=== PATIENT | female | born 1960 | race Caucasian/White ===

== ENCOUNTER 2020-01-17 06:06 | Inpatient (IN) ==
--- NOTE | 2020-01-17 06:40 | Emergency Department Note ---
Impression & Plan Pneumonia, Asthma exacerbation, Hypoxia ED Provider Note NAME: BRIDGETTE GARCIA AGE: 59 SEX: F : 1960 ARRIVES VIA: Ambulance INFORMANT: Patient, ED PROVIDER(S): Nicolas Rodriguez MD Chief Complaint: Shortness of breath HPI: Patient does present from home via ambulance due to concern for shortness of breath. Patient states she has had 3 to 4 days of symptoms. Progressively worse over the last 3 to 4 days. Patient states it is constant. The oxygen she received in the ambulance has made it better. Patient does not use oxygen and CPAP or BiPAP at home. More activity does make it worse. Patient has had chronic nonproductive cough since April. Patient has no history of asthma. Patient has been taking her albuterol inhaler at home but without much relief. Patient states that she does have a friend that lives with her who smokes but smokes outside of the home. The patient is a non-smoker never smoker. Patient does not present with fevers, chills, coronavirus contacts, coronavirus testing, or recent travel. The patient states that she does have salt in the diet. Denies any increase in lower extremity swelling or weight gain. Patient denies any history of DVT or PE. The patient denies any chest pains. Portably when EMS arrived the patient was satting in the 70s and was placed on oxygen. ROS: See HPI for pertinent positives and negatives. A total of 10 systems were reviewed and otherwise negative. Past medical history: See below Surgical history: See below Social history: See below Physical Exam: GENERAL: Mildly ill in appearance, mild distress, nonrebreather in place. Wearing glasses. EYE EXAM: Normal conjunctiva. PERRL, no anisocoria and EOM's grossly intact w/o pain. OROPHARYNX: Moist mucus membranes. Poor dentition. NECK: Supple, no nuchal rigidity, no adenopathy, non-tender. No signs of meningismus. LUNGS: Wheezing throughout, mild tachypnea noted. HEART: NSR, no MRG. ABDOMEN: Abdomen soft, non-tender, normo-active bowel sounds, no masses, no rebound or guarding. BACK: No CVA TTP. SKIN: No rashes and no bruising. UPPER EXTREMITIES: Upper extremities are grossly normal. LOWER EXTREMITIES: Grossly normal, trace pretibial edema bilaterally. Negative Homans sign bilaterally. NEURO EXAM: A&O x3, cranial nerves II-XII grossly intact, normal speech, moves all 4 extremities on command w/o issue. Differential diagnoses: Reactive airway disease, pneumonia, pneumothorax, COPD, CHF, infections, cardiac ischemia, pulmonary embolism, musculoskeletal, gas trointestinal, as well as other pathologies. Course: Patient was seen and evaluated the bedside. Full history physical exam was performed. EKG: Indication: Shortness of breath Sinus tachycardia, rate 106, wide QRS, left bundle branch block pattern, T wave inversion high lateral leads, no Sgarbossa criteria present. Fairly unchanged from August 05, 2019. The rate is slightly faster today and PVCs were noted on the August EKG which were not present today. Imaging Studies: Radiology results as stated below per my review in the radiologist's interpretation: XR chest 1V portable CLINICAL HISTORY: 59 years-old Female presenting with Dyspnea. TECHNIQUE: Portable upright AP view of the chest was obtained. COMPARISON: 08/05/2019. FINDINGS: Cardiopericardial silhouette moderately enlarged. Mild pulmonary vascular prominence. Vague opacity at the right lung base. No other focal opacity. No large effusion or pneumothorax. Osseous structures normal. Upper abdomen normal. IMPRESSION: 1. Vague infiltrate suspected at the right lung base concerning for pneumonia. 2. Enlarged cardiopericardial silhouette consistent with known underlying cardiomegaly seen on prior CTA chest from August 2019. Mild volume overload may be present. No advanced congestive change. ACT 112: Negative or not required by law. Electronically signed by: Garfield Wang M.D. 01/17/2020 7:09 AM Dictated: 01/17/20 0708 Transcribed: 01/17/20 0708 Cardiac monitoring: An order was placed for continuous cardiac monitoring. The monitor shows a rate of 95 with sinus rhythm. MDM: Does present with shortness of breath. The patient did have blood work completed. Currently no fever the patient has had a chronic nonproductive cough for many months. No coronavirus contacts or active testing. Patient's EKG appears fairly unchanged from prior. I did reassess the patient several times that she was getting her neb treatment. Respiratory also thought that she was doing well. Patient was able to give me a thumbs up from her room on her neb treatment. The patient appears more comfortable. Patient does have a normal white count. No left shift. Kidney function is unremarkable. Tropon in is detectable but not elevated. BNP is not elevated. Chest x-ray shows the concern for possible right lung base pneumonia. The patient also has evidence of persistent cardiomegaly. I believe the patient has had symptomatic improvement with her breathing treatment. I believe the patient likely has an underlying asthma and potentially concomitant pneumonia. The patient has a chronic cough for some time although it is nonproductive with a normal white count no fever. I did speak the on-call hospitalist Rod Capone MD [facility] hospitalist group who agreed to further evaluate and treat the patient. Patient was admitted to the medicine service. Of note antibiotics were deferred to the inpatient team in order to conserve PPE and ensure only one set of orders were placed at the time of admission. Critical Care: I have personally spent 52 minutes of critical care time in direct management of this patient. This includes bedside care, interpretation of diagnostic studies, and testing, discussion with consultants, patient, and family members, and other require inpatient management activities. This 52 minutes is in excess of all separately billable procedures. Past Med/Surg History Medical History Bronchitis (Inactive) Cardiomegaly Cholelithiasis Noted on CT scan 08/06/2019 HTN (hypertension) (Chronic) Left thyroid nodule Incidental finding on CT 08/06/2019: 1.2 centimeter left thyroid nodule 1.8 cm hypoechoic left lobe thyroid nodule -ultrasound 08/12/2019 No chronic diseases present Surgical History S/P appendectomy Social History Preferred Language: Estonian Communication Ability: Effective Visual Impairment: No Limitations Hearing Ability: Normal Beliefs That Will Affect Care: None marital status: / Current Living Situation: Family current occupational status: unemployed current occupation: homemaker Feels Safe at Home: Yes Smoking Status: Never smoker Hx Alcohol Use: No Hx Substance Use: No Childhood Exposure to Second-Hand Smoke: No Diet Comment: regular caffeine: Yes (1 cup) during the past year weight has: remained stable Dental Care, Regularly: No Physical Activity Frequency: Daily Physical Activity Frequency Comment: walking Seatbelt Use: never Sunscreen Use: No Allergies Allergies Allergy/AdvReac Type Severity Reaction Status Date / Time No Known Drug Allergies Allergy Unknown Verified 01/17/20 06:37 Home Meds Home Medications Medication Instructions Recorded Confirmed ibuprofen [Advil] 400 - 600 mg PO DIRECTED PRN 04/30/19 01/17/20 Previous Rx's Medication Instructions Recorded fluticasone propionate 50 1 spray INTNAS DAILY #9.9 gm 11/26/19 mcg/actuation nasal spray,suspension pantoprazole 40 mg tablet,delayed 40 mg PO DAILY #30 tab 11/26/19 release albuterol sulfate 90 mcg/actuation 2 puffs INH Q4H PRN #6.7 gm 12/03/19 aerosol inhaler fluticasone 100 mcg-salmeterol 50 1 puffs INH BID #60 ea 01/15/20 mcg/dose blistr powdr for inhalation losartan 50 mg tablet 50 mg PO BID #180 tab 01/16/20 Results & Data (ED) Vital Signs Vital Signs - 24 hr 01/17/20 06:14 01/17/20 06:15 01/17/20 06:19 Temperature Temperature Source Pulse Rate 118 H 115 H 101 H Pulse Rate [Right Finger] Pulse Rate from SpO2 Sensor 118 H 114 H Pulse Rhythm Pulse Strength Respiratory Rate 21 19 Respiratory Effort / Characteristics Labored Respiratory Depth Respiratory Pattern Regular Blood Pressure 196/119 H 196/119 H Blood Pressure [Right Arm] Blood Pressure Mean 134 144 Blood Pressure Mean [Right Arm] Blood Pressure Position Pulse Oximetry 98 98 99 Oxygen Delivery Method Non-rebreather Oxygen Flow Rate Sepsis Recent Fever Within 48 Hours No Sepsis New/Unexplained Change in Mental Status Sepsis Action Taken by Nursing No Action Required 01/17/20 06:20 01/17/20 06:24 01/17/20 06:30 Temperature 36.5 C Temperature Source Oral Pulse Rate 104 H 103 H Pulse Rate [Right Finger] Pulse Rate from SpO2 Sensor 100 H Pulse Rhythm Regular Pulse Strength Normal Respiratory Rate 26 H 30 H Respiratory Effort / Characteristics Respiratory Depth Normal Respiratory Pattern Blood Pressure 196/119 H Blood Pressure [Right Arm] Blood Pressure Mean 144 Blood Pressure Mean [Right Arm] Blood Pressure Position Sitting Pulse Oximetry 99 99 100 Oxygen Delivery Method Non-rebreather Non-rebreather Oxygen Flow Rate 15 15 Sepsis Recent Fever Within 48 Hours No Sepsis New/Unexplained Change in Mental Status No Sepsis Action Taken by Nursing No Action Required 01/17/20 06:42 01/17/20 07:00 01/17/20 07:11 Temperature Temperature Source Pulse Rate 88 95 H Pulse Rate [Right Finger] 101 H 88 Pulse Rate from SpO2 Sensor 89 92 H Pulse Rhythm Pulse Strength Respiratory Rate 25 H 23 22 Respiratory Effort / Characteristics Non-Labored Spontaneous Respiratory Depth Normal Respiratory Pattern Blood Pressure 134/101 H Blood Pressure [Right Arm] 134/101 H Blood Pressure Mean 114 Blood Pressure Mean [Right Arm] 112 Blood Pressure Position Pulse Oximetry 99 99 98 Oxygen Delivery Method Non-rebreather Nebulizer Non-rebreather Oxygen Flow Rate 15 12 11 Sepsis Recent Fever Within 48 Hours Sepsis New/Unexplained Change in Mental Status Sepsis Action Taken by Nursing 01/17/20 07:30 01/17/20 07:51 01/17/20 08:00 Temperature Temperature Source Pulse Rate 98 H 96 H 91 H Pulse Rate [Right Finger] Pulse Rate from SpO2 Sensor 97 H 95 H 94 H Pulse Rhythm Pulse Strength Respiratory Rate 20 25 H 25 H Respiratory Effort / Characteristics Respiratory Depth Respiratory Pattern Blood Pressure 164/90 H 149/86 H Blood Pressure [Right Arm] Blood Pressure Mean 114 119 Blood Pressure Mean [Right Arm] Blood Pressure Position Pulse Oximetry 99 100 100 Oxygen Delivery Method Oxygen Flow Rate Sepsis Recent Fever Within 48 Hours Sepsis New/Unexplained Change in Mental Status Sepsis Action Taken by Nursing 01/17/20 08:01 01/17/20 08:30 01/17/20 08:31 Temperature Temperature Source Pulse Rate 93 H 111 H 104 H Pulse Rate [Right Finger] Pulse Rate from SpO2 Sensor 93 H 112 H 105 H Pulse Rhythm Pulse Strength Respiratory Rate 24 31 H 22 Respiratory Effort / Characteristics Respiratory Depth Respiratory Pattern Blood Pressure 142/79 H Blood Pressure [Right Arm] Blood Pressure Mean 103 Blood Pressure Mean [Right Arm] Blood Pressure Position Pulse Oximetry 100 99 100 Oxygen Delivery Method Aerosol Mask Oxygen Flow Rate 12 Sepsis Recent Fever Within 48 Hours Sepsis New/Unexplained Change in Mental Status Sepsis Action Taken by Nursing 01/17/20 09:00 01/17/20 09:01 Temperature Temperature Source Pulse Rate 104 H 103 H Pulse Rate [Right Finger] Pulse Rate from SpO2 Sensor 104 H 104 H Pulse Rhythm Pulse Strength Respiratory Rate 22 21 Respiratory Effort / Characteristics Respiratory Depth Respiratory Pattern Blood Pressure 137/76 Blood Pressure [Right Arm] Blood Pressure Mean 97 Blood Pressure Mean [Right Arm] Blood Pressure Position Pulse Oximetry 99 100 Oxygen Delivery Method Oxygen Flow Rate Sepsis Recent Fever Within 48 Hours Sepsis New/Unexplained Change in Mental Status Sepsis Action Taken by Custodial Medications Current Medication List: was personally reviewed by me Laboratory Data Attestation: I reviewed the patient's lab results. Result diagrams: 01/17/20 06:20 01/17/20 06:20 Lab Results 01/17/20 01/17/20 01/17/20 Range/Units 06:20 06:20 06:20 WBC 7.90 (4.8-10.8) K/uL RBC 5.14 (4.2-5.4) M/uL Hgb 15.5 (12.0-16.0) g/dL Hct 46.0 (37-47) % MCV 89.5 (80-100) fL MCH 30.2 (25-34) pg MCHC 33.7 (32-36) g/dL RDW Std Deviation 44.9 (36.4-46.3) fL RDW Coeff of Niesha 13.7 (11.5-14.5) % Plt Count 259 (130-400) K/uL MPV 11.1 H (7.4-10.4) fL Immature Gran % (Auto) 0.1 % Neut % (Auto) 50.2 % Lymph % (Auto) 23.8 % [place] % (Auto) 4.1 % Eos % (Auto) 20.4 % Baso % (Auto) 1.4 % Immature Gran # (Auto) 0.01 (0.00-0.02) K/uL Neut # (Auto) 3.97 (1.4-6.5) K/uL Lymph # (Auto) 1.88 (1.2-3.4) K/uL [place] # (Auto) 0.32 (0.11-0.59) K/uL Eos # (Auto) 1.61 H (0-0.5) K/uL Baso # (Auto) 0.11 (0-0.2) K/uL PT 11.5 (9.0-12.0) Seconds INR 1.1 (0.9-1.1) APTT 28.5 (21.0-31.0) Seconds PTT Ratio 1.0 VBG pH (7.36-7.41) VBG pCO2 (38-50) mmHg VBG pO2 mmHg VBG HCO3 mmol/L VBG O2 Saturation % VBG Base Excess mEq/L Barometric Pressure mm/Hg Sodium 140 (136-145) mmol/L Potassium 3.6 (3.5-5.1) mmol/L Chloride 106 (98-107) mmol/L Carbon Dioxide 26 (21-32) mmol/L Anion Gap 8.0 (3-11) BUN 16 (7-18) mg/dl Creatinine 0.83 (0.6-1.2) mg/dl Est Cr Clr Drug Dosing 84.6 ml/min Est GFR ( Amer) 90.7 Est GFR (Non-Af Amer) 78.3 BUN/Creatinine Ratio 18.7 (10-20) Glucose 135 H (70-99) mg/dl Lactate (0.4-2.0) mmol/L Calcium 9.2 (8.5-10.1) mg/dl Total Bilirubin 0.5 (0.2-1) mg/dl AST 19 (15-37) U/L ALT 29 (12-78) U/L Alkaline Phosphatase 103 (45-117) U/L Troponin I 0.018 (0-0.045) ng/ml NT-Pro-B Natriuret Pep 458 (0-900) pg/ml Total Protein 8.1 (6.4-8.2) gm/dl Albumin 4.2 (3.4-5.0) gm/dl Globulin 3.9 (2.5-4.0) gm/dl Albumin/Globulin Ratio 1.1 (0.9-2) 01/17/20 01/17/20 Range/Units 06:20 08:02 WBC (4.8-10.8) K/uL RBC (4.2-5.4) M/uL Hgb (12.0-16.0) g/dL Hct (37-47) % MCV (80-100) fL MCH (25-34) pg MCHC (32-36) g/dL RDW Std Deviation (36.4-46.3) fL RDW Coeff of Niesha (11.5-14.5) % Plt Count (130-400) K/uL MPV (7.4-10.4) fL Immature Gran % (Auto) % Neut % (Auto) % Lymph % (Auto) % [place] % (Auto) % Eos % (Auto) % Baso % (Auto) % Immature Gran # (Auto) (0.00-0.02) K/uL Neut # (Auto) (1.4-6.5) K/uL Lymph # (Auto) (1.2-3.4) K/uL [place] # (Auto) (0.11-0.59) K/uL Eos # (Auto) (0-0.5) K/uL Baso # (Auto) (0-0.2) K/uL PT (9.0-12.0) Seconds INR (0.9-1.1) APTT (21.0-31.0) Seconds PTT Ratio VBG pH 7.31 L (7.36-7.41) VBG pCO2 57 H (38-50) mmHg VBG pO2 42 mmHg VBG HCO3 28 mmol/L VBG O2 Saturation 70.6 % VBG Base Excess 0.5 mEq/L Barometric Pressure 734.3 mm/Hg Sodium (136-145) mmol/L Potassium (3.5-5.1) mmol/L Chloride (98-107) mmol/L Carbon Dioxide (21-32) mmol/L Anion Gap (3-11) BUN (7-18) mg/dl Creatinine (0.6-1.2) mg/dl Est Cr Clr Drug Dosing ml/min Est GFR ( Amer) Est GFR (Non-Af Amer) BUN/Creatinine Ratio (10-20) Glucose (70-99) mg/dl Lactate 1.0 (0.4-2.0) mmol/L Calcium (8.5-10.1) mg/dl Total Bilirubin (0.2-1) mg/dl AST (15-37) U/L ALT (12-78) U/L Alkaline Phosphatase (45-117) U/L Troponin I (0-0.045) ng/ml NT-Pro-B Natriuret Pep (0-900) pg/ml Total Protein (6.4-8.2) gm/dl Albumin (3.4-5.0) gm/dl Globulin (2.5-4.0) gm/dl Albumin/Globulin Ratio (0.9-2) Administered Medications Discontinued Medications Albuterol (Duoneb) 12 ml INH ONE STA Stop: 01/17/20 06:51 Last Admin: 01/17/20 07:09 Dose: 12 ml Documented by: [id number] Sodium Chloride (Nss) 500 mls @ 999 mls/hr IV .Q31M ERICKA Stop: 01/17/20 07:30 Last Infusion: 01/17/20 08:00 Dose: 0 mls/hr Documented by: [id number] Admin: 01/17/20 07:25 Dose: 999 mls/hr Documented by: [id number] Magnesium Sulfate/Dextrose (Magnesium Sulfate / D5w) 1 gm in 100 mls @ 100 mls/hr IV Q1H ERICKA Stop: 01/17/20 08:59 Last Admin: 01/17/20 08:30 Dose: 100 mls/hr Documented by: [id number] Infusion: 01/17/20 08:30 Dose: 0 mls/hr Documented by: [id number] Admin: 01/17/20 07:25 Dose: 100 mls/hr Documented by: [id number] Methylprednisolone (Solumedrol) 125 mg IV NOW STA Stop: 01/17/20 06:51 Last Admin: 01/17/20 07:25 Dose: 125 mg Documented by: [id number] Blood Pressure Blood Pressure Findings: Elevated blood pressure Blood Pressure Disposition: further management by hospitalist Discharge Plan Visit Data Chief Complaint: Respiratory Distress Stated Complaint: RESPIRATORY DISTRESS ED Provider: Nicolas Rodriguez Discharge Problem: Pneumonia, Asthma exacerbation, Hypoxia Forms Stand Alone Forms: [facility] Prescriptions Prescriptions: No Action albuterol sulfate 90 mcg/actuation HFA aerosol inhaler 2 puffs INH Q4H PRN (Reason: shortness of breath or wheezing) Qty: 6.7 RF: 3 fluticasone propion-salmeterol 100-50 mcg/dose blister with device 1 puffs INH BID Qty: 60 RF: 1 losartan 50 mg tablet 50 mg PO BID Qty: 180 RF: 1 pantoprazole 40 mg tablet,delayed release (DR/EC) 40 mg PO DAILY Qty: 30 RF: 1 fluticasone propionate [Allergy Relief (fluticasone)] 50 mcg/actuation spray,suspension 1 spray INTNAS DAILY Qty: 9.9 RF: 1 ibuprofen [Advil] 200 mg Tablet 400 - 600 mg PO DIRECTED PRN (Reason: Pain) RF: 0 Discharge Problem: Pneumonia Qualifiers: Pneumonia type: due to unspecified organism Laterality: right Lung location: lower lobe of lung Qualified Code(s): J18.9 - Pneumonia, unspecified organism Asthma exacerbation Qualifiers: Asthma severity: severe Asthma persistence: persistent Qualified Code(s): J45.51 - Severe persistent asthma with (acute) exacerbation
[2020-01-17] MEDS ORDERED: methylPREDNISolone 125 MG/2 ML VIAL IV STA (06:50)
[2020-01-17] MEDS ORDERED: ALBUT/IPRATROP 3MG/0.5MG NEB 3 ML VIAL INH STA (06:50)
[2020-01-17 07:00] LABS: Basophils # (auto) 0.11 K/uL (0-0.2); Basophils % (auto) 1.4 %; Eosinophils # (auto) 1.61 K/uL (0-0.5); Eosinophils % (auto) 20.4 %; Hemoglobin 15.5 g/dL (12.0-16.0); Immature Granulocytes # (auto) 0.01 K/uL (0.00-0.02); Immature Granulocytes % (auto) 0.1 %; Lymphocytes # (auto) 1.88 K/uL (1.2-3.4); Lymphocytes % (auto) 23.8 %; Mean Corpuscular Hemoglobin 30.2 pg (25-34); Mean Corpuscular Hgb Conc 33.7 g/dL (32-36); Mean Corpuscular Volume 89.5 fL (80-100); Mean Platelet Volume 11.1 fL (7.4-10.4); Monocytes # (auto) 0.32 K/uL (0.11-0.59); Monocytes % (auto) 4.1 %; Neutrophils # (auto) 3.97 K/uL (1.4-6.5); Neutrophils % (auto) 50.2 %; Platelet Count 259 K/uL (130-400); RDW Coefficient of Variation 13.7 % (11.5-14.5); RDW Standard Deviation 44.9 fL (36.4-46.3); Red Blood Count 5.14 M/uL (4.2-5.4)
[2020-01-17] MEDS ORDERED: SODIUM CHLORIDE 0.9% 500 ML IV SCH (07:00)
[2020-01-17 07:08] LABS: Albumin Level 4.2 gm/dl (3.4-5.0); BUN Creatinine Ratio 18.7 (10-20); Calcium 9.2 mg/dl (8.5-10.1); Creatinine Clr Calc Pharmacy 84.6 ml/min; Est GFR (African American) 90.7; Est GFR (Non-African American) 78.3; Potassium 3.6 mmol/L (3.5-5.1)
[2020-01-17 07:09] LABS: INR 1.1 (0.9-1.1); Partial Thromboplastin Time 28.5 Seconds (21.0-31.0); Prothrombin Time 11.5 Seconds (9.0-12.0)
--- NOTE | 2020-01-17 07:11 | XRay Report ---
XR chest 1V portable CLINICAL HISTORY: 59 years-old Female presenting with Dyspnea. TECHNIQUE: Portable upright AP view of the chest was obtained. COMPARISON: 08/05/2019. FINDINGS: Cardiopericardial silhouette moderately enlarged. Mild pulmonary vascular prominence. Vague opacity a t the right lung base. No other focal opacity. No large effusion or pneumothorax. Osseous structures normal. Upper abdomen normal. IMPRESSION: 1. Vague infiltrate suspected at the right lung base concerning for pneumonia. 2. Enlarged cardiopericardial silhouette consistent with known underlying cardiomegaly seen on prior CTA chest from August 2019. Mild volume overload may be present. No advanced congestive change. ACT 112: Negative or not required by law. Electronically signed by: Garfield Wang M.D. 01/17/2020 7:09 AM
[2020-01-17 07:13] LABS: Albumin Globulin Ratio 1.1 (0.9-2); Bilirubin,Total 0.5 mg/dl (0.2-1); Globulin 3.9 gm/dl (2.5-4.0); Total Protein 8.1 gm/dl (6.4-8.2); Troponin I 0.018 ng/ml (0-0.045)
[2020-01-17] MEDS: MAGNESIUM SULFATE / D5W 1 GM/100 ML BAG IV SCH ×2 (07:25→08:30)
[2020-01-17 08:12] LABS: Base Excess VBG 0.5 mEq/L; Oxygen Saturation VBG 70.6 %; pH VBG 7.31 (7.36-7.41)
--- NOTE | 2020-01-17 08:56 | History & Physical Report ---
Date of Service January 17, 2020 Assessment & Plan (1) Pneumonia: CXR with right lower lobe pneumonia increased cough, increased dyspnea no fever, WBC normal no known sick contacts, no COVID 19 contacts - no isolation needed Levofloxacin 750mg daily x 7 days Solu Medrol, Duoneb NSS at 100mL/hr x 1 bag follow up this afternoon to see how she is feeling (2) Asthma exacerbation: bilateral wheezing, increased cough typically on Fluticasone-salmeterol for asthma will place on Solu Medrol 50mg q12, received 125mg IV in the ED Duoneb QID scheduled and q2 PRN for wheezing (3) Hypoxia: acute hypoxic respiratory failure - presented with tachypnea, increased work of breathing, using accessory muscles oxygen saturations reported to be 70% on room air when EMS arrived continue on NRB but titrate down to NC as tolerated treat underlying issue which is pneumonia and asthma exacerbation (4) HTN (hypertension): continue Losartan, Cr is normal History of Present Illness Chief Complaint: I've been coughing since April Primary Care Provider: Fariha Guaman, DO 59 yo female with h/o reactive airway disease, bronchitis, hypertension who presents to the ED due to increased cough, wheezing and shortness of breath. She reports that she coughs all the time, better part of the past year. She uses Albuterol and fluticasone-salmeterol at home which keeps symptoms well controlled. She was scheduled to see a slot manager later this month. She says that early last evening she started to feel more short of breath than normal. She used her rescue inhaler several times but it did not help. Over night her breathing got worse so she called EMS. She was reportedly 70% on room air when EMS arrived, they placed her on 15L NRB and her oxygen levels immediately came up and her distress improved greatly. She denies any fever/chills, night sweats, no known sick contacts, no contacts with anyone who has tested positive for COVID 19. She stays in her home due to her cough and chronic breathing issues. She has been eating and drinking well up until this morning. She has been moving her bowels, making urine, she denies any swelling in her lower legs. She does not smoke. CXR in the ED shows a right lower lobe infiltrate. No fever, WBC normal. She responded well to Solu Medrol, Magnesium IV and Duoneb treatment. Far less distress, able to talk in complete sentences. Asked to admit patient for pneumonia and respiratory failure. Allergies Allergy/AdvReac Type Severity Reaction Status Date / Time No Known Drug Allergies Allergy Unknown Verified 01/17/20 06:37 Home Medications Home Medications Medication Instructions Recorded Confirmed Type ibuprofen [Advil] 400 - 600 mg PO DIRECTED PRN 04/30/19 01/17/20 History fluticasone propionate 50 1 spray INTNAS DAILY #9.9 gm 11/26/19 01/17/20 Rx mcg/actuation nasal spray,suspension pantoprazole 40 mg tablet,delayed 40 mg PO DAILY #30 tab 11/26/19 01/17/20 Rx release albuterol sulfate 90 mcg/actuation 2 puffs INH Q4H PRN #6.7 gm 12/03/19 01/17/20 Rx aerosol inhaler fluticasone 100 mcg-salmeterol 50 1 puffs INH BID #60 ea 01/15/20 01/17/20 Rx mcg/dose blistr powdr for inhalation losartan 50 mg tablet 50 mg PO BID #180 tab 01/16/20 01/17/20 Rx Past Med/Surg History Medical History Bronchitis (Inactive) Cardiomegaly Cholelithiasis Noted on CT scan 08/06/2019 HTN (hypertension) (Chronic) Left thyroid nodule Incidental finding on CT 08/06/2019: 1.2 centimeter left thyroid nodule 1.8 cm hypoechoic left lobe thyroid nodule -ultrasound 08/12/2019 No chronic diseases present Surgical History S/P appendectomy Social History Preferred Language: [place] Communication Ability: Effective Visual Impairment: No Limitations Hearing Ability: Normal Beliefs That Will Affect Care: None marital status: / Current Living Situation: Family current occupational status: unemployed current occupation: homemaker Feels Safe at Home: Yes Smoking Status: Never smoker Hx Alcohol Use: No Hx Substance Use: No Childhood Exposure to Second-Hand Smoke: No Diet Comment: regular caffeine: Yes (1 cup) during the past year weight has: remained stable Dental Care, Regularly: No Physical Activity Frequency: Daily Physical Activity Frequency Comment: walking Seatbelt Use: never Sunscreen Use: No Review of Systems Review of Systems: All systems reviewed & are unremarkable except as noted in HPI & below Constitutional: + weakness; no fever, no chills, no sweats, no body aches, no fatigue, no malaise, no weight loss and no weight gain Respiratory: + cough, + dyspnea, + dyspnea on exertion and + wheezing; no hemoptysis and no sputum production Cardiovascular: + dyspnea, + dyspnea at rest and + dyspnea on exertion; no chest pain, no palpitations, no syncope and no edema Gastrointestinal: no abdominal pain, no nausea, no vomiting, no constipation and no diarrhea/loose stools Genitourinary: no dysuria, no difficulty urinating, no urinary frequency and no urinary hesitancy Musculoskeletal: no back pain and no joint pain Integumentary: no rash and no wounds Neurologic: no unsteadiness, no falls, no tremor(s) and no seizure-like activity Psychiatric: no depression and no anxiety Physical Exam Constitutional: well developed, + ill appearing, cooperative, + in distress (mild) and + overweight Eyes: PERRL, conjunctivae normal, anicteric sclerae ENMT: external ear and nose normal, oropharynx normal Neck: trachea midline, no thyromegaly Respiratory: + respiratory distress (mild), + labored breathing, + uses accessory muscles, + cough and able to speak in complete sentences Auscultation: + rhonchi and + wheezes (bilaterally); no rales Cardiovascular: Rate/Rhythm: regular rhythm and + tachycardic Heart Sounds: normal S1 and normal S2; no murmur Vessels: no JVD Extremities: normal capillary refill; no edema Gastrointestinal (Abdomen): normal bowel sounds, soft, nontender, no hepatosplenomegaly Musculoskeletal: no cyanosis or clubbing, extremities motor strength 5/5 Skin: no rashes, warm and dry Neurologic: patellar DTR's 2+ bilat, sensation intact and PERRL, EOMI, accommodation nl, no face palsy, no dysarthria Psychiatric: A+Ox3, euthymic affect Lymphatic: no cervical or axillary lymphadenopathy Results & Data Results & Data ([facility]) Vital Signs (Past 12 Hours) Vital Signs Temp Pulse Pulse Resp BP BP Pulse Ox 01/17/20 08:01 93 H 24 100 01/17/20 08:00 91 H 25 H 149/86 H 100 01/17/20 07:51 96 H 25 H 164/90 H 100 01/17/20 07:30 98 H 20 99 01/17/20 07:11 88 22 98 01/17/20 07:00 95 H 23 99 01/17/20 06:42 88 101 H 25 H 134/101 H 134/101 H 99 01/17/20 06:30 103 H 30 H 100 01/17/20 06:24 99 01/17/20 06:20 36.5 C 104 H 26 H 196/119 H 99 01/17/20 06:19 101 H 196/119 H 99 01/17/20 06:15 115 H 19 196/119 H 98 01/17/20 06:14 118 H 21 98 Laboratory Results Laboratory Results - last 24 hr 01/17/20 01/17/20 01/17/20 06:20 06:20 06:20 WBC 7.90 RBC 5.14 Hgb 15.5 Hct 46.0 MCV 89.5 MCH 30.2 MCHC 33.7 RDW Std Deviation 44.9 RDW Coeff of Niesha 13.7 Plt Count 259 MPV 11.1 H Immature Gran % (Auto) 0.1 Neut % (Auto) 50.2 Lymph % (Auto) 23.8 Walker % (Auto) 4.1 Eos % (Auto) 20.4 Baso % (Auto) 1.4 Immature Gran # (Auto) 0.01 Neut # (Auto) 3.97 Lymph # (Auto) 1.88 Walker # (Auto) 0.32 Eos # (Auto) 1.61 H Baso # (Auto) 0.11 PT 11.5 INR 1.1 APTT 28.5 PTT Ratio 1.0 VBG pH VBG pCO2 VBG pO2 VBG HCO3 VBG O2 Saturation VBG Base Excess Barometric Pressure Sodium 140 Potassium 3.6 Chloride 106 Carbon Dioxide 26 Anion Gap 8.0 BUN 16 Creatinine 0.83 Est Cr Clr Drug Dosing 84.6 Est GFR ( Amer) 90.7 Est GFR (Non-Af Amer) 78.3 BUN/Creatinine Ratio 18.7 Glucose 135 H Lactate Calcium 9.2 Total Bilirubin 0.5 AST 19 ALT 29 Alkaline Phosphatase 103 Troponin I 0.018 NT-Pro-B Natriuret Pep 458 Total Protein 8.1 Albumin 4.2 Globulin 3.9 Albumin/Globulin Ratio 1.1 01/17/20 01/17/20 06:20 08:02 WBC RBC Hgb Hct MCV MCH MCHC RDW Std Deviation RDW Coeff of Niesha Plt Count MPV Immature Gran % (Auto) Neut % (Auto) Lymph % (Auto) Walker % (Auto) Eos % (Auto) Baso % (Auto) Immature Gran # (Auto) Neut # (Auto) Lymph # (Auto) Walker # (Auto) Eos # (Auto) Baso # (Auto) PT INR APTT PTT Ratio VBG pH 7.31 L VBG pCO2 57 H VBG pO2 42 VBG HCO3 28 VBG O2 Saturation 70.6 VBG Base Excess 0.5 Barometric Pressure 734.3 Sodium Potassium Chloride Carbon Dioxide Anion Gap BUN Creatinine Est Cr Clr Drug Dosing Est GFR ( Amer) Est GFR (Non-Af Amer) BUN/Creatinine Ratio Glucose Lactate 1.0 Calcium Total Bilirubin AST ALT Alkaline Phosphatase Troponin I NT-Pro-B Natriuret Pep Total Protein Albumin Globulin Albumin/Globulin Ratio Diagnostic Findings XR chest 1V portable CLINICAL HISTORY: 59 years-old Female presenting with Dyspnea. TECHNIQUE: Portable upright AP view of the chest was obtained. COMPARISON: 08/05/2019. FINDINGS: Cardiopericardial silhouette moderately enlarged. Mild pulmonary vascular prominence. Vague opacity at the right lung base. No other focal opacity. No large effusion or pneumothorax. Osseous structures normal. Upper abdomen normal. IMPRESSION: 1. Vague infiltrate suspected at the right lung base concerning for pneumonia. 2. Enlarged cardiopericardial silhouette consistent with known underlying cardiomegaly seen on prior CTA chest from August 2019. Mild volume overload may be present. No advanced congestive change. Medications Administered Current Inpatient Medications Magnesium Sulfate/Dextrose (Magnesium Sulfate / D5w) 1 gm in 100 mls @ 100 mls/hr IV Q1H ERICKA Stop: 01/17/20 08:59 Last Admin: 01/17/20 08:30 Dose: 100 mls/hr Documented by: Code Status & VTE Plan VTE Prophylaxis Plan VTE Prophylaxis will be ordered: Yes PG Care Time/CCT Total # of Minutes Spent Total Time Spent with Patient: Total time spent is greater than 50% in coordination of care (as documented) at patient's floor/unit and/or counseling patient: Coding Level of Care Code 99282 Initial Inpt Care Lvl 3 Diagnoses Pneumonia J18.9 Laterality: right Lung location: lower lobe of lung Pneumonia type: due to unspecified organism Asthma exacerbation J45.51 Asthma persistence: persistent Asthma severity: severe Hypoxia R09.02 HTN (hypertension) I10 Hypertension type: unspecified (1) Pneumonia Laterality: right Lung location: lower lobe of lung Pneumonia type: due to unspecified organism Qualified Code(s): J18.9 - Pneumonia, unspecified organism (2) Asthma exacerbation Asthma persistence: persistent Asthma severity: severe Qualified Code(s): J45.51 - Severe persistent asthma with (acute) exacerbation (3) HTN (hypertension) Hypertension type: unspecified Qualified Code(s): I10 - Essential (primary) hypertension
[2020-01-17] MEDS ORDERED: ONDANSETRON INJ 2 MG/ML 2 ML VIAL IV PRN (09:52)
[2020-01-17] MEDS ORDERED: ALBUT/IPRATROP 3MG/0.5MG NEB 3 ML VIAL NEB PRN (09:52)
[2020-01-17] MEDS ORDERED: ACETAMINOPHEN 325 MG TAB PO PRN (09:52)
[2020-01-17] MEDS: LEVOFLOXACIN/D5W 750 MG/150 ML BAG IV SCH (10:20)
[2020-01-17] MEDS: FLUTICASONE PROPIONATE NA SPR 16 GM BTL SCH (10:22)
[2020-01-17] MEDS: LOSARTAN POTASSIUM 50 MG TAB PO SCH ×2 (10:22→20:49)
[2020-01-17] MEDS: ENOXAPARIN INJ 40 MG/0.4 ML SYR SQ SCH (10:22)
[2020-01-17] MEDS: PANTOprazole 40 MG TAB PO SCH (10:22)
[2020-01-17] MEDS ORDERED: NSS + 20MEQ KCL 20 MEQ/1,000 ML BAG IV SCH (10:30)
--- NOTE | 2020-01-17 10:50 | Electrocardiogram Report ---
Test Reason : Blood Pressure : / mmHG Vent. Rate : 106 BPM Atrial Rate : 106 BPM P-R Int : 156 ms QRS Dur : 144 ms QT Int : 374 ms P-R-T Axes : 067 013 097 degrees QTc Int : 496 ms Poor data quality, interpretation may be adversely affected Sinus tachycardia Left bundle branch block Abnormal ECG When compared with ECG of 05-AUG-2019 21:03, Premature ventricular complexes are no longer Present Confirmed by Jimi Stringer ([id number]) on 01/17/2020 10:50:09 AM Referred By: REFERRED SELF Confirmed By:Henry Stringer
[2020-01-17] MEDS: ALBUT/IPRATROP 3MG/0.5MG NEB 3 ML VIAL NEB SCH ×3 (11:16→19:39)
[2020-01-17] MEDS: methylPREDNISolone 50 MG in SYRINGE 0 ML IV SCH (20:49)
[2020-01-17] MEDS ORDERED: PNEUMOCOCCAL Polysaccharide Vaccine 25mcg/0.5mL vial/Syr IM ONE (21:15)
[2020-01-18] MEDS: ALBUT/IPRATROP 3MG/0.5MG NEB 3 ML VIAL NEB SCH ×3 (06:59→14:46)
[2020-01-18] MEDS: FLUTICASONE PROPIONATE NA SPR 16 GM BTL SCH (08:17)
[2020-01-18] MEDS: LOSARTAN POTASSIUM 50 MG TAB PO SCH (08:17)
[2020-01-18] MEDS: ENOXAPARIN INJ 40 MG/0.4 ML SYR SQ SCH (08:56)
[2020-01-18] MEDS: methylPREDNISolone 50 MG in SYRINGE 0 ML IV SCH (08:59)
[2020-01-18] MEDS: PANTOprazole 40 MG TAB PO SCH (09:35)
[2020-01-18] MEDS: LEVOFLOXACIN/D5W 750 MG/150 ML BAG IV SCH (11:03)
[2020-01-18] MEDS ORDERED: predniSONE 20 MG TAB PO ONE (13:05)
--- NOTE | 2020-01-18 13:14 | Discharge Summary ---
Date of Service January 18, 2020 Admission HPI Per Admitting Provider 59 yo female with h/o reactive airway disease, bronchitis, hypertension who presents to the ED due to increased cough, wheezing and shortness of breath. She reports that she coughs all the time, better part of the past year. She uses Albuterol and fluticasone-salmeterol at home which keeps symptoms well controlled. She was scheduled to see a textile engineer later this month. She says that early last evening she started to feel more short of breath than normal. She used her rescue inhaler several times but it did not help. Over night her breathing got worse so she called EMS. She was reportedly 70% on room air when EMS arrived, they placed her on 15L NRB and her oxygen levels immediately came up and her distress improved greatly. She denies any fever/chills, night sweats, no known sick contacts, no contacts with anyone who has tested positive for COVID 19. She stays in her home due to her cough and chronic breathing issues. She has been eating and drinking well up until this morning. She has been moving her bowels, making urine, she denies any swelling in her lower legs. She does not smoke. CXR in the ED shows a right lower lobe infiltrate. No fever, WBC normal. She responded well to Solu Medrol, Magnesium IV and Duoneb treatment. Far less distress, able to talk in complete sentences. Asked to admit patient for pneumonia and respiratory failure. Principal Diagnosis Acute hypoxic respiratory failure due to pneumonia Discharge Exam Constitutional well developed and + overweight; not ill appearing and not in distress Eyes PERRL, conjunctivae normal, anicteric sclerae ENMT external ear and nose normal, oropharynx normal Neck trachea midline, no thyromegaly Respiratory normal respiratory effort, + cough and able to speak in complete sentences; no respiratory distress and does not use accessory muscles Auscultation: lungs clear to auscultation bilaterally; no rales, no rhonchi and no wheezes Cardiovascular Rate/Rhythm: regular rate and regular rhythm Heart Sounds: normal S1 and normal S2; no murmur Vessels: no JVD Extremities: normal capillary refill; no edema Gastrointestinal (Abdomen) normal bowel sounds, soft, nontender, no hepatosplenomegaly Musculoskeletal no cyanosis or clubbing, extremities motor strength 5/5 Skin no rashes, warm and dry Neurologic patellar DTR's 2+ bilat, sensation intact and PERRL, EOMI, accommodation nl, no face palsy, no dysarthria Psychiatric A+Ox3, euthymic affect Lymphatic no cervical or axillary lymphadenopathy Discharge Data Allergies Allergy/AdvReac Type Severity Reaction Status Date / Time No Known Drug Allergies Allergy Unknown Verified 01/17/20 06:37 Consultations 01/17/20 08:02 ED Decision to Admit Stat Hospital Course (1) Pneumonia: CXR with right lower lobe pneumonia increased cough, increased dyspnea no fever, WBC normal no known sick contacts, no COVID 19 contacts - no isolation needed Levofloxacin 750mg daily Solu Medrol, Duoneb NSS at 100mL/hr x 1 bag responded quickly to antibiotics, steroids, nebulizers, titrated to room air on 01/16 in the evening no longer in distress no fever, eating and drinking well, breathing comfortably, feels like she can go home d/c home on Levofloxacin 750mg daily x 5 more days for 7 day total course (2) Asthma exacerbation: bilateral wheezing, increased cough at time of admission typically on Fluticasone-salmeterol for asthma will place on Solu Medrol 50mg q12 Duoneb QID scheduled and q2 PRN for wheezing lungs are clear, no wheezing, no distress, minimal cough give a dose of Prednisone prior to discharge d/c on Prednisone taper, 40mg x 3 days, 20mg x 3 days, 10mg x 4 days script given for home nebulizer machine, will be delivered tomorrow morning script given for Duoneb at home, q4 PRN follow up with PCP (3) Hypoxia: acute hypoxic respiratory failure - presented with tachypnea, increased work of breathing, using accessory muscles oxygen saturations reported to be 70% on room air when EMS arrived at her home quickly titrated down from NRB to room air a few hours after admission remains on room air today no need for home oxygen, lungs clear, no distress (4) HTN (hypertension): continue Losartan, Cr is normal Total Time Total Time Spent Total Time Spent (In Minutes): 32 minutes Total Time Includes: Examination of the Patient, Discharge Planning and Medication Reconciliation Discharge Plan Discharge Items Patient Disposition: Home - Self-Care Reason For Visit: PNEUMONIA,ACUTE HYPOXIA Discharge Diagnosis: Pneumonia Asthma exacerbation Acute hypoxia Condition on Discharge: Good Goals: complete course of Prednisone complete course of antibiotics use home nebulizer for relief of wheezing Activity: Resume your previous activity Driving/Machine Use: Resume 3 days after discharge Weightbearing: Full weightbearing Non-emergency contact: Primary Care Provider Call non-emergency contact if: you have any medication questions, your symptoms worsen and you have a fever Follow-up/Referrals: Fariha Guaman, [Primary Care Provider] - (one week) Diet: Heart Healthy Addtl Attending Provider Instructions: Medications: - PREDNISONE: will complete 10 days taper, starting tomorrow morning take 40mg (4 tablets) daily x 3 days then 20mg (2 tablets) daily x 3 days then 10mg daily x 4 days then stop - LEVOFLOXACIN: 750mg daily for 5 more days, next dose is due tomorrow morning - ALBUTEROL/IPRATROPIUM: nebulizer treatment, use every 4 hours as needed, see below Right lower lobe pneumonia, asthma exacerbation, acute hypoxia responded quickly to IV steroids and antibiotics and nebulizer treatments complete 5 more days of levofloxacin for 7 day total course complete 10 day taper of Prednisone home nebulizer will be delivered tomorrow at 9AM, script for the Duoneb medication sent to [facility], pick that up today use your albuterol inhaler every 2-4 hours as needed this evening resume your fluticasone/salmeterol inhaler this evening please follow up with Dr. Guaman this week, call her office for appointment Pending Studies at Discharge: No Stand-Alone Forms: My [facility], Smoking Cessation Medications and DC Order Prescriptions: New ipratropium-albuterol 0.5 mg-3 mg(2.5 mg base)/3 mL Solution For Nebulization 3 ml NEB Q4 PRN (Reason: shortness of breath or wheezing) Qty: 90 RF: 1 prednisone 10 mg tablet 10 mg PO UD 10 Days Qty: 22 RF: 0 levofloxacin 750 mg tablet 750 mg PO DAILY 5 Days Qty: 5 RF: 0 Continued albuterol sulfate 90 mcg/actuation HFA aerosol inhaler 2 puffs INH Q4H PRN (Reason: shortness of breath or wheezing) Qty: 6.7 RF: 3 fluticasone propion-salmeterol 100-50 mcg/dose blister with device 1 puffs INH BID Qty: 60 RF: 1 losartan 50 mg tablet 50 mg PO BID Qty: 180 RF: 1 pantoprazole 40 mg tablet,delayed release (DR/EC) 40 mg PO DAILY Qty: 30 RF: 1 fluticasone propionate [Allergy Relief (fluticasone)] 50 mcg/actuation spray,suspension 1 spray INTNAS DAILY Qty: 9.9 RF: 1 ibuprofen [Advil] 200 mg Tablet 400 - 600 mg PO DIRECTED PRN (Reason: Pain) RF: 0 Discharge Orders: Discharge Order (Routine); Ordered 01/18/20 Ordered By: Rod Capone Admission Data Admit Date/Time: 01/17/20 08:33 Attending Provider: Rod Capone Admit Provider: Rod Capone Primary Care Provider: Fariha Guaman Other Providers: Rod Capone Other Interventions: Discharge Summary Assessment (RN) Last Done: 01/18/20 12:55 Coding Level of Care Code D/C Day Management >30 mins Diagnoses Pneumonia J18.9 Laterality: right Lung location: lower lobe of lung Pneumonia type: due to unspecified organism Asthma exacerbation J45.51 Asthma persistence: persistent Asthma severity: severe Hypoxia R09.02 HTN (hypertension) I10 Hypertension type: unspecified
== END 2020-01-18 15:01 | disposition home or self-care (01) | DRG 193 ==
LOC: ED 06:06 → MERGE 08:33 → 1E 08:33 → 2S 18:38

== ENCOUNTER 2020-08-19 17:32 | Observation (INO) ==
[2020-08-19] MEDS ORDERED: ACETAMINOPHEN 500 MG TAB PO STA (17:52)
[2020-08-19] MEDS ORDERED: DEXAMETHASONE SOD INJ 10 MG/ML VIAL IV ONE (17:52)
[2020-08-19] MEDS ORDERED: SODIUM CHLORIDE 0.9% 1000ML 500 ML IV ONE (17:52)
[2020-08-19] MEDS ORDERED: ALBUTEROL HFA 8 GM INHALER INH ONE (17:52)
--- NOTE | 2020-08-19 17:59 | Emergency Department Note ---
Impression & Plan SOB (shortness of breath), COVID-19, Exacerbation of asthma ED Provider Note NAME: BRIDGETTE GARCIA AGE: 60 SEX: F : 1960 ARRIVES VIA: Walk-In INFORMANT: [Patient] ED PROVIDER(S): [Carlos Hancock MD] CHIEF COMPLAINT: Short of breath HISTORY OF PRESENT ILLNESS: The patient is a 60-year-old female with a history of asthma. She has noticed some increasing difficulty with her breathing for about 2 weeks. She has had a somewhat productive cough at times. Patient states that in the last 24 hours, her breathing has worsened. She is short of breath with any exertion. She has to stop and rest. She has not had a stuffy nose or sore throat. No fever. No chills. No loss of taste or smell, no nausea or diarrhea. Patient states that her mother has Covid although, she has not been around her mom. No one else at the house has been ill. Patient has been tested for Covid this pandemic and her result was negative, it has been sometime though since the test. Patient is using her inhalers and nebulizers without much relief. She is not on any antibiotic or steroid. The patient spoke to her doctors office, she was referred to the ED for evaluation. REVIEW OF SYSTEMS: See HPI for pertinent positives and negatives. A total of ten systems were reviewed and were otherwise negative. PMHx/PSHx: See Below SOCIAL HISTORY: See Below. PHYSICAL EXAM: GENERAL: Patient is in moderate respiratory distress. HEENT: No acute trauma, normocephalic atraumatic, mucous membranes moist, no nasal congestion, no scleral icterus. NECK: No stridor, no adenopathy, no meningismus, trachea is midline. LUNGS: No obvious wheeze, speaks in a shorter sentences. There is an increased respiratory rate noted. She is in moderate respiratory distress. HEART: Tachycardic, regular rhythm. Equal radial pulses bilaterally. ABDOMEN: Soft, nontender, bowel sounds positive, no hernias, no peritonitis. EXTREMITIES: No cyanosis or edema, full range of motion of all the joints without pain or difficulty, no signs for acute trauma. NEUROLOGIC: Oriented x 3, no acute motor or sensory deficits, no focal weakness. SKIN: No rash, no jaundice, no diaphoresis. DIFFERENTIAL DIAGNOSIS: Reactive airway disease, pneumonia, pneumothorax, influenza, coronavirus, exacerbation of asthma, COPD, CHF, infections, cardiac ischemia, pulmonary embolism, musculoskeletal, gastrointestinal, as well as other pathologies. EMERGENCY DEPARTMENT COURSE/PROCEDURES: ECG: Indication was shortness of breath. The ECG shows a normal sinus rhythm with a rate of 93. There is a left bundle branch block. The QTc is 482. There is no ST elevation, no PVCs. No old ECGs available for comparison. Continuous Cardiac Monitoring: An order was placed for continuous cardiac monitoring. The monitor shows a rate of 94 with normal sinus rhythm. MEDICAL DECISION MAKING: There is no leukocytosis or concerning anemia. There is a normal platelet count. No coagulopathy. D-dimer is not elevated making PE less likely. There was no significant electrolyte abnormality or kidney failure. No worrisome liver enzyme elevation. ECG shows a sinus rhythm, no acute ischemia. Cardiac enzyme testing x1 is not consistent with acute cardiac injury. Covid testing did return positive. Chest film was clear, there was no pneumonia, mediastinal widening or pneumothorax. On exam, the patient did seem dyspneic, she was not hypoxic. Patient received a small amount of IV saline, she was given albuterol via MDI. She received IV Decadron, 6 mg. She was given oral Tylenol for the fever. Patient's pulse decreased. She seemed to be feeling somewhat better compared to when she had arrived. I talked to her about admission versus discharge. The patient initially chose to go home. Discharge instructions were readied. The patient got up from the stretcher and walked outside the room. She became extremely dyspneic and had to sit down in a wheelchair. She was not comfortable with discharge home. She seemed way too short of breath to be in her home environment. The patient is being hospitalized. She has COVID-19, she has asthma and her asthma has flared. She has become quite dyspneic in the last 24 hours. I did speak to the patient, I talked with case management. The on-call hospi talist was consulted. Past Med/Surg History Medical History 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 2. BETHESDA SYSTEM FOR REPORTING THYROID CYTOPATHOLOGY: CATEGORY 2, BENIGN. 3. LYMPHOCYTIC THYROIDITIS NOTED. Bronchitis Cardiomegaly Cholelithiasis Noted on CT scan 08/06/2019 Chronic cough Conductive hearing loss of both ears Goiter Patience's thyroiditis HTN (hypertension) Hypersomnia LAD (lymphadenopathy), mediastinal LBBB (left bundle branch block) Left thyroid nodule Incidental finding on CT 08/06/2019: 1.2 centimeter left thyroid nodule 1.8 cm hypoechoic left lobe thyroid nodule -ultrasound 08/12/2019 No chronic diseases present Persistent asthma Surgical History S/P appendectomy Family History Other No family history of adverse response to anesthesia No family history of bleeding disorder Denies family history of Ovarian cancer Prostate cancer Myocardial infarction Breast cancer Lung cancer Colorectal cancer Social History Smoking Status: Never smoker Second Hand Exposure: No; Hx Alcohol Use: No Hx Substance Use: No Preferred Language: Swedish Communication Ability: Effective Visual Impairment: No Limitations Hearing Ability: Normal Computer Forensics Technician Required: No Beliefs That Will Affect Care: None marital status: / Current Living Situation: Family current occupational status: unemployed current occupation: homemaker Feels Safe at Home: Yes Childhood Exposure to Second-Hand Smoke: No Diet Comment: regular caffeine: Yes (1 cup) during the past year weight has: remained stable Dental Care, Regularly: No Physical Activity Frequency: Daily Physical Activity Frequency Comment: walking Seatbelt Use: always Sunscreen Use: No Assistive Devices: Glasses Allergies Allergies Allergy/AdvReac Type Severity Reaction Status Date / Time lisinopril AdvReac Mild Cough Verified 08/19/20 18:42 Home Meds Home Medications Medication Instructions Recorded Confirmed ibuprofen [Advil] 400 - 600 mg PO DIRECTED PRN 04/30/19 08/19/20 cholecalciferol (vitamin D3) 50 mcg PO QAM 08/19/20 08/19/20 [Vitamin D3] fluticasone furoate-vilanterol 1 inh INHALATION DAILY 08/19/20 08/19/20 [Breo Ellipta] pantoprazole 40 mg PO QAM 08/19/20 08/19/20 Previous Rx's Medication Instructions Recorded albuterol sulfate 90 mcg/actuation 2 puff INH Q6H PRN #18 g 04/16/20 aerosol inhaler levocetirizine 5 mg tablet 5 mg PO DAILY PRN #90 tab 04/18/20 fluticasone propionate 50 1 spray INTNAS DAILY #9.9 gm 05/13/20 mcg/actuation nasal spray,suspension amlodipine 5 mg tablet 5 mg PO DAILY #90 tab 06/24/20 ipratropium 0.5 mg-albuterol 3 mg 3 ml NEB Q4 PRN #90 ml 07/09/20 (2.5 mg base)/3 mL nebulization soln benzonatate 200 mg capsule 200 mg PO BID PRN #30 cap 08/11/20 budesonide-formoterol HFA 80 2 puff INHALATION BID #10.2 g 08/14/20 mcg-4.5 mcg/actuation aerosol inhaler methylprednisolone [Medrol (Casa)] 4 mg PO DIRECTED #21 ea 08/19/20 Results & Data (ED) Vital Signs Vital Signs - 24 hr 08/19/20 17:34 08/19/20 17:47 08/19/20 17:52 Temperature 37.7 C H Temperature Source Temporal Artery Scan Pulse Rate 118 H 118 H Pulse Rate from SpO2 Sensor Pulse Rhythm Regular Respiratory Rate 30 H 30 H Blood Pressure 166/93 H Blood Pressure Mean 117 Pulse Oximetry 94 96 96 Oxygen Delivery Method Room Air Room Air Room Air Sepsis Recent Fever Within 48 Hours No Sepsis New/Unexplained Change in Mental Status No Sepsis Action Taken by Nursing Physician Notified 08/19/20 18:30 08/19/20 19:00 08/19/20 19:05 Temperature 36.6 C Temperature Source Oral Pulse Rate 85 90 Pulse Rate from SpO2 Sensor 84 88 Pulse Rhythm Respiratory Rate 15 18 Blood Pressure 144/87 H Blood Pressure Mean 104 Pulse Oximetry 95 97 Oxygen Delivery Method Room Air Sepsis Recent Fever Within 48 Hours Sepsis New/Unexplained Change in Mental Status Sepsis Action Taken by Nursing 08/19/20 19:30 08/19/20 20:00 08/19/20 20:18 Temperature Temperature Source Pulse Rate 82 101 H 101 H Pulse Rate from SpO2 Sensor 82 100 H Pulse Rhythm Respiratory Rate 24 23 23 Blood Pressure 150/88 H 168/99 H 168/99 H Blood Pressure Mean 112 127 Pulse Oximetry 95 98 98 Oxygen Delivery Method Room Air Sepsis Recent Fever Within 48 Hours Sepsis New/Unexplained Change in Mental Status Sepsis Action Taken by Nursing 08/19/20 20:44 08/19/20 21:00 Temperature Temperature Source Pulse Rate 99 H 101 H Pulse Rate from SpO2 Sensor 96 H 101 H Pulse Rhythm Respiratory Rate 28 H 18 Blood Pressure 159/91 H 148/106 H Blood Pressure Mean 125 118 Pulse Oximetry 95 95 Oxygen Delivery Method Sepsis Recent Fever Within 48 Hours Sepsis New/Unexplained Change in Mental Status Sepsis Action Taken by Usp Medications Current Medication List: was personally reviewed by me Laboratory Data Attestation: I reviewed the patient's lab results. Result diagrams: 08/19/20 18:07 08/19/20 18:07 Lab Results 08/19/20 08/19/20 08/19/20 Range/Units 18:07 18:07 18:07 WBC 6.09 (4.8-10.8) K/uL RBC 4.58 (4.2-5.4) M/uL Hgb 13.4 (12.0-16.0) g/dL Hct 39.3 (37-47) % MCV 85.8 (80-100) fL MCH 29.3 (25-34) pg MCHC 34.1 (32-36) g/dL RDW Std Deviation 44.0 (36.4-46.3) fL RDW Coeff of Niesha 14.2 (11.5-14.5) % Plt Count 359 (130-400) K/uL MPV 10.1 (7.4-10.4) fL Immature Gran % (Auto) 0.2 % Neut % (Auto) 52.5 % Lymph % (Auto) 26.3 % [place] % (Auto) 7.7 % Eos % (Auto) 12.5 % Baso % (Auto) 0.8 % Neut # (Auto) 3.20 (1.4-6.5) K/uL Lymph # (Auto) 1.60 (1.2-3.4) K/uL [place] # (Auto) 0.47 (0.11-0.59) K/uL Eos # (Auto) 0.76 H (0-0.5) K/uL Baso # (Auto) 0.05 (0-0.2) K/uL Immature Gran # (Auto) 0.01 (0.00-0.02) K/uL PT 11.3 (9.0-12.0) Seconds INR 1.1 (0.9-1.1) APTT 27.6 (21.0-31.0) Seconds PTT Ratio 1.0 D-Dimer (0-500) ug/L FEU Sodium 143 (136-145) mmol/L Potassium 3.8 (3.5-5.1) mmol/L Chloride 107 (98-107) mmol/L Carbon Dioxide 30 (21-32) mmol/L Anion Gap 6.0 (3-11) BUN 9 (7-18) mg/dl Creatinine 0.75 (0.6-1.2) mg/dl Est Cr Clr Drug Dosing Not Reportable Est GFR ( Amer) 101.8 Est GFR (Non-Af Amer) 87.9 BUN/Creatinine Ratio 12.2 (10-20) Glucose 95 (70-99) mg/dl Calcium 9.1 (8.5-10.1) mg/dl Total Bilirubin 0.6 (0.2-1) mg/dl AST 16 (15-37) U/L ALT 25 (12-78) U/L Alkaline Phosphatase 82 (45-117) U/L Troponin I < 0.015 (0-0.045) ng/ml Total Protein 7.7 (6.4-8.2) gm/dl Albumin 4.0 (3.4-5.0) gm/dl Globulin 3.7 (2.5-4.0) gm/dl Albumin/Globulin Ratio 1.1 (0.9-2) COVID-19 Eval Order SARS-CoV-2, RNA, NAAT (NEGATIVE) 08/19/20 08/19/20 08/19/20 Range/Units 18:07 18:12 18:12 WBC (4.8-10.8) K/uL RBC (4.2-5.4) M/uL Hgb (12.0-16.0) g/dL Hct (37-47) % MCV (80-100) fL MCH (25-34) pg MCHC (32-36) g/dL RDW Std Deviation (36.4-46.3) fL RDW Coeff of Niesha (11.5-14.5) % Plt Count (130-400) K/uL MPV (7.4-10.4) fL Immature Gran % (Auto) % Neut % (Auto) % Lymph % (Auto) % [place] % (Auto) % Eos % (Auto) % Baso % (Auto) % Neut # (Auto) (1.4-6.5) K/uL Lymph # (Auto) (1.2-3.4) K/uL [place] # (Auto) (0.11-0.59) K/uL Eos # (Auto) (0-0.5) K/uL Baso # (Auto) (0-0.2) K/uL Immature Gran # (Auto) (0.00-0.02) K/uL PT (9.0-12.0) Seconds INR (0.9-1.1) APTT (21.0-31.0) Seconds PTT Ratio D-Dimer 280 (0-500) ug/L FEU Sodium (136-145) mmol/L Potassium (3.5-5.1) mmol/L Chloride (98-107) mmol/L Carbon Dioxide (21-32) mmol/L Anion Gap (3-11) BUN (7-18) mg/dl Creatinine (0.6-1.2) mg/dl Est Cr Clr Drug Dosing Est GFR ( Amer) Est GFR (Non-Af Amer) BUN/Creatinine Ratio (10-20) Glucose (70-99) mg/dl Calcium (8.5-10.1) mg/dl Total Bilirubin (0.2-1) mg/dl AST (15-37) U/L ALT (12-78) U/L Alkaline Phosphatase (45-117) U/L Troponin I (0-0.045) ng/ml Total Protein (6.4-8.2) gm/dl Albumin (3.4-5.0) gm/dl Globulin (2.5-4.0) gm/dl Albumin/Globulin Ratio (0.9-2) COVID-19 Eval Order Covid19 IDNow [facility] SARS-CoV-2, RNA, NAAT POSITIVE A* (NEGATIVE) Administered Medications Discontinued Medications Acetaminophen (Acetaminophen 500 Mg Tab) 1,000 mg PO NOW STA Stop: 08/19/20 17:53 Last Admin: 08/19/20 18:15 Dose: 1,000 mg Documented by: [id number] Albuterol (Albuterol Hfa 8 Gm Inhaler) 3 puffs INH NOW ONE Stop: 08/19/20 17:53 Last Admin: 08/19/20 18:18 Dose: 3 puffs Documented by: [id number] Dexamethasone (Dexamethasone Sod Inj 10 Mg/Ml Vial) 6 mg IV NOW ONE Stop: 08/19/20 17:53 Last Admin: 08/19/20 18:16 Dose: 6 mg Documented by: [id number] Sodium Chloride (Nss 1000ml) 500 mls @ 999 mls/hr IV .Q31M ONE Stop: 08/19/20 18:22 Last Infusion: 08/19/20 18:56 Dose: 0 mls/hr Documented by: [id number] Admin: 08/19/20 18:16 Dose: 999 mls/hr Documented by: [id number] Imaging Data Radiologist's Impression: SINGLE VIEW CHEST CLINICAL HISTORY: Dyspnea. FINDINGS: An AP, portable, upright chest radiograph is compared to study dated 01/17/2020 and correlated with chest CT dated 03/15/2020. The cardiomediastinal silhouette is unremarkable. There is mild bibasilar atelectasis. The lungs and pleural spaces are otherwise clear. No pneumothorax is seen. The skeletal structures are osteopenic. The bony thorax is grossly intact. IMPRESSION: No active disease in the chest. Discharge Plan Visit Data Chief Complaint: Shortness of Breath/Dyspnea Stated Complaint: SOB ED Provider: Carlos Hancock Discharge Problem: SOB (shortness of breath), COVID-19, Exacerbation of asthma Patient Disposition: Admitted As Inpatient Condition: Fair Discharge Instructions Interventions: ED Discharge Assessment Last Done: 08/19/20 22:04 Discharge Problem: Exacerbation of asthma Qualifiers: Asthma severity: moderate Asthma persistence: unspecified Qualified Code(s): J45.901 - Unspecified asthma with (acute) exacerbation
[2020-08-19 18:36] LABS: Basophils # (auto) 0.05 K/uL (0-0.2); Basophils % (auto) 0.8 %; Eosinophils # (auto) 0.76 K/uL (0-0.5); Eosinophils % (auto) 12.5 %; Hematocrit (blood only) 39.3 % (37-47); Hemoglobin 13.4 g/dL (12.0-16.0); Immature Granulocytes # (auto) 0.01 K/uL (0.00-0.02); Immature Granulocytes % (auto) 0.2 %; Lymphocytes % (auto) 26.3 %; Mean Corpuscular Hemoglobin 29.3 pg (25-34); Mean Corpuscular Hgb Conc 34.1 g/dL (32-36); Mean Corpuscular Volume 85.8 fL (80-100); Mean Platelet Volume 10.1 fL (7.4-10.4); Monocytes # (auto) 0.47 K/uL (0.11-0.59); Monocytes % (auto) 7.7 %; Neutrophils % (auto) 52.5 %; Platelet Count 359 K/uL (130-400); RDW Coefficient of Variation 14.2 % (11.5-14.5); Red Blood Count 4.58 M/uL (4.2-5.4); White Blood Count 6.09 K/uL (4.8-10.8)
[2020-08-19 18:55] LABS: Alanine Aminotransferase 25 U/L (12-78); Aspartate Aminotransferase 16 U/L (15-37); BUN Creatinine Ratio 12.2 (10-20); Blood Urea Nitrogen 9 mg/dl (7-18); Calcium 9.1 mg/dl (8.5-10.1); Carbon Dioxide 30 mmol/L (21-32); Chloride 107 mmol/L (98-107); Est GFR (African American) 101.8; Est GFR (Non-African American) 87.9; Glucose 95 mg/dl (70-99); Potassium 3.8 mmol/L (3.5-5.1); Sodium 143 mmol/L (136-145)
--- NOTE | 2020-08-19 18:57 | XRay Report ---
SINGLE VIEW CHEST CLINICAL HISTORY: Dyspnea. FINDINGS: An AP, portable, upright chest radiograph is compared to study dated 01/17/2020 and correlat ed with chest CT dated 03/15/2020. The cardiomediastinal silhouette is unremarkable. There is mild bib asilar atelectasis. The lungs and pleural spaces are otherwise clear. No pneumothorax is seen. The sk eletal structures are osteopenic. The bony thorax is grossly intact. IMPRESSION: No active disease in the chest. ACT 112: Negative or not required by law. Electronically signed by: Carlos Mina M.D. 08/19/2020 6:56 PM
[2020-08-19 18:58] LABS: Influenza A virus by PCR Negative (Negative); Influenza B virus by PCR Negative (Negative)
[2020-08-19 19:00] LABS: Albumin Globulin Ratio 1.1 (0.9-2); Alkaline Phosphatase 82 U/L (45-117); Bilirubin,Total 0.6 mg/dl (0.2-1); Globulin 3.7 gm/dl (2.5-4.0); INR 1.1 (0.9-1.1); Partial Thromboplastin Time 27.6 Seconds (21.0-31.0); Prothrombin Time 11.3 Seconds (9.0-12.0); Total Protein 7.7 gm/dl (6.4-8.2); Troponin I < 0.015 ng/ml (0-0.045)
[2020-08-19 19:41] LABS: D Dimer 280 ug/L FEU (0-500)
--- NOTE | 2020-08-19 21:13 | History & Physical Report ---
Date of Service August 19, 2020 Assessment & Plan (1) COVID-19: Patient found to have COVID-19. She is uncertain where she acquired this infection and states that she has been very careful and does not go out much. She is maintaining her saturations >94%. No indication for Remdesivir therapy given normal oxygenation. D-dimer normal at 280 -Maintain isolation precautions - Airborne and Contact -Continue to monitor oxygenation, currently on RA -Lovenox 40mg BID -Continue Tessalon 200mg po BID PRN -Continue home Vitamin D supplementation -Will hold Ibuprofen/NSAIDS -Tylenol PRN Present on Admission?: Yes (2) Exacerbation of asthma: Patient with audible wheezing, chest tightness. ?asthma exacerbation in setting of Covid-19. CXR unremarkable. Patient was seen by her PCP on 07/13/20 with asthma exacerbation - was not compliant with Breo at that time. She was treated with a Prednisone taper x 8 days and Azithromycin -Dexamethasone 6mg IV daily -Continue home inhaler treatments - Budesonide/Formoterol, Fluticasone/Vilanterol -Albuterol PRN -Magnesium x 2 gm -Continue Levocetirizine Present on Admission?: Yes (3) Vitamin D deficiency: Chronic -Continue supplementation Present on Admission?: Yes (4) HTN (hypertension): Blood pressure stable -Continue Amlodipine -Continue to monitor Present on Admission?: Yes (5) GERD (gastroesophageal reflux disease): Chronic. -Continue Protonix 40mg po daily (6) LBBB (left bundle branch block): Patient denies exertional chest discomfort. Troponin negative. No EKG for comparison -May benefit from more extensive cardiac workup after acute issues resolve - echo and stress test F/E/N - Heplock. Monitor electrolytes. Heart Healthy diet as tolerated Ppx - Lovenox BID Code - Full Dispo - Observation to medical/Covid bed History of Present Illness Chief Complaint: SOB/VILLALBA Primary Care Provider: DO Jennifer Schumacher Wiggins is a 60yo C female with history of asthma presenting with SOB. She reports some persistent SOB ongoing since April. However, it has become progressively worse over the last two weeks with acute worsening in the last 24 hours. She has a dry cough that causes some chest discomfort as well as audible wheezing. Severely short of breath with any ambulation or activity. She has been using her nebulizer treatments at home with minimal improvement. Patient came to the ER for these complaints. She was found to be positive for COVID-19. She had adequate oxygenation on room air >94% at all times. She was administered Dexamethasone as well as Albuterol and discharge home was planned. However, when patient got up to the wheelchair to go home she became acutely dyspneic and was unable to ambulate. No additional complaints at this time. She denies fever/chills/aches/loss of taste or smell/vomiting or diarrhea. She has a cough, VILLALBA and chest discomfort with her cough. ER Course: Tylenol, Albuterol MDI, Dexamethasone, NSS Allergies Allergy/AdvReac Type Severity Reaction Status Date / Time lisinopril AdvReac Mild Cough Verified 08/19/20 18:42 Home Medications Medication Instructions Recorded Confirmed Type ibuprofen [Advil] 400 - 600 mg PO DIRECTED PRN 04/30/19 08/19/20 History albuterol sulfate 90 mcg/actuation 2 puff INH Q6H PRN #18 g 04/16/20 08/19/20 Rx aerosol inhaler levocetirizine 5 mg tablet 5 mg PO DAILY PRN #90 tab 04/18/20 08/19/20 Rx fluticasone propionate 50 1 spray INTNAS DAILY #9.9 gm 05/13/20 08/19/20 Rx mcg/actuation nasal spray,suspension amlodipine 5 mg tablet 5 mg PO DAILY #90 tab 06/24/20 08/19/20 Rx ipratropium 0.5 mg-albuterol 3 mg 3 ml NEB Q4 PRN #90 ml 07/09/20 08/19/20 Rx (2.5 mg base)/3 mL nebulization soln benzonatate 200 mg capsule 200 mg PO BID PRN #30 cap 08/11/20 08/19/20 Rx budesonide-formoterol HFA 80 2 puff INHALATION BID #10.2 g 08/14/20 08/19/20 Rx mcg-4.5 mcg/actuation aerosol inhaler cholecalciferol (vitamin D3) 50 mcg PO QAM 08/19/20 08/19/20 History [Vitamin D3] fluticasone furoate-vilanterol 1 inh INHALATION DAILY 08/19/20 08/19/20 History [Breo Ellipta] methylprednisolone [Medrol (Casa)] 4 mg PO DIRECTED #21 ea 08/19/20 Rx pantoprazole 40 mg PO QAM 08/19/20 08/19/20 History Past Med/Surg History Medical History Benign follicular tumor of thyroid gland Bronchitis Cardiomegaly Cholelithiasis Chronic cough Conductive hearing loss of both ears Goiter Patience's thyroiditis HTN (hypertension) Hypersomnia LAD (lymphadenopathy), mediastinal Left thyroid nodule No chronic diseases present Persistent asthma Surgical History S/P appendectomy Family History Other No family history of adverse response to anesthesia No family history of bleeding disorder Denies family history of Ovarian cancer Prostate cancer Myocardial infarction Breast cancer Lung cancer Colorectal cancer Social History Smoking Status: Never smoker Second Hand Exposure: No; Hx Alcohol Use: No Hx Substance Use: No Preferred Language: Yi Communication Ability: Effective Visual Impairment: No Limitations Hearing Ability: Normal Sludge Mill Operator Required: No Beliefs That Will Affect Care: None marital status: / Current Living Situation: Family current occupational status: unemployed current occupation: homemaker Feels Safe at Home: Yes Childhood Exposure to Second-Hand Smoke: No Diet Comment: regular caffeine: Yes (1 cup) during the past year weight has: remained stable Dental Care, Regularly: No Physical Activity Frequency: Daily Physical Activity Frequency Comment: walking Seatbelt Use: always Sunscreen Use: No Assistive Devices: Glasses Review of Systems Review of Systems: All systems reviewed & are unremarkable except as noted in HPI & below Physical Exam Physical Exam: General: patient resting comfortably at edge of bed, NAD, non- toxic in appearance, AA&O x 4 Skin: warm, dry, intact, no rashes or lesions HEENT: NC/AT, PERRL, EOMI, anicteric sclera, conjunctiva without injection, external ear normal to inspection and nontender, nares patent, moist mucus membranes, dentition intact, no oropharyngeal lesions, neck supple, trachea midline, no LAD, no thyromegaly, no JVD Heart: +S1/S2, regular, no m/r/g Lungs: equal air entry bilaterally, no rales/rhonchi, some audible end- expiratory wheezing Abd: +BS, soft, NT/ND, no masses/organomegaly/ascites Ext: warm, 2+ pulses in UE/LE bilaterally, no clubbing/cyanosis or edema Neuro: nonfocal, patient AA&O x 4, speech intact, no facial droop, moving all extremities on command with equal strength 5/5 Results & Data Results & Data ([facility]) Vital Signs (Past 12 Hours) Vital Signs Temp Pulse Resp BP Pulse Ox 08/19/20 20:44 99 H 28 H 159/91 H 95 08/19/20 20:18 101 H 23 168/99 H 98 08/19/20 20:00 101 H 23 168/99 H 98 08/19/20 19:30 82 24 150/88 H 95 08/19/20 19:05 90 18 144/87 H 97 08/19/20 19:00 36.6 C 08/19/20 18:30 85 15 95 08/19/20 17:52 118 H 30 H 96 08/19/20 17:47 96 08/19/20 17:34 37.7 C H 118 H 30 H 166/93 H 94 Laboratory Results Lab Results 08/19/20 08/19/20 08/19/20 Range/Units 18:07 18:07 18:07 WBC 6.09 (4.8-10.8) K/uL RBC 4.58 (4.2-5.4) M/uL Hgb 13.4 (12.0-16.0) g/dL Hct 39.3 (37-47) % MCV 85.8 (80-100) fL MCH 29.3 (25-34) pg MCHC 34.1 (32-36) g/dL RDW Std Deviation 44.0 (36.4-46.3) fL RDW Coeff of Niesha 14.2 (11.5-14.5) % Plt Count 359 (130-400) K/uL MPV 10.1 (7.4-10.4) fL Immature Gran % (Auto) 0.2 % Neut % (Auto) 52.5 % Lymph % (Auto) 26.3 % [place] % (Auto) 7.7 % Eos % (Auto) 12.5 % Baso % (Auto) 0.8 % Neut # (Auto) 3.20 (1.4-6.5) K/uL Lymph # (Auto) 1.60 (1.2-3.4) K/uL [place] # (Auto) 0.47 (0.11-0.59) K/uL Eos # (Auto) 0.76 H (0-0.5) K/uL Baso # (Auto) 0.05 (0-0.2) K/uL Immature Gran # (Auto) 0.01 (0.00-0.02) K/uL PT 11.3 (9.0-12.0) Seconds INR 1.1 (0.9-1.1) APTT 27.6 (21.0-31.0) Seconds PTT Ratio 1.0 D-Dimer (0-500) ug/L FEU Sodium 143 (136-145) mmol/L Potassium 3.8 (3.5-5.1) mmol/L Chloride 107 (98-107) mmol/L Carbon Dioxide 30 (21-32) mmol/L Anion Gap 6.0 (3-11) BUN 9 (7-18) mg/dl Creatinine 0.75 (0.6-1.2) mg/dl Est Cr Clr Drug Dosing Not Reportable Est GFR ( Amer) 101.8 Est GFR (Non-Af Amer) 87.9 BUN/Creatinine Ratio 12.2 (10-20) Glucose 95 (70-99) mg/dl Calcium 9.1 (8.5-10.1) mg/dl Total Bilirubin 0.6 (0.2-1) mg/dl AST 16 (15-37) U/L ALT 25 (12-78) U/L Alkaline Phosphatase 82 (45-117) U/L Troponin I < 0.015 (0-0.045) ng/ml Total Protein 7.7 (6.4-8.2) gm/dl Albumin 4.0 (3.4-5.0) gm/dl Globulin 3.7 (2.5-4.0) gm/dl Albumin/Globulin Ratio 1.1 (0.9-2) COVID-19 Eval Order Influ A Molecular Assay (Negative) Influ B Molecular Assay (Negative) SARS-CoV-2, RNA, NAAT (NEGATIVE) 08/19/20 08/19/20 08/19/20 Range/Units 18:07 18:12 18:12 WBC (4.8-10.8) K/uL RBC (4.2-5.4) M/uL Hgb (12.0-16.0) g/dL Hct (37-47) % MCV (80-100) fL MCH (25-34) pg MCHC (32-36) g/dL RDW Std Deviation (36.4-46.3) fL RDW Coeff of Niesha (11.5-14.5) % Plt Count (130-400) K/uL MPV (7.4-10.4) fL Immature Gran % (Auto) % Neut % (Auto) % Lymph % (Auto) % [place] % (Auto) % Eos % (Auto) % Baso % (Auto) % Neut # (Auto) (1.4-6.5) K/uL Lymph # (Auto) (1.2-3.4) K/uL [place] # (Auto) (0.11-0.59) K/uL Eos # (Auto) (0-0.5) K/uL Baso # (Auto) (0-0.2) K/uL Immature Gran # (Auto) (0.00-0.02) K/uL PT (9.0-12.0) Seconds INR (0.9-1.1) APTT (21.0-31.0) Seconds PTT Ratio D-Dimer 280 (0-500) ug/L FEU Sodium (136-145) mmol/L Potassium (3.5-5.1) mmol/L Chloride (98-107) mmol/L Carbon Dioxide (21-32) mmol/L Anion Gap (3-11) BUN (7-18) mg/dl Creatinine (0.6-1.2) mg/dl Est Cr Clr Drug Dosing Est GFR ( Amer) Est GFR (Non-Af Amer) BUN/Creatinine Ratio (10-20) Glucose (70-99) mg/dl Calcium (8.5-10.1) mg/dl Total Bilirubin (0.2-1) mg/dl AST (15-37) U/L ALT (12-78) U/L Alkaline Phosphatase (45-117) U/L Troponin I (0-0.045) ng/ml Total Protein (6.4-8.2) gm/dl Albumin (3.4-5.0) gm/dl Globulin (2.5-4.0) gm/dl Albumin/Globulin Ratio (0.9-2) COVID-19 Eval [facility] A Molecular Assay (Negative) Influ B Molecular Assay (Negative) SARS-CoV-2, RNA, NAAT POSITIVE A* (NEGATIVE) 08/19/20 Range/Units Unknown WBC (4.8-10.8) K/uL RBC (4.2-5.4) M/uL Hgb (12.0-16.0) g/dL Hct (37-47) % MCV (80-100) fL MCH (25-34) pg MCHC (32-36) g/dL RDW Std Deviation (36.4-46.3) fL RDW Coeff of Niesha (11.5-14.5) % Plt Count (130-400) K/uL MPV (7.4-10.4) fL Immature Gran % (Auto) % Neut % (Auto) % Lymph % (Auto) % [place] % (Auto) % Eos % (Auto) % Baso % (Auto) % Neut # (Auto) (1.4-6.5) K/uL Lymph # (Auto) (1.2-3.4) K/uL [place] # (Auto) (0.11-0.59) K/uL Eos # (Auto) (0-0.5) K/uL Baso # (Auto) (0-0.2) K/uL Immature Gran # (Auto) (0.00-0.02) K/uL PT (9.0-12.0) Seconds INR (0.9-1.1) APTT (21.0-31.0) Seconds PTT Ratio D-Dimer (0-500) ug/L FEU Sodium (136-145) mmol/L Potassium (3.5-5.1) mmol/L Chloride (98-107) mmol/L Carbon Dioxide (21-32) mmol/L Anion Gap (3-11) BUN (7-18) mg/dl Creatinine (0.6-1.2) mg/dl Est Cr Clr Drug Dosing Est GFR ( Amer) Est GFR (Non-Af Amer) BUN/Creatinine Ratio (10-20) Glucose (70-99) mg/dl Calcium (8.5-10.1) mg/dl Total Bilirubin (0.2-1) mg/dl AST (15-37) U/L ALT (12-78) U/L Alkaline Phosphatase (45-117) U/L Troponin I (0-0.045) ng/ml Total Protein (6.4-8.2) gm/dl Albumin (3.4-5.0) gm/dl Globulin (2.5-4.0) gm/dl Albumin/Globulin Ratio (0.9-2) COVID-19 Eval Order Influ A Molecular Assay Negative (Negative) Influ B Molecular Assay Negative (Negative) SARS-CoV-2, RNA, NAAT (NEGATIVE) Diagnostic Findings SINGLE VIEW CHEST CLINICAL HISTORY: Dyspnea. FINDINGS: An AP, portable, upright chest radiograph is compared to study dated 01/17/2020 and correlated with chest CT dated 03/15/2020. The cardiomediastinal silhouette is unremarkable. There is mild bibasilar atelectasis. The lungs and pleural spaces are otherwise clear. No pneumothorax is seen. The skeletal structures are osteopenic. The bony thorax is grossly intact. IMPRESSION: No active disease in the chest. ACT 112: Negative or not required by law. Electronically signed by: Carlos Mina M.D. 08/19/2020 6:56 PM Dictated: 08/19/[id number]: 08/19/201854 ECG Additional Comments: Study shows NSR at 93, LBBB with no previous EKGs available for comparison Code Status & VTE Plan VTE Prophylaxis Plan VTE Prophylaxis will be ordered: Yes PG Care Time/CCT Total # of Minutes Spent Total Time Spent with Patient: Total time spent is greater than 50% in coordination of care (as documented) at patient's floor/unit and/or counseling patient: Coding Level of Care Code 77066 OBS Care - Level 3 Diagnoses COVID-19 U07.1 Exacerbation of asthma J45.901 Asthma persistence: unspecified Asthma severity: moderate Vitamin D deficiency E55.9 HTN (hypertension) I10 Hypertension type: unspecified GERD (gastroesophageal reflux disease) K21.9 Esophagitis presence: esophagitis presence not specified LBBB (left bundle branch block) I44.7 (1) Exacerbation of asthma Asthma persistence: unspecified Asthma severity: moderate Qualified Code(s): J45.901 - Unspecified asthma with (acute) exacerbation (2) HTN (hypertension) Hypertension type: unspecified Qualified Code(s): I10 - Essential (primary) hypertension (3) GERD (gastroesophageal reflux disease) Esophagitis presence: esophagitis presence not specified Qualified Code(s): K21.9 - Gastro-esophageal reflux disease without esophagitis
[2020-08-19] MEDS ORDERED: BENZONATATE 100 MG CAPSULE PO PRN (22:30)
[2020-08-19] MEDS ORDERED: ONDANSETRON INJ 2 MG/ML 2 ML VIAL IV PRN (22:30)
[2020-08-19] MEDS ORDERED: ALBUTEROL HFA 8 GM INHALER INH PRN (22:30)
[2020-08-19] MEDS ORDERED: ACETAMINOPHEN 325 MG TAB PO PRN (22:30)
[2020-08-20] MEDS: MAGNESIUM SULFATE / D5W 1 GM/100 ML BAG IV SCH ×2 (00:07→02:14)
[2020-08-20] MEDS: ENOXAPARIN INJ 40 MG/0.4 ML SYR SQ SCH ×2 (00:10→11:18)
[2020-08-20] MEDS: PATIENT'S HEIGHT AND/OR WEIGHT NEEDED SCH ×4 (01:15→01:18)
[2020-08-20] MEDS ORDERED: INFLUENZA VIRUS QUAD VACCINE 0.5 ML SYR IM ONE (08:00)
[2020-08-20] MEDS ORDERED: INFLUENZA ADMINISTRATION CHARGE ONE (08:00)
[2020-08-20] MEDS ORDERED: FLUTICASONE/VILANTEROL 100/25MCG 14 PUFFS/INHALER INH SCH (09:00)
[2020-08-20] MEDS ORDERED: amLODIPine BESYLATE 5 MG TAB PO SCH (09:00)
[2020-08-20] MEDS ORDERED: PANTOprazole 40 MG TAB PO SCH (09:00)
[2020-08-20] MEDS ORDERED: DEXAMETHASONE SOD INJ 10 MG/ML VIAL IV SCH (09:00)
[2020-08-20] MEDS ORDERED: BUDESONIDE/FORMOTEROL FUMARATE 80/4.5 60 PUFFS/INHALER INH SCH (09:00)
[2020-08-20] MEDS ORDERED: FLUTICASONE PROPIONATE NA SPR 16 GM BTL SCH (09:00)
[2020-08-20] MEDS ORDERED: dexAMETHasone 6 MG in SYRINGE 0 ML IV SCH (09:00)
[2020-08-20] MEDS ORDERED: CHOLECALCIFEROL 1,000 UNITS 25 MCG TAB PO SCH (09:00)
[2020-08-20] MEDS ORDERED: ALBUTEROL HFA 8 GM INHALER INH SCH (15:00)
--- NOTE | 2020-08-20 15:23 | Discharge Summary ---
Date of Service August 20, 2020 Admission HPI Per Admitting Provider Jennifer Wiggins is a 60yo C female with history of asthma presenting with SOB. She reports some persistent SOB ongoing since April. However, it has become progressively worse over the last two weeks with acute worsening in the last 24 hours. She has a dry cough that causes some chest discomfort as well as audible wheezing. Severely short of breath with any ambulation or activity. She has been using her nebulizer treatments at home with minimal improvement. Patient came to the ER for these complaints. She was found to be positive for COVID-19. She had adequate oxygenation on room air >94% at all times. She was administered Dexamethasone as well as Albuterol and discharge home was planned. However, when patient got up to the wheelchair to go home she became acutely dyspneic and was unable to ambulate. No additional complaints at this time. She denies fever/chills/aches/loss of taste or smell/vomiting or diarrhea. She has a cough, VILLALBA and chest discomfort with her cough. ER Course: Tylenol, Albuterol MDI, Dexamethasone, NSS Principal Diagnosis Covid-19, shortness of breath, acute asthma exacerbation Discharge Exam Constitutional WD/WN, vitals as above Eyes + anicteric sclerae Neck trachea midline, no thyromegaly Respiratory normal respiratory effort Auscultation: + wheezes (Mild bilateral expiratory wheezes); no crackles and no rhonchi Cardiovascular Rate/Rhythm: regular rate and regular rhythm Heart Sounds: no murmur Extremities: + edema (Trace pitting edema legs bilaterally) Chest (Breasts) Chest: normal inspection of chest Gastrointestinal (Abdomen) normal bowel sounds, soft, nontender, no hepatosplenomegaly Musculoskeletal Extremities: extremities normal to inspection; no cyanosis and no clubbing Skin no rashes, warm and dry Neurologic moves all extremities and awake; no focal motor deficits Psychiatric A+Ox3, euthymic affect Lymphatic no lymphedema Discharge Data Allergies Allergy/AdvReac Type Severity Reaction Status Date / Time lisinopril AdvReac Mild Cough Verified 08/19/20 18:42 Consultations 08/19/20 20:36 ED Decision to Admit Stat Ordered Studies Chest x-ray Hospital Course (1) COVID-19: Patient found to have COVID-19. She is uncertain where she acquired this infection and states that she has been very careful and does not go out much. She is maintaining her saturations >94%. No indication for Remdesivir therapy given normal oxygenation. D-dimer normal at 280 Chest x-ray negative She was admitted overnight for observation and given IV steroids after which she had improvement in her shortness of breath She was ambulated around the hallways with nursing and her pulse ox dropped to 91% at the lowest. She felt improved and was stable for discharge to home Finish out a course of p.o. dexamethasone for 9 more days Continue bronchodilator nebulizers at home Continue home quarantine as instructed below (2) SOB (shortness of breath): As above (3) Exacerbation of asthma: Patient with audible wheezing, chest tightness. With asthma exacerbation in setting of Covid-19. CXR unremarkable. -Dexamethasone x10-day course as above -Continue home inhaler treatments -Symbicort until she picks up her Breo at the pharmacy -Albuterol nebulizer PRN She was given IV magnesium (4) Vitamin D deficiency: Chronic -Continue supplementation (5) HTN (hypertension): Blood pressure stable -Continue Amlodipine -Continue to monitor (6) GERD (gastroesophageal reflux disease): Chronic. -Continue Protonix 40mg po daily (7) LBBB (left bundle branch block): Patient denies exertional chest discomfort. Troponin negative. She had a normal stress echocardiogram earlier this year. Ppx - Lovenox BID Code - Full Dispo -stable for discharged home Total Time Total Time Spent Total Time Spent (In Minutes): 35 min Discharge Plan Discharge Items Patient Disposition: Home - Self-Care Reason For Visit: SOB/VILLALBA Discharge Diagnosis: Shortness of breath, asthma exacerbation, COVID-19 Condition on Discharge: Fair Activity: As commented below Lifting: Gradually increase as tolerated Bathing: No limitations Exercise/Sports: Gradually increase as tolerated Non-emergency contact: Primary Care Provider and Principal Bioinformatics Specialist Call non-emergency contact if: you have any medication questions and your symptoms worsen Follow-up/Referrals: Fariha Guaman DO [Primary Care Provider] - (Please follow-up within 1 to 2 weeks) Diet: Regular Addtl Attending Provider Instructions: Please finish out a course of dexamethasone for 9 more days to help with your asthma exacerbation. Please use your albuterol rescue inhaler as needed for shortness of breath or cough. You should follow-up with your primary care physician within 1 to 2 weeks. You should remain in quarantine at your home because of your having Covid-19 for 10 to 14 days. If you have worsening shortness of breath, fevers, nausea/vomiting/diarrhea and cannot keep any liquids down, please call your doctor right away. Home Isolation COVID-19 Instructions The following information about Home Isolation is from the CDC Website: https://www.cdc.gov/coronavirus/2019-ncov/hcp/ugvfnvrm-gallvqg-kyhmhu.html Stay home except to get medical care People who are mildly ill with COVID-19 are able to isolate at home during their illness. You should restrict activities outside your home, except for getting medical care. Do not go to work, school, or public areas. Avoid using public transportation, ride-sharing, or taxis. Separate yourself from other people and animals in your home People: As much as possible, you should stay in a specific room and away from other people in your home. Also, you should use a separate bathroom, if available. Animals: You should restrict contact with pets and other animals while you are sick with COVID-19, just like you would around other people. Although there have not been reports of pets or other animals becoming sick with COVID-19, it is still recommended that people sick with COVID-19 limit contact with animals until more information is known about the virus. When possible, have another member of your household care for your animals while you are sick. If you are sick with COVID-19, avoid contact with your pet, including petting, snuggling, being kissed or licked, and sharing food. If you must care for your pet or be around animals while you are sick, wash your hands before and after you interact with pets and wear a face mask. Call ahead before visiting your doctor If you have a medical appointment, call the healthcare provider and tell them that you have or may have COVID-19. This will help the healthcare providers office take steps to keep other people from getting infected or exposed. Wear a face mask You should wear a face mask when you are around other people (e.g., sharing a room or vehicle) or pets and before you enter a healthcare providers office. If you are not able to wear a face mask (for example, because it causes trouble breathing), then people who live with you should not stay in the same room with you, or they should wear a face mask if they enter your room. Cover your coughs and sneezes Cover your mouth and nose with a tissue when you cough or sneeze. Throw used tissues in a lined trash can. Immediately wash your hands with soap and water for at least 20 seconds or, if soap and water are not available, clean your hands with an alcohol-based hand forest resources professor that contains at least 60% alcohol. Clean your hands often Wash your hands often with soap and water for at least 20 seconds, especially after blowing your nose, coughing, or sneezing; going to the bathroom; and before eating or preparing food. If soap and water are not readily available, use an alcohol-based hand forest resources professor with at least 60% alcohol, covering all surfaces of your hands and rubbing them together until they feel dry. Soap and water are the best option if hands are visibly dirty. Avoid touching your eyes, nose, and mouth with unwashed hands. Avoid sharing personal household items You should not share dishes, drinking glasses, cups, eating utensils, towels, or bedding with other people or pets in your home. After using these items, they should be washed thoroughly with soap and water. Clean all high-touch surfaces everyday High touch surfaces include counters, tabletops, doorknobs, bathroom fixtures, toilets, phones, keyboards, tablets, and bedside tables. Also, clean any surfaces that may have blood, stool, or body fluids on them. Use a household cleaning spray or wipe, according to the label instructions. Labels contain instructions for safe and effective use of the cleaning product including precautions you should take when applying the product, such as wearing gloves and making sure you have good ventilation during use of the product. Monitor your symptoms Seek prompt medical attention if your illness is worsening (e.g., difficulty breathing).Beforeseeking care, call your healthcare provider and tell them that you have, or are being evaluated for, COVID-19. Put on a face mask before you enter the facility. These steps will help the healthcare providers office to keep other people in the office or waiting room from getting infected or exposed. Ask your healthcare provider to call the local or [facility] health department. Persons who are placed under active monitoring or facilitated self- monitoring should follow instructions provided by their local health department or occupational health professionals, as appropriate. When working with your local health department check their available hours. If you have a medical emergency and need to call 911, notify the dispatch personnel that you have, or are being evaluated for COVID-19. If possible, put on a face mask before emergency medical services arrive. Discontinuing home isolation Patients with confirmed COVID-19 should remain under home isolation precautions until the risk of secondary transmission to others is thought to be low. The decision to discontinue home isolation precautions should be made on a case-by- case basis, in consultation with healthcare providers and state and local health departments. Pending Studies at Discharge: No Stand-Alone Forms: [email or web address], Smoking Cessation Medications and DC Order Prescriptions: New dexamethasone 6 mg tablet 6 mg PO DAILY Qty: 9 RF: 0 Continued albuterol sulfate [Ventolin HFA] 90 mcg/actuation HFA aerosol inhaler 2 puff INH Q6H PRN (Reason: shortness of breath or wheezing) Qty: 18 RF: 5 levocetirizine 5 mg tablet 5 mg PO DAILY PRN (Reason: allergy symptoms) Qty: 90 RF: 2 fluticasone propionate [Allergy Relief (fluticasone)] 50 mcg/actuation spray,suspension 1 spray INTNAS DAILY Qty: 9.9 RF: 3 amlodipine [Norvasc] 5 mg tablet 5 mg PO DAILY Qty: 90 RF: 1 ipratropium-albuterol 0.5 mg-3 mg(2.5 mg base)/3 mL solution for nebulization 3 ml NEB Q4 PRN (Reason: shortness of breath or wheezing) Qty: 90 RF: 1 benzonatate 200 mg capsule 200 mg PO BID PRN (Reason: cough) Qty: 30 RF: 0 budesonide-formoterol [Symbicort] 80-4.5 mcg/actuation HFA aerosol inhaler 2 puff inhalation BID Qty: 10.2 RF: 3 ibuprofen [Advil] 200 mg Tablet 400 - 600 mg PO DIRECTED PRN (Reason: Pain) RF: 0 cholecalciferol (vitamin D3) [Vitamin D3] 50 mcg (2,000 unit) Tablet 50 mcg PO QAM RF: 0 Breo Ellipta 100-25 mcg/dose blister with device 1 inh INHALATION DAILY RF: 0 pantoprazole 40 mg tablet,delayed release (DR/EC) 40 mg PO QAM RF: 0 Discharge Orders: Discharge Order (Routine); Ordered 08/20/20 Ordered By: Huong Pruett Admission Data Admit Date/Time: 08/19/20 21:12 Attending Provider: Huong Pruett Admit Provider: Nadege Franco Primary Care Provider: Fariha Guaman Other Providers: Nadege Franco Coding Level of Care Code 86781 OBS Care - Discharge Diagnoses COVID-19 U07.1 SOB (shortness of breath) R06.02 Exacerbation of asthma J45.901 Asthma persistence: unspecified Asthma severity: moderate Vitamin D deficiency E55.9 HTN (hypertension) I10 Hypertension type: unspecified GERD (gastroesophageal reflux disease) K21.9 Esophagitis presence: esophagitis presence not specified LBBB (left bundle branch block) I44.7
--- NOTE | 2020-08-20 23:13 | Electrocardiogram Report ---
Test Reason : Blood Pressure : / mmHG Vent. Rate : 093 BPM Atrial Rate : 093 BPM P-R Int : 152 ms QRS Dur : 134 ms QT Int : 388 ms P-R-T Axes : 064 000 088 degrees QTc Int : 482 ms Normal sinus rhythm Left bundle branch block Abnormal ECG No previous ECGs available Confirmed by Ritchie Kirkpatrick ([id number]) on 08/20/2020 11:12:52 PM Referred By: Fariha Guaman Confirmed By:Ritchie Kirkpatrick
== END 2020-08-20 18:46 | disposition home or self-care (01) ==
LOC: 3E 17:32 → ED 17:32 → SUATTDRO 21:12 → 3E 22:04

== ENCOUNTER 2020-11-25 15:03 | Inpatient (IN) ==
[2020-11-25] MEDS ORDERED: methylPREDNISolone 125 MG/2 ML VIAL IV STA (15:29)
[2020-11-25] MEDS ORDERED: ALBUT/IPRATROP 3MG/0.5MG NEB 3 ML VIAL NEB ONE (15:29)
[2020-11-25] MEDS ORDERED: MAGNESIUM SULFATE / D5W 1 GM/100 ML BAG IV STA (15:31)
--- NOTE | 2020-11-25 15:42 | Emergency Department Note ---
Impression & Plan Exacerbation of asthma, COVID-19 ED Provider Note NAME: BRIDGETTE GARCIA AGE: 60 SEX: F : 1960 ARRIVES VIA: Walk-In INFORMANT: Patient, ED PROVIDER(S): Robby Motley MD CHIEF COMPLAINT: shortness of breath HPI: This is a 60-year-old female who presents emergency department complaining of shortness of breath. The patient reports she began feeling short miss of breath approximately 3 days ago. She does have a history of asthma. She reports she tested positive for Covid back in August. She reports movement makes the shortness of breath worse. She has tried taking her inhaler twice prior to arrival without relief. She reports rest makes the shortness of breath better. ROS: See above HPI for pertinent positives & negatives. A total of 10 systems reviewed and were otherwise negative. PAST MEDICAL HISTORY: See Below PAST SURGICAL HISTORY: See Below FAMILY HISTORY: See Below SOCIAL HISTORY: See Below HOME MEDICATIONS: See Below ALLERGIES: See Below VITALS: See Below PHYSICAL EXAMINATION: VITAL SIGNS - Vital signs and nursing notes were reviewed. GENERAL - 60-year-old female appearing stated age who is in moderate distress. Communicates in 3 word sentences, tripoding SKIN - Without rashes. HEAD - NC/AT. EYES - PERRL with EOMI bilaterally. Sclera anicteric. Palpebral conjunctiva pink and moist with no injection noted. EARS - No deformities of external structures noted on gross examination bilaterally. No pain elicited with palpation of the tragus bilaterally. External auditory canals without discharge or otorrhea. Tympanic membranes pearly zamora without retraction or bulging. No fluid or purulent material visualized behind the TM. Handle of malleus, umbo, cone of light, pars tensa/flaccid all easily visualized. NOSE - Midline and without cyanosis. No epistaxis or purulent drainage noted. Septum midline without deviation or septal hematoma noted. MOUTH/OROPHARYNX - Without perioral cyanosis. Buccal mucosa pink and moist and without leukoplakia. Tongue midline with equal elevation of palate bilaterally. No tonsillar hypertrophy, erythema, or exudates noted. dentition noted. NECK - Neck with FROM. Supple to palpation. lymphadenopathy noted. No nuchal rigidity. LUNGS - B/l wheezing present bilaterally CARDIAC - RRR with S1/S2. No murmur, rubs, or gallops appreciated. ABDOMEN - Abdominal contour without pulsations or visible masses. BS normoactive all four quadrants. No tenderness, palpable masses, hepatosplenomegaly, or ascites noted. EXTREMITIES - No clubbing or peripheral cyanosis. No pretibial edema present. +3/5 radial, posterior tibial, and dorsalis pedis pulses palpated throughout. +5/5 strength noted in UE/LE bilaterally. NEUROLOGIC - Cranial nerves II through XII grossly intact. Sensory intact to light touch throughout. Patellar reflexes +2/4. PSYCH - A&Ox3 and cooperates fully with examiner. Pt is very pleasant and interacts well with examiner. MEDICAL DECISION MAKING: Patient was seen and evaluated as above in room A10. Review was performed of nursing notes and vital signs. I did review pertinent previous visits and patient history. After obtaining a thorough history and physical examination the above work up was performed. This 60-year-old female who presents emergency department complaining of shortness of breath. The patient had a positive Covid test back in August however still remains positive for Covid. Her chest x-ray is concerning for Covid pneumonia. She was given Solu-Medrol as well as magnesium and an hour- long breathing treatment here in the emergency department. Due to the fact that the patient remains on oxygen I did discuss the case with the hospitalist keke marquez who did agree to meet the patient. Patient was also given magnesium. She does have a slight elevation in her white blood cell count. Patient is in agreement with the treatment plan. While in the department, I personally reevaluated the patient several times and each time the patient was found to be resting comfortably. The patient was educated upon management, educated upon todays findings/results, educated upon importance of follow up from today's visit, educated upon symptoms in which to return, had questions answered prior to discharge, verbalized understanding, and was discharged home in good condition. An order was placed for continuous cardiac monitoring. The monitor shows a rate of 100 with Sinus Tachycardia rhythm. The patient was evaluated during a period of high volume and high acuity during the global COVID-19 pandemic, and that diagnosis was suspected/considered upon their initial presentation. Their evaluation, treatment and testing was consistent with current guidelines for patients who present with complaints or symptoms that may be related to COVID-19. Patient was seen while provider was wearing PPE. Triage Nursing notes reviewed. Prior medical records reviewed Vital Signs: reviewed and remarkable for no significant abnormalities Differential diagnosis: Reactive airway disease, pneumonia, pneumothorax, COPD, CHF, infections, cardiac ischemia, pulmonary embolism, musculoskeletal, gastrointestinal, as well as other pathologies. ER treatment provided: See below Diagnostics interpreted by me: ECG: EKG shows sinus tachycardia with premature atrial complexes with PVC left bundle branch block QTC is 44 ventricular rate is 102 when compared to EKG August 19, 2020 PVC is now present Laboratory studies: As stated above and show below. Imaging studies: [facility], [id number] XRay Report Patient: BRIDGETTE GARCIA AAdmit Date: 11/25/20MR#: [id number]: [address] STAcct ID:[id number]: Date: 1960[facility] Zip: [place], [place] [address]Zfl: 60Location: EDSex: FRoom/Bed:Att Phy:Diagnosis: SOBPri Phy: Fariha Guaman, DOService Date: 11/25/20Fam Phy:Interpreting Phy: Hudson Dugan MDAdmit Phy: Ordering Phy: Robby Motley MD cc: ~ XR chest 1V portable CLINICAL HISTORY: Atypical chest pain. COMPARISON STUDY: Chest CT March 15, 2020. Chest radiograph August 19, 2020. FINDINGS: Lung volumes are normal. Lungs are clear. There is no pneumothorax or pleural effusion. Cardiac size is at the upper limits of normal. Mediastinal contours are normal. There is no evidence for pulmonary edema. IMPRESSION: No acute cardiopulmonary findings. ACT 112: Negative or not required by law. Electronically signed by: Hudson Dugan M.D. 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 2. BETHESDA SYSTEM FOR REPORTING THYROID CYTOPATHOLOGY: CATEGORY 2, BENIGN. 3. LYMPHOCYTIC THYROIDITIS NOTED. Cardiomegaly Cholelithiasis Noted on CT scan 08/06/2019 Chronic cough Conductive hearing loss of both ears Exacerbation of asthma Goiter HTN (hypertension) Hypersomnia LAD (lymphadenopathy), mediastinal LBBB (left bundle branch block) Left thyroid nodule Incidental finding on CT 08/06/2019: 1.2 centimeter left thyroid nodule 1.8 cm hypoechoic left lobe thyroid nodule -ultrasound 08/12/2019 No chronic diseases present Persistent asthma Surgical History S/P appendectomy Family History Father Cancer Mother Hypertension Other No family history of adverse response to anesthesia No family history of bleeding disorder Denies family history of Ovarian cancer Prostate cancer Myocardial infarction Breast cancer Lung cancer Colorectal cancer Social History Smoking Status: Never smoker Second Hand Exposure: No; Hx Alcohol Use: No Hx Substance Use: No Preferred Language: Persian Communication Ability: Effective Visual Impairment: Limited Hearing Ability: Normal Manager Epic Required: No Beliefs That Will Affect Care: None marital status: / marital status details: passed 2017 Current Living Situation: Family current occupational status: unemployed current occupation: homemaker How many Children do You have: 6 Feels Safe at Home: Yes Childhood Exposure to Second-Hand Smoke: No Diet Comment: regular caffeine: Yes (1 cup) during the past year weight has: remained stable Dental Care, Regularly: No Physical Activity Frequency: Daily Physical Activity Frequency Comment: walking Seatbelt Use: always Sunscreen Use: No Assistive Devices: Glasses Allergies Allergies Allergy/AdvReac Type Severity Reaction Status Date / Time lisinopril AdvReac Mild Cough Verified 11/25/20 16:02 Home Meds Home Medications Medication Instructions Recorded Confirmed ibuprofen [Advil] 400 - 600 mg PO DIRECTED PRN 04/30/19 11/25/20 cholecalciferol (vitamin D3) 50 mcg PO QAM 08/19/20 11/25/20 [Vitamin D3] albuterol sulfate [Ventolin HFA] 2 puff INH Q6H PRN 11/25/20 11/25/20 benzonatate 200 mg PO BID PRN 11/25/20 11/25/20 ipratropium-albuterol 3 ml NEB Q4H PRN 11/25/20 11/25/20 levocetirizine 5 mg PO DAILY PRN 11/25/20 Previous Rx's Medication Instructions Recorded amlodipine 5 mg tablet 5 mg PO DAILY #90 tab 06/24/20 budesonide-formoterol HFA 160 2 puff INHALATION BID #10.2 g 11/08/20 mcg-4.5 mcg/actuation aerosol inhaler fluticasone propionate 50 1 spray INTNAS DAILY #9.9 gm 11/08/20 mcg/actuation nasal spray,suspension montelukast 10 mg tablet 10 mg PO QPM #30 tab 11/08/20 pantoprazole 40 mg tablet,delayed 40 mg PO QAM #90 tab 11/08/20 release tiotropium bromide 2.5 2 puff INHALATION DAILY #4 g 11/08/20 mcg/actuation mist for inhalation doxycycline hyclate 100 mg PO BID #6 cap 11/28/20 prednisone 60 mg PO DAILY #42 tab 11/28/20 Results & Data (ED) Vital Signs Vital Signs - 24 hr 11/25/20 15:11 11/25/20 15:20 Temperature 36.8 C Temperature Source Temporal Artery Scan Pulse Rate 112 H Respiratory Rate 24 Blood Pressure 176/101 H Blood Pressure Mean 126 Pulse Oximetry 96 93 Oxygen Delivery Method Room Air Room Air Sepsis Recent Fever Within 48 Hours No Sepsis New/Unexplained Change in Mental Status N/A Sepsis Action Taken by Nursing No Action Required Oxygen Flow Rate - Titration 2 Pulse Oximetry Post Tiitration 100 Laboratory Data Result diagrams: 11/27/20 05:44 11/27/20 05:44 Lab Results 11/25/20 11/25/20 11/25/20 Range/Units 15:28 15:28 16:37 WBC 8.99 (4.8-10.8) K/uL RBC 4.65 (4.2-5.4) M/uL Hgb 13.8 (12.0-16.0) g/dL Hct 39.6 (37-47) % MCV 85.2 (80-100) fL MCH 29.7 (25-34) pg MCHC 34.8 (32-36) g/dL RDW Std Deviation 45.1 (36.4-46.3) fL RDW Coeff of Niesha 14.6 H (11.5-14.5) % Plt Count 319 (130-400) K/uL MPV 10.3 (7.4-10.4) fL Immature Gran % (Auto) 0.2 % Neut % (Auto) 59.8 % Lymph % (Auto) 20.1 % [place] % (Auto) 8.3 % Eos % (Auto) 10.6 % Baso % (Auto) 1.0 % Neut # (Auto) 5.37 (1.4-6.5) K/uL Lymph # (Auto) 1.81 (1.2-3.4) K/uL [place] # (Auto) 0.75 H (0.11-0.59) K/uL Eos # (Auto) 0.95 H (0-0.5) K/uL Baso # (Auto) 0.09 (0-0.2) K/uL Immature Gran # (Auto) 0.02 (0.00-0.02) K/uL Sodium 141 (136-145) mmol/L Potassium 4.0 (3.5-5.1) mmol/L Chloride 110 H (98-107) mmol/L Carbon Dioxide 28 (21-32) mmol/L Anion Gap 3.0 (3-11) BUN 11 (7-18) mg/dl Creatinine 0.68 (0.6-1.2) mg/dl Est Cr Clr Drug Dosing Not Reportable Est GFR ( Amer) 111.8 Est GFR (Non-Af Amer) 96.4 BUN/Creatinine Ratio 16.0 (10-20) Glucose 113 H (70-99) mg/dl Calcium 9.2 (8.5-10.1) mg/dl Total Bilirubin 0.6 (0.2-1) mg/dl AST 14 L (15-37) U/L ALT 32 (12-78) U/L Alkaline Phosphatase 82 (45-117) U/L Total Creatine Kinase 157 (26-192) U/L CK-MB (CK-2) 2.7 (0.5-3.6) ng/ml CK/CKMB % Calc 1.7 (0-3.0) Troponin I < 0.015 (0-0.045) ng/ml Total Protein 8.0 (6.4-8.2) gm/dl Albumin 4.3 (3.4-5.0) gm/dl Globulin 3.7 (2.5-4.0) gm/dl Albumin/Globulin Ratio 1.2 (0.9-2) Lipase 67 L (73-393) U/L COVID-19 Eval Order CovFluRsv at [facility] SARS-CoV-2 (PCR) (Negative) Influenza Type A (PCR) (Neg) Influenza Type B (PCR) (Neg) RSV (RT-PCR) (Neg) 11/25/20 Range/Units 16:37 WBC (4.8-10.8) K/uL RBC (4.2-5.4) M/uL Hgb (12.0-16.0) g/dL Hct (37-47) % MCV (80-100) fL MCH (25-34) pg MCHC (32-36) g/dL RDW Std Deviation (36.4-46.3) fL RDW Coeff of Niesha (11.5-14.5) % Plt Count (130-400) K/uL MPV (7.4-10.4) fL Immature Gran % (Auto) % Neut % (Auto) % Lymph % (Auto) % [place] % (Auto) % Eos % (Auto) % Baso % (Auto) % Neut # (Auto) (1.4-6.5) K/uL Lymph # (Auto) (1.2-3.4) K/uL [place] # (Auto) (0.11-0.59) K/uL Eos # (Auto) (0-0.5) K/uL Baso # (Auto) (0-0.2) K/uL Immature Gran # (Auto) (0.00-0.02) K/uL Sodium (136-145) mmol/L Potassium (3.5-5.1) mmol/L Chloride (98-107) mmol/L Carbon Dioxide (21-32) mmol/L Anion Gap (3-11) BUN (7-18) mg/dl Creatinine (0.6-1.2) mg/dl Est Cr Clr Drug Dosing Est GFR ( Amer) Est GFR (Non-Af Amer) BUN/Creatinine Ratio (10-20) Glucose (70-99) mg/dl Calcium (8.5-10.1) mg/dl Total Bilirubin (0.2-1) mg/dl AST (15-37) U/L ALT (12-78) U/L Alkaline Phosphatase (45-117) U/L Total Creatine Kinase (26-192) U/L CK-MB (CK-2) (0.5-3.6) ng/ml CK/CKMB % Calc (0-3.0) Troponin I (0-0.045) ng/ml Total Protein (6.4-8.2) gm/dl Albumin (3.4-5.0) gm/dl Globulin (2.5-4.0) gm/dl Albumin/Globulin Ratio (0.9-2) Lipase (73-393) U/L COVID-19 Eval Order SARS-CoV-2 (PCR) POSITIVE A* (Negative) Influenza Type A (PCR) Negative (Neg) Influenza Type B (PCR) Negative (Neg) RSV (RT-PCR) Negative (Neg) Administered Medications Discontinued Medications Acetaminophen (Acetaminophen 325 Mg Tab) 650 mg PO Q4H PRN PRN Reason: Pain or Fever Stop: 12/25/20 19:58 Last Admin: 11/27/20 20:39 Dose: 650 mg Documented by: [id number] Admin: 11/26/20 09:04 Dose: 650 mg Documented by: [id number] Albuterol (Albut/Ipratrop 3mg/0.5mg Neb 3 Ml Vial) 12 ml NEB ONE ONE Stop: 11/25/20 15:30 Last Admin: 11/25/20 15:44 Dose: 12 ml Documented by: [id number] Albuterol (Albut/Ipratrop 3mg/0.5mg Neb 3 Ml Vial) 3 ml NEB Q4R ERICKA Stop: 12/25/20 19:58 Last Admin: 11/28/20 15:46 Dose: Not Given Documented by: [id number] Admin: 11/28/20 11:06 Dose: 3 ml Documented by: [id number] Admin: 11/28/20 07:17 Dose: 3 ml Documented by: [id number] Admin: 11/28/20 03:33 Dose: 3 ml Documented by: [id number] Admin: 11/27/20 22:34 Dose: 3 ml Documented by: [id number] Admin: 11/27/20 20:07 Dose: 3 ml Documented by: [id number] Admin: 11/27/20 15:07 Dose: 3 ml Documented by: [id number] Admin: 11/27/20 11:56 Dose: 3 ml Documented by: [id number] Admin: 11/27/20 07:08 Dose: Not Given Documented by: [id number] Admin: 11/27/20 03:34 Dose: 3 ml Documented by: [id number] Admin: 11/26/20 22:34 Dose: 3 ml Documented by: [id number] Admin: 11/26/20 19:19 Dose: 3 ml Documented by: [id number] Admin: 11/26/20 16:03 Dose: 3 ml Documented by: [id number] Admin: 11/26/20 11:39 Dose: 3 ml Documented by: [id number] Admin: 11/26/20 08:07 Dose: Not Given Documented by: [id number] Admin: 11/26/20 04:01 Dose: 3 ml Documented by: [id number] Admin: 11/25/20 22:06 Dose: Not Given Documented by: [id number] Admin: 11/25/20 22:04 Dose: 3 ml Documented by: [id number] Amlodipine Besylate (Amlodipine Besylate 5 Mg Tab) 5 mg PO DAILY ERICKA Stop: 12/26/20 08:59 Last Admin: 11/28/20 08:56 Dose: 5 mg Documented by: [id number] Admin: 11/27/20 08:52 Dose: 5 mg Documented by: [id number] Admin: 11/26/20 09:07 Dose: 5 mg Documented by: [id number] Doxycycline Hyclate (Doxycycline Hyclate 100 Mg Cap) 100 mg PO BID ERICKA Stop: 12/02/20 20:59 Last Admin: 11/28/20 08:54 Dose: 100 mg Documented by: [id number] Admin: 11/27/20 20:33 Dose: 100 mg Documented by: [id number] Admin: 11/27/20 08:52 Dose: 100 mg Documented by: [id number] Admin: 11/26/20 20:13 Dose: 100 mg Documented by: [id number] Admin: 11/26/20 09:06 Dose: 100 mg Documented by: [id number] Admin: 11/25/20 21:27 Dose: 100 mg Documented by: [id number] Enoxaparin Sodium (Enoxaparin Inj 30 Mg/0.3 Ml Syr) 30 mg SQ Q12H ERICKA Stop: 12/25/20 20:59 Last Admin: 11/28/20 08:54 Dose: 30 mg Documented by: [id number] Admin: 11/27/20 20:33 Dose: 30 mg Documented by: [id number] Admin: 11/27/20 08:52 Dose: 30 mg Documented by: [id number] Admin: 11/26/20 20:12 Dose: 30 mg Documented by: [id number] Admin: 11/26/20 09:08 Dose: 30 mg Documented by: [id number] Admin: 11/25/20 21:26 Dose: 30 mg Documented by: [id number] Fluticasone Propionate (Fluticasone Propionate Na Spr 16 Gm Btl) 1 sprays NA DAILY ERICKA Stop: 12/26/20 08:59 Last Admin: 11/28/20 08:54 Dose: 1 sprays Documented by: [id number] Admin: 11/27/20 08:52 Dose: 1 sprays Documented by: [id number] Admin: 11/26/20 09:08 Dose: 1 sprays Documented by: [id number] Formoterol Fumarate (Formoterol 20 Mcg/2 Ml Vial) 20 mcg NEB Q12R ERICKA Stop: 12/25/20 20:59 Last Admin: 11/28/20 07:17 Dose: 20 mcg Documented by: [id number] Admin: 11/27/20 20:07 Dose: 20 mcg Documented by: [id number] Admin: 11/27/20 07:08 Dose: 20 mcg Documented by: [id number] Admin: 11/26/20 19:19 Dose: 20 mcg Documented by: [id number] Admin: 11/26/20 08:07 Dose: 20 mcg Documented by: [id number] Admin: 11/25/20 22:04 Dose: 20 mcg Documented by: [id number] Guaifenesin (Guaifenesin 600 Mg Tabcr) 1,200 mg PO Q12 ERICKA Stop: 12/25/20 20:59 Last Admin: 11/28/20 08:54 Dose: 1,200 mg Documented by: [id number] Admin: 11/27/20 20:33 Dose: 1,200 mg Documented by: [id number] Admin: 11/27/20 08:52 Dose: 1,200 mg Documented by: [id number] Admin: 11/26/20 20:13 Dose: 1,200 mg Documented by: [id number] Admin: 11/26/20 09:06 Dose: 1,200 mg Documented by: [id number] Admin: 11/25/20 21:26 Dose: 1,200 mg Documented by: [id number] Magnesium Sulfate/Dextrose (Magnesium Sulfate / D5w) 1 gm in 100 mls @ 100 mls/hr IV NOW STA Stop: 11/25/20 16:30 Last Infusion: 11/25/20 16:47 Dose: 0 mls/hr Documented by: [id number] Admin: 11/25/20 15:35 Dose: 100 mls/hr Documented by: [id number] Dexamethasone 6 mg/ Syringe 1.5 mls @ 1 mls/min IV DAILY ERICKA Stop: 12/26/20 08:59 Last Admin: 11/27/20 08:51 Dose: 1 mls/min Documented by: [id number] Admin: 11/26/20 09:09 Dose: 1 mls/min Documented by: [id number] Dexamethasone 6 mg/ Syringe 1.5 mls @ 1 mls/min IV Q12 ERICKA Stop: 12/27/20 20:59 Last Admin: 11/28/20 08:54 Dose: 1 mls/min Documented by: [id number] Admin: 11/27/20 20:34 Dose: 1 mls/min Documented by: [id number] Methylprednisolone (Methylprednisolone 125 Mg/2 Ml Vial) 125 mg IV NOW STA Stop: 11/25/20 15:30 Last Admin: 11/25/20 15:35 Dose: 125 mg Documented by: [id number] Montelukast Sodium (Montelukast Sodium 10 Mg Tablet) 10 mg PO QPM ERICKA Stop: 12/25/20 20:59 Last Admin: 11/27/20 20:33 Dose: 10 mg Documented by: [id number] Admin: 11/26/20 20:13 Dose: 10 mg Documented by: [id number] Admin: 11/25/20 21:27 Dose: 10 mg Documented by: [id number] Pantoprazole Sodium (Pantoprazole 40 Mg Tab) 40 mg PO QAM ERICKA Stop: 12/26/20 08:59 Last Admin: 11/28/20 08:56 Dose: 40 mg Documented by: [id number] Admin: 11/27/20 08:52 Dose: 40 mg Documented by: [id number] Admin: 11/26/20 09:07 Dose: 40 mg Documented by: [id number] Vitamin D (Cholecalciferol 1,000 Units 25 Mcg Tab) 2,000 units PO QAM ERICKA Stop: 12/26/20 08:59 Last Admin: 11/28/20 08:56 Dose: 2,000 units Documented by: [id number] Admin: 11/27/20 08:52 Dose: 2,000 units Documented by: [id number] Admin: 11/26/20 09:07 Dose: 2,000 units Documented by: [id number] Discharge Plan Visit Data Chief Complaint: Shortness of Breath/Dyspnea Stated Complaint: SOB ED Provider: Robby Motley Discharge Problem: Exacerbation of asthma, COVID-19 Patient Disposition: Admitted As Inpatient Condition: Good Discharge Instructions Interventions: ED Discharge Assessment Last Done: 11/25/20 19:41 Discharge Problem: Exacerbation of asthma Qualifiers: Asthma severity: unspecified severity Asthma persistence: unspecified Qualified Code(s): J45.901 - Unspecified asthma with (acute) exacerbation
[2020-11-25 15:52] LABS: Basophils # (auto) 0.09 K/uL (0-0.2); Eosinophils # (auto) 0.95 K/uL (0-0.5); Eosinophils % (auto) 10.6 %; Hematocrit (blood only) 39.6 % (37-47); Hemoglobin 13.8 g/dL (12.0-16.0); Immature Granulocytes # (auto) 0.02 K/uL (0.00-0.02); Immature Granulocytes % (auto) 0.2 %; Lymphocytes # (auto) 1.81 K/uL (1.2-3.4); Lymphocytes % (auto) 20.1 %; Mean Corpuscular Hemoglobin 29.7 pg (25-34); Mean Corpuscular Hgb Conc 34.8 g/dL (32-36); Mean Corpuscular Volume 85.2 fL (80-100); Mean Platelet Volume 10.3 fL (7.4-10.4); Monocytes # (auto) 0.75 K/uL (0.11-0.59); Monocytes % (auto) 8.3 %; Neutrophils # (auto) 5.37 K/uL (1.4-6.5); Neutrophils % (auto) 59.8 %; Platelet Count 319 K/uL (130-400); RDW Coefficient of Variation 14.6 % (11.5-14.5); RDW Standard Deviation 45.1 fL (36.4-46.3); Red Blood Count 4.65 M/uL (4.2-5.4); White Blood Count 8.99 K/uL (4.8-10.8)
[2020-11-25 16:00] LABS: Alanine Aminotransferase 32 U/L (12-78); Albumin Level 4.3 gm/dl (3.4-5.0); Aspartate Aminotransferase 14 U/L (15-37); Blood Urea Nitrogen 11 mg/dl (7-18); Calcium 9.2 mg/dl (8.5-10.1); Carbon Dioxide 28 mmol/L (21-32); Chloride 110 mmol/L (98-107); Est GFR (African American) 111.8; Est GFR (Non-African American) 96.4; Glucose 113 mg/dl (70-99); Lipase 67 U/L (73-393); Sodium 141 mmol/L (136-145)
[2020-11-25 16:05] LABS: Albumin Globulin Ratio 1.2 (0.9-2); Alkaline Phosphatase 82 U/L (45-117); Bilirubin,Total 0.6 mg/dl (0.2-1); Creatine Kinase 157 U/L (26-192); Creatine Kinase MB 2.7 ng/ml (0.5-3.6); Globulin 3.7 gm/dl (2.5-4.0); Troponin I < 0.015 ng/ml (0-0.045)
--- NOTE | 2020-11-25 16:37 | XRay Report ---
XR chest 1V portable CLINICAL HISTORY: Atypical chest pain. COMPARISON STUDY: Chest CT March 15, 2020. Chest radiograph August 19, 2020. FINDINGS: Lung volumes are normal. Lungs are clear. There is no pneumothorax or pleural effusion. Car diac size is at the upper limits of normal. Mediastinal contours are normal. There is no evidence for pulmonary edema. IMPRESSION: No acute cardiopulmonary findings. ACT 112: Negative or not required by law. Electronically signed by: Hudson Dugan M.D. 11/25/2020 4:36 PM
--- NOTE | 2020-11-25 16:48 | Electrocardiogram Report ---
Test Reason : Blood Pressure : / mmHG Vent. Rate : 102 BPM Atrial Rate : 102 BPM P-R Int : 150 ms QRS Dur : 134 ms QT Int : 372 ms P-R-T Axes : 071 017 086 degrees QTc Int : 484 ms Poor data quality, interpretation may be adversely affected Sinus tachycardia with Premature atrial complexes with Aberrant conduction vs PVCs Left bundle branch block Abnormal ECG When compared with ECG of 19-AUG-2020 18:11, Aberrant conduction is now Present Confirmed by Jimi Stringer ([id number] on 11/25/2020 4:48:25 PM Referred By: REFERRED SELF Confirmed By:Henry Stringer
[2020-11-25 17:50] LABS: Influenza A virus by PCR Negative (Neg); Influenza B virus by PCR Negative (Neg); RSV by PCR Negative (Neg)
[2020-11-25 18:04] LABS: SARS CoV2 RNA(COVID-19) InHosp POSITIVE (Negative)
--- NOTE | 2020-11-25 18:14 | History & Physical Report ---
Date of Service November 25, 2020 Assessment & Plan (1) Acute respiratory failure: Patient has acute respiratory failure with tachypnea and hypoxia. She is a history of moderate persistent asthma seeing pulmonology. She does have a distant history of Covid in August 2020 however does not have any signs of Covid pneumonia at present time. Given the fact that she is greater than 90 days from her initial Covid diagnosis third will be some concern that the minimal immunity is 3 months and she is now exceeded this and she could have a secondary Covid infection which is precipitating some asthma exacerbation to the centrally placed in a airborne precaution around. The patient be treated with intravenous steroids at this time for her asthma and will choose dexamethasone which will use hold this is recurrence of Covid.. Patient will have scheduled bronchodilators with short and long-acting (2) COVID-19: Patient is diagnosed in August was treated with dexamethasone currently she has had respiratory distress. Her chest x-ray is clear and read as clear by radiology, After discussion with ID recommendation for airborne isolation as she exceeds 90 day from initial infection and maybe secondary infection, however with lack of pulmonary changes on cxr will not be considered covid pneumonia but maybe a mild infection influencing her asthma. (3) HTN (hypertension): Patient is markedly hypertensive on presentation apically only taking amlodipine 5 we will maintain this medication likely her hypertension was because of respiratory distress. She will have backup hydralazine if needed (4) MARY (obstructive sleep apnea): He is on a CPAP in the evening I cannot find a correct settings she is on "auto CPAP" as an outpatient (5) DVT prophylaxis: And will continuously enoxaparin which is 0.5 every 12 ideal body weight History of Present Illness Primary Care Provider: Fariha Guaman DO Patient has a history of Covid diagnosed August 19/2020 treated with 10-day course of dexamethasone only required 1 day hospital stay. She is a history of chronic persistent asthma seeing Dr. Santos as an outpatient. Most recently seen November 08 and had her steroid and long-acting beta agonist inhaler increased. She arrives today in significant respiratory distress requiring nebulizers and magnesium to improve her respiratory demeanor. No she is repeat Covid testing positive she does not have any Covid pneumonia seen on chest x-ray and subsequently will be Covid ordered in a private room will not need airborne precautions at this time. Will be using precautions for aerosolized generating procedures which would be part of her nebulized treatment for this disease. Allergies Allergy/AdvReac Type Severity Reaction Status Date / Time lisinopril AdvReac Mild Cough Verified 11/25/20 16:02 Home Medications Medication Instructions Recorded Confirmed Type ibuprofen [Advil] 400 - 600 mg PO DIRECTED PRN 04/30/19 11/25/20 History amlodipine 5 mg tablet 5 mg PO DAILY #90 tab 06/24/20 11/25/20 Rx cholecalciferol (vitamin D3) 50 mcg PO QAM 08/19/20 11/25/20 History [Vitamin D3] budesonide-formoterol HFA 160 2 puff INHALATION BID #10.2 g 11/08/20 11/25/20 Rx mcg-4.5 mcg/actuation aerosol inhaler fluticasone propionate 50 1 spray INTNAS DAILY #9.9 gm 11/08/20 11/25/20 Rx mcg/actuation nasal spray,suspension montelukast 10 mg tablet 10 mg PO QPM #30 tab 11/08/20 11/25/20 Rx pantoprazole 40 mg tablet,delayed 40 mg PO QAM #90 tab 11/08/20 11/25/20 Rx release tiotropium bromide 2.5 2 puff INHALATION DAILY #4 g 11/08/20 11/25/20 Rx mcg/actuation mist for inhalation albuterol sulfate [Ventolin HFA] 2 puff INH Q6H PRN 11/25/20 11/25/20 History benzonatate 200 mg PO BID PRN 11/25/20 11/25/20 History ipratropium-albuterol 3 ml NEB Q4H PRN 11/25/20 11/25/20 History levocetirizine 5 mg PO DAILY PRN 11/25/20 History Past Med/Surg History Medical History (Updated 11/25/20 @ 18:24 by Liborio Vale MD) 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 2. BETHESDA SYSTEM FOR REPORTING THYROID CYTOPATHOLOGY: CATEGORY 2, BENIGN. 3. LYMPHOCYTIC THYROIDITIS NOTED. Cardiomegaly Cholelithiasis Noted on CT scan 08/06/2019 Chronic cough Conductive hearing loss of both ears Exacerbation of asthma Goiter HTN (hypertension) Hypersomnia LAD (lymphadenopathy), mediastinal LBBB (left bundle branch block) Left thyroid nodule Incidental finding on CT 08/06/2019: 1.2 centimeter left thyroid nodule 1.8 cm hypoechoic left lobe thyroid nodule -ultrasound 08/12/2019 No chronic diseases present Persistent asthma Surgical History S/P appendectomy Family History Father Cancer Mother Hypertension Other No family history of adverse response to anesthesia No family history of bleeding disorder Denies family history of Ovarian cancer Prostate cancer Myocardial infarction Breast cancer Lung cancer Colorectal cancer Social History Smoking Status: Never smoker Second Hand Exposure: No; Hx Alcohol Use: No Hx Substance Use: No Preferred Language: Romanian Communication Ability: Effective Visual Impairment: Limited Hearing Ability: Normal Programming Development Project Manager Required: No Beliefs That Will Affect Care: None marital status: / marital status details: passed 2017 Current Living Situation: Family current occupational status: unemployed current occupation: homemaker How many Children do You have: 6 Feels Safe at Home: Yes Childhood Exposure to Second-Hand Smoke: No Diet Comment: regular caffeine: Yes (1 cup) during the past year weight has: remained stable Dental Care, Regularly: No Physical Activity Frequency: Daily Physical Activity Frequency Comment: walking Seatbelt Use: always Sunscreen Use: No Assistive Devices: CPAP and Glasses Review of Systems Review of Systems: moderate respiratory distress no headache, blurry or double vision no speech or swallowing issues, did not lose taste or smell no chest pain, pressure or palpitations short of breath, audible wheezes, no abdominal pain, nausea or vomiting, mild diarrhea 4 days ago since resolved no dysuria, hematuria or frequency no focal joint pain or swelling no back pain, CVA tenderness or radicular pain no bruising, bleeding or rashes no focal signs of weakness or numbness or altered sensation no complaints of anxiety or depression.. Physical Exam Physical Exam: The patient appeared in moderate respiratory distress, she is morbidly obese Vital signs as documented. Head exam is normocephalic atraumatic no scleral icterus Neck is without JVD, thyromegaly, or carotid bruits. Lungs with bilateral respiratory wheezes and prolonged respiratory phase Cardiac exam, Rhythm is regular.. No murmurs, rubs or gallops. Abdominal exam reveals normal bowel sounds, soft non tender, no masses Extremities are nonedematous and both pedal pulses are present Neurologic exam is alert and oriented, no focal loss of strength or sensation Skin is without bruises or rashes Psychologically is without concerns for anxiety or depression Results & Data Results & [facility] ([facility]) Vital Signs (Past 12 Hours) Vital Signs Temp Pulse Resp BP Pulse Ox 11/25/20 16:41 101 H 25 H 154/104 H 100 11/25/20 15:44 93 H 100 11/25/20 15:25 137 H 97 11/25/20 15:20 93 11/25/20 15:11 98.2 F 112 H 24 176/101 H 96 PG Care Time/CCT Total # of Minutes Spent Total Time Spent with Patient: Total time spent is greater than 50% in coordination of care (as documented) at patient's floor/unit and/or counseling patient: Coding Level of Care Code 18616 Initial Inpt Care Lvl 3 Diagnoses Acute respiratory failure J96.00 COVID-19 U07.1 HTN (hypertension) I10 Hypertension type: unspecified MARY (obstructive sleep apnea) G47.33 DVT prophylaxis Z29.9 (1) HTN (hypertension) Hypertension type: unspecified Qualified Code(s): I10 - Essential (primary) hypertension
[2020-11-25] MEDS ORDERED: ONDANSETRON INJ 2 MG/ML 2 ML VIAL IV PRN (19:59)
[2020-11-25] MEDS ORDERED: BENZONATATE 100 MG CAPSULE PO PRN (19:59)
[2020-11-25] MEDS ORDERED: LORazepam 0.5 MG TAB PO PRN (19:59)
[2020-11-25] MEDS ORDERED: ALUMINUM/MAGNESIUM SUSP 30 ML UDC PO PRN (19:59)
[2020-11-25] MEDS ORDERED: hydrALAZINE HCL 20 MG/ML VIAL IV PRN (19:59)
[2020-11-25] MEDS ORDERED: PATIENT'S HEIGHT AND/OR WEIGHT NEEDED SCH (20:15)
[2020-11-25] MEDS: guaiFENesin 600 MG TABCR PO SCH (21:26)
[2020-11-25] MEDS: ENOXAPARIN INJ 30 MG/0.3 ML SYR SQ SCH (21:26)
[2020-11-25] MEDS: MONTELUKAST SODIUM 10 MG TABLET PO SCH (21:27)
[2020-11-25] MEDS: DOXYCYCLINE HYCLATE 100 MG CAP PO SCH (21:27)
[2020-11-25] MEDS: FORMOTEROL 20 MCG/2 ML VIAL NEB SCH (22:04)
[2020-11-25] MEDS: ALBUT/IPRATROP 3MG/0.5MG NEB 3 ML VIAL NEB SCH ×2 (22:04→22:06)
[2020-11-26] MEDS: ALBUT/IPRATROP 3MG/0.5MG NEB 3 ML VIAL NEB SCH ×6 (04:01→22:34)
[2020-11-26 06:39] LABS: BUN Creatinine Ratio 24.3 (10-20); Calcium 9.2 mg/dl (8.5-10.1); Creatinine Clr Calc Pharmacy 97.3 ml/min; Est GFR (African American) 111.2; Magnesium 2.3 mg/dl (1.8-2.4); Potassium 3.7 mmol/L (3.5-5.1)
[2020-11-26 06:49] LABS: Thyroid Stimulating Hormone 0.078 uIu/ml (0.300-4.500)
[2020-11-26 07:03] LABS: T4 Free Thyroxine 1.41 ng/dl (0.8-1.6)
[2020-11-26] MEDS: FORMOTEROL 20 MCG/2 ML VIAL NEB SCH ×2 (08:07→19:19)
[2020-11-26] MEDS: ACETAMINOPHEN 325 MG TAB PO PRN (09:04)
[2020-11-26] MEDS: guaiFENesin 600 MG TABCR PO SCH ×2 (09:06→20:13)
[2020-11-26] MEDS: DOXYCYCLINE HYCLATE 100 MG CAP PO SCH ×2 (09:06→20:13)
[2020-11-26] MEDS: CHOLECALCIFEROL 1,000 UNITS 25 MCG TAB PO SCH (09:07)
[2020-11-26] MEDS: amLODIPine BESYLATE 5 MG TAB PO SCH (09:07)
[2020-11-26] MEDS: PANTOprazole 40 MG TAB PO SCH (09:07)
[2020-11-26] MEDS: ENOXAPARIN INJ 30 MG/0.3 ML SYR SQ SCH ×2 (09:08→20:12)
[2020-11-26] MEDS: FLUTICASONE PROPIONATE NA SPR 16 GM BTL SCH (09:08)
[2020-11-26] MEDS: dexAMETHasone 6 MG in SYRINGE 0 ML IV SCH (09:09)
--- NOTE | 2020-11-26 19:40 | Hospitalist Progress Note ---
Date of Service November 26, 2020 Assessment & Plan (1) Acute respiratory failure: Patient has acute respiratory failure with tachypnea and hypoxia. She has a history of moderate persistent asthma and follows with pulmonology. She does have a distant history of Covid in August 2020 however does not have any signs of Covid pneumonia at present time. Perhaps this is a recurrent Covid-19 infection triggering an asthma exacerbation Was requiring 3 to 4 L on admission and is now weaned to room air after starting IV steroids-improving -Continue dexamethasone 6 mg IV once daily -Continue scheduled albuterol nebulizers Continue formoterol every 12 Continue Singulair Continue guaifenesin 1200 mg p.o. every 12 hours Continue fluticasone nasal spray Continue Tessalon Perles as needed for cough -Continue doxycycline (2) COVID-19: Patient was initially diagnosed in August with Covid-19 and was treated with dexamethasone. This may be a recurrent infection She does report that she had fevers and chills at home subjectively Her chest x-ray is clear without pneumonia After discussion with ID recommendation for airborne isolation as she exceeds 90 day from initial infection and maybe secondary infection, however with lack of pulmonary changes on cxr will not be considered covid pneumonia but maybe a mild infection influencing her asthma. Will not treat with remdesivir convalescent plasma (3) HTN (hypertension): Hypertensive on arrival and now improved Continue home amlodipine Hydralazine as needed (4) MARY (obstructive sleep apnea): CPAP ordered for at bedtime (5) Asthma: As above, with moderate persistent asthma Follows with pulmonology Continue bronchodilators and Singulair as above Steroids (6) GERD (gastroesophageal reflux disease): Continue Protonix daily (7) Goiter: With a Patience's multinodular goiter TSH here is mildly low but free T4 is normal (8) DVT prophylaxis: Lovenox 30 mg SQ every 12 hours Disposition-continued stay on medical floor with telemetry, but much improved, may be able to discharge in the next 1 to 2 days Admission and Anticipated Discharge Date Admission Date: November 25, 2020 Subjective Patient reports feeling better, is weaned off oxygen. Still coughing but not bringing anything up. Denies chest pains or wheezing. She does report that she had subjective fevers and chills at home. No one else in the house has Covid. Denies nausea or vomiting, no diarrhea. She is eating and drinking. Telemetry with sinus tachycardia with rates in the 90s to 100s. Review of Systems Review of Systems: All systems reviewed & are unremarkable except as noted in HPI & below Physical Exam Constitutional: WD/WN, vitals as above + obese Eyes: + anicteric sclerae Neck: trachea midline, no thyromegaly Respiratory: normal respiratory effort Auscultation: + wheezes (Bilateral); no crackles and no rhonchi Cardiovascular: RRR, no murmur, no edema Extremities: no calf tenderness Chest (Breasts): Chest: normal inspection of chest Gastrointestinal (Abdomen): normal bowel sounds, soft, nontender, no hepatosplenomegaly Musculoskeletal: Extremities: extremities normal to inspection; no cyanosis and no clubbing Skin: no rashes, warm and dry Neurologic: moves all extremities and awake; no focal motor deficits Psychiatric: A+Ox3, euthymic affect Lymphatic: no lymphedema Results & Data Results & Data ([facility]) Vital Signs (Past 12 Hours) Vital Signs Temp Pulse Pulse Resp BP BP Pulse Ox 11/26/20 19:21 99 H 20 96 11/26/20 16:57 111 H 11/26/20 16:03 103 H 18 98 11/26/20 14:31 37.0 C 106 H 18 144/87 H 93 11/26/20 12:15 36.7 C 97 H 16 156/80 H 95 11/26/20 11:39 103 H 18 94 11/26/20 10:11 94 11/26/20 08:31 37.0 C 102 H 20 138/81 96 11/26/20 08:07 104 H 18 99 Laboratory Results 11/26/20 11/26/20 Range/Units 05:31 05:31 Sodium 141 (136-145) mmol/L Potassium 3.7 (3.5-5.1) mmol/L Chloride 110 H (98-107) mmol/L Carbon Dioxide 28 (21-32) mmol/L Anion Gap 3.0 (3-11) BUN 17 D (7-18) mg/dl Creatinine 0.69 (0.6-1.2) mg/dl Est Cr Clr Drug Dosing 97.3 ml/min Est GFR ( Amer) 111.2 Est GFR (Non-Af Amer) 96.0 BUN/Creatinine Ratio 24.3 H (10-20) Glucose 159 H (70-99) mg/dl Calcium 9.2 (8.5-10.1) mg/dl Magnesium 2.3 (1.8-2.4) mg/dl TSH 0.078 L (0.300-4.500) uIu/ml Free T4 1.41 (0.8-1.6) ng/dl Hepatitis C Ab Screen Neg (Neg) PG Care Time/CCT Total # of Minutes Spent Total Time Spent with Patient: Total time spent is greater than 50% in coordination of care (as documented) at patient's floor/unit and/or counseling patient: Coding Level of Care Code 67222 Subseq Hosp Care Lvl 2 Diagnoses Acute respiratory failure J96.00 COVID-19 U07.1 HTN (hypertension) I10 Hypertension type: unspecified MARY (obstructive sleep apnea) G47.33 Asthma J45.909 GERD (gastroesophageal reflux disease) K21.9 Esophagitis presence: esophagitis presence not specified Goiter E04.9 DVT prophylaxis Z29.9 (1) HTN (hypertension) Hypertension type: unspecified Qualified Code(s): I10 - Essential (primary) hypertension (2) GERD (gastroesophageal reflux disease) Esophagitis presence: esophagitis presence not specified Qualified Code(s): K21.9 - Gastro-esophageal reflux disease without esophagitis
[2020-11-26] MEDS: MONTELUKAST SODIUM 10 MG TABLET PO SCH (20:13)
[2020-11-27] MEDS: ALBUT/IPRATROP 3MG/0.5MG NEB 3 ML VIAL NEB SCH ×6 (03:34→22:34)
[2020-11-27 06:18] LABS: Hematocrit (blood only) 37.9 % (37-47); Hemoglobin 12.5 g/dL (12.0-16.0); Mean Corpuscular Volume 87.9 fL (80-100); Mean Platelet Volume 10.5 fL (7.4-10.4); Platelet Count 290 K/uL (130-400); RDW Standard Deviation 47.9 fL (36.4-46.3); Red Blood Count 4.31 M/uL (4.2-5.4); White Blood Count 11.55 K/uL (4.8-10.8)
[2020-11-27 06:49] LABS: Calcium 9.3 mg/dl (8.5-10.1); Creatinine Clr Calc Pharmacy 81.5 ml/min; Est GFR (African American) 90.1; Est GFR (Non-African American) 77.7; Potassium 3.9 mmol/L (3.5-5.1)
[2020-11-27] MEDS: FORMOTEROL 20 MCG/2 ML VIAL NEB SCH ×2 (07:08→20:07)
[2020-11-27] MEDS: dexAMETHasone 6 MG in SYRINGE 0 ML IV SCH ×2 (08:51→20:34)
[2020-11-27] MEDS: amLODIPine BESYLATE 5 MG TAB PO SCH (08:52)
[2020-11-27] MEDS: CHOLECALCIFEROL 1,000 UNITS 25 MCG TAB PO SCH (08:52)
[2020-11-27] MEDS: PANTOprazole 40 MG TAB PO SCH (08:52)
[2020-11-27] MEDS: DOXYCYCLINE HYCLATE 100 MG CAP PO SCH ×2 (08:52→20:33)
[2020-11-27] MEDS: FLUTICASONE PROPIONATE NA SPR 16 GM BTL SCH (08:52)
[2020-11-27] MEDS: ENOXAPARIN INJ 30 MG/0.3 ML SYR SQ SCH ×2 (08:52→20:33)
[2020-11-27] MEDS: guaiFENesin 600 MG TABCR PO SCH ×2 (08:52→20:33)
--- NOTE | 2020-11-27 12:28 | Hospitalist Progress Note ---
Date of Service November 27, 2020 Assessment & Plan (1) Acute respiratory failure: Patient has acute respiratory failure with tachypnea and hypoxia. She has a history of moderate persistent asthma and follows with pulmonology. She does have a distant history of Covid in August 2020 however does not have any signs of Covid pneumonia at present time. Perhaps this is a recurrent Covid-19 infection triggering an asthma exacerbation Was requiring 3 to 4 L on admission and is now weaned to room air after starting IV steroids-improving but continues to wheeze quite a bit Is coughing up a lot of brown-turcios sputum -increase dexamethasone to 6 mg IV bid -Continue scheduled albuterol nebulizers Continue formoterol every 12 Continue Singulair Continue guaifenesin 1200 mg p.o. every 12 hours Continue fluticasone nasal spray Continue Tessalon Perles as needed for cough -Continue doxycycline x 7 day course (2) COVID-19: Patient was initially diagnosed in August with Covid-19 and was treated with dexamethasone. This may be a recurrent infection as it has been > 90 days since her last infection She does report that she had fevers and chills at home subjectively Her chest x-ray is clear without pneumonia but now coughing up sputum as above After discussion with ID recommendation for airborne isolation as she exceeds 90 day from initial infection and maybe secondary infection, however with lack of pulmonary changes on cxr will not be considered covid pneumonia but maybe a mild infection influencing her asthma. Will not treat with remdesivir convalescent plasma (3) Asthma: As above, with moderate persistent asthma Follows with pulmonology Continue bronchodilators and Singulair as above Steroids as above continues wheezing (4) HTN (hypertension): Hypertensive on arrival and now improved Continue home amlodipine Hydralazine as needed (5) MARY (obstructive sleep apnea): CPAP ordered for at bedtime (6) GERD (gastroesophageal reflux disease): Continue Protonix daily (7) Goiter: With a Patience's multinodular goiter TSH here is mildly low but free T4 is normal (8) DVT prophylaxis: Lovenox 30 mg SQ every 12 hours Disposition-continued stay on medical floor with telemetry, but much improved, may be able to discharge tomorrow, may need a 2 step walk test Admission and Anticipated Discharge Date Admission Date: November 25, 2020 Subjective Pt coughing up quite a bit of yellow-turcios sputum. Still wheezing. Not SOB with exertion to the bathroom. Remains on RA at rest. Has some occasional right sided rib pain with coughing. No other concerns. Is moving bowels, making urine. Tele with NSR, IVCD, PVCs, rates 80-90s Review of Systems Review of Systems: All systems reviewed & are unremarkable except as noted in HPI & below Physical Exam Constitutional: WD/WN, vitals as above + obese Eyes: + anicteric sclerae Neck: trachea midline, no thyromegaly Respiratory: normal respiratory effort Auscultation: + wheezes (Bilateral, diffuse); no crackles and no rhonchi Cardiovascular: RRR, no murmur, no edema Extremities: no calf tenderness Chest (Breasts): Chest: normal inspection of chest Gastrointestinal (Abdomen): normal bowel sounds, soft, nontender, no hepatosplenomegaly Musculoskeletal: Extremities: extremities normal to inspection; no cyanosis and no clubbing Skin: no rashes, warm and dry Neurologic: moves all extremities and awake; no focal motor deficits Psychiatric: A+Ox3, euthymic affect Lymphatic: no lymphedema Results & Data Results & Data ([facility]) Vital Signs (Past 12 Hours) Vital Signs Temp Pulse Pulse Resp BP Pulse Ox 11/27/20 11:58 83 18 96 11/27/20 08:00 36.8 C 83 18 152/80 H 93 11/27/20 07:09 85 18 96 11/27/20 03:36 79 20 95 11/27/20 03:35 79 20 95 11/27/20 03:00 36 C L 83 20 135/77 96 11/27/20 00:38 100 H Laboratory Results 11/27/20 11/27/20 Range/Units 05:44 05:44 WBC 11.55 H (4.8-10.8) K/uL RBC 4.31 (4.2-5.4) M/uL Hgb 12.5 (12.0-16.0) g/dL Hct 37.9 (37-47) % MCV 87.9 (80-100) fL MCH 29.0 (25-34) pg MCHC 33.0 (32-36) g/dL RDW Std Deviation 47.9 H (36.4-46.3) fL RDW Coeff of Niesha 15.0 H (11.5-14.5) % Plt Count 290 (130-400) K/uL MPV 10.5 H (7.4-10.4) fL Sodium 139 (136-145) mmol/L Potassium 3.9 (3.5-5.1) mmol/L Chloride 106 (98-107) mmol/L Carbon Dioxide 30 (21-32) mmol/L Anion Gap 3.0 (3-11) BUN 21 H (7-18) mg/dl Creatinine 0.83 (0.6-1.2) mg/dl Est Cr Clr Drug Dosing 81.5 ml/min Est GFR ( Amer) 90.1 Est GFR (Non-Af Amer) 77.7 BUN/Creatinine Ratio 25.0 H (10-20) Glucose 106 H (70-99) mg/dl Calcium 9.3 (8.5-10.1) mg/dl PG Care Time/CCT Total # of Minutes Spent Total Time Spent with Patient: Total time spent is greater than 50% in coordination of care (as documented) at patient's floor/unit and/or counseling patient: Coding Level of Care Code 50029 Subseq Hosp Care Lvl 2 Diagnoses Acute respiratory failure J96.00 COVID-19 U07.1 Asthma J45.909 HTN (hypertension) I10 Hypertension type: unspecified MARY (obstructive sleep apnea) G47.33 GERD (gastroesophageal reflux disease) K21.9 Esophagitis presence: esophagitis presence not specified Goiter E04.9 DVT prophylaxis Z29.9 (1) HTN (hypertension) Hypertension type: unspecified Qualified Code(s): I10 - Essential (primary) hypertension (2) GERD (gastroesophageal reflux disease) Esophagitis presence: esophagitis presence not specified Qualified Code(s): K21.9 - Gastro-esophageal reflux disease without esophagitis
[2020-11-27] MEDS: MONTELUKAST SODIUM 10 MG TABLET PO SCH (20:33)
[2020-11-27] MEDS: ACETAMINOPHEN 325 MG TAB PO PRN (20:39)
[2020-11-28] MEDS: ALBUT/IPRATROP 3MG/0.5MG NEB 3 ML VIAL NEB SCH ×4 (03:33→15:46)
[2020-11-28] MEDS: FORMOTEROL 20 MCG/2 ML VIAL NEB SCH (07:17)
[2020-11-28] MEDS: DOXYCYCLINE HYCLATE 100 MG CAP PO SCH (08:54)
[2020-11-28] MEDS: FLUTICASONE PROPIONATE NA SPR 16 GM BTL SCH (08:54)
[2020-11-28] MEDS: dexAMETHasone 6 MG in SYRINGE 0 ML IV SCH (08:54)
[2020-11-28] MEDS: ENOXAPARIN INJ 30 MG/0.3 ML SYR SQ SCH (08:54)
[2020-11-28] MEDS: guaiFENesin 600 MG TABCR PO SCH (08:54)
[2020-11-28] MEDS: amLODIPine BESYLATE 5 MG TAB PO SCH (08:56)
[2020-11-28] MEDS: CHOLECALCIFEROL 1,000 UNITS 25 MCG TAB PO SCH (08:56)
[2020-11-28] MEDS: PANTOprazole 40 MG TAB PO SCH (08:56)
--- NOTE | 2020-11-28 11:55 | Discharge Summary ---
Date of Service November 28, 2020 Admission HPI Per Admitting Provider Patient has a history of Covid diagnosed August 19/2020 treated with 10-day course of dexamethasone only required 1 day hospital stay. She is a history of chronic persistent asthma seeing Dr. Santos as an outpatient. Most recently seen November 08 and had her steroid and long-acting beta agonist inhaler increased. She arrives today in significant respiratory distress requiring nebulizers and magnesium to improve her respiratory demeanor. No she is repeat Covid testing positive she does not have any Covid pneumonia seen on chest x-ray and subsequently will be Covid ordered in a private room will not need airborne precautions at this time. Will be using precautions for aerosolized generating procedures which would be part of her nebulized treatment for this disease. Principal Diagnosis Acute asthma exacerbation, acute respiratory failure with hypoxia, and recurrent Covid-19 infection Discharge Exam Constitutional WD/WN, vitals as above + obese Eyes + anicteric sclerae Neck trachea midline, no thyromegaly Respiratory normal respiratory effort Auscultation: + wheezes (Occasional expiratory wheeze bilaterally but much improved, moving air well); no crackles and no rhonchi Cardiovascular RRR, no murmur, no edema Extremities: no calf tenderness Chest (Breasts) Chest: normal inspection of chest Gastrointestinal (Abdomen) normal bowel sounds, soft, nontender, no hepatosplenomegaly Musculoskeletal Extremities: extremities normal to inspection; no cyanosis and no clubbing Skin no rashes, warm and dry Neurologic moves all extremities and awake; no focal motor deficits Psychiatric A+Ox3, euthymic affect Lymphatic no lymphedema Discharge Data Allergies Allergy/AdvReac Type Severity Reaction Status Date / Time lisinopril AdvReac Mild Cough Verified 11/25/20 16:02 Consultations 11/25/20 17:45 ED Decision to Admit Stat Procedures Performed Chest x-ray Hospital Course (1) Acute respiratory failure: Patient has acute respiratory failure with tachypnea and hypoxia. She has a history of moderate persistent asthma and follows with pulmonology. She does have a distant history of Covid in August 2020 however does not have any signs of Covid pneumonia at present time. Perhaps this is a recurrent Covid-19 infection triggering an asthma exacerbation Was requiring 3 to 4 L on admission and is now weaned to room air after starting IV steroids-much improved, dropped to 91% during two-step walk test but did not require supplemental O2 for discharge Is coughing up a lot of brown-turcios sputum now which is improving -Received dexamethasone 6 mg IV bid and will discharged home on prednisone 60 mg daily and decrease by 10 mg every 2 days -Continue scheduled albuterol nebulizers versus HFA at home until improved Continue Singulair Received guaifenesin 1200 mg p.o. every 12 hours Continue fluticasone nasal spray -Continue doxycycline x 7 day course to finish out at home (2) COVID-19: Patient was initially diagnosed in August with Covid-19 and was treated with dexamethasone. This may be a recurrent infection as it has been > 90 days since her last infection She does report that she had fevers and chills at home subjectively Her chest x-ray is clear without pneumonia but now coughing up sputum as above After discussion with ID recommendation for airborne isolation as she exceeds 90 day from initial infection and maybe secondary infection, however with lack of pulmonary changes on cxr will not be considered covid pneumonia but maybe a mild infection influencing her asthma. Will not treat with remdesivir convalescent p lasma -She will remain on quarantine at home for 14 days (3) Asthma: As above, with moderate persistent asthma Follows with pulmonology Continue bronchodilators and Singulair as above Steroids as above Much improved, only mild occasional wheeze Moving air well at the time of discharge (4) HTN (hypertension): Hypertensive on arrival and now improved Continue home amlodipine (5) MARY (obstructive sleep apnea): CPAP ordered for at bedtime (6) GERD (gastroesophageal reflux disease): Continue Protonix daily (7) Goiter: With a Patience's multinodular goiter TSH here is mildly low but free T4 is normal (8) DVT prophylaxis: Lovenox 30 mg SQ every 12 hours Disposition-stable for discharge home, does not require oxygen Total Time Total Time Spent Total Time Spent (In Minutes): 35 minutes Total Time Includes: Examination of the Patient, Discharge Planning and Medication Reconciliation Discharge Plan Discharge Items Patient Disposition: Home - Self-Care Reason For Visit: ACUTE RESP FAILURE, ASTHMA EXACERBATION Discharge Diagnosis: Acute asthma exacerbation, Covid-19 Condition on Discharge: Good Activity: As commented below Lifting: Gradually increase as tolerated Bathing: No limitations Exercise/Sports: Gradually increase as tolerated Non-emergency contact: Primary Care Provider and [facility] Call non-emergency contact if: you have any medication questions and your symptoms worsen Follow-up/Referrals: Fariha Guaman DO [Primary Care Provider] - (Please follow-up within 1 to 2 weeks.) Edna Vitale MD [Physician] - (Please follow-up as scheduled in March.) Diet: Heart Healthy Addtl Attending Provider Instructions: You are admitted with an asthma exacerbation and low oxygen levels. This improved with giving you steroids through the IV and an antibiotic for bronchitis. Please continue the prednisone and taper down on the dose as per the instructions. Please finish out the course of doxycycline as the antibiotic for your bronchitis. Please continue to use your nebulizers or your rescue inhalers every 4 hours until your cough is improved. You did not require any oxygen at the time of discharge. Please follow-up with your primary care provider within 1 to 2 weeks. Because we think that you had a recurrent Covid-19 infection, you should remain on quarantine for 2 weeks. Pending Studies at Discharge: No Stand-Alone Forms: [facility] Medications and DC Order Prescriptions: New doxycycline hyclate 100 mg Capsule 100 mg PO BID Qty: 6 RF: 0 prednisone 10 mg tablet 60 mg PO DAILY Qty: 42 RF: 0 Continued amlodipine [Norvasc] 5 mg tablet 5 mg PO DAILY Qty: 90 RF: 1 budesonide-formoterol [Symbicort] 160-4.5 mcg/actuation HFA aerosol inhaler 2 puff inhalation BID Qty: 10.2 RF: 3 Spiriva Respimat 2.5 mcg/actuation mist 2 puff inhalation DAILY Qty: 4 RF: 3 fluticasone propionate [Allergy Relief (fluticasone)] 50 mcg/actuation spray,suspension 1 spray INTNAS DAILY Qty: 9.9 RF: 3 pantoprazole 40 mg tablet,delayed release (DR/EC) 40 mg PO QAM Qty: 90 RF: 1 montelukast [Singulair] 10 mg tablet 10 mg PO QPM Qty: 30 RF: 3 ibuprofen [Advil] 200 mg Tablet 400 - 600 mg PO DIRECTED PRN (Reason: Pain) RF: 0 cholecalciferol (vitamin D3) [Vitamin D3] 50 mcg (2,000 unit) Tablet 50 mcg PO QAM RF: 0 ipratropium-albuterol 0.5 mg-3 mg(2.5 mg base)/3 mL solution for nebulization 3 ml NEB Q4H PRN (Reason: Shortness Of Breath Or Wheezing) RF: 0 benzonatate 200 mg capsule 200 mg PO BID PRN (Reason: Cough) RF: 0 albuterol sulfate [Ventolin HFA] 90 mcg/actuation HFA aerosol inhaler 2 puff INH Q6H PRN (Reason: Shortness Of Breath Or Wheezing) RF: 0 levocetirizine 5 mg tablet 5 mg PO DAILY PRN (Reason: Allergy Symptoms) RF: 0 Discharge Orders: Discharge Order (Routine); Ordered 11/28/20 Ordered By: Huong Pruett Admission Data Admit Date/Time: 11/25/20 18:35 Attending Provider: Huong Pruett Admit Provider: Liborio Vale Primary Care Provider: Fariha Guaman Other Providers: Liborio Vale Coding Level of Care Code D/C Day Management >30 mins Diagnoses Acute respiratory failure J96.00 COVID-19 U07.1 Asthma J45.909 HTN (hypertension) I10 Hypertension type: unspecified MARY (obstructive sleep apnea) G47.33 GERD (gastroesophageal reflux disease) K21.9 Esophagitis presence: esophagitis presence not specified Goiter E04.9 DVT prophylaxis Z29.9
== END 2020-11-28 16:16 | disposition home or self-care (01) | DRG 189 ==
LOC: ED 15:03 → SUATTDRO 18:35 → 2N 18:35

== ENCOUNTER 2021-02-17 16:13 | Observation (INO) ==
[2021-02-17] MEDS ORDERED: methylPREDNISolone 125 MG/2 ML VIAL IV STA (17:58)
[2021-02-17] MEDS ORDERED: ALBUT/IPRATROP 3MG/0.5MG NEB 3 ML VIAL INH STA (17:58)
[2021-02-17 18:27] LABS: Alanine Aminotransferase 36 U/L (12-78); Albumin Level 3.8 gm/dl (3.4-5.0); Aspartate Aminotransferase 15 U/L (15-37); BUN Creatinine Ratio 25.2 (10-20); Blood Urea Nitrogen 19 mg/dl (7-18); Calcium 8.8 mg/dl (8.5-10.1); Carbon Dioxide 23 mmol/L (21-32); Chloride 106 mmol/L (98-107); Creatinine Clr Calc Pharmacy 100.6 ml/min; Est GFR (African American) 101.8 ml/min; Est GFR (Non-African American) 87.9 ml/min; Glucose 88 mg/dl (70-99); Magnesium 2.3 mg/dl (1.8-2.4); Potassium 4.3 mmol/L (3.5-5.1); Sodium 139 mmol/L (136-145)
[2021-02-17 18:32] LABS: Albumin Globulin Ratio 1.1 (0.9-2); Alkaline Phosphatase 73 U/L (45-117); Basophils # (auto) 0.02 K/uL (0-0.2); Basophils % (auto) 0.2 %; Bilirubin,Total 0.4 mg/dl (0.2-1); Eosinophils # (auto) 0.21 K/uL (0-0.5); Eosinophils % (auto) 2.6 %; Globulin 3.4 gm/dl (2.5-4.0); Hematocrit (blood only) 39.9 % (37-47); Hemoglobin 13.1 g/dL (12.0-16.0); Immature Granulocytes # (auto) 0.03 K/uL (0.00-0.02); Immature Granulocytes % (auto) 0.4 %; Lymphocytes # (auto) 0.92 K/uL (1.2-3.4); Lymphocytes % (auto) 11.4 %; Mean Corpuscular Hemoglobin 29.4 pg (25-34); Mean Corpuscular Hgb Conc 32.8 g/dL (32-36); Mean Corpuscular Volume 89.5 fL (80-100); Mean Platelet Volume 11.1 fL (7.4-10.4); Monocytes # (auto) 0.85 K/uL (0.11-0.59); Monocytes % (auto) 10.5 %; NT Pro B Type Natriuretic Pept 614 pg/ml (0-900); Neutrophils # (auto) 6.04 K/uL (1.4-6.5); Neutrophils % (auto) 74.9 %; Platelet Count 240 K/uL (130-400); RDW Standard Deviation 46.1 fL (36.4-46.3); Red Blood Count 4.46 M/uL (4.2-5.4); Total Protein 7.2 gm/dl (6.4-8.2); Troponin I < 0.015 ng/ml (0-0.045); White Blood Count 8.07 K/uL (4.8-10.8)
--- NOTE | 2021-02-17 18:37 | Emergency Department Note ---
Impression & Plan SOB (shortness of breath), Asthma, Hypoxia ED Provider Note INFORMANT: Patient ED PROVIDER(S): Antonio Ware MD CHIEF COMPLAINT: Shortness of breath PLAN: Disposition: Admitted Condition: Good Outpatient prescription management: none Referral: None MEDICAL DECISION MAKING: Patient presented from the primary office. She had blood work obtained. Patient CBC and chemistry panel were negative. Her troponin and BNP were unremarkable. The patient underwent CT imaging. Her ECG did not show any acute findings. The patient had a left bundle branch block. She was given a DuoNeb. She was given Solu-Medrol. The patient underwent CT imaging. No evidence of PE or other acute pathology was noted. The patient was treated with another neb treatment. She was ambulated and was still experiencing shortness of breath and she was hypoxic. She will need further management in the hospital. Consultation was made with Dr. Vini Adhikari of the [facility] service. Patient was evaluated in the ER for further management. Triage Nursing notes reviewed and agree them. Vital Signs: reviewed and remarkable for hypoxia Differential diagnosis: Reactive airway disease, pneumonia, pneumothorax, COPD, CHF, infections, cardiac ischemia, pulmonary embolism, musculoskeletal, gastrointestinal, as well as other pathologies. Diagnostics interpreted by me: ECG: Twelve-lead ECG reveals a normal sinus rhythm at 75 bpm. Left bundle branch block. No ST elevation or depression. No PVCs. Cardiac Monitoring: Cardiac monitoring ordered by me: The patient was placed on continuous cardiac monitoring and observed. It revealed a normal sinus rhythm at 72 beats per minute without ectopy or evidence of dysrhythmia. Imaging studies: CT imaging negative for acute pathology. Chest x-ray. Findings: A chest x-ray was performed and revealed no pneumothorax, effusion, infiltrate, pulmonary edema, free air under the diaphragm, or wide mediastinum. Impression: No acute disease. HPI: The patient is a 60 year old female who presents to the Emergency Room with complaints of shortness of breath. This started a few weeks ago, worsened yesterday and is not improving despite her home nebulizers. The patient also notes the following associated symptoms, productive cough of yellow sputum. The patient has been prescribed prednisone unsuccessfully for relieving factors. Current pain is rated as 0/10. Patient was at PCPs office. Her oxygen saturation was noted to be 90% on room air. They were concerned due to the increased work of breathing and leg swelling. She was started on oxygen and EMS was summoned. She was given a DuoNeb in route. She has a history of asthma and Covid pneumonia in November. Pt denies LOC, headache, fevers, chills, diaphoresis, visual changes, neck pain, chest pain, nausea, vomiting, abdominal pain, back pain, melena, hematochezia, urinary symptoms, numbness, weakness, lymphadenopathy, rash, or other complaints. ROS: See above HPI for pertinent positives & negatives. A total of 10 systems reviewed and were otherwise negative. PAST MEDICAL HISTORY:See Below , asthma PAST SURGICAL HISTORY:See Below, FAMILY HISTORY:See Below SOCIAL HISTORY:See Below, lives with family HOME MEDICATIONS:See Below ALLERGIES:See Below VITALS:See Below PHYSICAL EXAMINATION: GENERAL: Awake, alert, mildly dyspneic appearing, in no distress HENT: Normocephalic, atraumatic. Oropharynx unremarkable. EYES: Normal conjunctiva. Sclera non-icteric. NECK: Inspection normal. Non-tender. Supple. No nuchal rigidity. FROM. No masses. RESPIRATORY: Scattered wheezes. No rales. Normal respiratory effort. CARDIAC: Normal rate. Normal rhythm. No murmurs. No rubs. Extremities warm and well perfused. Pulses equal. No JVD. GI: Soft, non-distended. No tenderness to palpation. No rebound or guarding. No masses. RECTAL: Deferred. MUSCULOSKELETAL: Atraumatic. Chest examination reveals no tenderness. The back is symmetrical on inspection without obvious abnormality. There is no CVA tenderness to palpation. No joint edema. LOWER EXTREMITIES: Calves are equal size bilaterally and non-tender. 2+ edema. No discoloration. NEURO: Normal sensorium. No sensory or motor deficits noted. SKIN: No rash or jaundice noted. Antonio Ware MD Past Med/Surg History Medical History Benign follicular tumor of thyroid gland Cardiomegaly Cholelithiasis Chronic cough Conductive hearing loss of both ears Exacerbation of asthma Goiter HTN (hypertension) Hypersomnia LAD (lymphadenopathy), mediastinal LBBB (left bundle branch block) Left thyroid nodule Persistent asthma Surgical History S/P appendectomy Family History Father Cancer Mother Hypertension Other No family history of adverse response to anesthesia No family history of bleeding disorder Denies family history of Ovarian cancer Prostate cancer Myocardial infarction Breast cancer Lung cancer Colorectal cancer Social History Smoking Status: Never smoker Second Hand Exposure: No; Hx Alcohol Use: No Hx Substance Use: No Preferred Language: Maori Communication Ability: Effective Visual Impairment: Limited Hearing Ability: Normal Bead Preparer Required: No Beliefs That Will Affect Care: None marital status: / marital status details: passed 2017 Current Living Situation: Family Current Living Situation Comment: LIVES W HER 3 BOYS current occupational status: unemployed current occupation: homemaker How many Children do You have: 6 Feels Safe at Home: Yes Childhood Exposure to Second-Hand Smoke: No Diet Comment: regular caffeine: Yes (1 cup) during the past year weight has: remained stable Dental Care, Regularly: No Physical Activity Frequency: Daily Physical Activity Frequency Comment: walking Seatbelt Use: always Sunscreen Use: No Assistive Devices: Glasses Allergies Allergies Allergy/AdvReac Type Severity Reaction Status Date / Time lisinopril AdvReac Mild Cough Verified 02/17/21 17:30 Home Meds Home Medications Medication Instructions Recorded Confirmed ibuprofen [Advil] 400 - 600 mg PO DIRECTED PRN 04/30/19 02/17/21 cholecalciferol (vitamin D3) 50 mcg PO QAM 08/19/20 02/17/21 [Vitamin D3] albuterol sulfate [Ventolin HFA] 2 puff INH Q6H PRN 11/25/20 02/17/21 ipratropium-albuterol 3 ml NEB Q4H PRN 11/25/20 02/17/21 levocetirizine 5 mg PO DAILY PRN 11/25/20 02/17/21 Previous Rx's Medication Instructions Recorded budesonide-formoterol HFA 160 2 puff INHALATION BID #10.2 g 11/08/20 mcg-4.5 mcg/actuation aerosol inhaler fluticasone propionate 50 1 spray INTNAS DAILY #9.9 gm 11/08/20 mcg/actuation nasal spray,suspension montelukast 10 mg tablet 10 mg PO QPM #30 tab 11/08/20 pantoprazole 40 mg tablet,delayed 40 mg PO QAM #90 tab 11/08/20 release tiotropium bromide 2.5 2 puff INHALATION DAILY #4 g 11/08/20 mcg/actuation mist for inhalation metoprolol succinate 50 mg 50 mg PO DAILY #60 tab 02/02/21 tablet,extended release 24 hr diltiazem HCl 180 mg 180 mg PO DAILY #90 cap 02/10/21 capsule,extended release 24 hr Results & Data (ED) Vital Signs Vital Signs - 24 hr 02/17/21 16:13 02/17/21 16:30 02/17/21 16:33 Temperature 36.8 C Temperature Source Oral Pulse Rate 78 78 Pulse Rate [Right Finger] Pulse Rate from SpO2 Sensor 78 Pulse Rhythm Regular Respiratory Rate 18 19 Respiratory Effort / Characteristics Non-Labored Spontaneous Respiratory Depth Normal Respiratory Pattern Regular Blood Pressure 165/96 H 144/87 H Blood Pressure Mean 119 106 Pulse Oximetry 96 94 94 Oxygen Delivery Method Room Air Room Air Oxygen Flow Rate 96 Sepsis Recent Fever Within 48 Hours No Sepsis New/Unexplained Change in Mental Status No Sepsis Action Taken by Nursing No Action Required 02/17/21 16:34 02/17/21 17:00 02/17/21 17:01 Temperature Temperature Source Pulse Rate 71 76 81 Pulse Rate [Right Finger] Pulse Rate from SpO2 Sensor 72 75 83 Pulse Rhythm Respiratory Rate 23 21 19 Respiratory Effort / Characteristics Respiratory Depth Respiratory Pattern Blood Pressure 129/76 Blood Pressure Mean 93 Pulse Oximetry 96 97 94 Oxygen Delivery Method Oxygen Flow Rate Sepsis Recent Fever Within 48 Hours Sepsis New/Unexplained Change in Mental Status Sepsis Action Taken by Nursing 02/17/21 17:30 02/17/21 17:31 02/17/21 18:00 Temperature Temperature Source Pulse Rate 75 75 70 Pulse Rate [Right Finger] Pulse Rate from SpO2 Sensor 76 76 70 Pulse Rhythm Respiratory Rate 20 18 20 Respiratory Effort / Characteristics Respiratory Depth Respiratory Pattern Blood Pressure 133/88 160/101 H Blood Pressure Mean 103 120 Pulse Oximetry 93 95 98 Oxygen Delivery Method Oxygen Flow Rate Sepsis Recent Fever Within 48 Hours Sepsis New/Unexplained Change in Mental Status Sepsis Action Taken by Nursing 02/17/21 18:19 02/17/21 18:22 02/17/21 18:30 Temperature Temperature Source Pulse Rate 70 68 Pulse Rate [Right Finger] Pulse Rate from SpO2 Sensor 70 69 Pulse Rhythm Respiratory Rate 20 13 Respiratory Effort / Characteristics Respiratory Depth Respiratory Pattern Blood Pressure 151/77 H 147/73 H Blood Pressure Mean 101 97 Pulse Oximetry 97 99 99 Oxygen Delivery Method Nasal Cannula Oxygen Flow Rate 2 Sepsis Recent Fever Within 48 Hours Sepsis New/Unexplained Change in Mental Status Sepsis Action Taken by Nursing 02/17/21 18:31 02/17/21 19:00 02/17/21 19:30 Temperature Temperature Source Pulse Rate 79 Pulse Rate [Right Finger] 72 Pulse Rate from SpO2 Sensor 74 77 Pulse Rhythm Respiratory Rate 22 20 17 Respiratory Effort / Characteristics Non-Labored Spontaneous Respiratory Depth Respiratory Pattern Blood Pressure Blood Pressure Mean Pulse Oximetry 95 98 97 Oxygen Delivery Method Nasal Cannula Oxygen Flow Rate 2 Sepsis Recent Fever Within 48 Hours Sepsis New/Unexplained Change in Mental Status Sepsis Action Taken by Nursing 02/17/21 20:00 02/17/21 20:30 02/17/21 20:57 Temperature Temperature Source Pulse Rate 75 78 79 Pulse Rate [Right Finger] Pulse Rate from SpO2 Sensor 74 77 79 Pulse Rhythm Respiratory Rate 19 17 Respiratory Effort / Characteristics Respiratory Depth Respiratory Pattern Blood Pressure 136/78 155/86 H 186/83 H Blood Pressure Mean 97 109 117 Pulse Oximetry 95 95 96 Oxygen Delivery Method Oxygen Flow Rate Sepsis Recent Fever Within 48 Hours Sepsis New/Unexplained Change in Mental Status Sepsis Action Taken by Nursing 02/17/21 21:00 02/17/21 21:01 02/17/21 21:19 Temperature Temperature Source Pulse Rate 76 74 Pulse Rate [Right Finger] 66 Pulse Rate from SpO2 Sensor 77 75 Pulse Rhythm Respiratory Rate 18 19 20 Respiratory Effort / Characteristics Non-Labored Spontaneous Respiratory Depth Respiratory Pattern Blood Pressure 151/77 H Blood Pressure Mean 101 Pulse Oximetry 97 97 97 Oxygen Delivery Method Nasal Cannula Oxygen Flow Rate 2 Sepsis Recent Fever Within 48 Hours Sepsis New/Unexplained Change in Mental Status Sepsis Action Taken by Nursing 02/17/21 21:30 02/17/21 22:00 02/17/21 22:01 Temperature Temperature Source Pulse Rate 79 91 H Pulse Rate [Right Finger] Pulse Rate from SpO2 Sensor 79 74 Pulse Rhythm Respiratory Rate 24 22 Respiratory Effort / Characteristics Respiratory Depth Respiratory Pattern Blood Pressure 144/88 H 122/72 Blood Pressure Mean 106 88 Pulse Oximetry 96 89 L 96 Oxygen Delivery Method Room Air Nasal Cannula Oxygen Flow Rate 2 Sepsis Recent Fever Within 48 Hours Sepsis New/Unexplained Change in Mental Status Sepsis Action Taken by Nursing 02/17/21 22:30 02/17/21 23:00 02/17/21 23:30 Temperature Temperature Source Pulse Rate 73 71 71 Pulse Rate [Right Finger] Pulse Rate from SpO2 Sensor 74 72 73 Pulse Rhythm Respiratory Rate 19 17 20 Respiratory Effort / Characteristics Respiratory Depth Respiratory Pattern Blood Pressure 159/86 H 123/69 131/107 H Blood Pressure Mean 110 87 115 Pulse Oximetry 97 96 97 Oxygen Delivery Method Nasal Cannula Nasal Cannula Nasal Cannula Oxygen Flow Rate 2 2 2 Sepsis Recent Fever Within 48 Hours Sepsis New/Unexplained Change in Mental Status Sepsis Action Taken by Nursing 02/18/21 00:00 Temperature Temperature Source Pulse Rate 72 Pulse Rate [Right Finger] Pulse Rate from SpO2 Sensor 73 Pulse Rhythm Respiratory Rate 16 Respiratory Effort / Characteristics Respiratory Depth Respiratory Pattern Blood Pressure 149/94 H Blood Pressure Mean 112 Pulse Oximetry 98 Oxygen Delivery Method Nasal Cannula Oxygen Flow Rate 2 Sepsis Recent Fever Within 48 Hours Sepsis New/Unexplained Change in Mental Status Sepsis Action Taken by Nursing Laboratory Data Result diagrams: 02/17/21 Unknown 02/17/21 Unknown Lab Results 02/17/21 02/17/21 02/17/21 Range/Units 18:22 18:22 Unknown WBC 8.07 (4.8-10.8) K/uL RBC 4.46 (4.2-5.4) M/uL Hgb 13.1 (12.0-16.0) g/dL Hct 39.9 (37-47) % MCV 89.5 (80-100) fL MCH 29.4 (25-34) pg MCHC 32.8 (32-36) g/dL RDW Std Deviation 46.1 (36.4-46.3) fL RDW Coeff of Niesha 14.0 (11.5-14.5) % Plt Count 240 (130-400) K/uL MPV 11.1 H (7.4-10.4) fL Immature Gran % (Auto) 0.4 % Neut % (Auto) 74.9 % Lymph % (Auto) 11.4 % [place] % (Auto) 10.5 % Eos % (Auto) 2.6 % Baso % (Auto) 0.2 % Neut # (Auto) 6.04 (1.4-6.5) K/uL Lymph # (Auto) 0.92 L (1.2-3.4) K/uL [place] # (Auto) 0.85 H (0.11-0.59) K/uL Eos # (Auto) 0.21 (0-0.5) K/uL Baso # (Auto) 0.02 (0-0.2) K/uL Immature Gran # (Auto) 0.03 H (0.00-0.02) K/uL Sodium (136-145) mmol/L Potassium (3.5-5.1) mmol/L Chloride (98-107) mmol/L Carbon Dioxide (21-32) mmol/L Anion Gap (3-11) BUN (7-18) mg/dl Creatinine (0.6-1.2) mg/dl Est Cr Clr Drug Dosing ml/min Est GFR ( Amer) ml/min Est GFR (Non-Af Amer) ml/min BUN/Creatinine Ratio (10-20) Glucose (70-99) mg/dl Calcium (8.5-10.1) mg/dl Magnesium (1.8-2.4) mg/dl Total Bilirubin (0.2-1) mg/dl AST (15-37) U/L ALT (12-78) U/L Alkaline Phosphatase (45-117) U/L Troponin I (0-0.045) ng/ml NT-Pro-B Natriuret Pep (0-900) pg/ml Total Protein (6.4-8.2) gm/dl Albumin (3.4-5.0) gm/dl Globulin (2.5-4.0) gm/dl Albumin/Globulin Ratio (0.9-2) Urine Color Urine Appearance (Clear) Urine pH (4.5-7.5) Ur Specific [place] (1.000-1.030) Urine Protein (Negative) Urine Glucose (UA) (Negative) Urine Ketones (Negative) Urine Blood (Negative) Urine Nitrite (Negative) Urine Bilirubin (Negative) Urine Urobilinogen (Negative) Ur Leukocyte Esterase (Negative) Urine WBC (Auto) (0-5) /hpf Urine RBC (Auto) (0-4) /hpf U Hyaline Cast (Auto) (0-5) /lpf U Epithel Cells (Auto) (0-5) /lpf Urine Bacteria (Auto) (Negative) COVID-19 Eval Order Covid19 at [facility] SARS-CoV-2 (PCR) POSITIVE A* (Negative) 06/17/21 06/17/21 Range/Units Unknown Unknown WBC (4.8-10.8) K/uL RBC (4.2-5.4) M/uL Hgb (12.0-16.0) g/dL Hct (37-47) % MCV (80-100) fL MCH (25-34) pg MCHC (32-36) g/dL RDW Std Deviation (36.4-46.3) fL RDW Coeff of Niesha (11.5-14.5) % Plt Count (130-400) K/uL MPV (7.4-10.4) fL Immature Gran % (Auto) % Neut % (Auto) % Lymph % (Auto) % [place] % (Auto) % Eos % (Auto) % Baso % (Auto) % Neut # (Auto) (1.4-6.5) K/uL Lymph # (Auto) (1.2-3.4) K/uL [place] # (Auto) (0.11-0.59) K/uL Eos # (Auto) (0-0.5) K/uL Baso # (Auto) (0-0.2) K/uL Immature Gran # (Auto) (0.00-0.02) K/uL Sodium 139 (136-145) mmol/L Potassium 4.3 (3.5-5.1) mmol/L Chloride 106 (98-107) mmol/L Carbon Dioxide 23 (21-32) mmol/L Anion Gap 10.0 (3-11) BUN 19 H (7-18) mg/dl Creatinine 0.75 (0.6-1.2) mg/dl Est Cr Clr Drug Dosing 100.6 ml/min Est GFR ( Amer) 101.8 ml/min Est GFR (Non-Af Amer) 87.9 ml/min BUN/Creatinine Ratio 25.2 H (10-20) Glucose 88 (70-99) mg/dl Calcium 8.8 (8.5-10.1) mg/dl Magnesium 2.3 (1.8-2.4) mg/dl Total Bilirubin 0.4 (0.2-1) mg/dl AST 15 (15-37) U/L ALT 36 (12-78) U/L Alkaline Phosphatase 73 (45-117) U/L Troponin I < 0.015 (0-0.045) ng/ml NT-Pro-B Natriuret Pep 614 (0-900) pg/ml Total Protein 7.2 (6.4-8.2) gm/dl Albumin 3.8 (3.4-5.0) gm/dl Globulin 3.4 (2.5-4.0) gm/dl Albumin/Globulin Ratio 1.1 (0.9-2) Urine Color Yellow Urine Appearance Clear (Clear) Urine pH 6.0 (4.5-7.5) Ur Specific [place] 1.021 (1.000-1.030) Urine Protein Negative (Negative) Urine Glucose (UA) Negative (Negative) Urine Ketones Negative (Negative) Urine Blood Negative (Negative) Urine Nitrite Positive A (Negative) Urine Bilirubin Negative (Negative) Urine Urobilinogen Negative (Negative) Ur Leukocyte Esterase Negative (Negative) Urine WBC (Auto) 5-10 H (0-5) /hpf Urine RBC (Auto) 0-4 (0-4) /hpf U Hyaline Cast (Auto) 1-5 (0-5) /lpf U Epithel Cells (Auto) 10-20 H (0-5) /lpf Urine Bacteria (Auto) 1+ H (Negative) COVID-19 Eval Order SARS-CoV-2 (PCR) (Negative) Administered Medications Discontinued Medications Albuterol (Albut/Ipratrop 3mg/0.5mg Neb 3 Ml Vial) 3 ml INH NOW STA Stop: 02/17/21 17:59 Last Admin: 02/17/21 18:31 Dose: 3 ml Documented by: [id number] Albuterol (Albut/Ipratrop 3mg/0.5mg Neb 3 Ml Vial) 3 ml NEB NOW STA Stop: 02/17/21 21:00 Last Admin: 02/17/21 21:19 Dose: 3 ml Documented by: [id number] Ioversol (Optiray 320 125ml) 120 ml IV ONCE ONE Stop: 02/17/21 20:47 Last Admin: 02/17/21 20:47 Dose: 120 ml Documented by: [id number] Methylprednisolone (Methylprednisolone 125 Mg/2 Ml Vial) 125 mg IV NOW STA Stop: 02/17/21 17:59 Last Admin: 02/17/21 18:08 Dose: 125 mg Documented by: [id number] Imaging Data Radiologist's Impression: Chest X-Ray 02/17/21 17:58 XR chest 1V portable CLINICAL HISTORY: Dyspnea COMPARISON STUDY: December 30, 2020 FINDINGS: No pneumothorax. No pleural effusion. There is possible small left retrocardiac opacity/atelectasis at the left base however evaluation is limited due to patient's body habitus. Cardiomediastinal silhouette is within normal limits in size. No significant pulmonary vascular congestion.. Osseous structures: unremarkable IMPRESSION: 1. Possible small atelectasis at the left base. Limited exam due to patient's body habitus. ACT 112: Negative or not required by law. The above report was generated using voice recognition software. It may contain grammatical, syntax or spelling errors. Electronically signed by: Cary Gee DO 02/17/2021 6:34 PM Chest CTA 02/17/21 20:06 CT ANGIOGRAM OF THE CHEST CLINICAL HISTORY: SOB COMPARISON STUDY: August 06, 2019 TECHNIQUE: Following the IV administration of 120 mL of Optiray, CT angiogram of the thorax was performed from the thoracic inlet to the lung bases utilizing the pulmonary embolus protocol. Images are reviewed in the axial, sagittal, and coronal planes. IV contrast was administered without complication. MIP imaging was performed. A dose lowering technique was utilized adhering to the principl es of ALARA. CT DOSE: 748.68 mGy.cm FINDINGS: There is adequate opacification of the main pulmonary artery. No evidence of acute pulmonary embolus. Pulmonary artery is normal in caliber. No evidence of right heart strain. Minimal pericardial effusion is demonstrated. No significant coronary calcifications are seen however evaluation is limited due to motion artifact. There is no axillary, supra clavicle or internal mammary lymphadenopathy seen. Multiple slightly prominent mediastinal lymph nodes are seen measuring up to 1.3 cm in the short axis. Visualized portion of thyroid gland shows no evidence of focal lesions. Esophagus is normal. Tracheobronchial tree is patent. There is mild atelectasis is seen within bilateral bases. No large infiltrates or consolidative lesions are seen. There is no pleural effusion demonstrated. -Interval development of 8mm solid nodule within right base () Limited evaluation of upper abdominal viscera shows no evidence of acute abnormalities. Evaluation of osseous structures shows multilevel degenerative changes of the spine. IMPRESSION: 1. No acute pulmonary embolus. 2. No infiltrates or consolidative lesions are seen. 3. Minimal pericardial effusion. 4. Interval development of 8mm pulmonary nodule within the right base. Short- term follow-up in 3-6 months is recommended according to Fleischner Society guidelines. 5. Mild mediastinal lymphadenopathy. Attention on follow-up imaging. Please refer to below summary of Fleischner criteria recommendations for follow- up of incidental CT nodules (Marilu Yeboah, Guidelines for management of small pulmonary nodules detected on CT scans: A statement from the Fleischner Society, Radiology 237: [id number].) SOLID NODULES Solitary nodule size: <6 mm * low risk patients: no follow-up needed * high risk patients: optional CT at 12 months Solitary nodule size: 6-8 mm * low risk patients: follow-up at 6-12 months, then consider further follow-up at 18-24 months * high risk patients: initial follow-up CT at 6-12 months and then at 18-24 months if no change Solitary nodule size: >8 mm * either low or high risk patients - consider follow-up CT at 3 months, and/or CT-PET, and/or biopsy Multiple nodules size: <6 mm * low risk patients: no routine follow-up * high risk patients: optional CT at 12 months Multiple nodules size: 6-8 mm * low risk patients: follow-up at 3-6 months, then consider further follow-up at 18-24 months * high risk patients: follow-up at 3-6 months, then at 18-24 months if no martinez ge Multiple nodules size: >8 mm * low risk patients: follow-up at 3-6 months, then consider further follow-up at 18-24 months * high risk patients: follow-up at 3-6 months, then at 18-24 months if no change Note: newly detected indeterminate nodule in persons 35 years of age or older. * low risk patients: minimal or absent history of smoking and/or other known risk factors * high risk patients: history of smoking or of other known risk factors (e.g. first degree relative with lung cancer, or exposure to asbestos, radon, uranium) * if a nodule up to 8 mm is partly solid or is ground glass further follow-up is required after 24 months to exclude possible slow growing adenocarcinoma (MICHA) SUBSOLID NODULES Solitary pure ground-glass nodule * nodule size <6 mm - no CT follow-up required * nodule size >=6 mm - follow-up CT at 6-12 months, then every 2 years until 5 years Solitary part-solid nodule * nodule size <6 mm - no CT follow-up required * nodule size >=6 mm - follow-up CT at 3-6 months. If unchanged, and solid component remains <6 mm, then annual follow-up for 5 years Multiple subsolid nodules * nodule size <6 mm - follow-up CT at 3-6 months, consider further follow-up at 2 and 4 years if stable * nodule size >=6 mm - follow-up CT at 3-6 months, subsequent management based on the most suspicious nodule(s) ACT 112: Positive. There are findings on this exam that require communication between the performing entity and the patient following Patient Test Result Information Act ([place] Act 112) guidelines. The above report was generated using voice recognition software. It may contain grammatical, syntax or spelling errors. Electronically signed by: Cary Gee DO 02/17/2021 9:11 PM Discharge Plan Visit Data Chief Complaint: Shortness of Breath/Dyspnea ED Provider: Antonio Ware Discharge Problem: SOB (shortness of breath), Asthma, Hypoxia Patient Disposition: Admitted As Inpatient Discharge Instructions Interventions: ED Discharge Assessment Last Done: 02/18/21 00:02 Forms Stand Alone Forms: My [facility] [place] [employer] Prescriptions Prescriptions: No Action budesonide-formoterol [Symbicort] 160-4.5 mcg/actuation HFA aerosol inhaler 2 puff inhalation BID Qty: 10.2 RF: 3 Spiriva Respimat 2.5 mcg/actuation mist 2 puff inhalation DAILY Qty: 4 RF: 3 fluticasone propionate [Allergy Relief (fluticasone)] 50 mcg/actuation spray,suspension 1 spray INTNAS DAILY Qty: 9.9 RF: 3 pantoprazole 40 mg tablet,delayed release (DR/EC) 40 mg PO QAM Qty: 90 RF: 1 montelukast [Singulair] 10 mg tablet 10 mg PO QPM Qty: 30 RF: 3 diltiazem HCl 180 mg capsule,extended release 24hr 180 mg PO DAILY Qty: 90 RF: 3 metoprolol succinate 50 mg tablet extended release 24 hr 50 mg PO DAILY Qty: 60 RF: 2 ibuprofen [Advil] 200 mg Tablet 400 - 600 mg PO DIRECTED PRN (Reason: Pain) RF: 0 cholecalciferol (vitamin D3) [Vitamin D3] 50 mcg (2,000 unit) Tablet 50 mcg PO QAM RF: 0 ipratropium-albuterol 0.5 mg-3 mg(2.5 mg base)/3 mL solution for nebulization 3 ml NEB Q4H PRN (Reason: Shortness Of Breath Or Wheezing) RF: 0 albuterol sulfate [Ventolin HFA] 90 mcg/actuation HFA aerosol inhaler 2 puff INH Q6H PRN (Reason: Shortness Of Breath Or Wheezing) RF: 0 levocetirizine 5 mg tablet 5 mg PO DAILY PRN (Reason: Allergy Symptoms) RF: 0 Referrals Referrals: Fariha Guaman DO [Primary Care Provider] -
[2021-02-17] MEDS ORDERED: OPTIRAY 320 125ml IV ONE (20:46)
[2021-02-17] MEDS ORDERED: ALBUT/IPRATROP 3MG/0.5MG NEB 3 ML VIAL NEB STA (20:59)
--- NOTE | 2021-02-17 21:12 | CT Scan Report ---
CT ANGIOGRAM OF THE CHEST CLINICAL HISTORY: SOB COMPARISON STUDY: August 06, 2019 TECHNIQUE: Following the IV administration of 120 mL of Optiray, CT angiogram of the thorax was perfo rmed from the thoracic inlet to the lung bases utilizing the pulmonary embolus protocol. Images are r eviewed in the axial, sagittal, and coronal planes. IV contrast was administered without complication . MIP imaging was performed. A dose lowering technique was utilized adhering to the principles of AL MATHEUS. CT DOSE: 748.68 mGy.cm FINDINGS: There is adequate opacification of the main pulmonary artery. No evidence of acute pulmonary embolus. Pulmonary artery is normal in caliber. No evidence of right h eart strain. Minimal pericardial effusion is demonstrated. No significant coronary calcifications are seen however evaluation is limited due to motion artifact. There is no axillary, supra clavicle or internal mammary lymphadenopathy seen. Multiple slightly prom inent mediastinal lymph nodes are seen measuring up to 1.3 cm in the short axis. Visualized portion of thyroid gland shows no evidence of focal lesions. Esophagus is normal. Tracheobronchial tree is patent. There is mild atelectasis is seen within bilateral bases. No large infiltrates or consolidative lesio ns are seen. There is no pleural effusion demonstrated. -Interval development of 8mm solid nodule within right base () Limited evaluation of upper abdominal viscera shows no evidence of acute abnormalities. Evaluation of osseous structures shows multilevel degenerative changes of the spine. IMPRESSION: 1. No acute pulmonary embolus. 2. No infiltrates or consolidative lesions are seen. 3. Minimal pericardial effusion. 4. Interval development of 8mm pulmonary nodule within the right base. Short-term follow-up in 3-6 m [facility] is recommended according to Fleischner Society guidelines. 5. Mild mediastinal lymphadenopathy. Attention on follow-up imaging. Please refer to below summary of Fleischner criteria recommendations for follow-up of incidental CT n odules (Marilu Yeboah, Guidelines for management of small pulmonary nodules detected on CT scans: A sta tement from the Fleischner Society, Radiology 237: [phone].) SOLID NODULES Solitary nodule size: <6 mm * low risk patients: no follow-up needed * high risk patients: optional CT at 12 months Solitary nodule size: 6-8 mm * low risk patients: follow-up at 6-12 months, then consider further follow-up at 18-24 months * high risk patients: initial follow-up CT at 6-12 months and then at 18-24 months if no change Solitary nodule size: >8 mm * either low or high risk patients - consider follow-up CT at 3 months, and/or CT-PET, and/or biopsy Multiple nodules size: <6 mm * low risk patients: no routine follow-up * high risk patients: optional CT at 12 months Multiple nodules size: 6-8 mm * low risk patients: follow-up at 3-6 months, then consider further follow-up at 18-24 months * high risk patients: follow-up at 3-6 months, then at 18-24 months if no change Multiple nodules size: >8 mm * low risk patients: follow-up at 3-6 months, then consider further follow-up at 18-24 months * high risk patients: follow-up at 3-6 months, then at 18-24 months if no change Note: newly detected indeterminate nodule in persons 35 years of age or older. * low risk patients: minimal or absent history of smoking and/or other known risk factors * high risk patients: history of smoking or of other known risk factors (e.g. first degree relative with lung cancer, or exposure to asbestos, radon, uranium) * if a nodule up to 8 mm is partly solid or is ground glass further follow-up is required after 24 m onths to exclude possible slow growing adenocarcinoma (MICHA) SUBSOLID NODULES Solitary pure ground-glass nodule * nodule size <6 mm - no CT follow-up required * nodule size >=6 mm - follow-up CT at 6-12 months, then every 2 years until 5 years Solitary part-solid nodule * nodule size <6 mm - no CT follow-up required * nodule size >=6 mm - follow-up CT at 3-6 months. If unchanged, and solid component remains <6 mm, then annual follow-up for 5 years Multiple subsolid nodules * nodule size <6 mm - follow-up CT at 3-6 months, consider further follow-up at 2 and 4 years if sta ble * nodule size >=6 mm - follow-up CT at 3-6 months, subsequent management based on the most suspiciou s nodule(s) ACT 112: Positive. There are findings on this exam that require communication between the performing entity and the patient following Patient Test Result Information Act ([place] Act 112) guidelines. The above report was generated using voice recognition software. It may contain grammatical, syntax o r spelling errors. Electronically signed by: Cary Gee DO 02/17/2021 9:11 PM
[2021-02-17 21:49] LABS: Appearance Urine Clear (Clear); Bacteria Urine Automated 1+ (Negative); Bilirubin Urine Negative (Negative); Blood Urine Negative (Negative); Color Urine Yellow; Glucose Urine UA Negative (Negative); Ketones Urine Negative (Negative); Leukocyte Esterase Urine Negative (Negative); Nitrite Urine Positive (Negative); Protein Urine Negative (Negative); RBC Urine Automated 0-4 /hpf (0-4); Specific Gravity Urine 1.021 (1.000-1.030); Urobilinogen Urine Negative (Negative)
--- NOTE | 2021-02-17 21:57 | History & Physical Report ---
Date of Service February 17, 2021 Assessment & Plan (1) Exacerbation of asthma: In the ED was given duo nebs x2, and Solu-Medrol 125 mg IV. Solu-Medrol 40 mg IV every 6 hours Duonebs every 4 hours while awake and every 2 hours when necessary. Guaifenesin extended release 600 mg p.o. twice daily Nasal cannula oxygen, titrate to keep pulse ox around 94% Azithromycin 500 mg IV daily Sees pulmonology Dr. Vitale in the outpatient setting Present on Admission?: Yes (2) MARY (obstructive sleep apnea): CPAP at bedtime as needed Present on Admission?: Yes (3) GERD (gastroesophageal reflux disease): Continue pantoprazole 40 mg daily Present on Admission?: Yes (4) HTN (hypertension): Continue diltiazem and metoprolol succinate Present on Admission?: Yes (5) COVID-19: Original COVID-19 infection on 11/25/2020. Patient symptoms today are most consistent with an asthma exacerbation She will be placed on COVID-19 precautions and she is still positive, but will not need active treatment Present on Admission?: Yes History of Present Illness Chief Complaint: The patient presents to the emergency department with shortness of breath that began a few weeks ago, that worsened over the past 24 hours, not responding to her home nebulizer unit Primary Care Provider: Fariha Guaman DO The patient is a 60-year-old female with a past medical history including paroxysmal atrial tachycardia, symptomatic PVCs, MARY, mixed hearing loss, tinnitus, GERD, LBBB, COVID-19 infection on 11/25/20, multiple pulmonary nodules, goiter, vitamin D deficiency, asthma, hypertension, cardiomegaly, mediastinal lymphadenopathy and hypersomnia. The patient presented as with symptoms as noted above, with worsening shortness of breath, wheezing and dyspnea on exertion over the past 24 hours. Work-up in the emergency department included a repeat positive COVID-[address] angiography chest PE protocol showed a new pulmonary nodule at the right base, and persistent mild mediastinal lymp hadenopathy. In the emergency department, patient was given DuoNeb's x2 and Solu-Medrol 125 mg IV from the ED. Allergies Allergy/AdvReac Type Severity Reaction Status Date / Time lisinopril AdvReac Mild Cough Verified 02/17/21 17:30 Home Medications Medication Instructions Recorded Confirmed Type ibuprofen [Advil] 400 - 600 mg PO DIRECTED PRN 04/30/19 02/17/21 History cholecalciferol (vitamin D3) 50 mcg PO QAM 08/19/20 02/17/21 History [Vitamin D3] budesonide-formoterol HFA 160 2 puff INHALATION BID #10.2 g 11/08/20 02/17/21 Rx mcg-4.5 mcg/actuation aerosol inhaler fluticasone propionate 50 1 spray INTNAS DAILY #9.9 gm 11/08/20 02/17/21 Rx mcg/actuation nasal spray,suspension montelukast 10 mg tablet 10 mg PO QPM #30 tab 11/08/20 02/17/21 Rx pantoprazole 40 mg tablet,delayed 40 mg PO QAM #90 tab 11/08/20 02/17/21 Rx release tiotropium bromide 2.5 2 puff INHALATION DAILY #4 g 11/08/20 02/17/21 Rx mcg/actuation mist for inhalation albuterol sulfate [Ventolin HFA] 2 puff INH Q6H PRN 11/25/20 02/17/21 History ipratropium-albuterol 3 ml NEB Q4H PRN 11/25/20 02/17/21 History levocetirizine 5 mg PO DAILY PRN 11/25/20 02/17/21 History metoprolol succinate 50 mg 50 mg PO DAILY #60 tab 02/02/21 02/17/21 Rx tablet,extended release 24 hr diltiazem HCl 180 mg 180 mg PO DAILY #90 cap 02/10/21 02/17/21 Rx capsule,extended release 24 hr Past Med/Surg History Medical History Benign follicular tumor of thyroid gland Cardiomegaly Cholelithiasis Chronic cough Conductive hearing loss of both ears Exacerbation of asthma Goiter HTN (hypertension) Hypersomnia LAD (lymphadenopathy), mediastinal LBBB (left bundle branch block) Left thyroid nodule Persistent asthma Surgical History S/P appendectomy Family History Father Cancer Mother Hypertension Other No family history of adverse response to anesthesia No family history of bleeding disorder Denies family history of Ovarian cancer Prostate cancer Myocardial infarction Breast cancer Lung cancer Colorectal cancer Social History Smoking Status: Never smoker Second Hand Exposure: No; Hx Alcohol Use: No Hx Substance Use: No Preferred Language: [place] Communication Ability: Effective Visual Impairment: Limited Hearing Ability: Normal Meter Reader Chief Required: No Beliefs That Will Affect Care: None marital status: / marital status details: passed 2017 Current Living Situation: Family Current Living Situation Comment: LIVES W HER 3 BOYS current occupational status: unemployed current occupation: homemaker How many Children do You have: 6 Other Information That Helps Us Care for You: No Feels Safe at Home: Yes Safety Concerns: Feels Safe At This Time Childhood Exposure to Second-Hand Smoke: No Diet Comment: regular caffeine: Yes (1 cup) during the past year weight has: remained stable Dental Care, Regularly: No Physical Activity Frequency: Daily Physical Activity Frequency Comment: walking Seatbelt Use: always Sunscreen Use: No Assistive Devices: Glasses Review of Systems Review of Systems: The patient denies chest pain, palpitations, cough, lower extremity swelling, sore throat, fevers, chills, sweats, nausea, vomiting, diarrhea , constipation, abdominal pain, pelvic pain, blood in urine or stool, dysuria, urinary frequency or urgency, lightheadedness, dizziness, headache, memory loss, loss of consciousness, rash, abnormal bruising or bleeding, imbalance, focal or generalized weakness, numbness or tingling in arms or legs, generalized arthralgias or myalgias, back or neck pain, or night sweats. The review of systems is otherwise negative other than for that already noted above, and at least 10 systems have been reviewed. Physical Exam Physical Exam: The patient is awake, alert and oriented 3, well developed and well nourished, normocephalic and atraumatic, lying in bed and in no acute distress. HEENT--PERRL, EOMI, mucous membranes and oropharynx dry. Neck--supple. No JVD. No bruits. Thyroid normal, trachea midline, no adenopathy. Heart--normal S1 and S2. No murmurs, rubs or gallops. Lungs--diffuse wheezes bilaterally. Scattered rhonchi bilaterally. No respiratory distress, no accessory muscle use. Abdomen--normal bowel sounds and soft. Nontender. Nondistended. Morbidly obese Extremities--no cyanosis or clubbing. No edema. Dermatologic--normal skin turgor, normal color, no abnormal lymph nodes, no rash. Neurologic--cranial nerves II through XII grossly intact. Rheumatologic--normal range of motion. Psychiatric--normal affect. Results & Data Results & Data ([facility]) Vital Signs (Past 12 Hours) Vital Signs Temp Pulse Pulse Resp BP Pulse Ox 02/17/21 21:30 79 24 144/88 H 96 02/17/21 21:19 66 20 97 02/17/21 21:01 74 19 97 02/17/21 21:00 76 18 151/77 H 97 02/17/21 20:57 79 17 186/83 H 96 02/17/21 20:30 78 155/86 H 95 02/17/21 20:00 75 19 136/78 95 02/17/21 19:30 79 17 97 02/17/21 19:00 20 98 02/17/21 18:31 72 22 95 02/17/21 18:30 68 13 147/73 H 99 02/17/21 18:22 99 02/17/21 18:19 70 20 151/77 H 97 02/17/21 18:00 70 20 160/101 H 98 02/17/21 17:31 75 18 95 02/17/21 17:30 75 20 133/88 93 02/17/21 17:01 81 19 94 02/17/21 17:00 76 21 129/76 97 02/17/21 16:34 71 23 96 02/17/21 16:33 94 02/17/21 16:30 78 19 144/87 H 94 02/17/21 16:13 98.2 F 78 18 165/96 H 96 Laboratory Results Laboratory Results WBC 8.07 K/uL (4.8-10.8) 02/17/21 Unknown RBC 4.46 M/uL (4.2-5.4) 02/17/21 Unknown Hgb 13.1 g/dL (12.0-16.0) 02/17/21 Unknown Hct 39.9 % (37-47) 02/17/21 Unknown MCV 89.5 fL (80-100) 02/17/21 Unknown MCH 29.4 pg (25-34) 02/17/21 Unknown MCHC 32.8 g/dL (32-36) 02/17/21 Unknown RDW Std Deviation 46.1 fL (36.4-46.3) 02/17/21 Unknown RDW Coeff of Niesha 14.0 % (11.5-14.5) 02/17/21 Unknown Plt Count 240 K/uL (130-400) 02/17/21 Unknown MPV 11.1 fL (7.4-10.4) H 02/17/21 Unknown Immature Gran % (Auto) 0.4 % 02/17/21 Unknown Neut % (Auto) 74.9 % 02/17/21 Unknown Lymph % (Auto) 11.4 % 02/17/21 Unknown [place] % (Auto) 10.5 % 02/17/21 Unknown Eos % (Auto) 2.6 % 02/17/21 Unknown Baso % (Auto) 0.2 % 02/17/21 Unknown Neut # (Auto) 6.04 K/uL (1.4-6.5) 02/17/21 Unknown Lymph # (Auto) 0.92 K/uL (1.2-3.4) L 02/17/21 Unknown [place] # (Auto) 0.85 K/uL (0.11-0.59) H 02/17/21 Unknown Eos # (Auto) 0.21 K/uL (0-0.5) 02/17/21 Unknown Baso # (Auto) 0.02 K/uL (0-0.2) 02/17/21 Unknown Immature Gran # (Auto) 0.03 K/uL (0.00-0.02) H 02/17/21 Unknown Sodium 139 mmol/L (136-145) 02/17/21 Unknown Potassium 4.3 mmol/L (3.5-5.1) 02/17/21 Unknown Chloride 106 mmol/L (98-107) 02/17/21 Unknown Carbon Dioxide 23 mmol/L (21-32) 02/17/21 Unknown Anion Gap 10.0 (3-11) 02/17/21 Unknown BUN 19 mg/dl (7-18) H 02/17/21 Unknown Creatinine 0.75 mg/dl (0.6-1.2) 02/17/21 Unknown Est Cr Clr Drug Dosing 100.6 ml/min 02/17/21 Unknown Est GFR ( Amer) 101.8 ml/min 02/17/21 Unknown Est GFR (Non-Af Amer) 87.9 ml/min 02/17/21 Unknown BUN/Creatinine Ratio 25.2 (10-20) H 02/17/21 Unknown Glucose 88 mg/dl (70-99) 02/17/21 Unknown Calcium 8.8 mg/dl (8.5-10.1) 02/17/21 Unknown Magnesium 2.3 mg/dl (1.8-2.4) 02/17/21 Unknown Total Bilirubin 0.4 mg/dl (0.2-1) 02/17/21 Unknown AST 15 U/L (15-37) 02/17/21 Unknown ALT 36 U/L (12-78) 02/17/21 Unknown Alkaline Phosphatase 73 U/L (45-117) 02/17/21 Unknown Troponin I < 0.015 ng/ml (0-0.045) 02/17/21 Unknown NT-Pro-B Natriuret Pep 614 pg/ml (0-900) 02/17/21 Unknown Total Protein 7.2 gm/dl (6.4-8.2) 02/17/21 Unknown Albumin 3.8 gm/dl (3.4-5.0) 02/17/21 Unknown Globulin 3.4 gm/dl (2.5-4.0) 02/17/21 Unknown Albumin/Globulin Ratio 1.1 (0.9-2) 02/17/21 Unknown Urine Color Yellow 02/17/21 Unknown Urine Appearance Clear (Clear) 02/17/21 Unknown Urine pH 6.0 (4.5-7.5) 02/17/21 Unknown Ur Specific [place] 1.021 (1.000-1.030) 02/17/21 Unknown Urine Protein Negative (Negative) 02/17/21 Unknown Urine Glucose (UA) Negative (Negative) 02/17/21 Unknown Urine Ketones Negative (Negative) 02/17/21 Unknown Urine Blood Negative (Negative) 02/17/21 Unknown Urine Nitrite Positive (Negative) A 02/17/21 Unknown Urine Bilirubin Negative (Negative) 02/17/21 Unknown Urine Urobilinogen Negative (Negative) 02/17/21 Unknown Ur Leukocyte Esterase Negative (Negative) 02/17/21 Unknown Urine WBC (Auto) 5-10 /hpf (0-5) H 02/17/21 Unknown Urine RBC (Auto) 0-4 /hpf (0-4) 02/17/21 Unknown U Hyaline Cast (Auto) 1-5 /lpf (0-5) 02/17/21 Unknown U Epithel Cells (Auto) 10-20 /lpf (0-5) H 02/17/21 Unknown Urine Bacteria (Auto) 1+ (Negative) H 02/17/21 Unknown COVID-19 Eval Order Covid19 at [facility] 02/17/21 18:22 SARS-CoV-2 (PCR) POSITIVE (Negative) A* 02/17/21 18:22 Impressions Chest X-Ray 02/17/21 17:58 XR chest 1V portable CLINICAL HISTORY: Dyspnea COMPARISON STUDY: December 30, 2020 FINDINGS: No pneumothorax. No pleural effusion. There is possible small left retrocardiac opacity/atelectasis at the left base however evaluation is limited due to patient's body habitus. Cardiomediastinal silhouette is within normal limits in size. No significant pulmonary vascular congestion.. Osseous structures: unremarkable IMPRESSION: 1. Possible small atelectasis at the left base. Limited exam due to patient's body habitus. ACT 112: Negative or not required by law. The above report was generated using voice recognition software. It may contain grammatical, syntax or spelling errors. Electronically signed by: Cary Gee DO 02/17/2021 6:34 PM Chest CTA 02/17/21 20:06 CT ANGIOGRAM OF THE CHEST CLINICAL HISTORY: SOB COMPARISON STUDY: August 06, 2019 TECHNIQUE: Following the IV administration of 120 mL of Optiray, CT angiogram of the thorax was performed from the thoracic inlet to the lung bases utilizing the pulmonary embolus protocol. Images are reviewed in the axial, sagittal, and coronal planes. IV contrast was administered without complication. MIP imaging was performed. A dose lowering technique was utilized adhering to the principles of ALARA. CT DOSE: 748.68 mGy.cm FINDINGS: There is adequate opacification of the main pulmonary artery. No evidence of acute pulmonary embolus. Pulmonary artery is normal in caliber. No evidence of right heart strain. Minimal pericardial effusion is demonstrated. No significant coronary calcifications are seen however evaluation is limited due to motion artifact. There is no axillary, supra clavicle or internal mammary lymphadenopathy seen. Multiple slightly prominent mediastinal lymph nodes are seen measuring up to 1.3 cm in the short axis. Visualized portion of thyroid gland shows no evidence of focal lesions. Esophagus is normal. Tracheobronchial tree is patent. There is mild atelectasis is seen within bilateral bases. No large infiltrates or consolidative lesions are seen. There is no pleural effusion demonstrated. -Interval development of 8mm solid nodule within right base () Limited evaluation of upper abdominal viscera shows no evidence of acute abnormalities. Evaluation of osseous structures shows multilevel degenerative changes of the spine. IMPRESSION: 1. No acute pulmonary embolus. 2. No infiltrates or consolidative lesions are seen. 3. Minimal pericardial effusion. 4. Interval development of 8mm pulmonary nodule within the right base. Short- term follow-up in 3-6 months is recommended according to Fleischner Society guidelines. 5. Mild mediastinal lymphadenopathy. Attention on follow-up imaging. Please refer to below summary of Fleischner criteria recommendations for follow- up of incidental CT nodules (Marilu Yeboah, Guidelines for management of small pulmonary nodules detected on CT scans: A statement from the Fleischner Society, Radiology 237: [phone].) SOLID NODULES Solitary nodule size: <6 mm * low risk patients: no follow-up needed * high risk patients: optional CT at 12 months Solitary nodule size: 6-8 mm * low risk patients: follow-up at 6-12 months, then consider further follow-up at 18-24 months * high risk patients: initial follow-up CT at 6-12 months and then at 18-24 months if no change Solitary nodule size: >8 mm * either low or high risk patients - consider follow-up CT at 3 months, and/or CT-PET, and/or biopsy Multiple nodules size: <6 mm * low risk patients: no routine follow-up * high risk patients: optional CT at 12 months Multiple nodules size: 6-8 mm * low risk patients: follow-up at 3-6 months, then consider further follow-up at 18-24 months * high risk patients: follow-up at 3-6 months, then at 18-24 months if no change Multiple nodules size: >8 mm * low risk patients: follow-up at 3-6 months, then consider further follow-up at 18-24 months * high risk patients: follow-up at 3-6 months, then at 18-24 months if no change Note: newly detected indeterminate nodule in persons 35 years of age or older. * low risk patients: minimal or absent history of smoking and/or other known risk factors * high risk patients: history of smoking or of other known risk factors (e.g. first degree relative with lung cancer, or exposure to asbestos, radon, uranium) * if a nodule up to 8 mm is partly solid or is ground glass further follow-up is required after 24 months to exclude possible slow growing adenocarcinoma (MICHA) SUBSOLID NODULES Solitary pure ground-glass nodule * nodule size <6 mm - no CT follow-up required * nodule size >=6 mm - follow-up CT at 6-12 months, then every 2 years until 5 years Solitary part-solid nodule * nodule size <6 mm - no CT follow-up required * nodule size >=6 mm - follow-up CT at 3-6 months. If unchanged, and solid component remains <6 mm, then annual follow-up for 5 years Multiple subsolid nodules * nodule size <6 mm - follow-up CT at 3-6 months, consider further follow-up at 2 and 4 years if stable * nodule size >=6 mm - follow-up CT at 3-6 months, subsequent management based on the most suspicious nodule(s) ACT 112: Positive. There are findings on this exam that require communication between the performing entity and the patient following Patient Test Result Information Act ([place] Act 112) guidelines. The above report was generated using voice recognition software. It may contain grammatical, syntax or spelling errors. Electronically signed by: Cary Gee DO 02/17/2021 9:11 PM Code Status & VTE Plan Code Status Full code VTE Prophylaxis Plan VTE Prophylaxis will be ordered: Yes PG Care Time/CCT Total # of Minutes Spent Total Time Spent with Patient: Total time spent is greater than 50% in coordination of care (as documented) at patient's floor/unit and/or counseling patient: Coding Level of Care Code 90924 Initial Inpt Care Lvl 3 Diagnoses Exacerbation of asthma J45.901 Asthma persistence: unspecified Asthma severity: unspecified severity MARY (obstructive sleep apnea) G47.33 GERD (gastroesophageal reflux disease) K21.9 Esophagitis presence: esophagitis presence not specified HTN (hypertension) I10 Hypertension type: unspecified COVID-19 U07.1 (1) Exacerbation of asthma Asthma persistence: unspecified Asthma severity: unspecified severity Qualified Code(s): J45.901 - Unspecified asthma with (acute) exacerbation (2) GERD (gastroesophageal reflux disease) Esophagitis presence: esophagitis presence not specified Qualified Code(s): K21.9 - Gastro-esophageal reflux disease without esophagitis (3) HTN (hypertension) Hypertension type: unspecified Qualified Code(s): I10 - Essential (primary) h ypertension
[2021-02-18] MEDS ORDERED: ONDANSETRON INJ 2 MG/ML 2 ML VIAL IV PRN (00:45)
[2021-02-18] MEDS ORDERED: CETIRIZINE HCL 10 MG TABLET PO PRN (00:45)
[2021-02-18] MEDS ORDERED: ACETAMINOPHEN 325 MG TAB PO PRN (00:45)
[2021-02-18] MEDS: AZITHROMYCIN 500 MG in DEXTROSE 5% 250 ML IV SCH (03:02)
[2021-02-18] MEDS: ENOXAPARIN INJ 60 MG/0.6 ML SYR SQ SCH (03:02)
[2021-02-18] MEDS: methylPREDNISolone 40 MG in SYRINGE 0 ML IV SCH ×3 (03:02→15:20)
[2021-02-18] MEDS: ALBUT/IPRATROP 3MG/0.5MG NEB 3 ML VIAL NEB SCH ×4 (07:44→20:31)
--- NOTE | 2021-02-18 08:45 | Hospitalist Progress Note ---
Date of Service February 18, 2021 Assessment & Plan (1) Exacerbation of asthma: In the ED was given duo nebs x2, and Solu-Medrol 125 mg IV. Solu-Medrol 40 mg IV every 12 hours Duonebs every 4 hours while awake and every 2 hours when necessary. Guaifenesin extended release 600 mg p.o. twice daily Nasal cannula oxygen, titrate to keep pulse ox around 94% Azithromycin 500 mg IV daily Sees pulmonology Dr. Vitale in the outpatient setting Ct Chest 02/17/21 IMPRESSION: 1. No acute pulmonary embolus. 2. No infiltrates or consolidative lesions are seen. 3. Minimal pericardial effusion. 4. Interval development of 8mm pulmonary nodule within the right base. Short-term follow-up in 3-6 months is recommended according to Fleischner Society guidelines. 5. Mild mediastinal lymphadenopathy. Attention on follow-up imaging. Given lack of groundglass opacities do not believe her Covid + status is significant impact on her respiratory process at this time (2) MARY (obstructive sleep apnea): CPAP at bedtime as needed (3) GERD (gastroesophageal reflux disease): Continue pantoprazole 40 mg daily (4) HTN (hypertension): Continue diltiazem and metoprolol succinate (5) COVID-19: Original COVID-19 infection on 11/25/2020. Patient symptoms today are most consistent with an asthma exacerbation She will be placed on COVID-19 precautions and she is still positive, and >90 days from previous testing but will not need active treatment Admission and Anticipated Discharge Date Admission Date: February 17, 2021 Subjective Patient feels somewhat better but is still markedly dyspneic she is a raspy productive cough and has some audible wheezing at the bedside. Review of Systems Review of Systems: Mild distress and fatigue no headache, no visual changes no speech or swallowing issues no chest pain, pressure or palpitations Shortness of breath coughing and wheezing present no abdominal pain, nausea or vomiting, diarrhea or constipation no dysuria, hematuria or frequency no focal joint pain trace peripheral swelling no back pain, CVA tenderness or radicular pain no bruising, bleeding or rashes no focal signs of weakness or numbness or altered sensation no complaints of anxiety or depression.. Physical Exam Physical Exam: The patient appeared well nourished and normally developed. Vital signs as documented. Head exam is normocephalic atraumatic Neck is without JVD, thyromegaly, or carotid bruits. Lungs are coarse breath sounds bilaterally left greater than right expiratory wheezes left greater than right loose cough with some mucus production while in the hospital room Cardiac exam, Rhythm is regular.. No murmurs, rubs or gallops. Abdominal exam reveals normal bowel sounds, soft non tender, no masses Extremities are trace edematous and both pedal pulses are present Neurologic exam is alert and oriented, no focal loss of strength or sensation Skin is without bruises or rashes Psychologically is without concerns for anxiety or depression Results & Data Results & Data ([facility]) Vital Signs (Past 12 Hours) Vital Signs Temp Pulse Pulse Resp BP BP BP 02/18/21 08:10 97.7 F 76 16 157/85 H 02/18/21 07:44 76 20 02/18/21 04:21 97.9 F 70 18 148/90 H 02/18/21 01:22 76 02/18/21 00:45 97.7 F 78 18 157/85 H 02/18/21 00:00 72 16 149/94 H 02/17/21 23:30 71 20 131/107 H 02/17/21 23:00 71 17 123/69 02/17/21 22:30 73 19 159/86 H 02/17/21 22:01 02/17/21 22:00 91 H 22 122/72 02/17/21 21:30 79 24 144/88 H 02/17/21 21:19 66 20 02/17/21 21:01 74 19 02/17/21 21:00 76 18 151/77 H 02/17/21 20:57 79 17 186/83 H Pulse Ox Pulse Ox 02/18/21 08:10 94 02/18/21 07:44 94 02/18/21 04:21 97 02/18/21 01:22 02/18/21 00:45 97 96 02/18/21 00:00 98 02/17/21 23:30 97 02/17/21 23:00 96 02/17/21 22:30 97 02/17/21 22:01 96 02/17/21 22:00 89 L 02/17/21 21:30 96 02/17/21 21:19 97 02/17/21 21:01 97 02/17/21 21:00 97 02/17/21 20:57 96 PG Care Time/CCT Total # of Minutes Spent Total Time Spent with Patient: Total time spent is greater than 50% in coordination of care (as documented) at patient's floor/unit and/or counseling patient: Coding Level of Care Code 69001 Subseq Hosp Care Lvl 3 Diagnoses Exacerbation of asthma J45.901 Asthma persistence: unspecified Asthma severity: unspecified severity MARY (obstructive sleep apnea) G47.33 GERD (gastroesophageal reflux disease) K21.9 Esophagitis presence: esophagitis presence not specified HTN (hypertension) I10 Hypertension type: unspecified COVID-19 U07.1 (1) Exacerbation of asthma Asthma persistence: unspecified Asthma severity: unspecified severity Qualified Code(s): J45.901 - Unspecified asthma with (acute) exacerbation (2) GERD (gastroesophageal reflux disease) Esophagitis presence: esophagitis presence not specified Qualified Code(s): K21.9 - Gastro-esophageal reflux disease without esophagitis (3) HTN (hypertension) Hypertension type: unspecified Qualified Code(s): I10 - Essential (primary) hypertension
[2021-02-18 09:10] LABS: Basophils # (auto) 0.02 K/uL (0-0.2); Basophils % (auto) 0.3 %; Hemoglobin 13.4 g/dL (12.0-16.0); Immature Granulocytes # (auto) 0.03 K/uL (0.00-0.02); Immature Granulocytes % (auto) 0.4 %; Lymphocytes # (auto) 0.65 K/uL (1.2-3.4); Lymphocytes % (auto) 8.6 %; Mean Corpuscular Hemoglobin 29.3 pg (25-34); Mean Corpuscular Hgb Conc 32.7 g/dL (32-36); Mean Corpuscular Volume 89.7 fL (80-100); Monocytes # (auto) 0.08 K/uL (0.11-0.59); Monocytes % (auto) 1.1 %; Neutrophils # (auto) 6.82 K/uL (1.4-6.5); Neutrophils % (auto) 89.6 %; Platelet Count 250 K/uL (130-400); RDW Coefficient of Variation 13.8 % (11.5-14.5); RDW Standard Deviation 45.8 fL (36.4-46.3); Red Blood Count 4.57 M/uL (4.2-5.4)
[2021-02-18] MEDS: METOPROLOL SUCC 50MG EXT REL TAB PO SCH (09:15)
[2021-02-18] MEDS: guaiFENesin 600 MG TABCR PO SCH ×2 (09:15→20:26)
[2021-02-18] MEDS: dilTIAZem HCL 180 MG CAPCR PO SCH (09:16)
[2021-02-18] MEDS: PANTOprazole 40 MG TAB PO SCH (09:16)
[2021-02-18] MEDS: CHOLECALCIFEROL 1,000 UNITS 25 MCG TAB PO SCH (09:16)
[2021-02-18] MEDS: FLUTICASONE/VILANTEROL 200/25MCG 14 PUFFS/INHALER INH SCH (09:17)
[2021-02-18 09:31] LABS: Albumin Level 3.7 gm/dl (3.4-5.0); BUN Creatinine Ratio 19.5 (10-20); Calcium 9.7 mg/dl (8.5-10.1); Creatinine Clr Calc Pharmacy 80.4 ml/min; Est GFR (African American) 79.6 ml/min; Est GFR (Non-African American) 68.6 ml/min; Potassium 4.4 mmol/L (3.5-5.1)
[2021-02-18 09:34] LABS: Bilirubin,Total 0.4 mg/dl (0.2-1); Globulin 3.6 gm/dl (2.5-4.0); Total Protein 7.4 gm/dl (6.4-8.2)
--- NOTE | 2021-02-18 16:51 | Electrocardiogram Report ---
Test Reason : Blood Pressure : / mmHG Vent. Rate : 075 BPM Atrial Rate : 075 BPM P-R Int : 162 ms QRS Dur : 134 ms QT Int : 418 ms P-R-T Axes : 046 -06 060 degrees QTc Int : 466 ms Normal sinus rhythm Left bundle branch block Abnormal ECG When compared with ECG of 30-DEC-2020 15:35, Aberrant conduction is no longer Present Confirmed by Jimi Stringer ([id number]) on 02/18/2021 4:51:07 PM Referred By: Fariha Guaman Confirmed By:Henry Stringer
[2021-02-18] MEDS: MONTELUKAST SODIUM 10 MG TABLET PO SCH (20:26)
[2021-02-19] MEDS: methylPREDNISolone 40 MG in SYRINGE 0 ML IV SCH ×2 (04:00→15:27)
[2021-02-19] MEDS: ALBUT/IPRATROP 3MG/0.5MG NEB 3 ML VIAL NEB SCH ×2 (07:52→11:14)
[2021-02-19 09:03] LABS: Basophils # (auto) 0.01 K/uL (0-0.2); Basophils % (auto) 0.1 %; Hematocrit (blood only) 40.5 % (37-47); Immature Granulocytes # (auto) 0.06 K/uL (0.00-0.02); Immature Granulocytes % (auto) 0.4 %; Lymphocytes # (auto) 1.19 K/uL (1.2-3.4); Lymphocytes % (auto) 8.9 %; Mean Corpuscular Hemoglobin 28.6 pg (25-34); Mean Corpuscular Hgb Conc 32.1 g/dL (32-36); Mean Platelet Volume 10.2 fL (7.4-10.4); Monocytes # (auto) 0.42 K/uL (0.11-0.59); Monocytes % (auto) 3.1 %; Neutrophils # (auto) 11.73 K/uL (1.4-6.5); Neutrophils % (auto) 87.5 %; Platelet Count 258 K/uL (130-400); RDW Coefficient of Variation 13.8 % (11.5-14.5); RDW Standard Deviation 45.1 fL (36.4-46.3); Red Blood Count 4.55 M/uL (4.2-5.4); White Blood Count 13.41 K/uL (4.8-10.8)
--- NOTE | 2021-02-19 09:13 | Hospitalist Progress Note ---
Date of Service February 19, 2021 Assessment & Plan (1) Exacerbation of asthma: In the ED was given duo nebs x2, and Solu-Medrol 125 mg IV. Continue methylprednisolone expectantly not improving very rapidly Duonebs every 4 hours while awake and every 2 hours when necessary. Guaifenesin extended release 600 mg p.o. twice daily Nasal cannula oxygen, titrate to keep pulse ox around 94% Azithromycin 500 mg IV daily Sees pulmonology Dr. Vitale in the outpatient setting Ct Chest 02/17/21 IMPRESSION: 1. No acute pulmonary embolus. 2. No infiltrates or consolidative lesions are seen. 3. Minimal pericardial effusion. 4. Interval development of 8mm pulmonary nodule within the right base. S hort-term follow-up in 3-6 months is recommended according to Fleischner Society guidelines. 5. Mild mediastinal lymphadenopathy. Attention on follow-up imaging. Given lack of groundglass opacities do not believe her Covid + status is significant impact on her respiratory process at this time (2) MARY (obstructive sleep apnea): CPAP at bedtime as needed (3) GERD (gastroesophageal reflux disease): Continue pantoprazole 40 mg daily (4) HTN (hypertension): Continue diltiazem and metoprolol succinate (5) COVID-19: Original COVID-19 infection on 11/25/2020. Patient symptoms today are most consistent with an asthma exacerbation as well as no significant changes seen on CT scan. She will be placed on COVID-19 precautions and she is still positive, and >90 days from previous testing but will not need active treatment (6) Lung nodules: Lung nodules and lymphadenopathy commented on CT scan on presentation lung nodule program order placed to coordinate follow-up (7) DVT prophylaxis: Lovenox for DVT prevention Admission and Anticipated Discharge Date Admission Date: February 17, 2021 Subjective Patient feels somewhat better but is still markedly dyspneic she is a raspy productive cough and has some audible wheezing at the bedside. Examination still reveals mostly left-sided symptoms in her chest just not improving very quickly Review of Systems Review of Systems: Mild distress and fatigue no headache, no visual changes no speech or swallowing issues no chest pain, pressure or palpitations Shortness of breath productive coughing and wheezing present no abdominal pain, nausea or vomiting, diarrhea or constipation no dysuria, hematuria or frequency no focal joint pain trace peripheral swelling no back pain, CVA tenderness or radicular pain no bruising, bleeding or rashes no focal signs of weakness or numbness or altered sensation no complaints of anxiety or depression.. Physical Exam Physical Exam: The patient appeared well nourished and normally developed. Vital signs as documented. Head exam is normocephalic atraumatic Neck is without JVD, thyromegaly, or carotid bruits. Lungs continue with coarse breath sounds bilaterally left greater than right expiratory wheezes left greater than right loose cough with some mucus production Cardiac exam, Rhythm is regular.. No murmurs, rubs or gallops. Abdominal exam reveals normal bowel sounds, soft non tender, no masses Extremities are trace edematous and both pedal pulses are present Neurologic exam is alert and oriented, no focal loss of strength or sensation Skin is without bruises or rashes Psychologically is without concerns for anxiety or depression Results & Data Results & Data ([facility]) Vital Signs (Past 12 Hours) Vital Signs Temp Pulse Resp BP Pulse Ox Pulse Ox 02/19/21 08:20 97.5 F L 67 20 145/70 H 93 02/19/21 07:53 63 20 97 02/19/21 04:00 97.7 F 68 18 121/62 97 02/19/21 00:45 97 02/18/21 23:00 97.8 F 73 18 143/81 H 94 02/18/21 22:25 77 18 94 02/18/21 21:43 83 20 166/85 H 94 PG Care Time/CCT Total # of Minutes Spent Total Time Spent with Patient: Total time spent is greater than 50% in coordination of care (as documented) at patient's floor/unit and/or counseling patient: Coding Level of Care Code 18701 Subseq Hosp Care Lvl 3 Diagnoses Exacerbation of asthma J45.901 Asthma persistence: unspecified Asthma severity: unspecified severity MARY (obstructive sleep apnea) G47.33 GERD (gastroesophageal reflux disease) K21.9 Esophagitis presence: esophagitis presence not specified HTN (hypertension) I10 Hypertension type: unspecified COVID-19 U07.1 Lung nodules R91.8 DVT prophylaxis Z29.9 (1) Exacerbation of asthma Asthma persistence: unspecified Asthma severity: unspecified severity Qualified Code(s): J45.901 - Unspecified asthma with (acute) exacerbation (2) GERD (gastroesophageal reflux disease) Esophagitis presence: esophagitis presence not specified Qualified Code(s): K21.9 - Gastro-esophageal reflux disease without esophagitis (3) HTN (hypertension) Hypertension type: unspecified Qualified Code(s): I10 - Essential (primary) hypertension
[2021-02-19 09:36] LABS: Albumin Level 3.8 gm/dl (3.4-5.0); BUN Creatinine Ratio 29.5 (10-20); Calcium 9.2 mg/dl (8.5-10.1); Creatinine Clr Calc Pharmacy 96.2 ml/min; Est GFR (African American) 98.6 ml/min; Est GFR (Non-African American) 85.1 ml/min; Potassium 3.9 mmol/L (3.5-5.1)
[2021-02-19 09:38] LABS: Albumin Globulin Ratio 1.1 (0.9-2); Bilirubin,Total 0.4 mg/dl (0.2-1); Globulin 3.5 gm/dl (2.5-4.0); Total Protein 7.3 gm/dl (6.4-8.2)
[2021-02-19] MEDS: ENOXAPARIN INJ 60 MG/0.6 ML SYR SQ SCH (10:20)
[2021-02-19] MEDS: CHOLECALCIFEROL 1,000 UNITS 25 MCG TAB PO SCH (10:21)
[2021-02-19] MEDS: dilTIAZem HCL 180 MG CAPCR PO SCH (10:21)
[2021-02-19] MEDS: FLUTICASONE/VILANTEROL 200/25MCG 14 PUFFS/INHALER INH SCH (10:22)
[2021-02-19] MEDS: guaiFENesin 600 MG TABCR PO SCH ×2 (10:22→20:10)
[2021-02-19] MEDS: METOPROLOL SUCC 50MG EXT REL TAB PO SCH (10:23)
[2021-02-19] MEDS: PANTOprazole 40 MG TAB PO SCH (10:24)
[2021-02-19] MEDS: AZITHROMYCIN 500 MG in DEXTROSE 5% 250 ML IV SCH (10:24)
--- NOTE | 2021-02-19 11:02 | Electrocardiogram Report ---
Test Reason : Blood Pressure : / mmHG Vent. Rate : 080 BPM Atrial Rate : 080 BPM P-R Int : 178 ms QRS Dur : 138 ms QT Int : 410 ms P-R-T Axes : 022 002 064 degrees QTc Int : 472 ms Normal sinus rhythm Left bundle branch block Abnormal ECG When compared with ECG of 17-FEB-2021 16:30, No significant change was found Confirmed by Jimi Stringer ([id number]) on 02/19/2021 11:02:02 AM Referred By: Fariha Guaman Confirmed By:Henry Stringer
[2021-02-19] MEDS: ALBUTEROL HFA 8 GM INHALER INH SCH ×3 (15:10→20:14)
[2021-02-19] MEDS: IPRATROPIUM BROMIDE HFA INHALER INH SCH ×2 (15:11→20:14)
[2021-02-19] MEDS: MONTELUKAST SODIUM 10 MG TABLET PO SCH (20:10)
[2021-02-20] MEDS: methylPREDNISolone 40 MG in SYRINGE 0 ML IV SCH ×2 (04:04→16:02)
[2021-02-20] MEDS: IPRATROPIUM BROMIDE HFA INHALER INH SCH ×4 (07:11→19:51)
[2021-02-20] MEDS: ALBUTEROL HFA 8 GM INHALER INH SCH ×4 (07:11→19:51)
[2021-02-20 08:13] LABS: Basophils # (auto) 0.01 K/uL (0-0.2); Basophils % (auto) 0.1 %; Hematocrit (blood only) 39.9 % (37-47); Hemoglobin 12.8 g/dL (12.0-16.0); Immature Granulocytes # (auto) 0.06 K/uL (0.00-0.02); Immature Granulocytes % (auto) 0.4 %; Lymphocytes # (auto) 1.53 K/uL (1.2-3.4); Lymphocytes % (auto) 10.3 %; Mean Corpuscular Hemoglobin 29.2 pg (25-34); Mean Corpuscular Hgb Conc 32.1 g/dL (32-36); Mean Corpuscular Volume 91.1 fL (80-100); Mean Platelet Volume 10.9 fL (7.4-10.4); Monocytes # (auto) 0.49 K/uL (0.11-0.59); Monocytes % (auto) 3.3 %; Neutrophils # (auto) 12.74 K/uL (1.4-6.5); Neutrophils % (auto) 85.9 %; Platelet Count 297 K/uL (130-400); RDW Coefficient of Variation 13.8 % (11.5-14.5); RDW Standard Deviation 45.9 fL (36.4-46.3); Red Blood Count 4.38 M/uL (4.2-5.4); White Blood Count 14.83 K/uL (4.8-10.8)
[2021-02-20] MEDS: AZITHROMYCIN 500 MG in DEXTROSE 5% 250 ML IV SCH (08:14)
[2021-02-20] MEDS: dilTIAZem HCL 180 MG CAPCR PO SCH (08:18)
[2021-02-20] MEDS: guaiFENesin 600 MG TABCR PO SCH ×2 (08:18→20:53)
[2021-02-20] MEDS: CHOLECALCIFEROL 1,000 UNITS 25 MCG TAB PO SCH (08:18)
[2021-02-20] MEDS: METOPROLOL SUCC 50MG EXT REL TAB PO SCH (08:19)
[2021-02-20] MEDS: PANTOprazole 40 MG TAB PO SCH (08:19)
[2021-02-20] MEDS: ENOXAPARIN INJ 60 MG/0.6 ML SYR SQ SCH (08:20)
[2021-02-20] MEDS: FLUTICASONE/VILANTEROL 200/25MCG 14 PUFFS/INHALER INH SCH (08:21)
[2021-02-20 08:39] LABS: Albumin Globulin Ratio 1.1 (0.9-2); Albumin Level 3.6 gm/dl (3.4-5.0); BUN Creatinine Ratio 35.8 (10-20); Bilirubin,Total 0.3 mg/dl (0.2-1); Calcium 9.2 mg/dl (8.5-10.1); Creatinine Clr Calc Pharmacy 97.4 ml/min; Est GFR (African American) 100.2 ml/min; Est GFR (Non-African American) 86.5 ml/min; Globulin 3.3 gm/dl (2.5-4.0); Potassium 4.8 mmol/L (3.5-5.1); Total Protein 6.9 gm/dl (6.4-8.2)
--- NOTE | 2021-02-20 18:34 | Hospitalist Progress Note ---
Date of Service February 20, 2021 Assessment & Plan (1) Exacerbation of asthma: In the ED was given duo nebs x2, and Solu-Medrol 125 mg IV. Switch to prednisone tomorrow in anticipation of discharge Duonebs every 4 hours while awake and every 2 hours when necessary. Guaifenesin extended release 600 mg p.o. twice daily Nasal cannula oxygen, titrate to keep pulse ox around 94% Switch azithromycin to PO for last [address] Vitale in the outpatient setting Ct Chest 02/17/21 IMPRESSION: 1. No acute pulmonary embolus. 2. No infiltrates or consolidative lesions are seen. 3. Minimal pericardial effusion. 4. Interval development of 8mm pulmonary nodule within the right base. Short-term follow-up in 3-6 months is recommended according to Fleischner Society guidelines. 5. Mild mediastinal lymphadenopathy. Attention on follow-up imaging. She is persistently SARS-COV-2 PCR positive however do not suspect acute infection at this time. (2) MARY (obstructive sleep apnea): CPAP at bedtime (3) GERD (gastroesophageal reflux disease): Continue pantoprazole 40 mg daily (4) HTN (hypertension): Continue diltiazem and metoprolol succinate (5) COVID-19: Original COVID-19 infection on 11/25/2020. Patient symptoms today are most consistent with an asthma exacerbation as well as no significant changes seen on CT scan. She will be placed on COVID-19 precautions and she is still positive, and >90 days from previous testing but will not need active treatment (6) Lung nodules: Lung nodules and lymphadenopathy commented on CT scan on presentation lung nodule program order placed to coordinate follow-up (7) DVT prophylaxis: Lovenox for DVT prevention Admission and Anticipated Discharge Date Admission Date: February 17, 2021 Subjective Feels this is similar to her prior asthma exacerbations / acute bronchitics. Continued shortness of breath especially on exertion but slow improvement. T aking more time than previous episodes. Continued dry cough. No chest pain. No fever or chills. Weaned off O2 today. Review of Systems Review of Systems: All systems reviewed & are unremarkable except as noted in HPI & below Physical Exam Constitutional: WD/WN, vitals as above + morbidly obese Eyes: + anicteric sclerae; normal pupil size ENMT: external ear and nose normal, oropharynx normal Neck: trachea midline, no thyromegaly Respiratory: normal respiratory effort; no respiratory distress Auscultation: + diminished lung sounds (R > L) and + wheezes (mild expiratory L > R); no crackles Cardiovascular: RRR, no murmur, no edema Gastrointestinal (Abdomen): normal bowel sounds, soft, nontender, no hepatosplenomegaly Musculoskeletal: no cyanosis or clubbing, extremities motor strength 5/5 Skin: no rashes, warm and dry Neurologic: moves all extremities and awake; not confused Psychiatric: A+Ox3, euthymic affect Results & Data Results & Data ([facility]) Vital Signs (Past 12 Hours) Vital Signs Temp Pulse Resp BP Pulse Ox 02/20/21 16:08 36.7 C 61 132/67 92 02/20/21 15:23 77 18 92 02/20/21 11:18 61 16 95 02/20/21 10:35 36.7 C 62 21 144/78 H 94 02/20/21 07:11 68 16 95 PG Care Time/CCT Total # of Minutes Spent Total Time Spent with Patient: Total time spent is greater than 50% in coordination of care (as documented) at patient's floor/unit and/or counseling patient: Coding Level of Care Code 77050 Subseq Hosp Care Lvl 2 Diagnoses Exacerbation of asthma J45.901 Asthma persistence: unspecified Asthma severity: unspecified severity MARY (obstructive sleep apnea) G47.33 GERD (gastroesophageal reflux disease) K21.9 Esophagitis presence: esophagitis presence not specified HTN (hypertension) I10 Hypertension type: unspecified COVID-19 U07.1 Lung nodules R91.8 DVT prophylaxis Z29.9 (1) Exacerbation of asthma Asthma persistence: unspecified Asthma severity: unspecified severity Qualified Code(s): J45.901 - Unspecified asthma with (acute) exacerbation (2) GERD (gastroesophageal reflux disease) Esophagitis presence: esophagitis presence not specified Qualified Code(s): K21.9 - Gastro-esophageal reflux disease without esophagitis (3) HTN (hypertension) Hypertension type: unspecified Qualified Code(s): I10 - Essential (primary) hypertension
[2021-02-20] MEDS: MONTELUKAST SODIUM 10 MG TABLET PO SCH (20:53)
[2021-02-21] MEDS: IPRATROPIUM BROMIDE HFA INHALER INH SCH ×2 (07:08→11:43)
[2021-02-21] MEDS: ALBUTEROL HFA 8 GM INHALER INH SCH ×2 (07:08→11:43)
[2021-02-21] MEDS ORDERED: predniSONE 20 MG TAB PO SCH (09:00)
[2021-02-21] MEDS ORDERED: AZITHROMYCIN 250 MG TAB PO SCH (09:00)
[2021-02-21] MEDS: CHOLECALCIFEROL 1,000 UNITS 25 MCG TAB PO SCH (09:56)
[2021-02-21] MEDS: dilTIAZem HCL 180 MG CAPCR PO SCH (09:56)
[2021-02-21] MEDS: METOPROLOL SUCC 50MG EXT REL TAB PO SCH (09:56)
[2021-02-21] MEDS: guaiFENesin 600 MG TABCR PO SCH (09:57)
[2021-02-21] MEDS: PANTOprazole 40 MG TAB PO SCH (09:58)
[2021-02-21] MEDS: FLUTICASONE/VILANTEROL 200/25MCG 14 PUFFS/INHALER INH SCH (09:58)
[2021-02-21] MEDS: ENOXAPARIN INJ 60 MG/0.6 ML SYR SQ SCH (09:59)
--- NOTE | 2021-02-21 13:49 | Discharge Summary ---
Date of Service February 21, 2021 Admission HPI Per Admitting Provider The patient is a 60-year-old female with a past medical history including paroxysmal atrial tachycardia, symptomatic PVCs, MARY, mixed hearing loss, tinnitus, GERD, LBBB, COVID-19 infection on 11/25/20, multiple pulmonary nodules, goiter, vitamin D deficiency, asthma, hypertension, cardiomegaly, mediastinal lymphadenopathy and hypersomnia. The patient presented as with symptoms as noted above, with worsening shortness of breath, wheezing and dyspnea on exertion over the past 24 hours. Work-up in the emergency department included a repeat positive COVID-[address] angiography chest PE protocol showed a new pulmonary nodule at the right base, and persistent mild mediastinal lymphadenopathy. In the emergency department, patient was given DuoNeb's x2 and Solu-Medrol 125 mg IV from the ED. Admission Exam Per Admitting Provider The patient is awake, alert and oriented 3, well developed and well nourished, normocephalic and atraumatic, lying in bed and in no acute distress. HEENT--PERRL, EOMI, mucous membranes and oropharynx dry. Neck--supple. No JVD. No bruits. Thyroid normal, trachea midline, no adenopathy. Heart--normal S1 and S2. No murmurs, rubs or gallops. Lungs--diffuse wheezes bilaterally. Scattered rhonchi bilaterally. No respiratory distress, no accessory muscle use. Abdomen--normal bowel sounds and soft. Nontender. Nondistended. Morbidly obese Extremities--no cyanosis or clubbing. No edema. Dermatologic--normal skin turgor, normal color, no abnormal lymph nodes, no rash. Neurologic--cranial nerves II through XII grossly intact. Rheumatologic--normal range of motion. Psychiatric--normal affect. Principal Diagnosis Asthma Exacerbation Discharge Exam Constitutional WD/WN, vitals as above + morbidly obese Eyes + anicteric sclerae; normal pupil size ENMT external ear and nose normal, oropharynx normal Neck trachea midline, no thyromegaly Respiratory normal respiratory effort; no respiratory distress Auscultation: + diminished lung sounds (R > L) and + wheezes (mild expiratory L > R); no crackles Cardiovascular RRR, no murmur, no edema Gastrointestinal (Abdomen) normal bowel sounds, soft, nontender, no hepatosplenomegaly Musculoskeletal no cyanosis or clubbing, extremities motor strength 5/5 Skin no rashes, warm and dry Neurologic moves all extremities and awake; not confused Psychiatric A+Ox3, euthymic affect Discharge Data Allergies Allergy/AdvReac Type Severity Reaction Status Date / Time lisinopril AdvReac Mild Cough Verified 03/04/21 09:50 Consultations 02/17/21 20:59 ED Decision to Admit Stat 02/19/21 17:09 Consult Lung Nodule Program Routine Ordered Studies 02/17/21 20:06 CT angio chest PE protocol Stat IMPRESSION: 1. No acute pulmonary embolus. 2. No infiltrates or consolidative lesions are seen. 3. Minimal pericardial effusion. 4. Interval development of 8mm pulmonary nodule within the right base. Short- term follow-up in 3-6 months is recommended according to Fleischner Society guidelines. 5. Mild mediastinal lymphadenopathy. Attention on follow-up imaging. Hospital Course (1) Exacerbation of asthma: Jennifer Peoples is a 60 year old female admitted to [facility] [address] from February 17-2020 due to shortness of breath. SARS-COV-2 PCR nasal swab was positive although suspect she has a persistently positive test since her original infection in November rather than continued COVID-19 pneumonia given lack of pneumonia findings on exam or imaging. She was treated for asthma exacerbation with intravenous steroids and nebulizers during her admission and will be discharged on a tapering prednisone course. She should continue to take your usual maintenance inhalers (Symbicort and Spiriva) and albuterol as needed for continued shortness of breath. Recommend follow up with her meat and seafood clerk for ongoing management of your asthma. Due to nodules seen on CT chest she was referred to the lung nodule clinic and will be called for further advice regarding follow up imaging for this. (2) MARY (obstructive sleep apnea): (3) GERD (gastroesophageal reflux disease): (4) HTN (hypertension): (5) COVID-19: (6) Lung nodules: (7) DVT prophylaxis: Total Time Total Time Spent Total Time Spent (In Minutes): 40 Discharge Plan Discharge Items Patient Disposition: Home - Self-Care Reason For Visit: ASTHMA EXACERBATION, COVID-19 Discharge Diagnosis: Asthma Exacerbation Activity: Resume your previous activity Non-emergency contact: Primary Care Provider Call non-emergency contact if: you have any medication questions Follow-up/Referrals: Fariha Guaman DO [Primary Care Provider] - 03/04/21 10:00 am Diet: Heart Healthy Addtl Attending Provider Instructions: You were admitted to [facility] [address] from February 17-2020 due to shortness of breath. Your SARS-COV-2 PCR nasal swab was positive although suspect you have a persistently positive test since your original infection rather than continued COVID-19 pneumonia given lack of pneumonia findings on exam or imaging. You were treated with intravenous steroids and nebulizers during your admission and will be discharged on a tapering prednisone course. Please continue to take your usual maintenance inhalers regularly (Symbicort and Spiriva) and albuterol as needed for continued shortness of breath. Please follow up with your meat and seafood clerk for ongoing management of your asthma. Kind regards, Dr Santosh Farias Pending Studies at Discharge: No Stand-Alone Forms: [facility], Smoking Cessation Medications and DC Order Prescriptions: Continued fluticasone propionate [Allergy Relief (fluticasone)] 50 mcg/actuation spray,suspension 1 spray INTNAS DAILY Qty: 9.9 RF: 2 budesonide-formoterol [Symbicort] 160-4.5 mcg/actuation HFA aerosol inhaler 2 puff inhalation BID Qty: 10.2 RF: 3 Spiriva Respimat 2.5 mcg/actuation mist 2 puff inhalation DAILY Qty: 4 RF: 3 pantoprazole 40 mg tablet,delayed release (DR/EC) 40 mg PO QAM Qty: 90 RF: 1 montelukast [Singulair] 10 mg tablet 10 mg PO QPM Qty: 30 RF: 3 diltiazem HCl 180 mg capsule,extended release 24hr 180 mg PO DAILY Qty: 90 RF: 3 ibuprofen [Advil] 200 mg Tablet 400 - 600 mg PO DIRECTED PRN (Reason: Pain) RF: 0 cholecalciferol (vitamin D3) [Vitamin D3] 50 mcg (2,000 unit) Tablet 50 mcg PO QAM RF: 0 ipratropium-albuterol 0.5 mg-3 mg(2.5 mg base)/3 mL solution for nebulization 3 ml NEB Q4H PRN (Reason: Shortness Of Breath Or Wheezing) RF: 0 albuterol sulfate [Ventolin HFA] 90 mcg/actuation HFA aerosol inhaler 2 puff INH Q6H PRN (Reason: Shortness Of Breath Or Wheezing) RF: 0 levocetirizine 5 mg tablet 5 mg PO DAILY PRN (Reason: Allergy Symptoms) RF: 0 No Action metoprolol succinate 50 mg tablet extended release 24 hr 50 mg PO DAILY Qty: 90 RF: 1 Discharge Orders: Discharge Order (Routine); Ordered 02/21/21 Ordered By: Santosh Smith/Other Patient Handouts: 2019-nCoV, Asthma Medicine Admission Data Admit Date/Time: 02/17/21 21:56 Attending Provider: Santosh Farias Admit Provider: Vini Adhikari Primary Care Provider: Fariha Guaman Other Providers: Vnii Adhikari Other Interventions: Discharge Summary Assessment (RN) Last Done: 02/21/21 14:48 Coding Level of Care Code D/C Day Management >30 mins Diagnoses Exacerbation of asthma J45.901 Asthma persistence: unspecified Asthma severity: unspecified severity MARY (obstructive sleep apnea) G47.33 GERD (gastroesophageal reflux disease) K21.9 Esophagitis presence: esophagitis presence not specified HTN (hypertension) I10 Hypertension type: unspecified COVID-19 U07.1 Lung nodules R91.8 DVT prophylaxis Z29.9
== END 2021-02-21 16:20 | disposition home or self-care (01) | DRG 202 ==
LOC: ED 16:13 → INTOOBSV 21:56 → SUATTDRO 21:56 → 2W 21:56
DX: U07.1 COVID-19; H90.0 Conductive hearing loss, bilateral; J45.901 Unspecified asthma with (acute) exacerbation; K21.9 Gastro-esophageal reflux disease without esophagitis; G47.33 Obstructive sleep apnea (adult) (pediatric); R09.02 Hypoxemia; Z79.899 Other long term (current) drug therapy; Z99.89 Dependence on other enabling machines and devices; R91.8 Other nonspecific abnormal finding of lung field; I44.7 Left bundle-branch block, unspecified; I10 Essential (primary) hypertension; R91.1 Solitary pulmonary nodule; E55.9 Vitamin D deficiency, unspecified; Z88.8 Allergy status to other drugs, medicaments and biological substances

== ENCOUNTER 2021-11-21 01:36 | Observation (INO) ==
[2021-11-21] MEDS ORDERED: methylPREDNISolone 125 MG/2 ML VIAL IV STA (01:52)
[2021-11-21] MEDS ORDERED: ALBUT/IPRATROP 3MG/0.5MG NEB 3 ML VIAL NEB ONE (01:52)
[2021-11-21 02:23] LABS: Eosinophils # (auto) 0.05 K/uL (0-0.5); Eosinophils % (auto) 0.9 %; Hematocrit (blood only) 35.9 % (37-47); Immature Granulocytes # (auto) 0.02 K/uL (0.00-0.02); Immature Granulocytes % (auto) 0.4 %; Lymphocytes # (auto) 0.65 K/uL (1.2-3.4); Lymphocytes % (auto) 12.3 %; Mean Corpuscular Hemoglobin 28.9 pg (25-34); Mean Corpuscular Hgb Conc 33.4 g/dL (32-36); Mean Corpuscular Volume 86.5 fL (80-100); Mean Platelet Volume 11.2 fL (7.4-10.4); Monocytes # (auto) 0.29 K/uL (0.11-0.59); Monocytes % (auto) 5.5 %; Neutrophils # (auto) 4.27 K/uL (1.4-6.5); Neutrophils % (auto) 80.9 %; Platelet Count 121 K/uL (130-400); RDW Coefficient of Variation 14.8 % (11.5-14.5); RDW Standard Deviation 46.8 fL (36.4-46.3); Red Blood Count 4.15 M/uL (4.2-5.4); White Blood Count 5.28 K/uL (4.8-10.8)
[2021-11-21 02:39] LABS: Base Excess VBG 0.3 mEq/L; HCO3 VBG 26 mmol/L; Oxygen Saturation VBG 79.5 %; PCO2 VBG 48 mmHg (38-50); PO2 VBG 48 mmHg; pH VBG 7.36 (7.36-7.41)
--- NOTE | 2021-11-21 02:42 | History & Physical Report ---
Date of Service November 21, 2021 Assessment & Plan (1) Moderate persistent asthmatic bronchitis with exacerbation: Plan: Given methylprednisolone 125 mg IV from the ED and a DuoNeb treatment Methylprednisolone 40 mg IV every 8 hours Duonebs every 4 hours while awake and every 2 hours when necessary. Guaifenesin extended release 1200 mg p.o. twice daily Azithromycin 500 mg IV daily Nasal cannula oxygen, titrate to keep pulse ox around 94% Tessalon Perles 100 g p.o. 3 times daily as needed (2) Eosinophil count raised: Plan: On Fasenra as an outpatient Continue levo cetirizine 5 mg daily as needed (3) MARY (obstructive sleep apnea): Plan: CPAP at at bedtime as needed (4) GERD (gastroesophageal reflux disease): Plan: Continue pantoprazole (5) HTN (hypertension): Plan: 40 mg daily continue metoprolol succinate extended release 50 mg daily and diltiazem extended release 180 mg daily History of Present Illness Chief Complaint: The patient presents to the emergency department with acute worsening of shortness of breath and productive cough over the past 24 hours Primary Care Provider: Fariha Guaman DO The patient is a 61-year-old female with a past medical history including asthma exacerbations, elevated eosinophil count, COVID-19 on November 15, 2020, mixed hearing loss, MARY, GERD, left bundle branch block, goiter, multiple pulmonary nodules, hypertension, cardiomegaly, hypersomnia, goiter, paroxysmal atrial tachycardia and symptomatic PVCs. She presents to the emergency department with an acute worsening of shortness of breath and productive cough over the past 24 hours. She denies any recent travels or sick exposures. COVID-19 testing in the emergency department was negative this evening, but she does have a history of COVID-19 infection on 11/25/2020. She denies any tobacco use or exposure to chemicals of any kind Allergies Allergy/AdvReac Type Severity Reaction Status Date / Time lisinopril AdvReac Mild Cough Verified 11/21/21 02:27 Home Medications Medication Instructions Recorded Confirmed Type cholecalciferol (vitamin D3) 50 50 mcg PO QAM 08/19/20 11/21/21 History mcg (2,000 unit) tablet (Vitamin D3) ipratropium 0.5 mg-albuterol 3 mg 3 ml NEB Q4H PRN #180 ml 05/05/21 11/21/21 Rx (2.5 mg base)/3 mL nebulization soln albuterol sulfate 90 mcg/actuation 2 puff INH Q6H PRN #8.5 g 06/17/21 11/21/21 Rx aerosol inhaler (Ventolin HFA) diltiazem HCl 180 mg 180 mg PO DAILY #90 cap 07/04/21 11/21/21 Rx capsule,extended release 24 hr benralizumab 30 mg/mL subcutaneous 30 mg SUBCUT .COMPLEX #1 ml 08/15/21 11/21/21 Rx syringe (Fasenra) levocetirizine 5 mg tablet 5 mg PO DAILY PRN #90 tab 09/13/21 11/21/21 Rx pantoprazole 40 mg tablet,delayed 40 mg PO QAM #90 tab 09/13/21 11/21/21 Rx release metoprolol succinate 50 mg 50 mg PO DAILY #90 tab 09/23/21 11/21/21 Rx tablet,extended release 24 hr budesonide-formoterol HFA 160 2 puff INHALATION BID #10.2 g 10/26/21 11/21/21 Rx mcg-4.5 mcg/actuation aerosol inhaler (Symbicort) fluticasone propionate 50 1 spray INTNAS DAILY #9.9 gm 10/27/21 11/21/21 Rx mcg/actuation nasal spray,suspension (Allergy Relief (fluticasone)) tiotropium bromide 2.5 2 puff INHALATION DAILY #4 g 11/17/21 11/21/21 Rx mcg/actuation mist for inhalation (Spiriva Respimat) montelukast 10 mg tablet 10 mg PO QPM #30 tab 11/18/21 11/21/21 Rx (Singulair) Past Med/Surg History Medical History 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 2. BETHESDA SYSTEM FOR REPORTING THYROID CYTOPATHOLOGY: CATEGORY 2, BENIGN. 3. LYMPHOCYTIC THYROIDITIS NOTED. Cardiomegaly Cholelithiasis Noted on CT scan 08/06/2019 Chronic cough Conductive hearing loss of both ears Goiter HTN (hypertension) Hypersomnia LAD (lymphadenopathy), mediastinal LBBB (left bundle branch block) Left thyroid nodule Incidental finding on CT 08/06/2019: 1.2 centimeter left thyroid nodule 1.8 cm hypoechoic left lobe thyroid nodule -ultrasound 08/12/2019 Persistent asthma Surgical History S/P appendectomy Family History Father , 2014 Cancer unknown type Mother Hypertension Other No family history of adverse response to anesthesia No family history of bleeding disorder Denies family history of Ovarian cancer Prostate cancer Myocardial infarction Breast cancer Lung cancer Colorectal cancer Social History Smoking Status: Never smoker Tobacco Type: Cigarettes Second Hand Exposure: No; Hx Alcohol Use: No Hx Substance Use: No Preferred Language: German Communication Ability: Effective Visual Impairment: Limited Hearing Ability: Normal Scarifier Operator Required: No Beliefs That Will Affect Care: None marital status: / marital status details: passed 2017 Current Living Situation: Family Current Living Situation Comment: LIVES W HER 3 BOYS current occupational status: unemployed current occupation: homemaker How many Children do You have: 6 Feels Safe at Home: Yes Childhood Exposure to Second-Hand Smoke: No Diet Comment: regular caffeine: Yes (1 cup) during the past year weight has: remained stable Dental Care, Regularly: No Physical Activity Frequency: Daily Physical Activity Frequency Comment: walking Seatbelt Use: always Sunscreen Use: No Assistive Devices: None Review of Systems Review of Systems: The patient denies chest pain, palpitations, lower extremity swelling, sore throat, fevers, chills, sweats, nausea, vomiting, diarrhea , constipation, abdominal pain, pelvic pain, blood in urine or stool, dysuria, urinary frequency or urgency, lightheadedness, dizziness, headache, memory loss, loss of consciousness, rash, abnormal bruising or bleeding, imbalance, focal or generalized weakness, numbness or tingling in arms or legs, generalized arthralgias or myalgias, back or neck pain, or night sweats. The review of systems is otherwise negative other than for that already noted above, and at least 10 systems have been reviewed. Physical Exam Physical Exam: The patient is awake, alert and oriented 3, well developed and well nourished, normocephalic and atraumatic, lying in bed and in no acute distress. HEENT--PERRL, EOMI, mucous membranes and oropharynx moderately dry. Neck--supple. No JVD. No bruits. Thyroid normal, trachea midline, no adenopathy. Heart--normal S1 and S2. No murmurs, rubs or gallops. Lungs--coarse breath sounds and wheezes bilaterally throughout. Mild respirato ry distress, no accessory muscle use. Abdomen--normal bowel sounds and soft. Nontender. Nondistended, no hernias or masses, no organomegaly. Extremities--no cyanosis or clubbing. No edema. Dermatologic--normal skin turgor, normal color, no abnormal lymph nodes, no rash. Neurologic--cranial nerves II through XII grossly intact. Rheumatologic--normal range of motion. Psychiatric--normal affect. Results & Data Results & Data ([facility]) Vital Signs (Past 12 Hours) Vital Signs Temp Pulse Resp BP Pulse Ox 11/21/21 02:30 96 H 25 H 135/75 94 11/21/21 02:19 95 11/21/21 01:47 90 11/21/21 01:39 37.5 C 100 H 16 180/89 H 92 Laboratory Results Laboratory Results WBC 5.28 K/uL (4.8-10.8) 11/21/21 02:05 RBC 4.15 M/uL (4.2-5.4) L 11/21/21 02:05 Hgb 12.0 g/dL (12.0-16.0) 11/21/21 02:05 Hct 35.9 % (37-47) L 11/21/21 02:05 MCV 86.5 fL (80-100) 11/21/21 02:05 MCH 28.9 pg (25-34) 11/21/21 02:05 MCHC 33.4 g/dL (32-36) 11/21/21 02:05 RDW Std Deviation 46.8 fL (36.4-46.3) H 11/21/21 02:05 RDW Coeff of Niesha 14.8 % (11.5-14.5) H 11/21/21 02:05 Plt Count 121 K/uL (130-400) L 11/21/21 02:05 MPV 11.2 fL (7.4-10.4) H 11/21/21 02:05 Immature Gran % (Auto) 0.4 % 11/21/21 02:05 Neut % (Auto) 80.9 % 11/21/21 02:05 Lymph % (Auto) 12.3 % 11/21/21 02:05 Republic % (Auto) 5.5 % 11/21/21 02:05 Eos % (Auto) 0.9 % 11/21/21 02:05 Baso % (Auto) 0.0 % 11/21/21 02:05 Neut # (Auto) 4.27 K/uL (1.4-6.5) 11/21/21 02:05 Lymph # (Auto) 0.65 K/uL (1.2-3.4) L 11/21/21 02:05 Republic # (Auto) 0.29 K/uL (0.11-0.59) 11/21/21 02:05 Eos # (Auto) 0.05 K/uL (0-0.5) 11/21/21 02:05 Baso # (Auto) 0.00 K/uL (0-0.2) 11/21/21 02:05 Immature Gran # (Auto) 0.02 K/uL (0.00-0.02) 11/21/21 02:05 VBG pH 7.36 (7.36-7.41) 11/21/21 02:23 VBG pCO2 48 mmHg (38-50) 11/21/21 02:23 VBG pO2 48 mmHg 11/21/21 02:23 VBG HCO3 26 mmol/L 11/21/21 02:23 VBG O2 Saturation 79.5 % 11/21/21 02:23 VBG Base Excess 0.3 mEq/L 11/21/21 02:23 Sodium 139 mmol/L (136-145) 11/21/21 02:05 Potassium 3.9 mmol/L (3.5-5.1) 11/21/21 02:05 Chloride 104 mmol/L (98-107) 11/21/21 02:05 Carbon Dioxide 24 mmol/L (21-32) 11/21/21 02:05 Anion Gap 11 (3-11) 11/21/21 02:05 BUN 11 mg/dl (6-23) 11/21/21 02:05 Creatinine 0.69 mg/dl (0.6-1.2) 11/21/21 02:05 Est Cr Clr Drug Dosing Not Reportable 11/21/21 02:05 Est GFR ( Amer) 110.4 ml/min 11/21/21 02:05 Est GFR (Non-Af Amer) 95.3 ml/min 11/21/21 02:05 BUN/Creatinine Ratio 15.9 (10-20) 11/21/21 02:05 Glucose 126 mg/dl (70-99(Fasting)) H 11/21/21 02:05 Calcium 9.3 mg/dl (8.5-10.1) 11/21/21 02:05 Magnesium 2.0 mg/dl (1.7-2.4) 11/21/21 02:05 Total Bilirubin 0.4 mg/dl (0.2-1.0) 11/21/21 02:05 AST 15 U/L (13-39) 11/21/21 02:05 ALT 17 U/L (7-52) 11/21/21 02:05 Alkaline Phosphatase 79 U/L (34-104) 11/21/21 02:05 Troponin I < 0.03 ng/ml (0-0.04) 11/21/21 02:05 B-Natriuretic Peptide 152 pg/ml (0-100) H 11/21/21 02:05 Total Protein 7.3 gm/dl (6.0-8.3) 11/21/21 02:05 Albumin 4.6 gm/dl (3.4-5.0) 11/21/21 02:05 Globulin 2.7 gm/dl (2.5-4.0) 11/21/21 02:05 Albumin/Globulin Ratio 1.7 (0.9-2) 11/21/21 02:05 SARS-CoV-2, RNA, NAAT NEGATIVE (NEGATIVE) 11/21/21 02:13 Code Status & VTE Plan Code Status Full code VTE Prophylaxis Plan VTE Prophylaxis will be ordered: Yes PG Care Time/CCT Total # of Minutes Spent Total Time Spent with Patient: Total time spent is greater than 50% in coordination of care (as documented) at patient's floor/unit and/or counseling patient: Coding Level of Care Code 35261 Initial Inpt Care Lvl 3 Diagnoses Moderate persistent asthmatic bronchitis with exacerbation J45.41 Eosinophil count raised R89.8 MARY (obstructive sleep apnea) G47.33 GERD (gastroesophageal reflux disease) K21.9 Esophagitis presence: esophagitis presence not specified HTN (hypertension) I10 Hypertension type: unspecified (1) GERD (gastroesophageal reflux disease) Esophagitis presence: esophagitis presence not specified Qualified Code(s): K21.9 - Gastro-esophageal reflux disease without esophagitis (2) HTN (hypertension) Hypertension type: unspecified Qualified Code(s): I10 - Essential (primary) hypertension
[2021-11-21 02:47] LABS: Troponin I < 0.03 ng/ml (0-0.04)
[2021-11-21 02:53] LABS: Alanine Aminotransferase 17 U/L (7-52); Albumin Globulin Ratio 1.7 (0.9-2); Albumin Level 4.6 gm/dl (3.4-5.0); Alkaline Phosphatase 79 U/L (34-104); Anion Gap 11 (3-11); Aspartate Aminotransferase 15 U/L (13-39); BUN Creatinine Ratio 15.9 (10-20); Bilirubin,Total 0.4 mg/dl (0.2-1.0); Blood Urea Nitrogen 11 mg/dl (6-23); Calcium 9.3 mg/dl (8.5-10.1); Carbon Dioxide 24 mmol/L (21-32); Chloride 104 mmol/L (98-107); Est GFR (African American) 110.4 ml/min; Est GFR (Non-African American) 95.3 ml/min; Globulin 2.7 gm/dl (2.5-4.0); Glucose 126 mg/dl (70-99(Fasting)); Potassium 3.9 mmol/L (3.5-5.1); Sodium 139 mmol/L (136-145); Total Protein 7.3 gm/dl (6.0-8.3)
[2021-11-21] MEDS ORDERED: BENZONATATE 100 MG CAPSULE PO PRN (05:30)
[2021-11-21] MEDS ORDERED: ONDANSETRON INJ 2 MG/ML 2 ML VIAL IV PRN (05:30)
[2021-11-21] MEDS ORDERED: ACETAMINOPHEN 325 MG TAB PO PRN (05:30)
[2021-11-21] MEDS ORDERED: CETIRIZINE HCL 10 MG TABLET PO PRN (05:46)
[2021-11-21] MEDS: AZITHROMYCIN 500 MG in DEXTROSE 5% 250 ML IV SCH (06:09)
--- NOTE | 2021-11-21 06:52 | Emergency Department Note ---
History of Present Illness General Chief complaint: Respiratory Problems Stated complaint: HAVING TROUBLE BREATHING Time Seen by Provider: 11/21/21 01:45 History of Present Illness This is a 61-year-old female presenting to the emergency department for evaluation of worsening shortness of breath, coughing, and wheezing over the past 1 day. The patient has a history of asthma that has required hospitalization in the past. She does follow with [facility]. She does not believe that she is ever been intubated for her asthma. She has not had any fevers or chills. She is not immunized against COVID-19, but states that she did have the virus about 1 year ago. She does not report any recent tr shraon history. No new medications he has attempted her nebulizer at home, but this did not improve her symptoms. She rates her overall discomfort a 7/10. Home Medications Medication Instructions Recorded Confirmed Type cholecalciferol (vitamin D3) 50 50 mcg PO QAM 08/19/20 11/21/21 History mcg (2,000 unit) tablet (Vitamin D3) ipratropium 0.5 mg-albuterol 3 mg 3 ml NEB Q4H PRN #180 ml 05/05/21 11/21/21 Rx (2.5 mg base)/3 mL nebulization soln albuterol sulfate 90 mcg/actuation 2 puff INH Q6H PRN #8.5 g 06/17/21 11/21/21 Rx aerosol inhaler (Ventolin HFA) diltiazem HCl 180 mg 180 mg PO DAILY #90 cap 07/04/21 11/21/21 Rx capsule,extended release 24 hr benralizumab 30 mg/mL subcutaneous 30 mg SUBCUT .COMPLEX #1 ml 08/15/21 11/21/21 Rx syringe (Fasenra) levocetirizine 5 mg tablet 5 mg PO DAILY PRN #90 tab 09/13/21 11/21/21 Rx pantoprazole 40 mg tablet,delayed 40 mg PO QAM #90 tab 09/13/21 11/21/21 Rx release metoprolol succinate 50 mg 50 mg PO DAILY #90 tab 09/23/21 11/21/21 Rx tablet,extended release 24 hr budesonide-formoterol HFA 160 2 puff INHALATION BID #10.2 g 10/26/21 11/21/21 Rx mcg-4.5 mcg/actuation aerosol inhaler (Symbicort) fluticasone propionate 50 1 spray INTNAS DAILY #9.9 gm 10/27/21 11/21/21 Rx mcg/actuation nasal spray,suspension (Allergy Relief (fluticasone)) tiotropium bromide 2.5 2 puff INHALATION DAILY #4 g 11/17/21 11/21/21 Rx mcg/actuation mist for inhalation (Spiriva Respimat) montelukast 10 mg tablet 10 mg PO QPM #30 tab 11/18/21 11/21/21 Rx (Singulair) Allergies Allergy/AdvReac Type Severity Reaction Status Date / Time lisinopril AdvReac Mild Cough Verified 11/21/21 02:27 Past Med/Surg History Medical History 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 2. BETHESDA SYSTEM FOR REPORTING THYROID CYTOPATHOLOGY: CATEGORY 2, BENIGN. 3. LYMPHOCYTIC THYROIDITIS NOTED. Cardiomegaly Cholelithiasis Noted on CT scan 08/06/2019 Chronic cough Conductive hearing loss of both ears Goiter HTN (hypertension) Hypersomnia LAD (lymphadenopathy), mediastinal LBBB (left bundle branch block) Left thyroid nodule Incidental finding on CT 08/06/2019: 1.2 centimeter left thyroid nodule 1.8 cm hypoechoic left lobe thyroid nodule -ultrasound 08/12/2019 Persistent asthma Surgical History S/P appendectomy Family History Father , 2014 Cancer unknown type Mother Hypertension Other No family history of adverse response to anesthesia No family history of bleeding disorder Denies family history of Ovarian cancer Prostate cancer Myocardial infarction Breast cancer Lung cancer Colorectal cancer Social History Smoking Status: Never smoker Tobacco Type: Cigarettes Second Hand Exposure: No; Hx Alcohol Use: No Hx Substance Use: No Preferred Language: Citizen Of [place] Communication Ability: Effective Visual Impairment: Limited Hearing Ability: Normal 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 Beliefs That Will Affect Care: None marital status: / marital status details: passed 2016 Current Living Situation: Family Current Living Situation Comment: LIVES W HER 3 BOYS current occupational status: unemployed current occupation: homemaker How many Children do You have: 6 Feels Safe at Home: Yes Childhood Exposure to Second-Hand Smoke: No Diet Comment: regular caffeine: Yes (1 cup) during the past year weight has: remained stable Dental Care, Regularly: No Physical Activity Frequency: Daily Physical Activity Frequency Comment: walking Seatbelt Use: always Sunscreen Use: No Assistive Devices: None Review of Systems A total of 10 systems reviewed and were otherwise negative Physical Exam Vital Signs Vital Signs - 24 hr 11/21/21 01:39 11/21/21 01:47 11/21/21 02:19 Temperature 37.5 C Temperature Source Temporal Artery Scan Pulse Rate 100 H Respiratory Rate 16 Respiratory Effort / Characteristics Non-Labored Spontaneous Respiratory Depth Normal Blood Pressure 180/89 H Blood Pressure Mean 119 Pulse Oximetry 92 90 95 Oxygen Delivery Method Room Air Room Air Nasal Cannula Oxygen Flow Rate 3 Sepsis Recent Fever Within 48 Hours No Sepsis New/Unexplained Change in Mental Status No Sepsis Action Taken by Nursing No Action Required 11/21/21 02:28 11/21/21 02:30 Temperature Temperature Source Pulse Rate 96 H Respiratory Rate 25 H Respiratory Effort / Characteristics Short of Breath SOB on Exertion Respiratory Depth Deep Blood Pressure 135/75 Blood Pressure Mean 95 Pulse Oximetry 94 Oxygen Delivery Method Nasal Cannula Oxygen Flow Rate 3 Sepsis Recent Fever Within 48 Hours Sepsis New/Unexplained Change in Mental Status Sepsis Action Taken by Nursing VITALS: Vitals are noted on the nurse's note and reviewed by myself. Vital signs stable. GENERAL: Morbidly obese white female who is actively audibly wheezing upon entrance into the room. She does appear in moderate discomfort HEAD: Normocephalic atraumatic. HEART: Regular rate and rhythm without murmurs gallops or rubs. LUNGS: Diffuse wheezing and rhonchi throughout ABDOMEN: Positive normal bowel sounds x 4. Soft, nontender, without masses or organomegaly. No guarding or rebound tenderness. MUSCULOSKELETAL: Full range of motion in all extremities. Course Administered Medications Azithromycin 500 mg/ Dextrose 255 mls @ 125 mls/hr IV Q24H ERICKA Stop: 11/28/21 05:59 Last Admin: 11/21/21 06:09 Dose: 125 mls/hr Documented by: [id number] Discontinued Medications Albuterol (Albut/Ipratrop 3mg/0.5mg Neb 3 Ml Vial) 12 ml NEB ONE ONE; Protocol Stop: 11/21/21 01:53 Last Admin: 11/21/21 02:47 Dose: 12 ml Documented by: [id number] Methylprednisolone (Methylprednisolone 125 Mg/2 Ml Vial) 125 mg IV NOW STA Stop: 11/21/21 01:53 Last Admin: 11/21/21 02:24 Dose: 125 mg Documented by: [id number] Medical Decision Making Differential Diagnosis Differential diagnosis includes, but is not limited to: Myocardial infarction, dysrhythmia, pericarditis, pneumothorax, aortic aneurysm/dissection, DVT/PE, anxiety, GERD, PUD, electrolyte imbalance, thyroid disorder, pneumonia, bronchitis, pancreatitis, and others Laboratory Data Result diagrams: 11/21/21 02:05 11/21/21 02:05 Lab Results 11/21/21 11/21/21 11/21/21 Range/Units 02:05 02:05 02:05 WBC 5.28 (4.8-10.8) K/uL RBC 4.15 L (4.2-5.4) M/uL Hgb 12.0 (12.0-16.0) g/dL Hct 35.9 L (37-47) % MCV 86.5 (80-100) fL MCH 28.9 (25-34) pg MCHC 33.4 (32-36) g/dL RDW Std Deviation 46.8 H (36.4-46.3) fL RDW Coeff of Niesha 14.8 H (11.5-14.5) % Plt Count 121 L (130-400) K/uL MPV 11.2 H (7.4-10.4) fL Immature Gran % (Auto) 0.4 % Neut % (Auto) 80.9 % Lymph % (Auto) 12.3 % Christian % (Auto) 5.5 % Eos % (Auto) 0.9 % Baso % (Auto) 0.0 % Neut # (Auto) 4.27 (1.4-6.5) K/uL Lymph # (Auto) 0.65 L (1.2-3.4) K/uL Christian # (Auto) 0.29 (0.11-0.59) K/uL Eos # (Auto) 0.05 (0-0.5) K/uL Baso # (Auto) 0.00 (0-0.2) K/uL Immature Gran # (Auto) 0.02 (0.00-0.02) K/uL VBG pH (7.36-7.41) VBG pCO2 (38-50) mmHg VBG pO2 mmHg VBG HCO3 mmol/L VBG O2 Saturation % VBG Base Excess mEq/L Sodium 139 (136-145) mmol/L Potassium 3.9 (3.5-5.1) mmol/L Chloride 104 (98-107) mmol/L Carbon Dioxide 24 (21-32) mmol/L Anion Gap 11 (3-11) BUN 11 (6-23) mg/dl Creatinine 0.69 (0.6-1.2) mg/dl Est Cr Clr Drug Dosing Not Reportable Est GFR ( Amer) 110.4 ml/min Est GFR (Non-Af Amer) 95.3 ml/min BUN/Creatinine Ratio 15.9 (10-20) Glucose 126 H (70-99(Fasting)) mg/dl Calcium 9.3 (8.5-10.1) mg/dl Magnesium 2.0 (1.7-2.4) mg/dl Total Bilirubin 0.4 (0.2-1.0) mg/dl AST 15 (13-39) U/L ALT 17 (7-52) U/L Alkaline Phosphatase 79 (34-104) U/L Troponin I < 0.03 (0-0.04) ng/ml B-Natriuretic Peptide 152 H (0-100) pg/ml Total Protein 7.3 (6.0-8.3) gm/dl Albumin 4.6 (3.4-5.0) gm/dl Globulin 2.7 (2.5-4.0) gm/dl Albumin/Globulin Ratio 1.7 (0.9-2) SARS-CoV-2, RNA, NAAT (NEGATIVE) 11/21/21 11/21/21 Range/Units 02:13 02:23 WBC (4.8-10.8) K/uL RBC (4.2-5.4) M/uL Hgb (12.0-16.0) g/dL Hct (37-47) % MCV (80-100) fL MCH (25-34) pg MCHC (32-36) g/dL RDW Std Deviation (36.4-46.3) fL RDW Coeff of Niesha (11.5-14.5) % Plt Count (130-400) K/uL MPV (7.4-10.4) fL Immature Gran % (Auto) % Neut % (Auto) % Lymph % (Auto) % Christian % (Auto) % Eos % (Auto) % Baso % (Auto) % Neut # (Auto) (1.4-6.5) K/uL Lymph # (Auto) (1.2-3.4) K/uL Christian # (Auto) (0.11-0.59) K/uL Eos # (Auto) (0-0.5) K/uL Baso # (Auto) (0-0.2) K/uL Immature Gran # (Auto) (0.00-0.02) K/uL VBG pH 7.36 (7.36-7.41) VBG pCO2 48 (38-50) mmHg VBG pO2 48 mmHg VBG HCO3 26 mmol/L VBG O2 Saturation 79.5 % VBG Base Excess 0.3 mEq/L Sodium (136-145) mmol/L Potassium (3.5-5.1) mmol/L Chloride (98-107) mmol/L Carbon Dioxide (21-32) mmol/L Anion Gap (3-11) BUN (6-23) mg/dl Creatinine (0.6-1.2) mg/dl Est Cr Clr Drug Dosing Est GFR ( Amer) ml/min Est GFR (Non-Af Amer) ml/min BUN/Creatinine Ratio (10-20) Glucose (70-99(Fasting)) mg/dl Calcium (8.5-10.1) mg/dl Magnesium (1.7-2.4) mg/dl Total Bilirubin (0.2-1.0) mg/dl AST (13-39) U/L ALT (7-52) U/L Alkaline Phosphatase (34-104) U/L Troponin I (0-0.04) ng/ml B-Natriuretic Peptide (0-100) pg/ml Total Protein (6.0-8.3) gm/dl Albumin (3.4-5.0) gm/dl Globulin (2.5-4.0) gm/dl Albumin/Globulin Ratio (0.9-2) SARS-CoV-2, RNA, NAAT NEGATIVE (NEGATIVE) MDM Narrative Physical exam and history were performed. Nursing notes, EMR, and Medication List were personally reviewed. Patient appears to have shortness of breath bringing her to the ER. The patient was seen immediately upon arrival to the ER. She is with a significant amount of wheezing on presentation. She is 90% on room air and was placed on nasal cannula oxygen, which seems to be keeping her at about 94%. IV access was established and labs were obtained. She was given a gentle amount of IV hydration as well as IV Solu-Medrol and a 1 hour DuoNeb. The patient's blood work is as above and was reviewed. She does not have a significantly elevated white blood cell count, gross anemia, or significant electrolyte imbalance. VBG does not show acute process. Glucose is 126. Magnesium is 2. Troponin is not detectable. Covid is negative. Overall the patient does not appear well for discharge home. She does have some improvement of symptoms with the DuoNeb, but overall it seems the nasal cannula oxygen is providing her the most relief. She is much more restful. I did discuss the case with the on-call hospitalist, who agreed to evaluate the patient here in the ER. Please see their dictation for further patient course, plan, and disposition. The chart was completed utilizing [employer] Speech Voice Recognition Software. Grammatical errors, random word insertions, pronoun errors, and incomplete sentences are an occasional consequence of this system due to software limitations, ambient noise, and hardware issues. Any formal questions or concer ns about the content, text, or information contained within the body of this dictation should be directly addressed to the provider for clarification. . Impression & Plan Moderate persistent asthmatic bronchitis with exacerbation, Shortness of breath Discharge Plan Visit Data Chief Complaint: Respiratory Problems Stated Complaint: HAVING TROUBLE BREATHING ED Provider: Aubrie Marquez ED Midlevel Provider: Carlos Espana Discharge Problem: Moderate persistent asthmatic bronchitis with exacerbation, Shortness of breath Patient Disposition: Admitted As Inpatient Discharge Instructions Interventions: ED Discharge Assessment Last Done: 11/21/21 05:00
[2021-11-21] MEDS: ALBUT/IPRATROP 3MG/0.5MG NEB 3 ML VIAL NEB SCH ×4 (07:06→19:16)
[2021-11-21] MEDS: ENOXAPARIN INJ 40 MG/0.4 ML SYR SQ SCH ×2 (08:17→20:26)
[2021-11-21] MEDS: FLUTICASONE PROPIONATE NA SPR 16 GM BTL NAE SCH (08:20)
[2021-11-21] MEDS: PANTOprazole 40 MG TAB PO SCH (08:20)
[2021-11-21] MEDS: METOPROLOL SUCC 50MG EXT REL TAB PO SCH (08:21)
[2021-11-21] MEDS: dilTIAZem HCL 180 MG CAPCR PO SCH (08:21)
[2021-11-21] MEDS: guaiFENesin 600 MG TABCR PO SCH ×2 (08:21→20:27)
[2021-11-21] MEDS: CHOLECALCIFEROL 1,000 UNITS 25 MCG TAB PO SCH (08:22)
--- NOTE | 2021-11-21 08:24 | XRay Report ---
XR chest 1V portable HISTORY: Shortness of breath. COMPARISON: Chest 05/18/2021. FINDINGS: No pneumothorax. No pleural effusions. The cardiac silhouette is mildly enlarged. The left lung is clear. Hazy appearance of the right lung base which may represent atelectasis or developing p neumonia. IMPRESSION: Hazy appearance to the right lung base which may represent atelectasis or developing pneumonia. ACT 112: Negative or not required by law. Electronically signed by: Alo Munoz M.D. 11/21/2021 8:23 AM
--- NOTE | 2021-11-21 08:48 | Electrocardiogram Report ---
Test Reason : Blood Pressure : / mmHG Vent. Rate : 118 BPM Atrial Rate : 119 BPM P-R Int : 152 ms QRS Dur : 140 ms QT Int : 342 ms P-R-T Axes : 067 016 094 degrees QTc Int : 479 ms Poor data quality, interpretation may be adversely affected Sinus tachycardia with occasional PVCs Left bundle branch block Abnormal ECG When compared with ECG of 18-MAY-2021 19:07, ST more depressed Lateral leads Confirmed by Jimi Stringer ([id number]) on 11/21/2021 8:48:10 AM Referred By: REFERRED SELF Confirmed By:Henry Stringer
--- NOTE | 2021-11-21 08:50 | Electrocardiogram Report ---
Test Reason : Blood Pressure : / mmHG Vent. Rate : 098 BPM Atrial Rate : 098 BPM P-R Int : 172 ms QRS Dur : 140 ms QT Int : 400 ms P-R-T Axes : 081 067 081 degrees QTc Int : 510 ms Sinus rhythm with occasional Premature ventricular complexes Left bundle branch block Abnormal ECG When compared with ECG of 21-NOV-2021 01:50, (unconfirmed) T wave inversion no longer evident in Lateral leads Confirmed by Jimi Stringer ([id number]) on 11/21/2021 8:50:13 AM Referred By: REFERRED SELF Confirmed By:Henry Stringer
[2021-11-21] MEDS: methylPREDNISolone 40 MG in SYRINGE 0 ML IV SCH ×2 (09:59→17:37)
--- NOTE | 2021-11-21 10:21 | Hospitalist Progress Note ---
Date of Service November 21, 2021 Assessment & Plan (1) Moderate persistent asthmatic bronchitis with exacerbation: Plan: In patient with persistent asthma requiring multiple rounds of Medrol dose Casa yearly * Typically using Symbicort BID, Spiriva once daily, and albuterol HFA as needed and had been using nebulizer treatments at home without improvement. Recently started Fasenra by Allergy/Immunology. Reported got 2 doses so far, next in December. Atul Francois previously r/o negative ANCA. Did have concerns for immune deficiency however repeat labs improved and though possibly low d/t previously being on steroids. Did not make antibodies for tetanus despite vaccination status. * Also has gotten Covid reportedly x 3 since emergence * Recent abx/steroids--> Prednisone/Doxy from Dr Guerrero on 09/22/21, then Azithromycin/Prednisone by Maged Saez 10/07/21 COVID negative on admission Given methylprednisolone 125 mg IV from the ED and a DuoNeb treatment Continue Methylprednisolone 40 mg IV every 8 hours Duonebs every 4 hours while awake and every 2 hours when necessary. Azithromycin 500 mg IV daily for atypical coverage Afebrile, WBC wnl --> CXR with hazy appearance to R lung base which may represent atelectasis or developing pneumonia. +wet sounding cough but not productive of sputum Tessalon Perles 100 g p.o. 3 times daily as needed Guaifenesin extended release 1200 mg p.o. twice daily Add incentive spirometer, flutter valve Sputum cx if able to produce Nasal cannula oxygen, titrate to keep pulse ox around 94% --> currently 3L to maintain 94% Also with some LE edema and wheezing on exam with elevated BNP to 152 --> given 20mg PO lasix x 1 now and will monitor response. (most recent ECHO March 2021 for known LBBB/cardiomegaly -- LV systolic function normal. No regional wma, mild concentric LVH. EF 55-60%) To have f/u Pulm in February for PFTs (unable to do prior as had been on steroids), consult if needed Will monitor CXR in AM (2) Eosinophil count raised: Plan: On Fasenra as an outpatient (got 2 doses and recently started earlier this year). Eosinophils as high as 1610 in past per pulm note, Aspergillus IgE negative. Continue levo cetirizine 5 mg daily as needed (3) MARY (obstructive sleep apnea): Plan: CPAP at at bedtime as needed -- has not been using her own machine due to recall, will be about ~1 year per patient (4) GERD (gastroesophageal reflux disease): Plan: Continue pantoprazole 40mg daily (5) HTN (hypertension): Plan: BP stable Continue metoprolol succinate extended release 50 mg daily, diltiazem extended release 180 mg daily Monitor Plan: Lovenox SQ while inpatient for DVT prophylaxis continued inpatient stay Admission and Anticipated Discharge Date Admission Date: November 21, 2021 Subjective BRIDGE NOTE: ADMITTED AFTER MIDNIGHT Patient evaluated this morning. States improvement in breathing since admission. Currently on 3L and with improvement of wheezing but diffusely with end expiratory wheezing. Cough non-productive. Had been following allergy/immunology, recently started on Fasenra. Got x 2 so far, next dose to be in beginning week of December. Follows with Dr Vitale from pulmonary and to have f/u appt/PFT early summer as had to reschedule due to being on steroids during previous visit. She notes last steroid dosing pack finished Oct 18, prior to starting her Fasenra, and outside of current episode did not need any more steroids since starting. Has cat at home, no work exposures. Sweeps her house, but otherwise no molds/dander/+allergy testing. Denies fever, chills, chest pain. Does have some nasal congestion. Had been using her symbicort twice daily, spiriva once daily, albuterol as needed and had been using nebulizers at home without help. Noted, could have needed some steroids to bring down inflammation first to get medicine where it needs to be. Also with some b/l LE 1-2+ pitting edema and discussed giving dose of lasix as well as this could be worsening her wheezing/tightness and will monitor. Questions/concerns addressed at this time. Review of Systems Review of Systems: All systems reviewed & are unremarkable except as noted in HPI & below Physical Exam Physical Exam: The patient is awake, alert and oriented 3, well developed and well nourished, normocephalic and atraumatic, sitting up at side of bed eating breakfast, no acute distress HEENT:PERRL, EOMI, mucous membranes and oropharynx mildly dry Neck: No JVD. No bruits. Thyroid normal, trachea midline, no adenopathy Resp: +wheezing diffusely, end expiratory longer than inspiratory wheezing, worse in posterior lung grant but also present anterior lung grant, RLL crackles (improved with cough), no accessory muscle use. On 3L NC with SpO2 94% CV: Regular rhythm, rate 102bpm, no appreciable m/r/g, 1-2+ b/l pedal edema, calves non-tender GI: +BS, soft, non-tender : no [place] Psych/Neuro: AOx3, pleasant and cooperative, no facial droop, speech clear, CN intact grossly Skin: warm ,dry Results & Data Results & Data ([facility]) Vital Signs (Past 12 Hours) Vital Signs Temp Pulse Pulse Pulse Resp BP BP 11/21/21 09:00 100 H 11/21/21 08:00 36.8 C 105 H 18 141/73 H 11/21/21 07:06 102 H 18 11/21/21 05:35 36.6 C 102 H 20 162/81 H 11/21/21 05:30 36.6 C 102 H 20 162/81 H 11/21/21 05:14 102 H 11/21/21 04:50 103 H 22 135/76 11/21/21 04:00 107 H 20 11/21/21 02:50 112 H 30 H 11/21/21 02:30 96 H 25 H 135/75 11/21/21 02:19 11/21/21 01:47 11/21/21 01:39 37.5 C 100 H 16 180/89 H Pulse Ox Pulse Ox 11/21/21 09:00 11/21/21 08:00 97 11/21/21 07:06 96 11/21/21 05:35 96 11/21/21 05:30 96 96 11/21/21 05:14 11/21/21 04:50 93 11/21/21 04:00 99 11/21/21 02:50 93 11/21/21 02:30 94 11/21/21 02:19 95 11/21/21 01:47 90 11/21/21 01:39 92 Laboratory Results 11/21/21 11/21/21 11/21/21 Range/Units 02:23 02:13 02:05 WBC (4.8-10.8) K/uL RBC (4.2-5.4) M/uL Hgb (12.0-16.0) g/dL Hct (37-47) % MCV (80-100) fL MCH (25-34) pg MCHC (32-36) g/dL RDW Std Deviation (36.4-46.3) fL RDW Coeff of Niesha (11.5-14.5) % Plt Count (130-400) K/uL MPV (7.4-10.4) fL Immature Gran % (Auto) % Neut % (Auto) % Lymph % (Auto) % [place] % (Auto) % Eos % (Auto) % Baso % (Auto) % Neut # (Auto) (1.4-6.5) K/uL Lymph # (Auto) (1.2-3.4) K/uL [place] # (Auto) (0.11-0.59) K/uL Eos # (Auto) (0-0.5) K/uL Baso # (Auto) (0-0.2) K/uL Immature Gran # (Auto) (0.00-0.02) K/uL VBG pH 7.36 (7.36-7.41) VBG pCO2 48 (38-50) mmHg VBG pO2 48 mmHg VBG HCO3 26 mmol/L VBG O2 Saturation 79.5 % VBG Base Excess 0.3 mEq/L Sodium (136-145) mmol/L Potassium (3.5-5.1) mmol/L Chloride (98-107) mmol/L Carbon Dioxide (21-32) mmol/L Anion Gap (3-11) BUN (6-23) mg/dl Creatinine (0.6-1.2) mg/dl Est Cr Clr Drug Dosing Est GFR ( Amer) ml/min Est GFR (Non-Af Amer) ml/min BUN/Creatinine Ratio (10-20) Glucose (70-99(Fasting)) mg/dl Calcium (8.5-10.1) mg/dl Magnesium (1.7-2.4) mg/dl Total Bilirubin (0.2-1.0) mg/dl AST (13-39) U/L ALT (7-52) U/L Alkaline Phosphatase (34-104) U/L Troponin I (0-0.04) ng/ml B-Natriuretic Peptide 152 H (0-100) pg/ml Total Protein (6.0-8.3) gm/dl Albumin (3.4-5.0) gm/dl Globulin (2.5-4.0) gm/dl Albumin/Globulin Ratio (0.9-2) SARS-CoV-2, RNA, NAAT NEGATIVE (NEGATIVE) 11/21/21 11/21/21 Range/Units 02:05 02:05 WBC 5.28 (4.8-10.8) K/uL RBC 4.15 L (4.2-5.4) M/uL Hgb 12.0 (12.0-16.0) g/dL Hct 35.9 L (37-47) % MCV 86.5 (80-100) fL MCH 28.9 (25-34) pg MCHC 33.4 (32-36) g/dL RDW Std Deviation 46.8 H (36.4-46.3) fL RDW Coeff of Niesha 14.8 H (11.5-14.5) % Plt Count 121 L (130-400) K/uL MPV 11.2 H (7.4-10.4) fL Immature Gran % (Auto) 0.4 % Neut % (Auto) 80.9 % Lymph % (Auto) 12.3 % [place] % (Auto) 5.5 % Eos % (Auto) 0.9 % Baso % (Auto) 0.0 % Neut # (Auto) 4.27 (1.4-6.5) K/uL Lymph # (Auto) 0.65 L (1.2-3.4) K/uL [place] # (Auto) 0.29 (0.11-0.59) K/uL Eos # (Auto) 0.05 (0-0.5) K/uL Baso # (Auto) 0.00 (0-0.2) K/uL Immature Gran # (Auto) 0.02 (0.00-0.02) K/uL VBG pH (7.36-7.41) VBG pCO2 (38-50) mmHg VBG pO2 mmHg VBG HCO3 mmol/L VBG O2 Saturation % VBG Base Excess mEq/L Sodium 139 (136-145) mmol/L Potassium 3.9 (3.5-5.1) mmol/L Chloride 104 (98-107) mmol/L Carbon Dioxide 24 (21-32) mmol/L Anion Gap 11 (3-11) BUN 11 (6-23) mg/dl Creatinine 0.69 (0.6-1.2) mg/dl Est Cr Clr Drug Dosing Not Reportable Est GFR ( Amer) 110.4 ml/min Est GFR (Non-Af Amer) 95.3 ml/min BUN/Creatinine Ratio 15.9 (10-20) Glucose 126 H (70-99(Fasting)) mg/dl Calcium 9.3 (8.5-10.1) mg/dl Magnesium 2.0 (1.7-2.4) mg/dl Total Bilirubin 0.4 (0.2-1.0) mg/dl AST 15 (13-39) U/L ALT 17 (7-52) U/L Alkaline Phosphatase 79 (34-104) U/L Troponin I < 0.03 (0-0.04) ng/ml B-Natriuretic Peptide (0-100) pg/ml Total Protein 7.3 (6.0-8.3) gm/dl Albumin 4.6 (3.4-5.0) gm/dl Globulin 2.7 (2.5-4.0) gm/dl Albumin/Globulin Ratio 1.7 (0.9-2) SARS-CoV-2, RNA, NAAT (NEGATIVE) Diagnostic Findings Chest X-Ray 11/21/21 01:52 XR chest 1V portable HISTORY: Shortness of breath. COMPARISON: Chest 05/18/2021. FINDINGS: No pneumothorax. No pleural effusions. The cardiac silhouette is mi ldly enlarged. The left lung is clear. Hazy appearance of the right lung base which may represent atelectasis or developing pneumonia. IMPRESSION: Hazy appearance to the right lung base which may represent atelectasis or developing pneumonia. ACT 112: Negative or not required by law. Electronically signed by: Alo Munoz M.D. 11/21/2021 8:23 AM PG Care Time/CCT Total # of Minutes Spent Total Time Spent with Patient: Total time spent is greater than 50% in coordination of care (as documented) at patient's floor/unit and/or counseling patient: Coding Level of Care Code None Diagnoses Moderate persistent asthmatic bronchitis with exacerbation J45.41 Eosinophil count raised R89.8 MARY (obstructive sleep apnea) G47.33 GERD (gastroesophageal reflux disease) K21.9 Esophagitis presence: esophagitis presence not specified HTN (hypertension) I10 Hypertension type: unspecified (1) GERD (gastroesophageal reflux disease) Esophagitis presence: esophagitis presence not specified Qualified Code(s): K21.9 - Gastro-esophageal reflux disease without esophagitis (2) HTN (hypertension) Hypertension type: unspecified Qualified Code(s): I10 - Essential (primary) hypertension
[2021-11-21] MEDS ORDERED: FUROSEMIDE 20 MG TAB PO ONE (10:25)
[2021-11-21] MEDS: MONTELUKAST SODIUM 10 MG TABLET PO SCH (20:27)
[2021-11-21 20:51] LABS: Appearance Urine Clear (Clear); Bacteria Urine Automated 4+ (Negative); Bilirubin Urine Negative (Negative); Blood Urine Negative (Negative); Color Urine Yellow; Glucose Urine UA Negative (Negative); Ketones Urine Negative (Negative); Leukocyte Esterase Urine Negative (Negative); Nitrite Urine Positive (Negative); Protein Urine Negative (Negative); RBC Urine Automated 0-4 /hpf (0-4); Specific Gravity Urine 1.013 (1.000-1.030); Urobilinogen Urine Negative (Negative)
[2021-11-22] MEDS: methylPREDNISolone 40 MG in SYRINGE 0 ML IV SCH ×2 (04:49→08:26)
[2021-11-22] MEDS: AZITHROMYCIN 500 MG in DEXTROSE 5% 250 ML IV SCH (06:11)
[2021-11-22 07:13] LABS: Hematocrit (blood only) 37.5 % (37-47); Hemoglobin 12.4 g/dL (12.0-16.0); Mean Corpuscular Hemoglobin 28.8 pg (25-34); Mean Corpuscular Hgb Conc 33.1 g/dL (32-36); Mean Platelet Volume 11.1 fL (7.4-10.4); Platelet Count 293 K/uL (130-400); RDW Coefficient of Variation 15.1 % (11.5-14.5); RDW Standard Deviation 48.6 fL (36.4-46.3); Red Blood Count 4.31 M/uL (4.2-5.4); White Blood Count 17.41 K/uL (4.8-10.8)
[2021-11-22] MEDS: ALBUT/IPRATROP 3MG/0.5MG NEB 3 ML VIAL NEB SCH ×4 (07:13→19:02)
[2021-11-22 08:05] LABS: BUN Creatinine Ratio 31.1 (10-20); Calcium 9.6 mg/dl (8.5-10.1); Creatinine Clr Calc Pharmacy 98.2 ml/min; Est GFR (African American) 102.8 ml/min; Est GFR (Non-African American) 88.7 ml/min; Magnesium 2.4 mg/dl (1.7-2.4); Potassium 4.6 mmol/L (3.5-5.1)
[2021-11-22] MEDS: dilTIAZem HCL 180 MG CAPCR PO SCH (08:25)
[2021-11-22] MEDS: CHOLECALCIFEROL 1,000 UNITS 25 MCG TAB PO SCH (08:25)
[2021-11-22] MEDS: ENOXAPARIN INJ 40 MG/0.4 ML SYR SQ SCH ×2 (08:26→20:59)
[2021-11-22] MEDS: FLUTICASONE PROPIONATE NA SPR 16 GM BTL NAE SCH (08:26)
[2021-11-22] MEDS: guaiFENesin 600 MG TABCR PO SCH ×2 (08:27→20:59)
--- NOTE | 2021-11-22 08:27 | Hospitalist Progress Note ---
Date of Service November 22, 2021 Assessment & Plan (1) Moderate persistent asthmatic bronchitis with exacerbation: Plan: In patient with persistent asthma requiring multiple rounds of Medrol dose Casa yearly * Typically using Symbicort BID, Spiriva once daily, and albuterol HFA as needed and had been using nebulizer treatments at home without improvement. Recently started Fasenra by Allergy/Immunology. Reported got 2 doses so far, next in December. Atul Francois previously r/o negative ANCA. Did have concerns for immune deficiency however repeat labs improved and though possibly low d/t previously being on steroids. Did not make antibodies for tetanus despite vaccination status. * Also has gotten Covid reportedly x 3 since emergence * Recent abx/steroids--> Prednisone/Doxy from Dr Guerrero on 09/22/21, then Azithromycin/Prednisone by Maged Saez 10/07/21 COVID negative on admission Given methylprednisolone 125 mg IV from the ED and a DuoNeb treatment Continue Methylprednisolone 40 mg IV every 8 hours --> will decrease to 30mg Q8h for this evening, hopefully to transition to prednisone tomorrow if continues to improve Duonebs every 4 hours while awake and every 2 hours when necessary. Azithromycin 500 mg IV daily for atypical coverage (day 2) WBC wnl (now elevated 2nd to steroids, afebrile) --> CXR initally with hazy appearance to R lung base which may represent atelectasis or developing pneumonia. +wet sounding cough but not productive of sputum --> improvement and resolution of opacity on repeat CXR Continue tessalon perles prn cough, mucinex BID Continue incentive spirometer, flutter valve. Sputum cx if able to produce Weaned to 2L NC this afternoon and will titrate as able. Plan for 2 step prior to discharge To have f/u Pulm in February for PFTs (unable to do prior as had been on steroids), consult if needed -->did message pulm about prior A fumigatus IgG level elevated November 2020, but no mention in follow up note. ?if patient should be on Bactrim prophylaxis given fairly steroid dependent/frequent exacerbations Also with +LE edema and given 20mg PO lasix x1 11/21 and continuing given improvement in edema and breathing (BNP was elevated to 152) --> ECHO pending. Hx LBBB/cardiomegaly -- last echo March 23 -- LV systolic function normal. No regional wma, mild concentric LVH. EF 55-60% --> repeat with no significant change, borderline LAE, grade I diastolic dysfunction Continue to monitor response/transition to PO steroids as able (2) Eosinophil count raised: Plan: On Fasenra as an outpatient (got 2 doses and recently started earlier this year). Eosinophils as high as 1610 in past per pulm note, Aspergillus IgE negative. Continue levo cetirizine 5 mg daily as needed No issues currently (3) MARY (obstructive sleep apnea): Plan: CPAP at at bedtime as needed -- has not been using her own machine due to recall --> encouraged to call them back to see about recommendations/continued use Asked community health nurse to call as RT reported patient refused CPAP last evening, agreeable and didn't think she saw anyone last night (4) GERD (gastroesophageal reflux disease): Plan: Continue pantoprazole 40mg daily no reflux symptoms reported (5) HTN (hypertension): Plan: BP stable 128/71 Continue metoprolol succinate extended release 50 mg daily, diltiazem extended release 180 mg daily Plan: Lovenox SQ while inpatient for DVT prophylaxis continued inpatient stay Admission and Anticipated Discharge Date Admission Date: November 21, 2021 Subjective Patient evaluated this morning. Sitting up at side of bed reading book/puzzle States breathing improved today, less wheezing. Discussed will attempt to have nursing wean O2. Continues to not have productive sputum. Discussed improvement of hazy opacity on repeat CXR. Decreased swelling to b/l LE with lasix and discussed continuing 20mg daily for now and monitoring response. She states she hasn't been using CPAP at night due to recall but does have at home. Did not get unit while here. Got ECHO this morning, results pending, but if elevated RVSP would strongly encourage reaching out to get recall issue resolved/alternative machine? Would recommend reaching back out/cleaning and continue to use such. No fever, chills, chest pain, abd pain, nausea vomiting, or dysuria at this time. Would like washcloth to get washed up. Questions/concerns addressed at this time. Review of Systems Review of Systems: All systems reviewed & are unremarkable except as noted in HPI & below Physical Exam Physical Exam: The patient is awake, alert and oriented 3, well developed and well nourished, normocephalic and atraumatic, sitting up at side of bed eating breakfast, no acute distress HEENT:PERRL, EOMI, mucous membranes and oropharynx mildly dry Neck: No JVD. No bruits. Thyroid normal, trachea midline, no adenopathy Resp: +wheezing diffusely (end expiratory wheezing > inspiratory, significantly less but moderate), improvement in RLL crackles with cough, no accessory muscle use, on 3L NC with SpO2 97% GI: +BS, soft, non-tender : no [place] Psych/Neuro: AOx3, pleasant and cooperative, no facial droop, speech clear, CN intact grossly Skin: warm ,dry Results & Data Results & Data ([facility]) Vital Signs (Past 12 Hours) Vital Signs Temp Pulse Pulse Pulse Resp BP Pulse Ox 11/22/21 07:13 71 18 97 11/22/21 07:09 74 11/22/21 06:57 37.0 C 72 20 130/76 96 11/22/21 04:09 36.5 C 78 22 126/64 97 11/21/21 23:24 37.0 C 84 20 142/69 H 93 11/21/21 22:18 83 Laboratory Results 11/22/21 11/22/21 11/21/21 Range/Units 06:32 06:32 20:30 WBC 17.41 H (4.8-10.8) K/uL RBC 4.31 (4.2-5.4) M/uL Hgb 12.4 (12.0-16.0) g/dL Hct 37.5 (37-47) % MCV 87.0 (80-100) fL MCH 28.8 (25-34) pg MCHC 33.1 (32-36) g/dL RDW Std Deviation 48.6 H (36.4-46.3) fL RDW Coeff of Niesha 15.1 H (11.5-14.5) % Plt Count 293 D (130-400) K/uL MPV 11.1 H (7.4-10.4) fL Sodium 140 (136-145) mmol/L Potassium 4.6 (3.5-5.1) mmol/L Chloride 105 (98-107) mmol/L Carbon Dioxide 27 (21-32) mmol/L Anion Gap 8 (3-11) BUN 23 (6-23) mg/dl Creatinine 0.74 (0.6-1.2) mg/dl Est Cr Clr Drug Dosing 98.2 ml/min Est GFR ( Amer) 102.8 ml/min Est GFR (Non-Af Amer) 88.7 ml/min BUN/Creatinine Ratio 31.1 H (10-20) Glucose 131 H (70-99(Fasting)) mg/dl Calcium 9.6 (8.5-10.1) mg/dl Magnesium 2.4 (1.7-2.4) mg/dl Urine Color Yellow Urine Appearance Clear (Clear) Urine pH 5.0 (4.5-7.5) Ur Specific [place] 1.013 (1.000-1.030) Urine Protein Negative (Negative) Urine Glucose (UA) Negative (Negative) Urine Ketones Negative (Negative) Urine Blood Negative (Negative) Urine Nitrite Positive A (Negative) Urine Bilirubin Negative (Negative) Urine Urobilinogen Negative (Negative) Ur Leukocyte Esterase Negative (Negative) Urine WBC (Auto) 1-5 (0-5) /hpf Urine RBC (Auto) 0-4 (0-4) /hpf U Hyaline Cast (Auto) 1-5 (0-5) /lpf U Epithel Cells (Auto) 10-20 H (0-5) /lpf Urine Bacteria (Auto) 4+ H (Negative) PG Care Time/CCT Total # of Minutes Spent Total Time Spent with Patient: Total time spent is greater than 50% in coordination of care (as documented) at patient's floor/unit and/or counseling patient: Coding Level of Care Code 33873 Subseq Hosp Care Lvl 2 Diagnoses Moderate persistent asthmatic bronchitis with exacerbation J45.41 Eosinophil count raised R89.8 MARY (obstructive sleep apnea) G47.33 GERD (gastroesophageal reflux disease) K21.9 Esophagitis presence: esophagitis presence not specified HTN (hypertension) I10 Hypertension type: unspecified (1) GERD (gastroesophageal reflux disease) Esophagitis presence: esophagitis presence not specified Qualified Code(s): K21.9 - Gastro-esophageal reflux disease without esophagitis (2) HTN (hypertension) Hypertension type: unspecified Qualified Code(s): I10 - Essential (primary) hypertension
--- NOTE | 2021-11-22 08:46 | XRay Report ---
XR chest 2V PA/lateral CLINICAL HISTORY: Fu rll opacity TECHNIQUE: AP and lateral radiographs of the chest was obtained. Comparison: Comparison is made to chest one view 11/21/2021 FINDINGS: No lines and tubes are seen. The cardiomediastinal silhouette is normal. Right lower lobe opacity has resolved. No airspace opacities are seen. No evidence of pleural effusion or pneumothorax. IMPRESSION: Interval resolution of right lower lobe airspace opacity. ACT 112: Negative or not required by law. Electronically signed by: Rod Arellano M.D. 11/22/2021 8:44 AM
[2021-11-22] MEDS: METOPROLOL SUCC 50MG EXT REL TAB PO SCH (09:13)
[2021-11-22] MEDS: PANTOprazole 40 MG TAB PO SCH (09:13)
[2021-11-22] MEDS: FUROSEMIDE 20 MG TAB PO SCH (09:13)
--- NOTE | 2021-11-22 12:39 | XCELERA ---
[id number]
[2021-11-22] MEDS ORDERED: TIOTROPIUM BROMIDE 5 PUFF/90 MCG INH INH SCH (14:30)
[2021-11-22] MEDS: methylPREDNISolone 30 MG in SYRINGE 0 ML IV SCH (15:43)
[2021-11-22] MEDS: FLUTICASONE/VILANTEROL 100/25MCG 14 PUFFS/INHALER INH SCH (17:12)
[2021-11-22] MEDS: UMECLIDINIUM BROMIDE 62.5MCG/BLISTER 7 PUFFS/INHALER INH SCH (17:16)
[2021-11-22] MEDS: MONTELUKAST SODIUM 10 MG TABLET PO SCH (21:00)
[2021-11-22] MEDS ORDERED: BUDESONIDE/FORMOTEROL FUMARATE 80/4.5 60 PUFFS/INHALER INH SCH (21:00)
[2021-11-23] MEDS: methylPREDNISolone 30 MG in SYRINGE 0 ML IV SCH ×2 (02:24→07:43)
[2021-11-23] MEDS: AZITHROMYCIN 500 MG in DEXTROSE 5% 250 ML IV SCH (05:12)
[2021-11-23] MEDS: ALBUT/IPRATROP 3MG/0.5MG NEB 3 ML VIAL NEB SCH ×4 (06:56→19:12)
[2021-11-23 07:34] LABS: BUN Creatinine Ratio 34.9 (10-20); Calcium 9.3 mg/dl (8.5-10.1); Creatinine Clr Calc Pharmacy 87.7 ml/min; Est GFR (African American) 89.5 ml/min; Est GFR (Non-African American) 77.2 ml/min; Magnesium 2.4 mg/dl (1.7-2.4); Potassium 4.4 mmol/L (3.5-5.1)
[2021-11-23] MEDS: FLUTICASONE/VILANTEROL 100/25MCG 14 PUFFS/INHALER INH SCH (07:42)
[2021-11-23] MEDS: UMECLIDINIUM BROMIDE 62.5MCG/BLISTER 7 PUFFS/INHALER INH SCH (07:42)
[2021-11-23] MEDS: ENOXAPARIN INJ 40 MG/0.4 ML SYR SQ SCH ×2 (07:43→20:28)
[2021-11-23] MEDS: FLUTICASONE PROPIONATE NA SPR 16 GM BTL NAE SCH (07:43)
[2021-11-23] MEDS: CHOLECALCIFEROL 1,000 UNITS 25 MCG TAB PO SCH (07:43)
[2021-11-23] MEDS: FUROSEMIDE 20 MG TAB PO SCH (07:44)
[2021-11-23] MEDS: PANTOprazole 40 MG TAB PO SCH (07:44)
[2021-11-23] MEDS: guaiFENesin 600 MG TABCR PO SCH ×2 (07:44→20:28)
[2021-11-23] MEDS: METOPROLOL SUCC 50MG EXT REL TAB PO SCH (07:44)
[2021-11-23] MEDS: dilTIAZem HCL 180 MG CAPCR PO SCH (07:44)
--- NOTE | 2021-11-23 08:03 | Hospitalist Progress Note ---
Date of Service November 23, 2021 Assessment & Plan (1) Moderate persistent asthmatic bronchitis with exacerbation: Plan: In patient with persistent asthma requiring multiple rounds of Medrol dose Casa yearly * Typically using Symbicort BID, Spiriva once daily, and albuterol HFA as needed and had been using nebulizer treatments at home without improvement. Recently started Fasenra by Allergy/Immunology. Reported got 2 doses so far, next in December. Atul Francois previously r/o negative ANCA. Did have concerns for immune deficiency however repeat labs improved and though possibly low d/t previously being on steroids. Did not make antibodies for tetanus despite vaccination status. * Also has gotten Covid reportedly x 3 since emergence * Recent abx/steroids--> Prednisone/Doxy from Dr Guerrero on 09/22/21, then Azithromycin/Prednisone by Maged Saez 10/07/21 COVID negative on admission CXR initially concerning for possible pneumonia with hazy appearance to R lung base (atelectasis vs pneumonia) however with treatment with steroids/lasix, repeat CXR with resolution of opacity. Either way, has completed 3 days azithromycin 500mg while inpatient Methylprednisolone 125 mg IV from the ED and a DuoNeb treatment. Continued on 40mg IV Q8H and decreased to 30mg evening 11/22 --> changed to 60mg prednisone daily 11/23 and plan for taper at discharge Restarted inhalers --> typically on symbicort BID, spiriva daily -- hospital formulary while inpatient Duonebs quita, q2 prn Continue mucinex bid, tessalon perles prn cough COntinue incentive spirometer, flutter valve Currently 98% on 1L this morning (documented on room air), and asked RN to wean to room air as tolerated Sputum cx moderate normal sonny, final report to follow 2step prior to discharge To have f/u Pulm in February for PFTs (unable to do prior as had been on steroids), consult if needed -->did message pulm about prior A fumigatus IgG level elevated November 2020, but no mention in follow up note ---> NO NEED TO WORRY ABOUT THIS PER PULM Also with +LE edema and given 20mg PO lasix x1 11/21 and continuing given improvement in edema and breathing (BNP was elevated to 152 on admission) * --> ECHO obtained given Hx LBBB/cardiomegaly and last echo March 23 -- LV systolic function normal.No regional wma, mild concentric LVH. EF 55-60% * --> repeat with no significant change, borderline LAE, grade I diastolic dysfunction --> Lasix 20mg daily x 2, hold for further dosing and monitor in AM *Did have ecoli in urine, but no urinary symptoms/fever --> can monitor outpatient but would only treat if symptomatic (2) Eosinophil count raised: Plan: On Fasenra as an outpatient (got 2 doses and recently started earlier this year). Eosinophils as high as 1610 in past per pulm note, Aspergillus IgE negative. Continue levo cetirizine 5 mg daily as needed No issues currently (3) MARY (obstructive sleep apnea): Plan: CPAP at at bedtime as needed -- has not been using her own machine due to recall --> encouraged to call them back to see about recommendations/continued use (4) GERD (gastroesophageal reflux disease): Plan: Continue pantoprazole 40mg daily no reflux symptoms reported (5) HTN (hypertension): Plan: BP stable 146/76 Continue metoprolol succinate extended release 50 mg daily, diltiazem extended release 180 mg daily Plan: Lovenox SQ while inpatient for DVT prophylaxis continued inpatient stay, hopeful wean to RA and 2step/discharge tomorrow Admission and Anticipated Discharge Date Admission Date: November 21, 2021 Subjective Patient evaluated this afternoon eating lunch. Doing well. Breathing improved. Down to 1L NC and changed to prednisone today. Discussed titrating O2 down as tolerated and monitoring overnight and possible 2step/discharge tomorrow with longer/slower taper. No fever, chills, chest pain. Continues to bring up clear/white sputum. No abdominal pain, nausea or vomiting. Decreased LE edema and continued on lasix for now. Questions/concerns addressed. Review of Systems Review of Systems: All systems reviewed & are unremarkable except as noted in HPI & below Physical Exam Physical Exam: The patient is awake, alert and oriented 3, well developed and well nourished, normocephalic and atraumatic, sitting up at side of bed eating lunch, no acute distress HEENT:PERRL, EOMI, mucous membranes and oropharynx moist Neck: No JVD. No bruits. Thyroid normal, trachea midline, no adenopathy CV: RRR, +PVCs, no m/r/g, trace pedal edema (improved from prior), pulses palpable, NVI Resp: decreased inspiratory/expiratory wheezing significantly, no crackles/rales, on 1L NC with SpO2 98%, able to speak in complete sentences GI: +BS, soft, non-tender : no Griggs Psych/Neuro: AOx3, pleasant and cooperative, no facial droop, speech clear, CN intact grossly Skin: warm ,dry Results & Data Results & Data ([facility]) Vital Signs (Past 12 Hours) Vital Signs Temp Pulse Pulse Pulse Resp BP Pulse Ox 11/23/21 07:21 36.5 C 74 18 143/80 H 93 11/23/21 07:07 66 11/23/21 06:56 66 18 95 11/23/21 04:08 36.6 C 67 18 137/66 96 11/22/21 23:55 71 11/22/21 23:30 36.7 C 73 18 96/58 L 95 Laboratory Results 11/23/21 Range/Units 06:46 Sodium 138 (136-145) mmol/L Potassium 4.4 (3.5-5.1) mmol/L Chloride 102 (98-107) mmol/L Carbon Dioxide 29 (21-32) mmol/L Anion Gap 7 (3-11) BUN 29 H (6-23) mg/dl Creatinine 0.83 (0.6-1.2) mg/dl Est Cr Clr Drug Dosing 87.7 ml/min Est GFR ( Amer) 89.5 ml/min Est GFR (Non-Af Amer) 77.2 ml/min BUN/Creatinine Ratio 34.9 H (10-20) Glucose 148 H (70-99(Fasting)) mg/dl Calcium 9.3 (8.5-10.1) mg/dl Magnesium 2.4 (1.7-2.4) mg/dl PG Care Time/CCT Total # of Minutes Spent Total Time Spent with Patient: Total time spent is greater than 50% in coordination of care (as documented) at patient's floor/unit and/or counseling patient: Coding Level of Care Code 82681 Subseq Hosp Care Lvl 2 Diagnoses Moderate persistent asthmatic bronchitis with exacerbation J45.41 Eosinophil count raised R89.8 MARY (obstructive sleep apnea) G47.33 GERD (gastroesophageal reflux disease) K21.9 Esophagitis presence: esophagitis presence not specified HTN (hypertension) I10 Hypertension type: unspecified (1) GERD (gastroesophageal reflux disease) Esophagitis presence: esophagitis presence not specified Qualified Code(s): K21.9 - Gastro-esophageal reflux disease without esophagitis (2) HTN (hypertension) Hypertension type: unspecified Qualified Code(s): I10 - Essential (primary) hypertension
[2021-11-23] MEDS: predniSONE 20 MG TAB PO SCH (10:21)
[2021-11-23] MEDS ORDERED: bisacodyL 5 MG TABEC PO ONE (16:55)
[2021-11-23] MEDS: MONTELUKAST SODIUM 10 MG TABLET PO SCH (20:28)
[2021-11-24] MEDS: ALBUT/IPRATROP 3MG/0.5MG NEB 3 ML VIAL NEB SCH ×2 (07:03→11:09)
[2021-11-24 07:27] LABS: Hematocrit (blood only) 38.7 % (37-47); Hemoglobin 12.5 g/dL (12.0-16.0); Mean Corpuscular Hemoglobin 28.3 pg (25-34); Mean Corpuscular Hgb Conc 32.3 g/dL (32-36); Mean Corpuscular Volume 87.8 fL (80-100); Mean Platelet Volume 11.3 fL (7.4-10.4); Platelet Count 284 K/uL (130-400); RDW Coefficient of Variation 15.1 % (11.5-14.5); RDW Standard Deviation 48.3 fL (36.4-46.3); Red Blood Count 4.41 M/uL (4.2-5.4); White Blood Count 14.01 K/uL (4.8-10.8)
[2021-11-24] MEDS: UMECLIDINIUM BROMIDE 62.5MCG/BLISTER 7 PUFFS/INHALER INH SCH (07:47)
[2021-11-24] MEDS: FLUTICASONE PROPIONATE NA SPR 16 GM BTL NAE SCH (07:47)
[2021-11-24] MEDS: guaiFENesin 600 MG TABCR PO SCH (07:48)
[2021-11-24] MEDS: PANTOprazole 40 MG TAB PO SCH (07:48)
[2021-11-24] MEDS: ENOXAPARIN INJ 40 MG/0.4 ML SYR SQ SCH (07:48)
[2021-11-24] MEDS: METOPROLOL SUCC 50MG EXT REL TAB PO SCH (07:48)
[2021-11-24] MEDS: dilTIAZem HCL 180 MG CAPCR PO SCH (07:48)
[2021-11-24] MEDS: CHOLECALCIFEROL 1,000 UNITS 25 MCG TAB PO SCH (07:49)
[2021-11-24 07:53] LABS: BUN Creatinine Ratio 35.4 (10-20); Est GFR (African American) 90.8 ml/min; Est GFR (Non-African American) 78.3 ml/min; Potassium 4.5 mmol/L (3.5-5.1)
--- NOTE | 2021-11-24 08:26 | Hospitalist Progress Note ---
Date of Service November 24, 2021 Assessment & Plan Admission and Anticipated Discharge Date Admission Date: November 21, 2021 Results & Data Results & Data ([place]) Vital Signs (Past 12 Hours) Vital Signs Temp Pulse Pulse Pulse Pulse Pulse Pulse 11/24/21 07:46 99 H 91 H 79 11/24/21 07:35 36.7 C 67 11/24/21 07:05 68 11/24/21 07:04 66 11/24/21 03:49 36.5 C 72 11/23/21 23:29 36.4 C L 71 11/23/21 23:23 87 Resp Resp Resp Resp BP Pulse Ox Pulse Ox 11/24/21 07:46 20 18 18 90 11/24/21 07:35 20 150/87 H 89 L 11/24/21 07:05 11/24/21 07:04 18 93 11/24/21 03:49 20 137/67 93 11/23/21 23:29 20 131/72 92 11/23/21 23:23 Pulse Ox Pulse Ox 11/24/21 07:46 91 92 11/24/21 07:35 11/24/21 07:05 11/24/21 07:04 11/24/21 03:49 11/23/21 23:29 11/23/21 23:23 Laboratory Results 11/24/21 11/24/21 11/24/21 Range/Units 06:32 06:32 06:32 WBC 14.01 H (4.8-10.8) K/uL RBC 4.41 (4.2-5.4) M/uL Hgb 12.5 (12.0-16.0) g/dL Hct 38.7 (37-47) % MCV 87.8 (80-100) fL MCH 28.3 (25-34) pg MCHC 32.3 (32-36) g/dL RDW Std Deviation 48.3 H (36.4-46.3) fL RDW Coeff of Niesha 15.1 H (11.5-14.5) % Plt Count 284 (130-400) K/uL MPV 11.3 H (7.4-10.4) fL Sodium 140 (136-145) mmol/L Potassium 4.5 (3.5-5.1) mmol/L Chloride 103 (98-107) mmol/L Carbon Dioxide 31 (21-32) mmol/L Anion Gap 6 (3-11) BUN 29 H (6-23) mg/dl Creatinine 0.82 (0.6-1.2) mg/dl Est Cr Clr Drug Dosing 89.0 ml/min Est GFR ( Amer) 90.8 ml/min Est GFR (Non-Af Amer) 78.3 ml/min BUN/Creatinine Ratio 35.4 H (10-20) Glucose 98 (70-99(Fasting)) mg/dl Calcium 9.0 (8.5-10.1) mg/dl B-Natriuretic Peptide 129 H (0-100) pg/ml PG Care Time/CCT Total # of Minutes Spent Total Time Spent with Patient: Total time spent is greater than 50% in coordination of care (as documented) at patient's floor/unit and/or counseling patient: Coding
[2021-11-24] MEDS: FUROSEMIDE 20 MG TAB PO SCH (08:39)
[2021-11-24] MEDS: predniSONE 20 MG TAB PO SCH (11:53)
--- NOTE | 2021-11-24 12:15 | Discharge Summary ---
Date of Service November 24, 2021 Admission HPI Per Admitting Provider The patient is a 61-year-old female with a past medical history including asthma exacerbations, elevated eosinophil count, COVID-19 on November 15, 2020, mixed hearing loss, MARY, GERD, left bundle branch block, goiter, multiple pulmonary nodules, hypertension, cardiomegaly, hypersomnia, goiter, paroxysmal atrial tachycardia and symptomatic PVCs. She presents to the emergency department with an acute worsening of shortness of breath and productive cough over the past 24 hours. She denies any recent travels or sick exposures. COVID-19 testing in the emergency department was negative this evening, but she does have a history of COVID-19 infection on 11/25/2020. She denies any tobacco use or exposure to chemicals of any kind Admission Exam Per Admitting Provider The patient is awake, alert and oriented 3, well developed and well nourished, normocephalic and atraumatic, lying in bed and in no acute distress. HEENT--PERRL, EOMI, mucous membranes and oropharynx moderately dry. Neck--supple. No JVD. No bruits. Thyroid normal, trachea midline, no adenopathy. Heart--normal S1 and S2. No murmurs, rubs or gallops. Lungs--coarse breath sounds and wheezes bilaterally throughout. Mild respiratory distress, no accessory muscle use. Abdomen--normal bowel sounds and soft. Nontender. Nondistended, no hernias or masses, no organomegaly. Extremities--no cyanosis or clubbing. No edema. Dermatologic--normal skin turgor, normal color, no abnormal lymph nodes, no rash. Neurologic--cranial nerves II through XII grossly intact. Rheumatologic--normal range of motion. Psychiatric--normal affect. Principal Diagnosis Asthma Exacerbation Discharge Exam The patient is awake, alert and oriented 3, well developed and well nourished, normocephalic and atraumatic, sitting up at side of bed eating lunch, no acute distress HEENT:PERRL, EOMI, mucous membranes and oropharynx moist Neck: No JVD. No bruits. , trachea midline, no adenopathy CV: RRR, +PVCs, no m/r/g, trace pedal edema (improved from prior), pulses palpable, NVI Resp: significantly reduced wheezing both expiratory and inspiratory, worse in the bases, no crackles, on room air SpO2 93% GI: +BS, soft, non-tender : no Griggs Psych/Neuro: AOx3, pleasant and cooperative, no facial droop, speech clear, CN intact grossly Skin: warm ,dry Discharge Data Allergies Allergy/AdvReac Type Severity Reaction Status Date / Time lisinopril AdvReac Mild Cough Verified 11/21/21 02:27 Consultations 11/21/21 02:49 ED Decision to Admit Stat Ordered Studies Chest X-Ray 11/21/21 01:52 XR chest 1V portable HISTORY: Shortness of breath. COMPARISON: Chest 05/18/2021. FINDINGS: No pneumothorax. No pleural effusions. The cardiac silhouette is mildly enlarged. The left lung is clear. Hazy appearance of the right lung base which may represent atelectasis or developing pneumonia. IMPRESSION: Hazy appearance to the right lung base which may represent atelectasis or developing pneumonia. ACT 112: Negative or not required by law. Electronically signed by: Alo Munoz M.D. 11/21/2021 8:23 AM Chest X-Ray 11/22/21 06:25 XR chest 2V PA/lateral CLINICAL HISTORY: Fu rll opacity TECHNIQUE: AP and lateral radiographs of the chest was obtained. Comparison: Comparison is made to chest one view 11/21/2021 FINDINGS: No lines and tubes are seen. The cardiomediastinal silhouette is normal. Right lower lobe opacity has resolved. No airspace opacities are seen. No evidence of pleural effusion or pneumothorax. IMPRESSION: Interval resolution of right lower lobe airspace opacity. ACT 112: Negative or not required by law. Electronically signed by: Rod Arellano M.D. 11/22/2021 8:44 AM 11/24 ECHOCARDIOGRAM LV systolic function is normal Grade I diastolic dysfunction Borderline left atrial enlargement Compared to echo 03/2021, no significant change Hospital Course (1) Moderate persistent asthmatic bronchitis with exacerbation: In patient with persistent asthma requiring multiple rounds of Medrol dose Casa yearly * Typically using Symbicort BID, Spiriva once daily, and albuterol HFA as needed and had been using nebulizer treatments at home without improvement. Recently started Fasenra by Allergy/Immunology. Reported got 2 doses so far, next in December. Atul Francois previously r/o negative ANCA. Did have concerns for imm une deficiency however repeat labs improved and though possibly low d/t previously being on steroids. Did not make antibodies for tetanus despite vaccination status. * Also has gotten Covid reportedly x 3 since emergence * Recent abx/steroids--> Prednisone/Doxy from Dr Guerrero on 09/22/21, then Azithromycin/Prednisone by Maged Saez 10/07/21 COVID negative on admission CXR on admission with possible concern for pneumonia although afebrile and suspect degree of congestion due to chronic steroid dependent asthma --> Repeat after steroids and lasix with resolution of hazy appearance to R lung base She did receive Azithromycin x 3 for possible exacerbation regardless Given IV methylprednisolone on admission and scheduled duonebs, titrated down and converted to prednisone, weaned to room air and will send on slow taper starting at 60mg and decrease by 10my Q2D to complete course Follow up tomorrow with allergy/immunology already arranged, to receive continued Fasenra in next 2 weeks as recently started earlier this year To continue mucinex BID at discharge and encouraged continued use of incentive spirometer and flutter valve. Sputum cx with normal sonny To continue her usual symbicort BID, spiriva daily, albuterol as needed for breakthrough symptoms and she has pulse ox at home and she is to continue to monitor 2 step performed prior to d/c without desaturations Educated to f/u with [employer] regarding her recall on CPAP/possible continued use [place] ready for discharge SHe is to have f/u with pulmonary early this summer, obtaining PFTs at that time. Did alert Dr Vitale of inpatient status while here although no formal consult required Of note, LE edema on exam and wheezing along with elevated BNP and was placed on daily 20mg PO Lasix with improvement in edema and ECHO with grade I diastolic dysfunction and sent with daily dosing at discharge while on steroid taper and to follow up with PCP about need to possibly continue this daily to prevent CHF leading to worsening exacerbations *Did have ecoli in urine, but no urinary symptoms/fever --> can monitor outpatient but would only treat if symptomatic (2) Eosinophil count raised: On Fasenra as an outpatient (got 2 doses and recently started earlier this year). Eosinophils as high as 1610 in past per pulm note, Aspergillus IgE negative. Continue levo cetirizine 5 mg daily as needed -- would suggest continuing this daily given asthma/seasonal changes (3) MARY (obstructive sleep apnea): CPAP at at bedtime as needed -- has not been using her own machine due to recall --> encouraged to call them back to see about recommendations/continued use at discharge (4) GERD (gastroesophageal reflux disease): Continued pantoprazole 40mg daily no reflux symptoms reported (5) HTN (hypertension): BP stable Continued metoprolol succinate extended release 50 mg daily, diltiazem extended release 180 mg daily Also on lasix 20mg PO daily now as above, continued at discharge while on steroids Lovenox SQ while inpatient for DVT prophylaxis Total Time Total Time Spent Total Time Spent (In Minutes): 45 Discharge Plan Discharge Items Patient Disposition: Home - Self-Care Reason For Visit: ASTHMA EXACERBATION WITH BRONCHITIS Discharge Diagnosis: Asthma Exacerbation Goals: You have been hospitalized for an acute medical problem. During your stay at [facility], we have made an effort to correct the problem that brought you to the hospital while keeping you as comfortable as possible. Med ications were used to bring your condition under control and your discharge instructions will include directions for any medications you should take after leaving the hospital. Please make sure you see your Primary Care Provider as part of your follow up plan. Activity: Resume your previous activity Non-emergency contact: Primary Care Provider, Specialist and Paint Department Supervisor Call non-emergency contact if: you have any medication questions, your symptoms worsen and you have a fever Follow-up/Referrals: Fariha Guaman DO [Primary Care Provider] - 12/07/21 8:20 am Edna Vitale MD [Physician] - 02/27/22 10:30 am Pierce De Los Santos MD [Physician] - 11/25/21 2:30 pm Diet: Heart Healthy Addtl Attending Provider Instructions: You have been hospitalized for an ashtma exacerbation. You have been treated with nebulizers, steroids, and antibiotics (which have bee n completed while inpatient). You were started back on inhalers and transitioned to oral steroids. You should continue steroid taper at discharge as follows: 60mg (3 tablets) tomorrow, then decrease by 1/2 a tablet (10mg) every two days to complete the taper. You were also given lasix (furosemide), a diuretic as some of the wheezing is very well likely to a diastolic heart failure based on clinical picture. You have been given 20mg of lasix by mouth daily and your kidney function has remained stable. I have sent for you to continue this dosing daily while on your steroids and you can follow up with your primary care provider to see if continuing this fdc will also help cut down on your exacerbations, as heart failure can cause accumulation of fluid in lungs and cause shortness of breath as well. You had a test to see about oxygen with ambulation and this was not required. Continue to use your pulse oximeter at home to monitor your oxygen levels. You should continue to call your [facility] company to see about continuing your CPAP while awaiting recall/new device and ensure sterile. You should adhere to a low sodium diet to prevent worsening fluid retention. Continue Mucinex over the counter to help with thinning mucus and prevention of congestion. You denied any urinary symptoms and have been afebrile, but if you were to develop symptoms, would retest urine. It appears this was likely asymptomatic bacteria. Please follow up with PCP in next 7-10 days, please follow up with allergy/immunology tomorrow as scheduled, and follow up with pulmonary medicine for your pulmonary function testing as already scheduled. Please return to the for any worsening shortness of breath, chest pain, or for any other symptoms concerning for you. Take care! Pending Studies at Discharge: No Stand-Alone Forms: My [facility] [employer], Smoking Cessation Medications and DC Order Prescriptions: New prednisone 20 mg Tablet See Rx Instructions .ROUTE .COMPLEX Qty: 18 RF: 0 furosemide 20 mg Tablet 20 mg PO QAM Qty: 14 RF: 0 guaifenesin [Mucinex] 600 mg Tablet Extended Release 12hr 1,200 mg PO Q12 Qty: 30 RF: 0 Continued ipratropium-albuterol 0.5 mg-3 mg(2.5 mg base)/3 mL solution for nebulization 3 ml NEB Q4H PRN (Reason: Shortness Of Breath Or Wheezing) Qty: 180 RF: 5 levocetirizine 5 mg tablet 5 mg PO DAILY PRN (Reason: Allergy Symptoms) Qty: 90 RF: 1 pantoprazole 40 mg tablet,delayed release (DR/EC) 40 mg PO QAM Qty: 90 RF: 1 metoprolol succinate 50 mg tablet extended release 24 hr 50 mg PO DAILY Qty: 90 RF: 1 budesonide-formoterol [Symbicort] 160-4.5 mcg/actuation HFA aerosol inhaler 2 puff inhalation BID Qty: 10.2 RF: 1 fluticasone propionate [Allergy Relief (fluticasone)] 50 mcg/actuation spray,suspension 1 spray INTNAS DAILY Qty: 9.9 RF: 2 Spiriva Respimat 2.5 mcg/actuation mist 2 puff inhalation DAILY Qty: 4 RF: 1 montelukast [Singulair] 10 mg tablet 10 mg PO QPM Qty: 30 RF: 3 diltiazem HCl 180 mg capsule,extended release 24hr 180 mg PO DAILY Qty: 90 RF: 3 Fasenra 30 mg/mL syringe 30 mg subcut .COMPLEX Qty: 1 RF: 11 albuterol sulfate [Ventolin HFA] 90 mcg/actuation HFA aerosol inhaler 2 puff INH Q6H PRN (Reason: Shortness Of Breath Or Wheezing) Qty: 8.5 RF: 11 cholecalciferol (vitamin D3) [Vitamin D3] 50 mcg (2,000 unit) Tablet 50 mcg PO QAM RF: 0 Discharge Orders: Discharge Order (Routine); Ordered 11/24/21 Ordered By: Filomena Kidd Admission Data Admit Date/Time: 11/21/21 02:41 Attending Provider: Alex Ordonez Admit Provider: Vini Adhikari Primary Care Provider: Fariha Guaman Other Providers: Vini Adhikari Other Interventions: Discharge Summary Assessment (RN) Last Done: 11/24/21 13:07 Supervising Physician Co-Signing Physician Notes During face to face encounter, I obtained a physical examination and history of hospital stay with patient. I discussed discharge plan with patient and ERVIN Kidd. I reviewed above note and agree with it. Patient treated with moderate persistent asthmatic bronchitis with exacerbation. will be disharge on corticosteroids Coding Level of Care Code D/C DAY MANAGEMENT >30 MINS Diagnoses Moderate persistent asthmatic bronchitis with exacerbation J45.41 Eosinophil count raised R89.8 MARY (obstructive sleep apnea) G47.33 GERD (gastroesophageal reflux disease) K21.9 Esophagitis presence: esophagitis presence not specified HTN (hypertension) I10 Hypertension type: unspecified
== END 2021-11-24 13:56 | disposition home or self-care (01) ==
LOC: ED 01:36 → 2N 02:41 → SUATTDRO 02:41 → INTOOBSV 02:41 → 2N 05:00
DX: Z88.8 Allergy status to other drugs, medicaments and biological substances; K21.9 Gastro-esophageal reflux disease without esophagitis; Z79.899 Other long term (current) drug therapy; J45.41 Moderate persistent asthma with (acute) exacerbation; G47.33 Obstructive sleep apnea (adult) (pediatric); Z79.51 Long term (current) use of inhaled steroids; R89.8 Other abnormal findings in specimens from other organs, systems and tissues; Z20.822 Contact with and (suspected) exposure to COVID-19; I10 Essential (primary) hypertension

== ENCOUNTER 2022-03-03 13:08 | Observation (INO) ==
--- NOTE | 2022-03-03 13:43 | Emergency Department Note ---
Impression & Plan Hypoxia, Asthma exacerbation, COVID-19 ED Provider Note NAME: BRIDGETTE GARCIA AGE: 61 SEX: F : 1960 ARRIVES VIA: Ambulance INFORMANT: Patient, ED PROVIDER(S): Nicolas Rodriguez MD Chief Complaint: Shortness of breath, cough HPI: Patient presents due to concern for worsening shortness of breath. The patient always has an element of shortness of breath but it seems to have gotten progressively worse. The patient does follow with Dr. Santos with pulmonology. The patient has had a slight productive cough. No fevers or chills. Patient denies any chest pains. Patient has no nausea vomiting or diarrhea and denies any changes in leg swelling. The patient does take diuretics on a regular basis. Patient denies smoking. The patient states that she had tried her inhalers which only mildly improved her symptoms but she was referred here for further evaluation treatment. ROS: See HPI for pertinent positives and negatives. A total of 10 systems were reviewed and otherwise negative. Past medical history: See below Surgical history: See below Social history: See below Physical Exam: GENERAL: NAD, wearing glasses, wearing a mask, non-toxic. EYE EXAM: Normal conjunctiva. PERRL, no anisocoria and EOM's grossly intact w/o pain. [OROPHARYNX: Moist mucus membranes. Poor dentition. NECK: Supple, no nuchal rigidity, no adenopathy, non-tender. No signs of meningismus. FROM of the neck with good chin to chest and neck extension. No stridor. LUNGS: Diffuse inspiratory and expiratory wheezes. HEART: NSR, no MRG. ABDOMEN: Abdomen soft, non-tender, normo-active bowel sounds, no masses, no rebound or guarding. BACK: No CVA TTP. SKIN: No rashes and no bruising. UPPER EXTREMITIES: Upper extremities are grossly normal. LOWER EXTREMITIES: Grossly normal, no significant edema no calf pain or eryt uche. NEURO EXAM: A&O x3, cranial nerves II-XII grossly intact, normal speech, moves all 4 extremities on command w/o issue. Differential diagnoses: Reactive airway disease, pneumonia, pneumothorax, COPD, CHF, infections, cardiac ischemia, pulmonary embolism, musculoskeletal, gastrointestinal, as well as other pathologies. Course: Patient was seen and evaluated the bedside. Full history physical exam was performed. EKG interpreted by me Normal sinus rhythm, rate of 84, wide QRS, left bundle branch block pattern. Imaging Studies: See Below Cardiac monitoring: An order was placed for continuous cardiac monitoring. The monitor shows a rate of 82 with sinus rhythm. MDM: Patient was seen due to concern for shortness of breath and cough. Blood work is obtained along with an EKG and a chest x-ray. Chest x-ray is clear. The patient was trialed with DuoNeb steroids and magnesium. Blood work shows a mild leukopenia with virtually normal hemoglobin 11.8. Platelet count is unremarka ble. Kidney function unremarkable with normal VBG. Patient after the neb treatment was feeling improved and clinically her wheezing is improved but the patient is hypoxic at the bedside 87% does not have any at home oxygen. Given this concern the patient was placed on supplemental oxygen ordered a repeat breathing treatment. Patient is already received IV steroids. I did speak with the on-call hospitalist DONNELL Luque and the patient was admitted by Dr. Farias. Critical Care: I have personally spent minutes of critical care time in direct management of this patient. This includes bedside care, interpretation of diagnostic studies, and testing, discussion with consultants, patient, and family members, and other require inpatient management activities. This minutes is in excess of all separately billable procedures. 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 2. BETHESDA SYSTEM FOR REPORTING THYROID CYTOPATHOLOGY: CATEGORY 2, BENIGN. 3. LYMPHOCYTIC THYROIDITIS NOTED. Cardiomegaly PT DENIES Cholelithiasis Noted on CT scan 08/06/2019 Chronic cough Conductive hearing loss of both ears History of recent hospitalization NOVEMBER OR DECEMBER 2021 FOR ASTHMA PT REPORTS CURRENTLY DOING PRETY GOOD HTN (hypertension) LBBB (left bundle branch block) PT DENIES Left thyroid nodule Incidental finding on CT 08/06/2019: 1.2 centimeter left thyroid nodule 1.8 cm hypoechoic left lobe thyroid nodule -ultrasound 08/12/2019 Leg swelling NOT CURRENT, LASIX USE PRN Palpitations SOMETIMES ? Persistent asthma CONTROLLED CURRENTLY SOB (shortness of breath) on exertion NOT A PROBLEM RECENTLY Surgical History S/P appendectomy HX Family History Father , 2014 Cancer unknown type Mother Hypertension Other No family history of adverse response to anesthesia No family history of bleeding disorder Denies family history of Ovarian cancer Prostate cancer Myocardial infarction Breast cancer Lung cancer Colorectal cancer Social History Smoking Status: Never smoker Tobacco Type: Cigarettes Second Hand Exposure: No; Hx Alcohol Use: No Hx Substance Use: No Preferred Language: Slovenian Communication Ability: Effective Visual Impairment: Limited Hearing Ability: Normal Sap Grc Security Required: No Beliefs That Will Affect Care: None marital status: / marital status details: passed 2017 Current Living Situation: Family Current Living Situation Comment: SONS current occupational status: unemployed current occupation: homemaker How many Children do You have: 6 Feels Safe at Home: Yes Childhood Exposure to Second-Hand Smoke: No Diet Comment: regular caffeine: Yes (1 cup) during the past year weight has: remained stable Dental Care, Regularly: No Physical Activity Frequency: Daily Physical Activity Frequency Comment: walking Seatbelt Use: always Sunscreen Use: No Assistive Devices: Glasses Allergies Allergies Allergy/AdvReac Type Severity Reaction Status Date / Time lisinopril AdvReac Unknown Cough Verified 03/03/22 17:27 Home Meds Home Medications Medication Instructions Recorded Confirmed cholecalciferol (vitamin D3) 50 50 mcg PO QAM 08/19/20 03/03/22 mcg (2,000 unit) tablet (Vitamin D3) omega 3-wgb-mfx-fish oil 1,000 mg 1 cap PO QAM 01/02/22 03/03/22 (120 mg-180 mg) capsule (Fish Oil) diltiazem HCl 180 mg 180 mg PO QAM 01/25/22 03/03/22 capsule,extended release 24 hr guaifenesin 600 mg tablet, 1,200 mg PO UD PRN 01/25/22 03/03/22 extended release 12 hr (Mucinex) ibuprofen 200 mg tablet 600 mg PO UD PRN 01/25/22 03/03/22 levocetirizine 5 mg tablet 5 mg PO DAILY 01/25/22 03/03/22 metoprolol succinate 50 mg 50 mg PO QAM 01/25/22 03/03/22 tablet,extended release 24 hr sodium sul 1.479 gram-potas ch 1 tab PO UD PRN 01/25/22 03/03/22 0.188 gram-magnes sul 0.225 gram tablet (Sutab) Previous Rx's Medication Instructions Recorded albuterol sulfate 90 mcg/actuation 2 puff INH Q6H PRN #8.5 g 06/17/21 aerosol inhaler (Ventolin HFA) benralizumab 30 mg/mL subcutaneous 30 mg SUBCUT .COMPLEX #1 ml 08/15/21 syringe (Fasenra) pantoprazole 40 mg tablet,delayed 40 mg PO QAM #90 tab 09/13/21 release ipratropium 0.5 mg-albuterol 3 mg 3 ml NEB Q4H PRN #180 ml 12/21/21 (2.5 mg base)/3 mL nebulization soln fluticasone propionate 50 1 spray INTNAS QAM #16 g 01/26/22 mcg/actuation nasal spray,suspension (Allergy Relief (fluticasone)) budesonide-formoterol HFA 160 2 puff INHALATION BID #10.2 g 02/27/22 mcg-4.5 mcg/actuation aerosol inhaler (Symbicort) montelukast 10 mg tablet 10 mg PO QPM #90 tab 02/27/22 (Singulair) tiotropium bromide 2.5 2 puff INHALATION QAM #4 g 02/27/22 mcg/actuation mist for inhalation (Spiriva Respimat) furosemide 20 mg tablet 20 mg PO QAM #90 tab 03/02/22 Results & Data (ED) Vital Signs Vital Signs - 24 hr 03/03/22 13:28 03/03/22 13:31 03/03/22 13:40 Temperature 36.8 C Temperature Source Oral Pulse Rate 90 91 H 85 Pulse Rate [Apical] Pulse Rate from SpO2 Sensor 87 85 Respiratory Rate 24 22 21 Respiratory Effort / Characteristics Non-Labored Respiratory Depth Normal Respiratory Pattern Tachypnea Blood Pressure 155/81 H Blood Pressure [Right Arm] Blood Pressure Mean 105 Blood Pressure Mean [Right Arm] Blood Pressure Position Sitting Pulse Oximetry 95 93 94 Oxygen Delivery Method Room Air Oxygen Flow Rate Sepsis Recent Fever Within 48 Hours No Sepsis New/Unexplained Change in Mental Status N/A Sepsis Action Taken by Nursing No Action Required Oxygen Flow Rate - Titration Pulse Oximetry Post Tiitration 03/03/22 13:50 03/03/22 14:00 03/03/22 14:50 Temperature Temperature Source Pulse Rate 85 85 Pulse Rate [Apical] 80 Pulse Rate from SpO2 Sensor 86 85 Respiratory Rate 25 H 16 22 Respiratory Effort / Characteristics Spontaneous Respiratory Depth Respiratory Pattern Blood Pressure Blood Pressure [Right Arm] Blood Pressure Mean Blood Pressure Mean [Right Arm] Blood Pressure Position Pulse Oximetry 91 94 93 Oxygen Delivery Method Room Air Oxygen Flow Rate Sepsis Recent Fever Within 48 Hours Sepsis New/Unexplained Change in Mental Status Sepsis Action Taken by Nursing Oxygen Flow Rate - Titration Pulse Oximetry Post Tiitration 03/03/22 14:56 03/03/22 14:57 03/03/22 16:00 Temperature Temperature Source Pulse Rate 78 Pulse Rate [Apical] 79 89 Pulse Rate from SpO2 Sensor Respiratory Rate 21 21 21 Respiratory Effort / Characteristics Respiratory Depth Respiratory Pattern Blood Pressure Blood Pressure [Right Arm] 155/81 H Blood Pressure Mean Blood Pressure Mean [Right Arm] 105 Blood Pressure Position Pulse Oximetry 100 100 94 Oxygen Delivery Method Room Air Room Air Oxygen Flow Rate Sepsis Recent Fever Within 48 Hours Sepsis New/Unexplained Change in Mental Status Sepsis Action Taken by Nursing Oxygen Flow Rate - Titration Pulse Oximetry Post Tiitration 03/03/22 17:00 03/03/22 17:20 03/03/22 18:00 Temperature Temperature Source Pulse Rate Pulse Rate [Apical] 92 H 88 Pulse Rate from SpO2 Sensor Respiratory Rate 20 Respiratory Effort / Characteristics Spontaneous Respiratory Depth Respiratory Pattern Blood Pressure Blood Pressure [Right Arm] Blood Pressure Mean Blood Pressure Mean [Right Arm] Blood Pressure Position Pulse Oximetry 88 L 96 99 Oxygen Delivery Method Nasal Cannula Nasal Cannula Oxygen Flow Rate 0 2 Sepsis Recent Fever Within 48 Hours Sepsis New/Unexplained Change in Mental Status Sepsis Action Taken by Nursing Oxygen Flow Rate - Titration 2 Pulse Oximetry Post Tiitration 94 Home Medications Current Medication List: was personally reviewed by me Laboratory Data Attestation: I reviewed the patient's lab results. Result diagrams: 03/03/22 13:36 03/03/22 13:36 Lab Results 03/03/22 03/03/22 03/03/22 Range/Units 13:36 13:36 15:07 WBC 4.09 L (4.8-10.8) K/uL RBC 4.14 L (4.2-5.4) M/uL Hgb 11.8 L (12.0-16.0) g/dL Hct 35.6 L (37-47) % MCV 86.0 (80-100) fL MCH 28.5 (25-34) pg MCHC 33.1 (32-36) g/dL RDW Std Deviation 45.9 (36.4-46.3) fL RDW Coeff of Niesha 14.5 (11.5-14.5) % Plt Count 219 (130-400) K/uL MPV 11.1 H (7.4-10.4) fL Immature Gran % (Auto) 0.2 % Neut % (Auto) 65.1 % Lymph % (Auto) 20.3 % [place] % (Auto) 14.2 % Eos % (Auto) 0.0 % Baso % (Auto) 0.2 % Neut # (Auto) 2.66 (1.4-6.5) K/uL Lymph # (Auto) 0.83 L (1.2-3.4) K/uL [place] # (Auto) 0.58 (0.11-0.59) K/uL Eos # (Auto) 0.00 (0-0.5) K/uL Baso # (Auto) 0.01 (0-0.2) K/uL Immature Gran # (Auto) 0.01 (0.00-0.02) K/uL VBG pH 7.38 (7.36-7.41) VBG pCO2 46 (38-50) mmHg VBG pO2 39 mmHg VBG HCO3 27 mmol/L VBG O2 Saturation 60.7 % VBG Base Excess 1.5 mEq/L Sodium 138 (136-145) mmol/L Potassium 3.6 (3.5-5.1) mmol/L Chloride 104 (98-107) mmol/L Carbon Dioxide 25 (21-32) mmol/L Anion Gap 9 (3-11) BUN 10 (6-23) mg/dl Creatinine 0.80 (0.6-1.2) mg/dl Est Cr Clr Drug Dosing 87.4 ml/min Est GFR ( Amer) 93.5 ml/min Est GFR (Non-Af Amer) 80.7 ml/min BUN/Creatinine Ratio 12.5 (10-20) Glucose 107 H (70-99(Fasting)) mg/dl Calcium 8.9 (8.5-10.1) mg/dl Total Bilirubin 0.7 (0.2-1.0) mg/dl AST 18 (13-39) U/L ALT 14 (7-52) U/L Alkaline Phosphatase 60 (34-104) U/L Troponin I High Sens 8.3 (0-14) pg/ml Total Protein 7.1 (6.0-8.3) gm/dl Albumin 4.2 (3.4-5.0) gm/dl Globulin 2.9 (2.5-4.0) gm/dl Albumin/Globulin Ratio 1.4 (0.9-2) SARS-CoV-2, RNA, NAAT (NEGATIVE) 03/03/22 Range/Units 17:13 WBC (4.8-10.8) K/uL RBC (4.2-5.4) M/uL Hgb (12.0-16.0) g/dL Hct (37-47) % MCV (80-100) fL MCH (25-34) pg MCHC (32-36) g/dL RDW Std Deviation (36.4-46.3) fL RDW Coeff of Niesha (11.5-14.5) % Plt Count (130-400) K/uL MPV (7.4-10.4) fL Immature Gran % (Auto) % Neut % (Auto) % Lymph % (Auto) % [place] % (Auto) % Eos % (Auto) % Baso % (Auto) % Neut # (Auto) (1.4-6.5) K/uL Lymph # (Auto) (1.2-3.4) K/uL [place] # (Auto) (0.11-0.59) K/uL Eos # (Auto) (0-0.5) K/uL Baso # (Auto) (0-0.2) K/uL Immature Gran # (Auto) (0.00-0.02) K/uL VBG pH (7.36-7.41) VBG pCO2 (38-50) mmHg VBG pO2 mmHg VBG HCO3 mmol/L VBG O2 Saturation % VBG Base Excess mEq/L Sodium (136-145) mmol/L Potassium (3.5-5.1) mmol/L Chloride (98-107) mmol/L Carbon Dioxide (21-32) mmol/L Anion Gap (3-11) BUN (6-23) mg/dl Creatinine (0.6-1.2) mg/dl Est Cr Clr Drug Dosing ml/min Est GFR ( Amer) ml/min Est GFR (Non-Af Amer) ml/min BUN/Creatinine Ratio (10-20) Glucose (70-99(Fasting)) mg/dl Calcium (8.5-10.1) mg/dl Total Bilirubin (0.2-1.0) mg/dl AST (13-39) U/L ALT (7-52) U/L Alkaline Phosphatase (34-104) U/L Troponin I High Sens (0-14) pg/ml Total Protein (6.0-8.3) gm/dl Albumin (3.4-5.0) gm/dl Globulin (2.5-4.0) gm/dl Albumin/Globulin Ratio (0.9-2) SARS-CoV-2, RNA, NAAT POSITIVE A* (NEGATIVE) Administered Medications Discontinued Medications Albuterol (Albut/Ipratrop 3mg/0.5mg Neb 3 Ml Vial) 12 ml INH ONE STA Stop: 03/03/22 14:10 Last Admin: 03/03/22 14:49 Dose: 12 ml Documented by: [id number] Albuterol (Albut/Ipratrop 3mg/0.5mg Neb 3 Ml Vial) 12 ml NEB ONE ONE; Protocol Stop: 03/03/22 16:57 Last Admin: 03/03/22 17:20 Dose: 12 ml Documented by: [id number] Azithromycin (Azithromycin 250 Mg Tab) 500 mg PO NOW ONE Stop: 03/03/22 16:55 Last Admin: 03/03/22 17:11 Dose: 500 mg Documented by: [id number] Magnesium Sulfate/Dextrose (Magnesium Sulfate / D5w) 1 gm in 100 mls @ 100 mls/hr IV Q1H ERICKA Stop: 03/03/22 16:14 Last Infusion: 03/03/22 16:48 Dose: 0 mls/hr Documented by: [id number] Admin: 03/03/22 15:48 Dose: 100 mls/hr Documented by: [id number] Infusion: 03/03/22 15:48 Dose: 0 mls/hr Documented by: [id number] Admin: 03/03/22 14:41 Dose: 100 mls/hr Documented by: [id number] Methylprednisolone (Methylprednisolone 125 Mg/2 Ml Vial) 60 mg IV NOW STA Stop: 03/03/22 14:10 Last Admin: 03/03/22 14:41 Dose: 60 mg Documented by: [id number] Imaging Data Radiologist's Impression: Chest X-Ray 03/03/22 14:09 XR chest 1V portable HISTORY: 61 years-old Female Dyspnea acute cough with shortness of breath COMPARISON: 11/22/2021 chest radiographs, chest CT 09/26/2021 TECHNIQUE: AP view of the chest FINDINGS: Cardiomediastinal and hilar silhouettes are unchanged. There is no pneumothorax, pleural effusion, airspace consolidation or overt pulmonary edema. The bones of the chest appear grossly intact. IMPRESSION: No acute process. ACT 112: Negative or not required by law. The above report was generated using voice recognition software. It may contain grammatical, syntax or spelling errors. Electronically signed by: Cali Aalnis M.D. 03/03/2022 2:31 PM Discharge Plan Visit Data Chief Complaint: Shortness of Breath/Dyspnea Stated Complaint: AMS ED Provider: Nicolas Rodriguez Discharge Problem: Hypoxia, Asthma exacerbation, COVID-19 Patient Disposition: Admitted As Inpatient Prescriptions Prescriptions: No Action pantoprazole 40 mg tablet,delayed release (DR/EC) 40 mg PO QAM Qty: 90 RF: 1 ipratropium-albuterol 0.5 mg-3 mg(2.5 mg base)/3 mL solution for nebulization 3 ml NEB Q4H PRN (Reason: Shortness Of Breath Or Wheezing) Qty: 180 RF: 5 fluticasone propionate [Allergy Relief (fluticasone)] 50 mcg/actuation spray,suspension 1 spray INTNAS QAM Qty: 16 RF: 1 furosemide 20 mg tablet 20 mg PO QAM Qty: 90 RF: 1 omega 2-ydf-luq-fish oil [Fish Oil] 1,000 mg (120 mg-180 mg) capsule 1 cap PO QAM RF: 0 budesonide-formoterol [Symbicort] 160-4.5 mcg/actuation HFA aerosol inhaler 2 puff inhalation BID Qty: 10.2 RF: 8 montelukast [Singulair] 10 mg tablet 10 mg PO QPM Qty: 90 RF: 2 Spiriva Respimat 2.5 mcg/actuation mist 2 puff inhalation QAM Qty: 4 RF: 8 Fasenra 30 mg/mL syringe 30 mg subcut .COMPLEX Qty: 1 RF: 11 albuterol sulfate [Ventolin HFA] 90 mcg/actuation HFA aerosol inhaler 2 puff INH Q6H PRN (Reason: Shortness Of Breath Or Wheezing) Qty: 8.5 RF: 11 cholecalciferol (vitamin D3) [Vitamin D3] 50 mcg (2,000 unit) Tablet 50 mcg PO QAM RF: 0 ibuprofen 200 mg Tablet 600 mg PO UD PRN (Reason: Pain) RF: 0 diltiazem HCl 180 mg capsule,extended release 24hr 180 mg PO QAM RF: 0 metoprolol succinate 50 mg tablet extended release 24 hr 50 mg PO QAM RF: 0 levocetirizine 5 mg tablet 5 mg PO DAILY RF: 0 guaifenesin [Mucinex] 600 mg tablet extended release 12hr 1,200 mg PO UD PRN (Reason: Cough) RF: 0 Sutab 1.479-0.188- 0.225 gram tablet 1 tab PO UD PRN (Reason: colonoscopy prep) RF: 0 Referrals Referrals: Fariha Guaman DO [Primary Care Provider] -
[2022-03-03] MEDS ORDERED: ALBUT/IPRATROP 3MG/0.5MG NEB 3 ML VIAL INH STA (14:09)
[2022-03-03] MEDS ORDERED: methylPREDNISolone 125 MG/2 ML VIAL IV STA (14:09)
[2022-03-03 14:27] LABS: Basophils # (auto) 0.01 K/uL (0-0.2); Basophils % (auto) 0.2 %; Hematocrit (blood only) 35.6 % (37-47); Hemoglobin 11.8 g/dL (12.0-16.0); Immature Granulocytes # (auto) 0.01 K/uL (0.00-0.02); Immature Granulocytes % (auto) 0.2 %; Lymphocytes # (auto) 0.83 K/uL (1.2-3.4); Lymphocytes % (auto) 20.3 %; Mean Corpuscular Hemoglobin 28.5 pg (25-34); Mean Corpuscular Hgb Conc 33.1 g/dL (32-36); Mean Platelet Volume 11.1 fL (7.4-10.4); Monocytes # (auto) 0.58 K/uL (0.11-0.59); Monocytes % (auto) 14.2 %; Neutrophils # (auto) 2.66 K/uL (1.4-6.5); Neutrophils % (auto) 65.1 %; Platelet Count 219 K/uL (130-400); RDW Coefficient of Variation 14.5 % (11.5-14.5); RDW Standard Deviation 45.9 fL (36.4-46.3); Red Blood Count 4.14 M/uL (4.2-5.4); White Blood Count 4.09 K/uL (4.8-10.8)
--- NOTE | 2022-03-03 14:33 | XRay Report ---
XR chest 1V portable HISTORY: 61 years-old Female Dyspnea acute cough with shortness of breath COMPARISON: 11/22/2021 chest radiographs, chest CT 09/26/2021 TECHNIQUE: AP view of the chest FINDINGS: Cardiomediastinal and hilar silhouettes are unchanged. There is no pneumothorax, pleural effusion, ai rspace consolidation or overt pulmonary edema. The bones of the chest appear grossly intact. IMPRESSION: No acute process. ACT 112: Negative or not required by law. The above report was generated using voice recognition software. It may contain grammatical, syntax o r spelling errors. Electronically signed by: Cali Alanis M.D. 03/03/2022 2:31 PM
[2022-03-03 14:37] LABS: Albumin Globulin Ratio 1.4 (0.9-2); Albumin Level 4.2 gm/dl (3.4-5.0); BUN Creatinine Ratio 12.5 (10-20); Bilirubin,Total 0.7 mg/dl (0.2-1.0); Calcium 8.9 mg/dl (8.5-10.1); Creatinine Clr Calc Pharmacy 87.4 ml/min; Est GFR (African American) 93.5 ml/min; Est GFR (Non-African American) 80.7 ml/min; Globulin 2.9 gm/dl (2.5-4.0); Potassium 3.6 mmol/L (3.5-5.1); Total Protein 7.1 gm/dl (6.0-8.3)
[2022-03-03] MEDS: MAGNESIUM SULFATE / D5W 1 GM/100 ML BAG IV SCH ×2 (14:41→15:48)
[2022-03-03 14:43] LABS: Troponin I High Sensitivity 8.3 pg/ml (0-14)
[2022-03-03 15:27] LABS: Base Excess VBG 1.5 mEq/L; HCO3 VBG 27 mmol/L; Oxygen Saturation VBG 60.7 %; PCO2 VBG 46 mmHg (38-50); PO2 VBG 39 mmHg; pH VBG 7.38 (7.36-7.41)
[2022-03-03] MEDS ORDERED: AZITHROMYCIN 250 MG TAB PO ONE (16:54)
[2022-03-03] MEDS ORDERED: ALBUT/IPRATROP 3MG/0.5MG NEB 3 ML VIAL NEB ONE (16:56)
--- NOTE | 2022-03-03 16:57 | Electrocardiogram Report ---
Test Reason : Blood Pressure : / mmHG Vent. Rate : 084 BPM Atrial Rate : 084 BPM P-R Int : 172 ms QRS Dur : 138 ms QT Int : 410 ms P-R-T Axes : 045 022 072 degrees QTc Int : 484 ms Normal sinus rhythm Left bundle branch block Abnormal ECG When compared with ECG of 21-NOV-2021 05:39, Premature ventricular complexes are no longer Present Confirmed by Hector Luke ([id number]) on 03/03/2022 4:56:55 PM Referred By: REFERRED SELF Confirmed By:Hector Luke
--- NOTE | 2022-03-03 17:57 | History & Physical Report ---
Date of Service March 03, 2022 Assessment & Plan (1) COVID-19: Plan: COVID 19 Positive, patient is not vaccinated with history of persistent asthma - Patient is ~ day of symptoms/illness of day #2, likely causing an exacerbation of her underlying asthma - Continue with Decadron 6mg IV daily - Continue with Azithromycin for anti-inflammatory properties- PCT negative - CRP, LDH, Ferritin pending - Oxygen for support SPo2 >92% - Scheduled nebulizers - Favor controlling underlying asthma symptoms at this time - Defer Remdisivir to rounders (2) Asthma: Plan: Patient with persistent asthma with allergic component - VBG completed by EMD on arrival without evidence of hyper/hypocarbia, - 7.38/46/39 - Currently on Benralizumab therapy she reports she received her benralizumab - Her EOS count is 0 - Scheduled nebulizers - Continue ICS, and anticholinergic - Continue guaifenesin - Continue Levocetirizine PFT 02/27/2022 as interpreted by pulmonology: Mild obstructive lung dysfunction, insignificant bronchodilator response, severe decrease in ERV, normal DLCO (Decrease in FVC by 230 mL, decrease in FEV1 by 220 mL, increase in weight by 20 pounds compared to 09/2019) FVC 2.43 L 76%, FEV1 1.66 L 68%, FEV1/FVC 69% (LLN 68%), ERV 5%, TLC 113%, RV/TLC 115%, DLCO 118% (3) LAD (lymphadenopathy), mediastinal: Plan: Followed by pulmonary- No change - no further imaging studies for following recommended in February visit - Previous noted pulmonary nodules have resolved (4) GERD (gastroesophageal reflux disease): Plan: Continue PPI (5) MARY (obstructive sleep apnea): Plan: CPAP while in house - AutoPAP - her CPAP machine was recalled and has not received a replacment yet (6) HTN (hypertension): Plan: Usually well controlled - Continue with Diltiazem - Continue Metoprolol History of Present Illness Primary Care Provider: Fariha Guaman, DO 61 YOF with medical history of: Asthma (receives Benralizumab), Pulmonary nodule, GERD, HFpEF, MARY, Goiter, PVCs, HTN. Patient comes in today for compla ints of 2 day history of dyspnea. She felt little dyspneic on Sunday and went and got her Benralizumab injection on at allergy. She feels that after that she became more dyspneic and wheezing more. She usually uses her nebulizer usually 1-2 times per day and her Albuterol inhaler 1-2 times per day. Over the past 24 hours she reports using both her GEOFF inhaler and nebulizer 3- 4 times with minimal relief. She was awoken last night at 3 o'clock feeling dyspneic and needed to use her nebulizer. She got up this morning with no immediate improvement in her respiratory status. She came to the EMD also because she got dizzy upon standing up this morning. In the EMD the patient had routine labs performed to also include an ABG. She had ECG performed. She was reported as Hypoxic in the 80s. She was given 2 albuterol nebulizers, magnesium and 60mg of Methyl-pred, and 500-mg of Azithromycin. Patient states her breathing has improved, she remains with some wheezing on exam. Patient COVID test returned POSITIVE during her admission process. She is not vaccinated. Patient will be continued on Decadron 6mg IV daily, continue with scheduled nebulizers overnight. Supportive therapy. She is on CPAP at home but her device has been recalled. CPAP AUTOPAP at night or as needed. COVID test on admission is: POSITIVE Allergies Allergy/AdvReac Type Severity Reaction Status Date / Time lisinopril AdvReac Unknown Cough Verified 03/09/22 11:08 Home Medications Medication Instructions Recorded Confirmed Type cholecalciferol (vitamin D3) 50 50 mcg PO QAM 08/19/20 03/09/22 History mcg (2,000 unit) tablet (Vitamin D3) albuterol sulfate 90 mcg/actuation 2 puff inhalation Q6H PRN 06/17/21 03/09/22 Rx aerosol inhaler (Ventolin HFA) Shortness Of Breath Or Wheezing #8.5 grams pantoprazole 40 mg tablet,delayed 40 mg PO QAM #90 tabs 09/13/21 03/09/22 Rx release ipratropium 0.5 mg-albuterol 3 mg 3 ml NEB Q4H PRN Shortness Of 12/21/21 03/09/22 Rx (2.5 mg base)/3 mL nebulization Breath Or Wheezing #180 mL soln omega 8-rtl-xet-fish oil 1,000 mg 1 cap PO QAM 01/02/22 03/09/22 History (120 mg-180 mg) capsule (Fish Oil) diltiazem HCl 180 mg 180 mg PO QAM 01/25/22 03/09/22 History capsule,extended release 24 hr guaifenesin 600 mg tablet, 1,200 mg PO UD PRN Cough 01/25/22 03/09/22 History extended release 12 hr (Mucinex) ibuprofen 200 mg tablet 600 mg PO UD PRN Pain 01/25/22 03/09/22 History metoprolol succinate 50 mg 50 mg PO QAM 01/25/22 03/09/22 History tablet,extended release 24 hr sodium sul 1.479 gram-potas ch 1 tab PO UD PRN colonoscopy prep 01/25/2203/09 History 0.188 gram-magnes sul 0.225 gram tablet (Sutab) budesonide-formoterol HFA 160 2 puff inhalation BID #10.2 grams 02/27/22 03/09/22 Rx mcg-4.5 mcg/actuation aerosol inhaler (Symbicort) montelukast 10 mg tablet 10 mg PO QPM #90 tabs 02/27/22 03/09/22 Rx (Singulair) tiotropium bromide 2.5 2 puff inhalation QAM #4 grams 02/27/22 03/09/22 Rx mcg/actuation mist for inhalation (Spiriva Respimat) furosemide 20 mg tablet 20 mg PO QAM #90 tabs 03/02/22 03/09/22 Rx aspirin 81 mg capsule 81 mg PO BID #10 caps 03/05/22 03/09/22 Rx azithromycin 250 mg tablet 250 mg PO QAM #5 tabs 03/05/22 03/09/22 Rx prednisone 10 mg tablet See Rx Instructions .Route 03/05/22 03/09/22 Rx .COMPLEX #12 tabs fluticasone propionate 50 1 spray intranasal QAM #16 grams 03/07/22 03/09/22 Rx mcg/actuation nasal spray,suspension (Allergy Relief (fluticasone)) prednisone 10 mg tablet See Rx Instructions PO .COMPLEX 03/09/22 03/09/22 Rx #45 tabs levocetirizine 5 mg tablet 5 mg PO DAILY #90 tabs 03/14/22 Rx benralizumab 30 mg/mL subcutaneous 30 mg subcut .COMPLEX #1 mL 03/22/22 Rx syringe (Fasenra) 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 2. BETHESDA SYSTEM FOR REPORTING THYROID CYTOPATHOLOGY: CATEGORY 2, BENIGN. 3. LYMPHOCYTIC THYROIDITIS NOTED. Cardiomegaly PT DENIES Cholelithiasis Noted on CT scan 08/06/2019 Chronic cough Conductive hearing loss of both ears History of recent hospitalization NOVEMBER OR DECEMBER 2021 FOR ASTHMA PT REPORTS CURRENTLY DOING PRETY GOOD HTN (hypertension) LBBB (left bundle branch block) PT DENIES Left thyroid nodule Incidental finding on CT 08/06/2019: 1.2 centimeter left thyroid nodule 1.8 cm hypoechoic left lobe thyroid nodule -ultrasound 08/12/2019 Leg swelling NOT CURRENT, LASIX USE PRN Palpitations SOMETIMES ? Persistent asthma CONTROLLED CURRENTLY SOB (shortness of breath) on exertion NOT A PROBLEM RECENTLY Surgical History S/P appendectomy HX Family History Father , 2014 Cancer unknown type Mother Hypertension Other No family history of adverse response to anesthesia No family history of bleeding disorder Denies family history of Ovarian cancer Prostate cancer Myocardial infarction Breast cancer Lung cancer Colorectal cancer Social History Smoking Status: Never smoker Tobacco Type: Cigarettes Second Hand Exposure: No; Hx Alcohol Use: No Hx Substance Use: No Preferred Language: Turkmen Communication Ability: Effective Visual Impairment: Limited Hearing Ability: Normal Junior Buyer Required: No Beliefs That Will Affect Care: None marital status: / marital status details: passed 2017 Current Living Situation: Family Current Living Situation Comment: SONS current occupational status: unemployed current occupation: homemaker How many Children do You have: 6 Feels Safe at Home: Yes Childhood Exposure to Second-Hand Smoke: No Diet Comment: regular caffeine: Yes (1 cup) during the past year weight has: remained stable Dental Care, Regularly: No Physical Activity Frequency: Daily Physical Activity Frequency Comment: walking Seatbelt Use: always Sunscreen Use: No Assistive Devices: None Review of Systems Review of Systems: REVIEW OF SYSTEMS: Constitutional: No fever, sweats or chills Eyes: No diplopia, no worsening or blurred vision ENT: normal hearing, no trouble swallowing Respiratory: (+) cough, sputum, dyspnea at rest or on exertion Cardiovascular: No chest pain, tightness or palpitations Abdomen: No pain, nausea, vomiting, diarrhea or constipation Musculoskeletal: No joint pain, calf pain, swelling Neurologic: No weakness, numbness/tingling, or balance problems Psychiatric: No anxiety or depression Skin: (+) chronic vascular changes to ankles Physical Exam Physical Exam: PHYSICAL EXAM: General: awake, alert, no apparent distress Head: Normocephalic, atraumatic ENT: PERRL, EOMI, no pharyngeal exudate, mucous membranes moist Neuro: AAO x 3, speech clear and appropriate, strength intact bilaterally 5/5, sensation intact and equal all extremities and dermatomes, no pronator drift Chest: equal rise and fall of the chest, inspiratory and expiratory wheeze, cough thin white secretions Cardiac: Regular rate and rhythm, telemetry reviewed, skin warm dry, cap refill <3 seconds, peripheral pulses +2 no JVD, no murmur, trace lower extremity edema GI: NABS x 4 quadrants, soft, nontender to palpation, no rebound, guarding or tenderness : Spontaneously voiding, no pain, no CVA tenderness, Extremities: Normal inspection, no peripheral edema or erythema, calfs nontender to palpation Psych: Normal mood and affect Skin: reddish brown chronic changes to ankles Results & Data Results & Data ([facility]) Vital Signs (Past 12 Hours) Vital Signs Temp Pulse Pulse Resp BP BP Pulse Ox 03/03/22 17:20 92 H 20 96 03/03/22 17:00 88 L 03/03/22 16:00 89 21 94 03/03/22 14:57 79 21 155/81 H 100 03/03/22 14:56 78 21 100 03/03/22 14:50 80 22 93 03/03/22 14:00 85 16 94 03/03/22 13:50 85 25 H 91 03/03/22 13:40 85 21 94 03/03/22 13:31 91 H 22 93 03/03/22 13:28 36.8 C 90 24 155/81 H 95 Laboratory Results Abnormal lab results 03/03/22 03/03/22 03/03/22 Range/Units 13:36 13:36 17:13 WBC 4.09 L (4.8-10.8) K/uL RBC 4.14 L (4.2-5.4) M/uL Hgb 11.8 L (12.0-16.0) g/dL Hct 35.6 L (37-47) % MPV 11.1 H (7.4-10.4) fL Lymph # (Auto) 0.83 L (1.2-3.4) K/uL Glucose 107 H (70-99(Fasting)) mg/dl SARS-CoV-2, RNA, NAAT POSITIVE A* (NEGATIVE) Diagnostic Findings Chest X-Ray 03/03/22 14:09 XR chest 1V portable HISTORY: 61 years-old Female Dyspnea acute cough with shortness of breath COMPARISON: 11/22/2021 chest radiographs, chest CT 09/26/2021 TECHNIQUE: AP view of the chest FINDINGS: Cardiomediastinal and hilar silhouettes are unchanged. There is no pneumothorax, pleural effusion, airspace consolidation or overt pulmonary edema. The bones of the chest appear grossly intact. IMPRESSION: No acute process. ACT 112: Negative or not required by law. The above report was generated using voice recognition software. It may contain grammatical, syntax or spelling errors. Electronically signed by: Cali Alanis M.D. 03/03/2022 2:31 PM Medications Administered Home Medications cholecalciferol (vitamin D3) 50 mcg (2,000 unit) tablet (Vitamin D3) 50 mcg PO QAM 08/19/20 [History Confirmed 03/03/22] albuterol sulfate 90 mcg/actuation aerosol inhaler (Ventolin HFA) 2 puff INH Q6H PRN #8.5 g 06/17/21 [Rx Confirmed 03/03/22] benralizumab 30 mg/mL subcutaneous syringe (Fasenra) 30 mg SUBCUT .COMPLEX #1 ml 08/15/21 [Rx Confirmed 03/03/22] pantoprazole 40 mg tablet,delayed release 40 mg PO QAM #90 tab 09/13/21 [Rx Confirmed 03/03/22] ipratropium 0.5 mg-albuterol 3 mg (2.5 mg base)/3 mL nebulization soln 3 ml NEB Q4H PRN #180 ml 12/21/21 [Rx Confirmed 03/03/22] omega 9-yxx-lbf-fish oil 1,000 mg (120 mg-180 mg) capsule (Fish Oil) 1 cap PO QAM 01/02/22 [History Confirmed 03/03/22] diltiazem HCl 180 mg capsule,extended release 24 hr 180 mg PO QAM 01/25/22 [History Confirmed 03/03/22] guaifenesin 600 mg tablet, extended release 12 hr (Mucinex) 1,200 mg PO UD PRN 01/25/22 [History Confirmed 03/03/22] ibuprofen 200 mg tablet 600 mg PO UD PRN 01/25/22 [History Confirmed 03/03/22] levocetirizine 5 mg tablet 5 mg PO UD PRN 01/25/22 [History Confirmed 03/03/22] metoprolol succinate 50 mg tablet,extended release 24 hr 50 mg PO QAM 01/25/22 [History Confirmed 03/03/22] sodium sul 1.479 gram-potas ch 0.188 gram-magnes sul 0.225 gram tablet (Sutab) 1 tab PO UD PRN 01/25/22 [History Confirmed 03/03/22] fluticasone propionate 50 mcg/actuation nasal spray,suspension (Allergy Relief (fluticasone)) 1 spray INTNAS QAM #16 g 01/26/22 [Rx Confirmed 03/03/22] budesonide-formoterol HFA 160 mcg-4.5 mcg/actuation aerosol inhaler (Symbicort) 2 puff INHALATION BID #10.2 g 02/27/22 [Rx Confirmed 03/03/22] montelukast 10 mg tablet (Singulair) 10 mg PO QPM #90 tab 02/27/22 [Rx Confirmed 03/03/22] tiotropium bromide 2.5 mcg/actuation mist for inhalation (Spiriva Respimat) 2 puff INHALATION QAM #4 g 02/27/22 [Rx Confirmed 03/03/22] furosemide 20 mg tablet 20 mg PO QAM #90 tab 03/02/22 [Rx Confirmed 03/03/22] ECG Additional Comments: Vent. Rate : 084 BPM Atrial Rate : 084 BPM P-R Int : 172 ms QRS Dur : 138 ms QT Int : 410 ms P-R-T Axes : 045 022 072 degrees QTc Int : 484 ms Normal sinus rhythm Left bundle branch block Abnormal ECG When compared with ECG of 21-NOV-2021 05:39, Premature ventricular complexes are no longer Present Confirmed by Hector Luke ([id number]) on 03/03/2022 4:56:55 PM Code Status & VTE Plan Code Status CODE: FULL VTE: SCDs, Lovenox 40mg subq daily VTE Prophylaxis Plan VTE Prophylaxis will be ordered: Yes Supervising Physician Co-Signing Physician Notes I personally saw and examined the patient. I verified all last points and agree with DONNELL King with the following exceptions and/or additions: 61 year old female presents with 2 day history of shortness of breath. FARNAZ COV-2 PCR positive. Unvaccinated. O/E HS1+2, no murmurs, Chest bilateral wheezing inspiratory and expiratory A/P Asthma exacerbation - Azithromycin, Dexamethasone and duonebs COVID-19 - suspect mainly causing asthma exacerbation. Currently on room air - no indication for remdesivir. PG Care Time/CCT Total # of Minutes Spent Total Time Spent with Patient: Total time spent is greater than 50% in coordination of care (as documented) at patient's floor/unit and/or counseling patient: Coding Level of Care Code 51262 Initial Inpt Care Lvl 3 Diagnoses COVID-19 U07.1 Asthma J45.909 LAD (lymphadenopathy), mediastinal R59.0 GERD (gastroesophageal reflux disease) K21.9 Esophagitis presence: esophagitis presence not specified MARY (obstructive sleep apnea) G47.33 HTN (hypertension) I10 (1) GERD (gastroesophageal reflux disease) Esophagitis presence: esophagitis presence not specified Qualified Code(s): K21.9 - Gastro-esophageal reflux disease without esophagitis
[2022-03-03] MEDS ORDERED: ACETAMINOPHEN 325 MG TAB PO PRN (19:38)
[2022-03-03] MEDS ORDERED: guaiFENesin 600 MG TABCR PO PRN (19:38)
[2022-03-03] MEDS ORDERED: ALBUTEROL HFA 8 GM INHALER INH PRN (19:38)
[2022-03-03] MEDS: MONTELUKAST SODIUM 10 MG TABLET PO SCH (20:36)
[2022-03-03] MEDS ORDERED: ENOXAPARIN INJ 40 MG/0.4 ML SYR SQ SCH (21:00)
[2022-03-03 21:02] LABS: C Reactive Protein 4.54 mg/dl (0-0.5)
[2022-03-03 21:17] LABS: Ferritin 31.6 ng/ml (8-388)
[2022-03-03] MEDS: ALBUT/IPRATROP 3MG/0.5MG NEB 3 ML VIAL NEB SCH (22:11)
[2022-03-04] MEDS: ALBUT/IPRATROP 3MG/0.5MG NEB 3 ML VIAL NEB SCH ×6 (03:04→22:47)
[2022-03-04] MEDS: dilTIAZem HCL 180 MG CAPCR PO SCH (08:13)
[2022-03-04] MEDS: CHOLECALCIFEROL 1,000 UNITS 25 MCG TAB PO SCH (08:13)
[2022-03-04] MEDS: AZITHROMYCIN 250 MG TAB PO SCH (08:13)
[2022-03-04] MEDS: ENOXAPARIN INJ 40 MG/0.4 ML SYR SQ SCH ×2 (08:14→20:23)
[2022-03-04] MEDS: FLUTICASONE PROPIONATE NA SPR 16 GM BTL NAE SCH (08:14)
[2022-03-04] MEDS: FUROSEMIDE 20 MG TAB PO SCH (08:15)
[2022-03-04] MEDS: FLUTICASONE/VILANTEROL 100/25MCG 14 PUFFS/INHALER INH SCH (08:15)
[2022-03-04] MEDS: METOPROLOL SUCC 50MG EXT REL TAB PO SCH (08:15)
[2022-03-04] MEDS: PANTOprazole 40 MG TAB PO SCH (08:15)
[2022-03-04] MEDS: UMECLIDINIUM BROMIDE 62.5MCG/BLISTER 7 PUFFS/INHALER INH SCH (08:16)
[2022-03-04 08:26] LABS: Basophils # (auto) 0.01 K/uL (0-0.2); Basophils % (auto) 0.3 %; Hematocrit (blood only) 37.6 % (37-47); Hemoglobin 12.7 g/dL (12.0-16.0); Immature Granulocytes # (auto) 0.01 K/uL (0.00-0.02); Immature Granulocytes % (auto) 0.3 %; Lymphocytes # (auto) 0.48 K/uL (1.2-3.4); Lymphocytes % (auto) 15.1 %; Mean Corpuscular Hemoglobin 29.1 pg (25-34); Mean Corpuscular Hgb Conc 33.8 g/dL (32-36); Mean Platelet Volume 10.5 fL (7.4-10.4); Monocytes # (auto) 0.24 K/uL (0.11-0.59); Monocytes % (auto) 7.5 %; Neutrophils # (auto) 2.44 K/uL (1.4-6.5); Neutrophils % (auto) 76.8 %; Platelet Count 203 K/uL (130-400); RDW Coefficient of Variation 14.4 % (11.5-14.5); RDW Standard Deviation 45.7 fL (36.4-46.3); Red Blood Count 4.37 M/uL (4.2-5.4); White Blood Count 3.18 K/uL (4.8-10.8)
[2022-03-04 08:39] LABS: BUN Creatinine Ratio 21.7 (10-20); Calcium 9.1 mg/dl (8.5-10.1); Est GFR (African American) 110.4 ml/min; Est GFR (Non-African American) 95.3 ml/min; Magnesium 2.5 mg/dl (1.7-2.4); Potassium 3.8 mmol/L (3.5-5.1)
[2022-03-04] MEDS ORDERED: dexAMETHasone 6 MG in SYRINGE 0 ML IV SCH (09:00)
[2022-03-04] MEDS: dexAMETHasone 6 MG in SYRINGE 0 ML IV SCH ×3 (09:55→23:06)
--- NOTE | 2022-03-04 10:25 | Hospitalist Progress Note ---
Date of Service March 04, 2022 Assessment & Plan (1) COVID-19: Plan: COVID 19 Positive, patient is not vaccinated. She is not short of breath at rest. Chest x-ray is negative. She appears stable. Decadron uptitrated to every 8 hour dosing. No indication for remdesivir at this time. (2) Asthma: Plan: No overt wheezing at this time. Stable. Continue nebulizer treatments while hospitalized. (3) LAD (lymphadenopathy), mediastinal: Plan: Followed by pulmonary- No change - no further imaging studies for following recommended in February visit - Previous noted pulmonary nodules have resolved (4) GERD (gastroesophageal reflux disease): Plan: Continue PPI (5) MARY (obstructive sleep apnea): Plan: CPAP while in house - AutoPAP - her CPAP machine was recalled and has not received a replacment yet (6) HTN (hypertension): Plan: Controlled - Continue with Diltiazem - Continue Metoprolol Plan: Anticipate discharge to home tomorrow, March 05, if stable and on room air Admission and Anticipated Discharge Date Admission Date: March 03, 2022 Subjective Alert and oriented. No shortness of breath at rest. She is not requiring oxygen. She does have mild dyspnea with exertion however. Chest x-ray is negative. Decadron uptitrated to every 8 hour dosing. Review of Systems Review of Systems: Constitutional-no fever or chills ENT-no blurred vision, no double vision, no epistaxis, no sore throat Respiratory-nonproductive cough. Dyspnea on exertion. No hemoptysis. No pleuritic pain Cardiac-no palpitations, no chest pain, no syncope GI-no nausea, vomiting, diarrhea, melena, hematochezia -no urinary retention, no urinary incontinence, no dysuria, no hematuria Musculoskeletal-no joint pain, no muscle tenderness Skin-no bruising, no rashes, no pruritus Neuro-no isolated weakness, no paresthesia, no weakness Psych-no depression, no anxiety Physical Exam Physical Exam: General-alert and oriented x3, no fevers, no chills. She is obese HEENT-head atraumatic and normocephalic, TMs intact bilaterally, pupils equal and reactive to light, extraocular muscles intact Neck-no lymphadenopathy or thyromegaly, trachea midline Chest-clear to auscultation percussion. No rales wheezing or rhonchi Cardiac-regular rate and rhythm, normal S1 and S2, no murmurs Abdomen-normal bowel sounds, nontender, no hepatosplenomegaly Extremities-no cyanosis, clubbing, or edema Neuro-cranial nerves II through XII intact, motor and sensory function within normal limits, strength symmetrical , no focal deficits Psych-normal affect, normal mood Results & Data Results & Data ([facility]) Vital Signs (Past 12 Hours) Vital Signs Temp Pulse Pulse Resp BP Pulse Ox 03/04/22 07:58 36.5 C 81 20 132/77 90 03/04/22 07:35 92 03/04/22 07:28 76 17 96 03/04/22 07:17 76 03/04/22 03:20 36.7 C 74 20 130/69 94 03/04/22 03:04 96 H 96 H 18 93 03/04/22 00:07 36.7 C 95 H 99 H 21 142/90 H 92 03/03/22 22:54 36.7 C 95 H 20 117/73 91 03/03/22 22:24 96 H Laboratory Results 03/04/22 07:58 03/04/22 07:58 PG Care Time/CCT Total # of Minutes Spent Total Time Spent with Patient: Total time spent is greater than 50% in coordination of care (as documented) at patient's floor/unit and/or counseling patient: Coding Level of Care Code 48374 Subseq Hosp Care Lvl 3 Diagnoses COVID-19 U07.1 Asthma J45.909 LAD (lymphadenopathy), mediastinal R59.0 GERD (gastroesophageal reflux disease) K21.9 Esophagitis presence: esophagitis presence not specified MARY (obstructive sleep apnea) G47.33 HTN (hypertension) I10 (1) GERD (gastroesophageal reflux disease) Esophagitis presence: esophagitis presence not specified Qualified Code(s): K21.9 - Gastro-esophageal reflux disease without esophagitis
[2022-03-04] MEDS: MONTELUKAST SODIUM 10 MG TABLET PO SCH (20:23)
[2022-03-05] MEDS: ALBUT/IPRATROP 3MG/0.5MG NEB 3 ML VIAL NEB SCH ×3 (03:35→11:14)
[2022-03-05 07:55] LABS: Basophils # (auto) 0.01 K/uL (0-0.2); Basophils % (auto) 0.1 %; Hematocrit (blood only) 35.8 % (37-47); Hemoglobin 11.8 g/dL (12.0-16.0); Immature Granulocytes # (auto) 0.04 K/uL (0.00-0.02); Immature Granulocytes % (auto) 0.4 %; Lymphocytes # (auto) 0.51 K/uL (1.2-3.4); Lymphocytes % (auto) 5.5 %; Mean Corpuscular Hemoglobin 28.9 pg (25-34); Mean Corpuscular Volume 87.7 fL (80-100); Mean Platelet Volume 10.8 fL (7.4-10.4); Monocytes # (auto) 0.49 K/uL (0.11-0.59); Monocytes % (auto) 5.3 %; Neutrophils # (auto) 8.23 K/uL (1.4-6.5); Neutrophils % (auto) 88.7 %; Platelet Count 215 K/uL (130-400); RDW Coefficient of Variation 14.3 % (11.5-14.5); RDW Standard Deviation 45.8 fL (36.4-46.3); Red Blood Count 4.08 M/uL (4.2-5.4); White Blood Count 9.28 K/uL (4.8-10.8)
[2022-03-05 08:15] LABS: BUN Creatinine Ratio 28.9 (10-20); Calcium 9.4 mg/dl (8.5-10.1); Creatinine Clr Calc Pharmacy 83.9 ml/min; Est GFR (African American) 89.5 ml/min; Est GFR (Non-African American) 77.2 ml/min; Magnesium 2.4 mg/dl (1.7-2.4); Potassium 4.7 mmol/L (3.5-5.1)
[2022-03-05] MEDS: AZITHROMYCIN 250 MG TAB PO SCH (08:25)
[2022-03-05] MEDS: CHOLECALCIFEROL 1,000 UNITS 25 MCG TAB PO SCH (08:25)
[2022-03-05] MEDS: ENOXAPARIN INJ 40 MG/0.4 ML SYR SQ SCH (08:26)
[2022-03-05] MEDS: METOPROLOL SUCC 50MG EXT REL TAB PO SCH (08:26)
[2022-03-05] MEDS: FLUTICASONE PROPIONATE NA SPR 16 GM BTL NAE SCH (08:26)
[2022-03-05] MEDS: FUROSEMIDE 20 MG TAB PO SCH (08:26)
[2022-03-05] MEDS: UMECLIDINIUM BROMIDE 62.5MCG/BLISTER 7 PUFFS/INHALER INH SCH (08:26)
[2022-03-05] MEDS: PANTOprazole 40 MG TAB PO SCH (08:26)
[2022-03-05] MEDS: FLUTICASONE/VILANTEROL 100/25MCG 14 PUFFS/INHALER INH SCH (08:26)
[2022-03-05] MEDS: dilTIAZem HCL 180 MG CAPCR PO SCH (08:26)
[2022-03-05] MEDS: dexAMETHasone 6 MG in SYRINGE 0 ML IV SCH (08:34)
--- NOTE | 2022-03-05 10:21 | Hospitalist Progress Note ---
Date of Service March 05, 2022 Assessment & Plan (1) COVID-19: Plan: COVID 19 Positive. Not hypoxic on room air. Hemodynamically stable. She is not short of breath at rest. Chest x-ray is negative. Treated with IV Decadron and azithromycin. No indication for remdesivir at this time. (2) Asthma: Plan: No overt wheezing at this time. Stable. Continue nebulizer treatments while hospitalized. (3) LAD (lymphadenopathy), mediastinal: Plan: Followed by pulmonary- No change - no further imaging studies for following recommended in February visit - Previous noted pulmonary nodules have resolved (4) GERD (gastroesophageal reflux disease): Plan: Continue PPI (5) MARY (obstructive sleep apnea): Plan: CPAP while in house - AutoPAP - her CPAP machine was recalled and has not received a replacment yet (6) HTN (hypertension): Plan: Controlled - Continue with Diltiazem - Continue Metoprolol Plan: discharge to home today March 05, on prednisone taper, po azithromycin, aspirin bid. Admission and Anticipated Discharge Date Admission Date: March 03, 2022 Subjective Alert and oriented. No acute distress. She remains on room air. She will be discharged home today. Review of Systems Review of Systems: Constitutional-no fever or chills ENT-no blurred vision, no double vision, no epistaxis, no sore throat Respiratory-no cough, no wheezing. Mild dyspnea on exertion Cardiac-no palpitations, no chest pain, no syncope GI-no nausea, vomiting, diarrhea, melena, hematochezia -no urinary retention, no urinary incontinence, no dysuria, no hematuria Musculoskeletal-no joint pain, no muscle tenderness Skin-no bruising, no rashes, no pruritus Neuro-no isolated weakness, no paresthesia, no weakness Psych-no depression, no anxiety Physical Exam Physical Exam: General-alert and oriented x3, no fevers, no chills. Obese HEENT-head atraumatic and normocephalic, TMs intact bilaterally, pupils equal and reactive to light, extraocular muscles intact Neck-no lymphadenopathy or thyromegaly, trachea midline Chest-clear to auscultation percussion. No rales wheezing or rhonchi Cardiac-regular rate and rhythm, normal S1 and S2, no murmurs Abdomen-normal bowel sounds, nontender, no hepatosplenomegaly Extremities-no cyanosis, clubbing, or edema Neuro-cranial nerves II through XII intact, motor and sensory function within normal limits, strength symmetrical , no focal deficits Psych-normal affect, normal mood Results & Data Results & Data ([facility]) Vital Signs (Past 12 Hours) Vital Signs Temp Pulse Pulse Resp BP BP Pulse Ox 03/05/22 08:21 36.7 C 96 H 20 144/82 H 96 03/05/22 07:47 96 03/05/22 07:37 80 16 99 03/05/22 07:30 36.4 C L 84 18 104/50 L 99 03/05/22 04:00 36.2 C L 84 20 139/80 98 03/05/22 03:35 84 85 20 95 03/04/22 23:06 36.4 C L 85 20 132/72 99 03/04/22 22:49 84 19 94 03/04/22 22:41 84 19 94 Laboratory Results 03/05/22 06:54 03/05/22 06:54 PG Care Time/CCT Total # of Minutes Spent Total Time Spent with Patient: Total time spent is greater than 50% in coordination of care (as documented) at patient's floor/unit and/or counseling patient: Coding Level of Care Code 09215 Subseq Hosp Care Lvl 3 Diagnoses COVID-19 U07.1 Asthma J45.909 LAD (lymphadenopathy), mediastinal R59.0 GERD (gastroesophageal reflux disease) K21.9 Esophagitis presence: esophagitis presence not specified MARY (obstructive sleep apnea) G47.33 HTN (hypertension) I10 (1) GERD (gastroesophageal reflux disease) Esophagitis presence: esophagitis presence not specified Qualified Code(s): K21.9 - Gastro-esophageal reflux disease without esophagitis
--- NOTE | 2022-03-05 10:23 | Discharge Summary ---
Date of Service March 05, 2022 Admission HPI Per Admitting Provider 61 YOF with medical history of: Asthma (receives Benralizumab), Pulmonary nodule, GERD, HFpEF, MARY, Goiter, PVCs, HTN. Patient comes in today for complaints of 2 day history of dyspnea. She felt little dyspneic on Sunday and went and got her Benralizumab injection on at allergy. She feels that after that she became more dyspneic and wheezing more. She usually uses her nebulizer usually 1-2 times per day and her Albuterol inhaler 1-2 times per day. Over the past 24 hours she reports using both her GEOFF inhaler and nebulizer 3-4 times with minimal relief. She was awoken last night at 3 o'clock feeling dyspneic and needed to use her nebulizer. She got up this morning with no immediate improvement in her respiratory status. She came to the [facility]MD also because she got dizzy upon standing up this morning. In the EMD the patient had routine labs performed to also include an ABG. She had ECG performed. She was reported as Hypoxic in the 80s. She was given 2 albuterol nebulizers, magnesium and 60mg of Methyl-pred, and 500-mg of Azithromycin. Patient states her breathing has improved, she remains with some wheezing on exam. Patient COVID test returned POSITIVE during her admission process. She is not vaccinated. Patient will be continued on Decadron 6mg IV daily, continue with scheduled nebulizers overnight. Supportive therapy. She is on CPAP at home but her device has been recalled. CPAP AUTOPAP at night or as needed. COVID test on admission is: POSITIVE Principal Diagnosis COVID-19 infection, dyspnea on exertion Discharge Exam General-alert and oriented x3, no fevers, no chills. Obese HEENT-head atraumatic and normocephalic, TMs intact bilaterally, pupils equal and reactive to light, extraocular muscles intact Neck-no lymphadenopathy or thyromegaly, trachea midline Chest-clear to auscultation percussion. No rales wheezing or rhonchi Cardiac-regular rate and rhythm, normal S1 and S2, no murmurs Abdomen-normal bowel sounds, nontender, no hepatosplenomegaly Extremities-no cyanosis, clubbing, or edema Neuro-cranial nerves II through XII intact, motor and sensory function within normal limits, strength symmetrical , no focal deficits Psych-normal affect, normal mood Discharge Data Allergies Allergy/AdvReac Type Severity Reaction Status Date / Time lisinopril AdvReac Unknown Cough Verified 03/03/22 17:27 Consultations 03/03/22 17:03 ED Decision to Admit Stat Hospital Course (1) COVID-19: COVID 19 Positive. Not hypoxic on room air. Hemodynamically stable. She is not short of breath at rest. Chest x-ray is negative. Treated with IV Decadron and azithromycin. No indication for remdesivir at this time. (2) Asthma: No overt wheezing at this time. Stable. Continue nebulizer treatments while hospitalized. (3) LAD (lymphadenopathy), mediastinal: Followed by pulmonary- No change - no further imaging studies for following recommended in February visit - Previous noted pulmonary nodules have resolved (4) GERD (gastroesophageal reflux disease): Continue PPI (5) MARY (obstructive sleep apnea): CPAP while in house - AutoPAP - her CPAP machine was recalled and has not received a replacment yet (6) HTN (hypertension): Controlled - Continue with Diltiazem - Continue Metoprolol discharge to home today March 05, on prednisone taper, po azithromycin, aspirin bid. Total Time Total Time Spent Total Time Spent (In Minutes): 35 minutes Discharge Plan Discharge Items Patient Disposition: Home - Self-Care Reason For Visit: DYSPNEA, COVID 19 Discharge Diagnosis: COVID-19 infection, dyspnea on exertion Activity: Per Instructions section Activity Comment: Avoid overexertion until shortness of breath resolves Non-emergency contact: Primary Care Provider Call non-emergency contact if: you have any medication questions and your symptoms worsen Follow-up/Referrals: Fariha Guaman DO [Primary Care Provider] - Diet: Heart Healthy Addtl Attending Provider Instructions: Take azithromycin, prednisone, aspirin as directed Pending Studies at Discharge: No Stand-Alone Forms: [employer], Smoking Cessation Medications and DC Order Prescriptions: New azithromycin 250 mg Tablet 250 mg PO QAM Qty: 5 RF: 0 prednisone 10 mg tablet See Rx Instructions .ROUTE .COMPLEX Qty: 12 RF: 0 aspirin 81 mg capsule 81 mg PO BID MDD Twice a day for 5 days Qty: 10 RF: 0 Continued pantoprazole 40 mg tablet,delayed release (DR/EC) 40 mg PO QAM Qty: 90 RF: 1 ipratropium-albuterol 0.5 mg-3 mg(2.5 mg base)/3 mL solution for nebulization 3 ml NEB Q4H PRN (Reason: Shortness Of Breath Or Wheezing) Qty: 180 RF: 5 fluticasone propionate [Allergy Relief (fluticasone)] 50 mcg/actuation spray,suspension 1 spray INTNAS QAM Qty: 16 RF: 1 furosemide 20 mg tablet 20 mg PO QAM Qty: 90 RF: 1 omega 4-sya-uhq-fish oil [Fish Oil] 1,000 mg (120 mg-180 mg) capsule 1 cap PO QAM RF: 0 budesonide-formoterol [Symbicort] 160-4.5 mcg/actuation HFA aerosol inhaler 2 puff inhalation BID Qty: 10.2 RF: 8 montelukast [Singulair] 10 mg tablet 10 mg PO QPM Qty: 90 RF: 2 Spiriva Respimat 2.5 mcg/actuation mist 2 puff inhalation QAM Qty: 4 RF: 8 Fasenra 30 mg/mL syringe 30 mg subcut .COMPLEX Qty: 1 RF: 11 albuterol sulfate [Ventolin HFA] 90 mcg/actuation HFA aerosol inhaler 2 puff INH Q6H PRN (Reason: Shortness Of Breath Or Wheezing) Qty: 8.5 RF: 11 cholecalciferol (vitamin D3) [Vitamin D3] 50 mcg (2,000 unit) Tablet 50 mcg PO QAM RF: 0 ibuprofen 200 mg Tablet 600 mg PO UD PRN (Reason: Pain) RF: 0 diltiazem HCl 180 mg capsule,extended release 24hr 180 mg PO QAM RF: 0 metoprolol succinate 50 mg tablet extended release 24 hr 50 mg PO QAM RF: 0 levocetirizine 5 mg tablet 5 mg PO DAILY RF: 0 guaifenesin [Mucinex] 600 mg tablet extended release 12hr 1,200 mg PO UD PRN (Reason: Cough) RF: 0 Sutab 1.479-0.188- 0.225 gram tablet 1 tab PO UD PRN (Reason: colonoscopy prep) RF: 0 Discharge Orders: Discharge Order (Routine); Ordered 03/05/22 Ordered By: Kelby Samayoa Admission Data Admit Date/Time: 03/03/22 17:45 Attending Provider: Kelby Samayoait Provider: Santosh Farias Primary Care Provider: Fariha Guaman Other Providers: Santosh Farias Coding Level of Care Code D/C DAY MANAGEMENT >30 MINS Diagnoses COVID-19 U07.1 Asthma J45.909 LAD (lymphadenopathy), mediastinal R59.0 GERD (gastroesophageal reflux disease) K21.9 Esophagitis presence: esophagitis presence not specified MARY (obstructive sleep apnea) G47.33 HTN (hypertension) I10
== END 2022-03-05 12:54 | disposition home or self-care (01) | DRG 179 ==
LOC: ED 13:08 → INTOOBSV 17:45 → SUATTDRO 17:45 → 2W 17:45

== ENCOUNTER 2023-10-30 05:39 | Observation (INO) ==
[2023-10-30 06:15] LABS: Basophils # (auto) 0.01 K/uL (0.00-0.20); Basophils % (auto) 0.1 %; Hematocrit (blood only) 36.1 % (37.0-47.0); Hemoglobin 12.3 g/dl (12.0-16.0); Immature Granulocytes # (auto) 0.04 K/uL (0.01-0.20); Immature Granulocytes % (auto) 0.4 %; Lymphocytes # (auto) 1.14 K/uL (1.20-3.40); Lymphocytes % (auto) 10.2 %; Mean Corpuscular Hemoglobin 28.1 pg (25.0-34.0); Mean Corpuscular Hgb Conc 34.1 g/dL (32.0-36.0); Mean Corpuscular Volume 82.4 fL (80.0-100.0); Mean Platelet Volume 10.7 fL (9.4-12.4); Monocytes # (auto) 0.78 K/uL (0.11-0.59); Neutrophils # (auto) 9.21 K/uL (1.40-6.50); Neutrophils % (auto) 82.3 %; Platelet Count 247 K/uL (130-400); RDW Coefficient of Variation 14.6 % (11.5-14.5); RDW Standard Deviation 44.1 fL (36.4-46.3); Red Blood Count 4.38 M/uL (4.20-5.40); White Blood Count 11.18 K/ul (4.8-10.8)
[2023-10-30 06:32] LABS: Albumin Globulin Ratio 1.6 (0.9-2); Albumin Level 4.3 gm/dl (3.4-5.0); BUN Creatinine Ratio 14.1 (10-20); Bilirubin,Total 0.6 mg/dl (0.2-1.0); Calcium 9.1 mg/dl (8.6-10.3); Creatinine Clr Calc Pharmacy 101.9 ml/min; Est GFR (African American) 106.5 ml/min; Est GFR (Non-African American) 91.9 ml/min; Globulin 2.7 gm/dl (2.5-4.0); Potassium 4.3 mmol/L (3.5-5.1)
[2023-10-30 06:39] LABS: Troponin I High Sensitivity 4.9 pg/ml (0-14)
[2023-10-30] MEDS: SODIUM CHLORIDE 0.9% 1,000 ML IV ONE (06:45)
[2023-10-30] MEDS: ALBUT/IPRATROP 3MG/0.5MG NEB 3 ML VIAL NEB STA (06:46)
[2023-10-30 06:48] LABS: Magnesium 1.8 mg/dl (1.7-2.4)
--- NOTE | 2023-10-30 06:57 | Emergency Department Note ---
Impression & Plan Dizziness, SOB (shortness of breath), Influenza, Wheezing, Exacerbation of asthma ED Provider Note NAME: BRIDGETTE GARCIA AGE: 63 SEX: F : 1960 ARRIVES VIA: Ambulance INFORMANT: [Patient] ED PROVIDER(S): [Carlos Hancock MD] CHIEF COMPLAINT: Dizziness, short of breath HISTORY OF PRESENT ILLNESS: The patient is a 63-year-old female with a history of asthma. The patient states that last evening, she was short of breath and used her nebulizer. This morning, about 2.5 hours ago, she stood up and was very dizzy. She felt nauseated. The patient felt some right hand numbness that would come and go. No weakness to 1 side of the body or the other. The patient eventually called the ambulance. She was very short of breath when she walked to the ambulance. She has not had fever. Patient has noticed an increased cough since arriving in the ED. She has brought up some phlegm. There has been no diarrhea, she has not experience chest pain or palpitations. PMHx/PSHx/Social Hx: See Below PHYSICAL EXAM: GENERAL: Patient is in no acute distress. HEENT: No acute trauma, normocephalic atraumatic, mucous membranes moist, no nasal congestion. NECK: No stridor, no adenopathy, no meningismus, trachea is midline. LUNGS: Diminished breath sounds with wheezing bilaterally. There is an increased respiratory rate but no real respiratory distress. A moist cough is noted. HEART: Without murmurs gallops or rubs, regular rate and rhythm. ABDOMEN: Soft, nontender, no peritonitis. EXTREMITIES: No cyanosis, full range of motion of all the joints without pain or difficulty. NEUROLOGIC: Oriented x 3, no acute motor or sensory deficits, no focal weakness. No speech slur or facial droop, no extremity drift or cerebellar dysfunction. SKIN: No jaundice, no diaphoresis. DIFFERENTIAL DIAGNOSIS: Pneumonia, bronchitis, viral illness, exacerbation of asthma, electrolyte imbalance, anemia, dysrhythmia, stroke or TIA, among others. EMERGENCY DEPARTMENT PROCEDURES: MEDICAL DECISION MAKING: There is a mild leukocytosis, this could be consistent with infection. There was a normal hemoglobin and platelet count. No renal failure or significant electrolyte abnormality. No concerning liver enzyme elevation. Urinalysis did not show obvious infection. Respiratory bio fire was positive for influenza B as well as rhinovirus. Chest x-ray showed congestion of both lung bases consistent with potential early infiltrate versus some atelectasis. On exam, the patient was wheezing and coughing and appeared to have an increased respiratory rate. She did not have any focal neurologic findings. Brain CT was done, there was no acute bleed or mass effect. The patient received a DuoNeb. She was given oral Tamiflu. She received a liter of IV saline for hydration. She was given IV Solu-Medrol. She received IV ceftriaxone as antibiotic coverage. I suspect the patient's dizziness is from her respiratory infection. She appears to have influenza with a flare of asthma, she may have an early pneumonia forming. I highly doubt stroke given her exam and history and findings on today's workup. Given the dyspnea, the dizziness, the wheezing, her asthma history, her shortness of breath, I do think she requires a hospital stay. I did speak with the patient and case management, the on-call hospitalist was consulted. Prior/Outside records/notes reviewed: Today's EMS notes describing her presentation and transport to this hospital. ECG per my interpretation: Indication was shortness of breath. The ECG shows a normal sinus rhythm with a rate of 89. There is a left bundle branch block. There is no acute ST elevation, no PVCs. QTc is 464. Continuous Cardiac Monitoring per my interpretation: An order was placed for continuous cardiac monitoring. The monitor shows a rate of 93 with normal sinus rhythm. Imaging/x-ray results per my interpretation: Chest x-ray shows congestion at the bases especially on the left, pneumonia was considered. There was no pneumothorax. Chronic Medical/Social conditions affecting care: History of asthma. Care/Management discussed with: Case management, the on-call hospitalist. Level of care consideration(s): After review of the information above and other included data: --I believe the patient requires escalation of care to admission DISPOSITION: Admission Past Med/Surg History Medical History Mixed conductive and sensorineural hearing loss of left ear with restricted hearing of right ear Sensorineural hearing loss (SNHL) of right ear with restricted hearing of left ear Positive colorectal cancer screening using Cologuard test Refuses colonoscopy- 08/07/22 COVID-19 COVID-19 Palpitations SOMETIMES ? 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 2. BETHESDA SYSTEM FOR REPORTING THYROID CYTOPATHOLOGY: CATEGORY 2, BENIGN. 3. LYMPHOCYTIC THYROIDITIS NOTED. Chronic cough Persistent asthma CONTROLLED CURRENTLY Left thyroid nodule Incidental finding on CT 08/06/2019: 1.2 centimeter left thyroid nodule 1.8 cm hypoechoic left lobe thyroid nodule -ultrasound 08/12/[address] scan 08/06/2019 Cardiomegaly PT DENIES HTN (hypertension) Surgical History S/P appendectomy Family History Father Cancer Mother Hypertension Other No family history of adverse response to anesthesia No family history of bleeding disorder Denies family history of Ovarian cancer Prostate cancer Myocardial infarction Breast cancer Lung cancer Colorectal cancer Social History Smoking Status: Never smoker Tobacco Type: Cigarettes Second Hand Exposure: No; Do You Dip or Chew Tobacco: No; Tobacco Cessation Education Requested by Patient: No Hx Alcohol Use: No Hx Substance Use: No Preferred Language: Maori Communication Ability: Effective Visual Impairment: Limited Hearing Ability: Normal Bioinformatics Specialist Required: No Beliefs That Will Affect Care: None marital status: / marital status details: passed 2016 Current Living Situation: Family Current Living Situation Comment: Live with both sons at home in [place] current occupational status: unemployed current occupation: homemaker How many Children do You have: 6 Other Information That Helps Us Care for You: No Feels Safe at Home: Yes Childhood Exposure to Second-Hand Smoke: No Diet: regular Diet Comment: regular caffeine: Yes (1 cup) during the past year weight has: remained stable Dental Care, Regularly: No Physical Activity Frequency: Daily Physical Activity Frequency Comment: walking Seatbelt Use: always Sunscreen Use: No Assistive Devices: CPAP Allergies Allergies Allergy/AdvReac Type Severity Reaction Status Date / Time lisinopril AdvReac Unknown Cough Verified 10/30/23 09:19 Home Meds Home Medications Medication Instructions Recorded Confirmed cholecalciferol (vitamin D3) 50 50 mcg PO QAM 08/19/20 10/30/23 mcg (2,000 unit) tablet (Vitamin D3) omega 1-ktc-nit-fish oil 1,000 mg 1 cap PO QAM 01/02/22 10/30/23 (120 mg-180 mg) capsule (Fish Oil) guaifenesin 600 mg tablet, 1,200 mg PO UD PRN Cough 01/25/22 10/30/23 extended release 12 hr (Mucinex) ibuprofen 200 mg tablet 600 mg PO UD PRN Pain 01/25/22 10/30/23 albuterol sulfate 90 mcg/actuation 2 puff inhalation Q6H PRN 10/30/23 10/30/23 aerosol inhaler Shortness Of Breath Or Wheezing Previous Rx's Medication Instructions Recorded ipratropium 0.5 mg-albuterol 3 mg 3 ml NEB Q4H PRN Shortness Of 12/07/22 (2.5 mg base)/3 mL nebulization Breath Or Wheezing #180 mL soln montelukast 10 mg tablet 10 mg PO QPM #90 tabs 12/07/22 (Singulair) tiotropium bromide 2.5 2 puff inhalation QAM #4 grams 12/07/22 mcg/actuation mist for inhalation (Spiriva Respimat) Symbicort 160 mcg-4.5 2 puff inhalation BID #10.2 grams 12/28/22 mcg/actuation HFA aerosol inhaler (budesonide-formoterol) atorvastatin 20 mg tablet 20 mg PO QPM #90 tabs 02/26/23 nebulizers #1 ea 03/16/23 potassium chloride 20 mEq 20 meq PO DAILY 3 weeks #21 tabs 03/16/23 tablet,extended release(part/cryst) benralizumab 30 mg/mL subcutaneous 30 mg subcut .COMPLEX #1 mL 03/19/23 auto-injector (Fasenra Pen) levocetirizine 5 mg tablet 5 mg PO DAILY #90 tabs 04/20/23 fluticasone propionate 50 1 spray intranasal QAM #16 grams 06/04/23 mcg/actuation nasal spray,suspension (Allergy Relief (fluticasone)) diltiazem HCl 180 mg 180 mg PO QAM #90 caps 08/06/23 capsule,extended release 24 hr furosemide 20 mg tablet 20 mg PO QAM #90 tabs 08/10/23 metoprolol succinate 50 mg 50 mg PO QAM #90 tabs 09/06/23 tablet,extended release 24 hr pantoprazole 40 mg tablet,delayed 40 mg PO QAM #90 tabs 09/17/23 release Results & Data (ED) Vital Signs Vital Signs - 24 hr 10/30/23 05:41 10/30/23 05:51 10/30/23 05:51 Temperature 37.0 C Temperature Source Oral Pulse Rate 95 H 91 H Pulse Rate from SpO2 Sensor Pulse Rhythm Regular Pulse Strength Normal Respiratory Rate 20 Respiratory Effort / Characteristics Non-Labored Spontaneous Respiratory Depth Normal Respiratory Pattern Regular Blood Pressure 161/91 H Blood Pressure Mean 114 Blood Pressure Position Sitting Pulse Oximetry 96 97 Oxygen Delivery Method Room Air Room Air Sepsis Recent Fever Within 48 Hours No Sepsis New/Unexplained Change in Mental Status N/A Sepsis Action Taken by Nursing No Action Required 10/30/23 05:51 10/30/23 06:01 10/30/23 06:30 Temperature Temperature Source Pulse Rate 91 H 100 H 93 H Pulse Rate from SpO2 Sensor 91 H 104 H 88 Pulse Rhythm Pulse Strength Respiratory Rate 20 20 20 Respiratory Effort / Characteristics Respiratory Depth Respiratory Pattern Blood Pressure 161/91 H 138/107 H 129/82 Blood Pressure Mean 114 117 97 Blood Pressure Position Pulse Oximetry 96 96 96 Oxygen Delivery Method Room Air Room Air Room Air Sepsis Recent Fever Within 48 Hours Sepsis New/Unexplained Change in Mental Status Sepsis Action Taken by Nursing 10/30/23 07:00 10/30/23 07:00 10/30/23 07:30 Temperature Temperature Source Pulse Rate 85 88 Pulse Rate from SpO2 Sensor 66 72 Pulse Rhythm Pulse Strength Respiratory Rate 21 18 Respiratory Effort / Characteristics Respiratory Depth Respiratory Pattern Blood Pressure 134/72 Blood Pressure Mean 115 Blood Pressure Position Pulse Oximetry 100 96 Oxygen Delivery Method Sepsis Recent Fever Within 48 Hours Sepsis New/Unexplained Change in Mental Status Sepsis Action Taken by Nursing 10/30/23 07:31 10/30/23 07:31 10/30/23 08:00 Temperature Temperature Source Pulse Rate 90 94 H Pulse Rate from SpO2 Sensor 92 H 93 H Pulse Rhythm Pulse Strength Respiratory Rate 14 18 Respiratory Effort / Characteristics Respiratory Depth Respiratory Pattern Blood Pressure 128/66 Blood Pressure Mean 86 Blood Pressure Position Pulse Oximetry 94 98 Oxygen Delivery Method Sepsis Recent Fever Within 48 Hours Sepsis New/Unexplained Change in Mental Status Sepsis Action Taken by Nursing 10/30/23 08:00 Temperature Temperature Source Pulse Rate Pulse Rate from SpO2 Sensor Pulse Rhythm Pulse Strength Respiratory Rate Respiratory Effort / Characteristics Respiratory Depth Respiratory Pattern Blood Pressure 139/77 Blood Pressure Mean 96 Blood Pressure Position Pulse Oximetry Oxygen Delivery Method Sepsis Recent Fever Within 48 Hours Sepsis New/Unexplained Change in Mental Status Sepsis Action Taken by [facility] Medications Current Medication List: was personally reviewed by me Laboratory Data Attestation: I reviewed the patient's lab results. 10/30/23 05:55 10/30/23 05:55 Lab Results 10/30/23 10/30/23 Range/Units 05:50 05:55 WBC 11.18 H (4.8-10.8) K/ul RBC 4.38 (4.20-5.40) M/uL Hgb 12.3 (12.0-16.0) g/dl Hct 36.1 L (37.0-47.0) % MCV 82.4 (80.0-100.0) fL MCH 28.1 (25.0-34.0) pg MCHC 34.1 (32.0-36.0) g/dL RDW Std Deviation 44.1 (36.4-46.3) fL RDW Coeff of Niesha 14.6 H (11.5-14.5) % Plt Count 247 (130-400) K/uL MPV 10.7 (9.4-12.4) fL Immature Gran % (Auto) 0.4 % Neut % (Auto) 82.3 % Lymph % (Auto) 10.2 % Saunders % (Auto) 7.0 % Eos % (Auto) 0.0 % Baso % (Auto) 0.1 % Neut # (Auto) 9.21 H (1.40-6.50) K/uL Lymph # (Auto) 1.14 L (1.20-3.40) K/uL Saunders # (Auto) 0.78 H (0.11-0.59) K/uL Eos # (Auto) 0.00 (0.00-0.50) K/uL Baso # (Auto) 0.01 (0.00-0.20) K/uL Immature Gran # (Auto) 0.04 (0.01-0.20) K/uL Sodium 140 (136-145) mmol/L Potassium 4.3 (3.5-5.1) mmol/L Chloride 106 (98-107) mmol/L Carbon Dioxide 28 (21-32) mmol/L Anion Gap 6 (3-11) BUN 10 (6-23) mg/dl Creatinine 0.71 (0.6-1.2) mg/dl Est Cr Clr Drug Dosing 101.9 ml/min Est GFR ( Amer) 106.5 ml/min Est GFR (Non-Af Amer) 91.9 ml/min BUN/Creatinine Ratio 14.1 (10-20) Glucose 112 H (70-99(Fasting)) mg/dl Calcium 9.1 (8.6-10.3) mg/dl Magnesium 1.8 (1.7-2.4) mg/dl Total Bilirubin 0.6 (0.2-1.0) mg/dl AST 15 (13-39) U/L ALT 14 (7-52) U/L Alkaline Phosphatase 86 (34-104) U/L Troponin I High Sens 4.9 (0-14) pg/ml Total Protein 7.0 (6.0-8.3) gm/dl Albumin 4.3 (3.4-5.0) gm/dl Globulin 2.7 (2.5-4.0) gm/dl Albumin/Globulin Ratio 1.6 (0.9-2) Adenovirus (PCR) Not Detected (NotDetected) B. pertussis DNA (PCR) Not Detected (NotDetected) B.parapertussis DNA PCR Not Detected (NotDetected) C. pneumoniae DNA (PCR) Not Detected (NotDetected) Coronavirus OC43 (PCR) Not Detected (NotDetected) Coronavirus HKU1 (PCR) Not Detected (NotDetected) Coronavirus 229E (PCR) Not Detected (NotDetected) SARS-CoV-2 (PCR) Not Detected (NotDetected) Coronavirus NL63 (PCR) Not Detected (NotDetected) Human Metapneumovir PCR Not Detected (NotDetected) Influenza Type A (PCR) Not Detected (NotDetected) Influenza Type B (PCR) DETECTED A (NotDetected) M. pneumoniae (PCR) Not Detected (NotDetected) Parainfluenza 1 (PCR) Not Detected (NotDetected) Parainfluenza 2 (PCR) Not Detected (NotDetected) Parainfluenza 3 (PCR) Not Detected (NotDetected) Parainfluenza 4 (PCR) Not Detected (NotDetected) RSV (PCR) Not Detected (NotDetected) Entero/Rhino (PCR) DETECTED A (NotDetected) Administered Medications Diltiazem HCl (Diltiazem Hcl 180 Mg Capcr) 180 mg PO [facility] Stop: 11/29/23 09:52 Last Admin: 10/30/23 10:48 Dose: 180 mg Documented By: AIDAN Fluticasone Propionate (Fluticasone Propionate Na Spr 16 Gm Btl) 1 sprays [facility] Stop: 11/29/23 09:52 Last Admin: 10/30/23 10:47 Dose: 1 sprays Documented By: AIDAN Fluticasone/Vilanterol (Fluticasone/Vilanterol 200/25mcg 14 Puffs/Inhaler) 1 puffs INH DAILY [facility] Stop: 11/29/23 10:59 Last Admin: 10/30/23 13:17 Dose: 1 puffs Documented By: DARIEL Furosemide (Furosemide 20 Mg Tab) 20 mg PO [facility] Stop: 11/29/23 09:52 Last Admin: 10/30/23 10:48 Dose: 20 mg Documented By: AIDAN Metoprolol Succinate (Metoprolol Succ 50mg Ext Rel Tab) 50 mg PO [facility] Stop: 11/29/23 09:52 Last Admin: 10/30/23 10:48 Dose: 50 mg Documented By: AIDAN Pantoprazole Sodium (Pantoprazole 40 Mg Tab) 40 mg PO [facility] Stop: 11/29/23 09:52 Last Admin: 10/30/23 10:48 Dose: 40 mg Documented By: AIDAN Discontinued Medications Albuterol (Albut/Ipratrop 3mg/0.5mg Neb 3 Ml Vial) 3 ml NEB NOW STA; Protocol Stop: 10/30/23 06:43 Last Admin: 10/30/23 06:46 Dose: 3 ml Documented By: JAI Furosemide (Furosemide 40 Mg/4 Ml Vial) 40 mg IV ONE ONE Stop: 10/30/23 09:54 Last Admin: 10/30/23 10:48 Dose: 40 mg Documented By: AIDAN Sodium Chloride (Nss) 1,000 mls @ 999 mls/hr IV .Q1H1M ONE Stop: 10/30/23 07:28 Last Infusion: 10/30/23 07:47 Dose: Infused Documented By: Admin: 10/30/23 06:45 Dose: 999 mls/hr Documented By: JAI Ceftriaxone Sodium (Rocephin) 2,000 mg in 50 mls @ 100 mls/hr IV NOW STA Stop: 10/30/23 08:34 Last Infusion: 10/30/23 09:55 Dose: Infused Documented By: Admin: 10/30/23 08:57 Dose: 100 mls/hr Documented By: AIDAN Methylprednisolone (Methylprednisolone 125 Mg/2 Ml Vial) 60 mg IV NOW STA Stop: 10/30/23 07:12 Last Admin: 10/30/23 07:54 Dose: 60 mg Documented By: AIDAN Oseltamivir Phosphate (Oseltamivir Phosphate 75 Mg Cap) 75 mg PO NOW STA; Protocol Stop: 10/30/23 07:12 Last Admin: 10/30/23 07:54 Dose: 75 mg Documented By: AIDAN Imaging Data Radiologist's Impression: Chest X-Ray 10/30/23 06:29 XR chest 1V portable CLINICAL HISTORY: cough TECHNIQUE: Single frontal radiograph of the chest was obtained. Comparison: Comparison is made to chest radiograph of 07/19/2023 FINDINGS: Exam is limited by underpenetration. Cardiomegaly is noted. The lungs are clear. Likely not evidence of pleural effusion or pneumothorax. IMPRESSION: No acute chest disease. ACT 112: Negative or not required by law. Electronically signed by: Rod Arellano M.D. 10/30/2023 6:[address] 10/30/23 06:42 CT head/brain wo con CLINICAL HISTORY: dizzy Technique: Contiguous axial CT images of the head were acquired from the base of the skull to the vertex without intravenous contrast administration. Images were viewed in brain, subdural and bone windows. Automated dose lowering techniques and/or adjustment according to patient size were utilized for this exam. Comparison: None available at the time of this dictation. Findings: The ventricles, basal cisterns, and cerebral sulci are normal. There is no acute intracranial hemorrhage or evidence of acute territorial infarction. Neither mass effect, shift of the midline structures, nor abnormal extra-axial fluid collections are shown. Soft tissue thickening seen in the sinuses most prominently in the maxillary sinuses. The orbits appear normal. There are no acute fractures of the calvaria or scalp swelling. Impression: No acute intracranial hemorrhage, no evidence of acute territorial infarction or other acute intracranial disease process. ACT 112: Negative or not required by law. Electronically signed by: Rod Arellano M.D. 10/30/2023 7:15 AM Discharge Plan Visit Data Chief Complaint: Dizziness Stated Complaint: DIZZINESS ED Provider: Carlos Hancock Discharge Problem: Dizziness, SOB (shortness of breath), Influenza, Wheezing, Exacerbation of asthma Patient Disposition: Admitted As Inpatient Condition: Fair Discharge Instructions Interventions: ED Discharge Assessment Last Done: 10/30/23 09:54 Discharge Problem: Exacerbation of asthma Qualifiers: Asthma severity: moderate Asthma persistence: unspecified Qualified Code(s): J 45.901 - Unspecified asthma with (acute) exacerbation
[2023-10-30 07:03] LABS: Adenovirus PCR Not Detected (NotDetected); Bordetella parapertussis PCR Not Detected (NotDetected); Bordetella pertussis PCR Not Detected (NotDetected); Chlamydia pneumoniae PCR Not Detected (NotDetected); Coronavirus 229E PCR Not Detected (NotDetected); Coronavirus CoV-2 (COVID19)PCR Not Detected (NotDetected); Coronavirus HKU1 PCR Not Detected (NotDetected); Coronavirus NL63 PCR Not Detected (NotDetected); Coronavirus OC43PCR Not Detected (NotDetected); Human Metapneumovirus PCR Not Detected (NotDetected); Influenza A PCR Not Detected (NotDetected); Influenza B PCR DETECTED (NotDetected); Mycoplasma pneumoniae PCR Not Detected (NotDetected); Parainfluenza Virus 1 PCR Not Detected (NotDetected); Parainfluenza Virus 2 PCR Not Detected (NotDetected); Parainfluenza Virus 3 PCR Not Detected (NotDetected); Parainfluenza Virus 4 PCR Not Detected (NotDetected); Respiratory Syncytial VirusPCR Not Detected (NotDetected); Rhinovirus/Enterovirus PCR DETECTED (NotDetected)
--- NOTE | 2023-10-30 07:17 | CT Scan Report ---
CT head/brain wo con CLINICAL HISTORY: dizzy Technique: Contiguous axial CT images of the head were acquired from the base of the skull to the [place] without intravenous contrast administration. Images were viewed in brain, subdural and bone [facility] . Automated dose lowering techniques and/or adjustment according to patient size were utilized for this exam. Comparison: None available at the time of this dictation. Findings: The ventricles, basal cisterns, and cerebral sulci are normal. There is no acute intracranial hemorrh age or evidence of acute territorial infarction. Neither mass effect, shift of the midline structures , nor abnormal extra-axial fluid collections are shown. Soft tissue thickening seen in the sinuses most prominently in the maxillary sinuses. The orbits appe ar normal. There are no acute fractures of the calvaria or scalp swelling. Impression: No acute intracranial hemorrhage, no evidence of acute territorial infarction or other acute intracra nial disease process. ACT 112: Negative or not required by law. Electronically signed by: Rod Arellano M.D. 10/30/2023 7:15 AM
[2023-10-30] MEDS: methylPREDNISolone 125 MG/2 ML VIAL IV STA (07:54)
[2023-10-30] MEDS: OSELTAMIVIR PHOSPHATE 75 MG CAP PO STA (07:54)
[2023-10-30] MEDS: cefTRIAXone SODIUM 2,000 MG/50 ML BAG IV STA (08:57)
[2023-10-30] MEDS ORDERED: ACETAMINOPHEN 325 MG TAB PO PRN (09:53)
[2023-10-30] MEDS ORDERED: guaiFENesin 600 MG TABCR PO PRN (09:53)
[2023-10-30] MEDS ORDERED: methylPREDNISolone 125 MG/2 ML VIAL IV SCH (09:53)
[2023-10-30] MEDS ORDERED: ALBUT/IPRATROP 3MG/0.5MG NEB 3 ML VIAL NEB PRN (09:53)
--- NOTE | 2023-10-30 10:11 | History & Physical Report ---
Date of Service October 30, 2023 Assessment & Plan (1) Asthma: Plan: Acute asthma exacerbation likely secondary to rhinovirus and influenza A Chest x-ray showed evidence of questionable infiltrate Will continue DuoNebs scheduled and as needed IV Solu-Medrol 60 mg every 8 hours IV ceftriaxone (2) Influenza A: Plan: Symptomatic management. Continue Tamiflu 75 mg twice daily Tylenol 650 mg as needed (3) Rhinovirus: Plan: Symptomatic mgt Plan Continue to monitor in the hospital Full code DVT prophylaxis SCDs Admission and Anticipated Discharge Date Admission Date: October 30, 2023 History of Present Illness Chief Complaint: Shortness of breath, dizziness Primary Care Provider: Fariha Guaman Is a 63-year-old female with a history of asthma, morbid obesity, who presents emergency department today on account of worsening shortness of breath and wheeze and dizziness. According to the patient her symptoms started couple of hours prior to presentation. She noticed that when she stood up she got dizzy and felt nauseated. She was told that same time she was struggling to catch her breath and wheeze. So she called the ambulance and upon walking to the ambulance she states she felt dizzy. In the emergency department her vital signs are stable blood pressure 142/100 pulse 90 respiratory 22 show saturating well on room air. However BioFire was positive for influenza A and also entero and rhinovirus. CT scan of the head did not show any acute pathology chest x-ray also was essentially within normal limits. She was started on breathing treatments, Solu-Medrol and also symptomatic management will be admitted to the hospital further management. Allergies Allergy/AdvReac Type Severity Reaction Status Date / Time lisinopril AdvReac Unknown Cough Verified 10/30/23 09:19 Home Medications Medication Instructions Recorded Confirmed Type cholecalciferol (vitamin D3) 50 50 mcg PO QAM 08/19/20 10/30/23 History mcg (2,000 unit) tablet (Vitamin D3) omega 2-otc-swu-fish oil 1,000 mg 1 cap PO QAM 01/02/22 10/30/23 History (120 mg-180 mg) capsule (Fish Oil) guaifenesin 600 mg tablet, 1,200 mg PO UD PRN Cough 01/25/22 10/30/23 History extended release 12 hr (Mucinex) ibuprofen 200 mg tablet 600 mg PO UD PRN Pain 01/25/22 10/30/23 History ipratropium 0.5 mg-albuterol 3 mg 3 ml NEB Q4H PRN Shortness Of 12/07/22 10/30/23 Rx (2.5 mg base)/3 mL nebulization Breath Or Wheezing #180 mL soln montelukast 10 mg tablet 10 mg PO QPM #90 tabs 12/07/22 10/30/23 Rx (Singulair) tiotropium bromide 2.5 2 puff inhalation QAM #4 grams 12/07/22 10/30/23 Rx mcg/actuation mist for inhalation (Spiriva Respimat) Symbicort 160 mcg-4.5 2 puff inhalation BID #10.2 grams 12/28/22 10/30/23 Rx mcg/actuation HFA aerosol inhaler (budesonide-formoterol) atorvastatin 20 mg tablet 20 mg PO QPM #90 tabs 02/26/23 10/30/23 Rx nebulizers #1 ea 03/16/23 07/19/23 Rx potassium chloride 20 mEq 20 meq PO DAILY 3 weeks #21 tabs 03/16/23 10/30/23 Rx tablet,extended release(part/cryst) benralizumab 30 mg/mL subcutaneous 30 mg subcut .COMPLEX #1 mL 03/19/23 10/30/23 Rx auto-injector (Fasenra Pen) levocetirizine 5 mg tablet 5 mg PO DAILY #90 tabs 04/20/23 10/30/23 Rx fluticasone propionate 50 1 spray intranasal QAM #16 grams 06/04/23 10/30/23 Rx mcg/actuation nasal spray,suspension (Allergy Relief (fluticasone)) diltiazem HCl 180 mg 180 mg PO QAM #90 caps 08/06/23 10/30/23 Rx capsule,extended release 24 hr furosemide 20 mg tablet 20 mg PO QAM #90 tabs 08/10/23 10/30/23 Rx metoprolol succinate 50 mg 50 mg PO QAM #90 tabs 09/06/23 10/30/23 Rx tablet,extended release 24 hr pantoprazole 40 mg tablet,delayed 40 mg PO QAM #90 tabs 09/17/23 10/30/23 Rx release albuterol sulfate 90 mcg/actuation 2 puff inhalation Q6H PRN 10/30/23 10/30/23 History aerosol inhaler Shortness Of Breath Or Wheezing Past Med/Surg History Medical History Acid reflux Benign follicular tumor of thyroid gland Cardiomegaly Cholelithiasis Chronic cough Conductive hearing loss of both ears COVID-19 COVID-19 Eosinophil count raised History of recent hospitalization HTN (hypertension) LBBB (left bundle branch block) Left thyroid nodule Leg swelling Mixed conductive and sensorineural hearing loss of left ear with restricted hearing of right ear Palpitations Persistent asthma Positive colorectal cancer screening using Cologuard test Sensorineural hearing loss (SNHL) of right ear with restricted hearing of left ear SOB (shortness of breath) on exertion Surgical History S/P appendectomy Family History Father Cancer Mother Hypertension Other No family history of adverse response to anesthesia No family history of bleeding disorder Denies family history of Ovarian cancer Prostate cancer Myocardial infarction Breast cancer Lung cancer Colorectal cancer Social History Smoking Status: Never smoker Tobacco Type: Cigarettes Second Hand Exposure: No; Do You Dip or Chew Tobacco: No; Hx Alcohol Use: No Hx Substance Use: No Preferred Language: [place] Communication Ability: Effective Visual Impairment: Limited Hearing Ability: Normal Toddler Teacher Required: No Beliefs That Will Affect Care: None marital status: / marital status details: passed 2017 Current Living Situation: Family Current Living Situation Comment: SONS current occupational status: unemployed current occupation: homemaker How many Children do You have: 6 Feels Safe at Home: Yes Childhood Exposure to Second-Hand Smoke: No Diet: regular Diet Comment: regular caffeine: Yes (1 cup) during the past year weight has: remained stable Dental Care, Regularly: No Physical Activity Frequency: Daily Physical Activity Frequency Comment: walking Seatbelt Use: always Sunscreen Use: No Assistive Devices: None Review of Systems Review of Systems: All systems reviewed are negative, apart from the ones contained in the history. Physical Exam Physical Exam: The patient is awake, alert and oriented 3, well developed and well nourished, normocephalic and atraumatic, lying in bed and in no acute distress. HEENT--PERRL, EOMI, mucous membranes and oropharynx mildly dry Neck--supple. No JVD. No bruits. Thyroid normal, trachea midline, no adenopathy. Heart--normal S1 and S2. No murmurs, rubs or gallops. Lungs--reduced and on suction, bibasilar wheeze. Abdomen--normal bowel sounds and soft. Extremities--no cyanosis or clubbing. No edema. Dermatologic--normal skin turgor, normal color, no abnormal lymph nodes, no rash. Neurologic--cranial nerves II through XII grossly intact. Rheumatologic--normal range of motion. Psychiatric--normal affect. Results & Data Results & Data Vital Signs (Past 12 Hours) Vital Signs Temp Pulse Pulse Resp BP BP Pulse Ox 10/30/23 09:56 10/30/23 09:56 91 H 22 152/115 H 96 10/30/23 09:00 125/91 10/30/23 09:00 91 H 22 94 10/30/23 08:30 94 H 23 97 10/30/23 08:00 139/77 10/30/23 08:00 94 H 18 98 10/30/23 07:31 128/66 10/30/23 07:31 90 14 94 10/30/23 07:30 88 18 96 10/30/23 07:00 134/72 10/30/23 07:00 85 21 100 10/30/23 06:30 93 H 20 129/82 96 10/30/23 06:01 100 H 20 138/107 H 96 10/30/23 05:51 91 H 20 161/91 H 96 10/30/23 05:51 91 H 10/30/23 05:51 97 10/30/23 05:41 98.6 F 95 H 20 161/91 H 96 Pulse Ox O2 Del Method O2 Del Method 10/30/23 09:56 95 Room Air 10/30/23 09:56 Room Air 10/30/23 09:00 10/30/23 09:00 10/30/23 08:30 10/30/23 08:00 10/30/23 08:00 10/30/23 07:31 10/30/23 07:31 10/30/23 07:30 10/30/23 07:00 10/30/23 07:00 10/30/23 06:30 Room Air 10/30/23 06:01 Room Air 10/30/23 05:51 Room Air 10/30/23 05:51 10/30/23 05:51 Room Air 10/30/23 05:41 Room Air PG Care Time/CCT Total # of Minutes Spent Total Time Spent with Patient: Total time spent is greater than 50% in coordination of care (as documented) at patient's floor/unit and/or counseling patient: Coding Level of Care Code 94043 INT INP/OBS CARE 3/75MIN Diagnoses Asthma J45.909 Influenza A J10.1 Rhinovirus B34.8 Time Spent (min) 75
--- NOTE | 2023-10-30 10:37 | Electrocardiogram Report ---
Test Reason : Blood Pressure : / mmHG Vent. Rate : 089 BPM Atrial Rate : 089 BPM P-R Int : 160 ms QRS Dur : 128 ms QT Int : 382 ms P-R-T Axes : 049 -21 085 degrees QTc Int : 464 ms Normal sinus rhythm Left bundle branch block Abnormal ECG When compared with ECG of 29-DEC-2022 08:48, Premature ventricular complexes are no longer Present Confirmed by Trevor Pat ([id number]) on 10/30/2023 10:37:29 AM Referred By: Confirmed By:Trevor Pat
[2023-10-30] MEDS: FLUTICASONE PROPIONATE NA SPR 16 GM BTL NAE SCH (10:47)
[2023-10-30] MEDS: FUROSEMIDE 20 MG TAB PO SCH (10:48)
[2023-10-30] MEDS: dilTIAZem HCL 180 MG CAPCR PO SCH (10:48)
[2023-10-30] MEDS: METOPROLOL SUCC 50MG EXT REL TAB PO SCH (10:48)
[2023-10-30] MEDS: FUROSEMIDE 40 MG/4 ML VIAL IV ONE (10:48)
[2023-10-30] MEDS: PANTOprazole 40 MG TAB PO SCH (10:48)
[2023-10-30] MEDS: FLUTICASONE/VILANTEROL 200/25MCG 14 PUFFS/INHALER INH SCH (13:17)
[2023-10-30 13:39] LABS: Appearance Urine Clear (Clear); Bacteria Urine Automated Negative (Negative); Bilirubin Urine Negative (Negative); Blood Urine Negative (Negative); Color Urine Yellow; Glucose Urine UA Negative (Negative); Ketones Urine Negative (Negative); Leukocyte Esterase Urine Negative (Negative); Nitrite Urine Positive (Negative); Protein Urine Negative (Negative); RBC Urine Automated 0-4 /hpf (0-4); Specific Gravity Urine 1.006 (1.000-1.030); Urobilinogen Urine Negative (Negative); pH Urine 6.5 (4.5-7.5)
[2023-10-30] MEDS: methylPREDNISolone 60 MG in SYRINGE 0 ML IV SCH (17:37)
[2023-10-30] MEDS: CHOLECALCIFEROL 25 MCG (1000 UNITS) TAB PO SCH (17:37)
[2023-10-30] MEDS: ATORVASTATIN 20 MG TAB PO SCH (21:40)
[2023-10-30] MEDS: OSELTAMIVIR PHOSPHATE 75 MG CAP PO SCH (21:41)
[2023-10-31 06:28] LABS: Hematocrit (blood only) 37.7 % (37.0-47.0); Hemoglobin 12.4 g/dl (12.0-16.0); Mean Corpuscular Hemoglobin 28.2 pg (25.0-34.0); Mean Corpuscular Hgb Conc 32.9 g/dL (32.0-36.0); Mean Corpuscular Volume 85.7 fL (80.0-100.0); Mean Platelet Volume 10.5 fL (9.4-12.4); Platelet Count 259 K/uL (130-400); RDW Coefficient of Variation 14.6 % (11.5-14.5); RDW Standard Deviation 45.1 fL (36.4-46.3); White Blood Count 11.91 K/ul (4.8-10.8)
[2023-10-31 06:55] LABS: BUN Creatinine Ratio 25.6 (10-20); Calcium 9.6 mg/dl (8.6-10.3); Creatinine Clr Calc Pharmacy 84.2 ml/min; Est GFR (African American) 84.5 ml/min; Est GFR (Non-African American) 72.9 ml/min; Potassium 4.5 mmol/L (3.5-5.1)
[2023-10-31] MEDS: cefTRIAXone SODIUM 2,000 MG in DEXTROSE 5 % MINI-B 50 ML IV SCH (09:30)
--- NOTE | 2023-10-31 11:03 | Hospitalist Progress Note ---
Date of Service October 31, 2023 Assessment & Plan (1) Asthma: Plan: Acute asthma exacerbation likely secondary to rhinovirus and influenza A Chest x-ray showed evidence of questionable infiltrate Will continue DuoNebs scheduled and as needed IV Solu-Medrol 60 mg every 8 hours IV ceftriaxone Wheeze has improved a lot, as has shortness of breath (2) Influenza A: Plan: Symptomatic management. Continue Tamiflu 75 mg twice daily Tylenol 650 mg as needed (3) Rhinovirus: Plan: Symptomatic mgt Plan Continue to monitor in the hospital, hopefully discharge in next 24 hours Full code DVT prophylaxis SCDs Admission and Anticipated Discharge Date Admission Date: October 30, 2023 Subjective Patient seen and examined today, states shortness of breath is much improved wheeze also improved. Review of Systems Review of Systems: All systems reviewed are negative, apart from the ones contained in the history. Physical Exam Physical Exam: The patient is awake, alert and oriented 3, well developed and well nourished, normocephalic and atraumatic, lying in bed and in no acute distress. HEENT--PERRL, EOMI, mucous membranes and oropharynx mildly dry Neck--supple. No JVD. No bruits. Thyroid normal, trachea midline, no adenopathy. Heart--normal S1 and S2. No murmurs, rubs or gallops. Lungs--reduced and on suction, bibasilar wheeze. Abdomen--normal bowel sounds and soft. Extremities--no cyanosis or clubbing. No edema. Dermatologic--normal skin turgor, normal color, no abnormal lymph nodes, no rash. Neurologic--cranial nerves II through XII grossly intact. Rheumatologic--normal range of motion. Psychiatric--normal affect. Results & Data Results & Data Vital Signs (Past 12 Hours) Vital Signs Temp Pulse Pulse Resp BP Pulse Ox O2 Del Method 10/31/23 08:23 97.7 F 76 18 134/83 97 Room Air 10/31/23 08:00 74 10/31/23 08:00 Room Air 10/31/23 03:23 97.9 F 82 18 138/68 90 Room Air PG Care Time/CCT Total # of Minutes Spent Total Time Spent with Patient: Total time spent is greater than 50% in coordination of care (as documented) at patient's floor/unit and/or counseling patient: Coding Level of Care Code 03083 SUB INP/OBS CARE 2/35MIN Diagnoses Asthma J45.909 Influenza A J10.1 Rhinovirus B34.8 Time Spent (min) 35
[2023-10-31] MEDS: ALBUT/IPRATROP 3MG/0.5MG NEB 3 ML VIAL NEB SCH (11:52)
--- NOTE | 2023-11-01 13:49 | Discharge Summary ---
Date of Service November 01, 2023 Admission HPI Per Admitting Provider Is a 63-year-old female with a history of asthma, morbid obesity, who presents emergency department today on account of worsening shortness of breath and wheeze and dizziness. According to the patient her symptoms started couple of hours prior to presentation. She noticed that when she stood up she got dizzy and felt nauseated. She was told that same time she was struggling to catch her breath and wheeze. So she called the ambulance and upon walking to the ambulance she states she felt dizzy. In the emergency department her vital signs are stable blood pressure 142/100 pulse 90 respiratory 22 show saturating well on room air. However BioFire was positive for influenza A and also entero and rhinovirus. CT scan of the head did not show any acute pathology chest x-ray also was essentially within normal limits. She was started on breathing treatments, Solu-Medrol and also symptomatic management will be admitted to the hospital further management. Principal Diagnosis Acute asthma exacerbation secondary to influenza A and rhinovirus Discharge Exam The patient is awake, alert and oriented 3, well developed and well nourished, normocephalic and atraumatic, lying in bed and in no acute distress. HEENT--PERRL, EOMI, mucous membranes and oropharynx mildly dry Neck--supple. No JVD. No bruits. Thyroid normal, trachea midline, no adenopathy. Heart--normal S1 and S2. No murmurs, rubs or gallops. Lungs--reduced and on suction, bibasilar wheeze. Abdomen--normal bowel sounds and soft. Extremities--no cyanosis or clubbing. No edema. Dermatologic--normal skin turgor, normal color, no abnormal lymph nodes, no rash. Neurologic--cranial nerves II through XII grossly intact. Rheumatologic--normal range of motion. Psychiatric--normal affect. Discharge Data Allergies Allergy/AdvReac Type Severity Reaction Status Date / Time lisinopril AdvReac Unknown Cough Verified 10/30/23 09:19 Consultations 10/30/23 08:20 ED Decision to Admit Stat Ordered Studies 10/30/23 06:42 CT head/brain wo con Stat Hospital Course (1) Asthma: Acute asthma exacerbation likely secondary to rhinovirus and influenza A Chest x-ray showed evidence of questionable infiltrate Now resolved Discharge home Continue home inhalers. (2) Influenza A: Symptomatic management. Continue Tamiflu 75 mg twice daily Tylenol 650 mg as needed (3) Rhinovirus: Symptomatic mgt Plan Continue to monitor in the hospital, hopefully discharge in next 24 hours Full code DVT prophylaxis SCDs Total Time Total Time Spent Total Time Spent (In Minutes): 35 Discharge Plan Discharge Items Patient Disposition: Home - Self-Care Reason For Visit: INFLUENZA Discharge Diagnosis: acute asthma exacerbation from Influenza , rhinovirus Condition on Discharge: Fair Activity: Resume your previous activity Non-emergency contact: Primary Care Provider Call non-emergency contact if: you have any medication questions Follow-up/Referrals: Fariha Guaman DO [Primary Care Provider] - 11/13/23 9:20 am Diet: Regular Addtl Attending Provider Instructions: please make appointment to follow up with your regular PCP Pending Studies at Discharge: No Stand-Alone Forms: My [employer] Smoking Cessation Medications and DC Order Prescriptions: New oseltamivir [Tamiflu] 75 mg Capsule 75 mg PO BID 3 Days Qty: 6 0RF Continued budesonide-formoterol [Symbicort] 160-4.5 mcg/actuation HFA aerosol inhaler 2 puff inhalation BID Qty: 10.2 12RF Rx Instructions: Symbicort brand necessary for insurance atorvastatin 20 mg tablet 20 mg PO QPM Qty: 90 2RF potassium chloride 20 mEq tablet,ER particles/crystals 20 meq PO DAILY 21 Days Qty: 21 0RF (DME) nebulizers Misc See Rx Instructions .Route Qty: 1 0RF Rx Instructions: replacement nebulizer / old neb broken beyond repair levocetirizine 5 mg tablet 5 mg PO DAILY Qty: 90 3RF fluticasone propionate [Allergy Relief (fluticasone)] 50 mcg/actuation spray,suspension 1 spray INTNAS QAM Qty: 16 4RF Rx Instructions: Administer into each nostril once daily diltiazem HCl 180 mg capsule,extended release 24hr 180 mg PO QAM Qty: 90 3RF furosemide 20 mg tablet 20 mg PO QAM Qty: 90 1RF metoprolol succinate 50 mg tablet extended release 24 hr 50 mg PO QAM Qty: 90 1RF pantoprazole 40 mg tablet,delayed release (DR/EC) 40 mg PO QAM Qty: 90 1RF omega 7-eew-fir-fish oil [Fish Oil] 1,000 mg (120 mg-180 mg) capsule 1 cap PO QAM Spiriva Respimat 2.5 mcg/actuation mist 2 puff inhalation QAM Qty: 4 12RF montelukast [Singulair] 10 mg tablet 10 mg PO QPM Qty: 90 4RF ipratropium-albuterol 0.5 mg-3 mg(2.5 mg base)/3 mL solution for nebulization 3 ml NEB Q4H PRN (Reason: Shortness Of Breath Or Wheezing) Qty: 180 5RF Fasenra Pen 30 mg/mL auto-injector 30 mg subcut .COMPLEX Qty: 1 6RF Rx Instructions: Inject 30 mg subcutaneously every 8 weeks APPROVED for home administration Good 02/20/23-02/10/24 cholecalciferol (vitamin D3) [Vitamin D3] 50 mcg (2,000 unit) Tablet 50 mcg PO QAM ibuprofen 200 mg Tablet 600 mg PO UD PRN (Reason: Pain) guaifenesin [Mucinex] 600 mg tablet extended release 12hr 1,200 mg PO UD PRN (Reason: Cough) albuterol sulfate 90 mcg/actuation HFA aerosol inhaler 2 puff inhalation Q6H PRN (Reason: Shortness Of Breath Or Wheezing) Rx Instructions: INHALE 2 PUFFS BY MOUTH EVERY 6 HOURS NEEDED FOR SHORTNESS OF BREATH OR WHEEZING Discharge Orders: Discharge Order (Routine); Ordered 11/01/23 Ordered By: Merline Goodwin Admission Data Admit Date/Time: 10/30/23 08:28 Attending Provider: Merline Goodwin Admit Provider: Merline Goodwin Primary Care Provider: Fariha Guaman Other Providers: Merline Goodwin Other Interventions: Discharge Summary Assessment (RN) Last Done: 11/01/23 11:16 Coding Level of Care Code 34489 INP/OBS DISCH >30 MIN Diagnoses Asthma J45.909 Influenza A J10.1 Rhinovirus B34.8 Time Spent (min) 35
== END 2023-11-01 15:05 | disposition home or self-care (01) ==
LOC: ED 05:39 → INTOOBSV 08:28 → EDINP 08:28 → 4W 09:54

== ENCOUNTER 2024-06-12 17:19 | Inpatient (IN) ==
[2024-06-12 17:58] LABS: Hematocrit (blood only) 36.5 % (37.0-47.0); Immature Granulocytes # (auto) 0.03 K/uL (0.01-0.20); Immature Granulocytes % (auto) 0.4 %; Lymphocytes # (auto) 1.88 K/uL (1.20-3.40); Lymphocytes % (auto) 27.4 %; Mean Corpuscular Hemoglobin 28.4 pg (25.0-34.0); Mean Corpuscular Hgb Conc 32.9 g/dL (32.0-36.0); Mean Corpuscular Volume 86.3 fL (80.0-100.0); Mean Platelet Volume 10.6 fL (9.4-12.4); Monocytes # (auto) 0.64 K/uL (0.11-0.59); Monocytes % (auto) 9.3 %; Neutrophils # (auto) 4.31 K/uL (1.40-6.50); Neutrophils % (auto) 62.9 %; Platelet Count 242 K/uL (130-400); RDW Coefficient of Variation 14.6 % (11.5-14.5); RDW Standard Deviation 46.2 fL (36.4-46.3); Red Blood Count 4.23 M/uL (4.20-5.40); White Blood Count 6.86 K/ul (4.8-10.8)
[2024-06-12 18:15] LABS: Albumin Level 4.1 gm/dl (3.4-5.0); BUN Creatinine Ratio 19.4 (10-20); Bilirubin,Total 0.4 mg/dl (0.2-1.0); Calcium 9.3 mg/dl (8.6-10.3); Creatinine Clr Calc Pharmacy 77.4 ml/min; Magnesium 1.9 mg/dl (1.7-2.4); Potassium 3.7 mmol/L (3.5-5.1); Total Protein 6.8 gm/dl (6.0-8.3)
[2024-06-12 18:19] LABS: Troponin I High Sensitivity 6.9 pg/ml (0-14)
[2024-06-12 18:22] LABS: Partial Thromboplastin Ratio 0.9; Partial Thromboplastin Time 24 Seconds (21-31); Prothrombin Time 10.6 Seconds (9.0-12.0)
[2024-06-12] MEDS ORDERED: ACETAMINOPHEN 325 MG TAB PO PRN (18:29)
[2024-06-12] MEDS: CEFEPIME 2000MG 2,000 MG/20 ML SYR IV STA (18:40)
--- NOTE | 2024-06-12 18:50 | History & Physical Report ---
Date of Service June 12, 2024 Assessment & Plan (1) Positive blood cultures: Plan: Assessment: 1. Positive blood cultures. Question contamination versus true positivity. Repeat blood cultures have been obtained. Her blood cultures were positive for both gram-negative and gram-positive bacilli. 2. Urinary tract infection with E. coli. Continue IV cefepime at the recommendation of clinical pharmacist. 3. Morbid obesity. 4. Hx of hypertension. 5. History of COPD/asthma without acute exacerbation. 6. History of obstructive sleep apnea. CPAP protocols been ordered. 7. History of dyslipidemia. Plan: As described above. Please refer to orders for further planning. Tentative plan is to discharge on oral antibiotics once repeat blood cultures are pulmonary negative. If repeat blood cultures are positive, echocardiogram should be considered. History of Present Illness Chief Complaint: Positive blood cultures. Primary Care Provider: Fariha Guaman DO This is a 64-year-old female who was in the ER a few nights ago with chills and rigors but no fever. She was diagnosed with a UTI. She was given IV cefepime and sent home on Omnicef twice daily. She been taking her medications as prescribed. During that ER visit blood cultures were obtained and turned positive today for both gram-negative and gram-positive bacilli. She was contacted by the emergency department return to the ER for admission and repeat blood cultures. The patient returns her vital signs are stable. Blood cultures x 2 have been obtained. Consultation was obtained by the ER doctor to the ER pharmacist who is recommending IV cefepime. Subjective the patient states he feels much improved since has been on her antibiotics he said no further symptoms and is actually feeling better. Allergies Allergy/AdvReac Type Severity Reaction Status Date / Time lisinopril AdvReac Unknown Cough Verified 06/09/24 00:44 Home Medications Medication Instructions Recorded Confirmed Type cholecalciferol (vitamin D3) 50 50 mcg PO QAM 08/19/20 06/10/24 History mcg (2,000 unit) tablet (Vitamin D3) omega 2-yco-biq-fish oil 1,000 mg 1 cap PO QAM 01/02/22 06/10/24 History (120 mg-180 mg) capsule (Fish Oil) guaifenesin 600 mg tablet, 1,200 mg PO UD PRN Cough 01/25/22 06/10/24 History extended release 12 hr (Mucinex) ibuprofen 200 mg tablet 600 mg PO UD PRN Pain 01/25/22 06/10/24 History nebulizers #1 ea 03/16/23 06/10/24 Rx potassium chloride 20 mEq 20 meq PO DAILY 3 weeks #21 tabs 03/16/23 06/10/24 Rx tablet,extended release(part/cryst) albuterol sulfate 90 mcg/actuation See Rx Instructions .Route 11/02/23 06/10/24 Rx aerosol inhaler .COMPLEX #8.5 ea atorvastatin 20 mg tablet 20 mg PO QPM #90 tabs 11/02/23 06/10/24 Rx Symbicort 160 mcg-4.5 2 puff inhalation BID #10.2 grams 12/19/23 06/10/24 Rx mcg/actuation HFA aerosol inhaler (budesonide-formoterol) ipratropium 0.5 mg-albuterol 3 mg 3 ml NEB Q4H PRN Shortness Of 12/19/23 06/10/24 Rx (2.5 mg base)/3 mL nebulization Breath Or Wheezing #180 mL soln montelukast 10 mg tablet 10 mg PO QPM #90 tabs 12/19/23 06/10/24 Rx (Singulair) tiotropium bromide 2.5 2 puff inhalation QAM #4 grams 12/19/23 06/10/24 Rx mcg/actuation mist for inhalation (Spiriva Respimat) furosemide 20 mg tablet 20 mg PO QAM #90 tabs 03/10/24 06/10/24 Rx benralizumab 30 mg/mL subcutaneous 30 mg subcut .COMPLEX #1 mL 03/28/24 06/10/24 Rx auto-injector (Fasenra Pen) diltiazem HCl 180 mg 180 mg PO QAM #90 caps 04/01/24 06/10/24 Rx capsule,extended release 24 hr metoprolol succinate 50 mg 50 mg PO QAM #90 tabs 04/01/24 06/10/24 Rx tablet,extended release 24 hr pantoprazole 40 mg tablet,delayed 40 mg PO QAM #90 tabs 04/01/24 06/10/24 Rx release fluticasone propionate 50 1 spray intranasal QAM #16 grams 04/03/24 06/10/24 Rx mcg/actuation nasal spray,suspension (Allergy Relief (fluticasone)) levocetirizine 5 mg tablet 5 mg PO DAILY #90 tabs 05/07/24 06/10/24 Rx cefdinir 300 mg capsule 300 mg PO BID 5 days #10 caps 06/09/24 06/10/24 Rx Past Med/Surg History Problem List (Updated 06/12/24 @ 18:47 by Marin Robin, PhD, DO) Positive blood cultures Chills (without fever) UTI (urinary tract infection) (Acute) COPD exacerbation (Acute) Rigors (Acute) Rhinovirus Influenza A Mixed conductive and sensorineural hearing loss of left ear with restricted hearing of right ear Sensorineural hearing loss (SNHL) of right ear with restricted hearing of left ear Thyroid nodule Dyslipidemia Atypical chest pain Conductive hearing loss of both ears Hypoxia (Acute) HTN (hypertension) Asthma LAD (lymphadenopathy), mediastinal Hypersomnia Multiple pulmonary nodules Goiter Vitamin D deficiency GERD (gastroesophageal reflux disease) Tinnitus of both ears Mixed hearing loss MRAY (obstructive sleep apnea) Symptomatic PVCs Paroxysmal atrial tachycardia History of COVID-19 (11/25/20) Moderate persistent asthmatic bronchitis with exacerbation (Acute) Medical History Exacerbation of asthma Wheezing Positive colorectal cancer screening using Cologuard test COVID-19 COVID-19 Palpitations History of recent hospitalization SOB (shortness of breath) on exertion Leg swelling Acid reflux Eosinophil count raised LBBB (left bundle branch block) Benign follicular tumor of thyroid gland Chronic cough Persistent asthma Left thyroid nodule Cholelithiasis Cardiomegaly HTN (hypertension) Surgical History S/P appendectomy Family History Father Cancer Mother Hypertension Other No family history of adverse response to anesthesia No family history of bleeding disorder Denies family history of Ovarian cancer Prostate cancer Myocardial infarction Breast cancer Lung cancer Colorectal cancer Social History Smoking Status: Never smoker Second Hand Exposure: No; Do You Dip or Chew Tobacco: No; Hx Alcohol Use: No Hx Substance Use: No Preferred Language: Croatian Communication Ability: Effective Visual Impairment: Limited Hearing Ability: Normal Lubrication Technician Required: No Beliefs That Will Affect Care: None marital status: / marital status details: passed 2017 Current Living Situation: Family Current Living Situation Comment: Live with both sons at home in [place] current occupational status: unemployed current occupation: homemaker How many Children do You have: 6 Feels Safe at Home: Yes Childhood Exposure to Second-Hand Smoke: No Diet: regular Diet Comment: regular caffeine: Yes (1 cup) during the past year weight has: remained stable Dental Care, Regularly: No Physical Activity Frequency: 3-4 Times per Week Physical Activity Frequency Comment: walking Seatbelt Use: always Sunscreen Use: No Assistive Devices: None Review of Systems Review of Systems: A 10 point review of system was obtained and unless otherwise stated here or in history of present illness are negative and noncontributory to chief complaint. Physical Exam Physical Exam: In General: In general pleasant 62-year-old female is alert and oriented x 3, exam she is accompanied by her friend. She granted permission to be in the room during my interview and the examination. Patient has no specific complaints. HEENT: Normocephalic atraumatic pupils are equal round and reactive to light bilaterally. No scleral icterus no conjunctival injection external auditory canals are patent septum is in the midline nose is without discharge oral mucosa is pink and moist without lesion. Patient is noted to be partial the edentulous with dental caries. NECK: Supple no rigidity no lymphadenopathy no thyromegaly no carotid bruits no JVD no masses. HEART: Regular rate and rhythm I do not appreciate any ectopy or rub. No murmur. LUNGS: Clear to auscultation bilaterally and anteriorly with no evidence of adventitious sounds/wheezes rales or rhonchi. ABDOMEN: Obese, soft nontender, no rebound, no peritoneal signs, positive bowel sounds, no appreciable organomegaly. EXTREMITIES: Intact, no peripheral cyanosis, clubbing or edema. Strength is 5 out of 5 in extremities x4 NEUROLOGICAL: Cranial nerves II through XII are grossly intact with no focal deficit elicited upon examination. No tremor. Results & Data Results & Data Vital Signs (Past 12 Hours) Vital Signs Temp Pulse Pulse Resp BP BP Pulse Ox 06/12/24 18:36 74 18 96 06/12/24 18:36 77 19 153/86 H 96 06/12/24 17:26 36.7 C 80 18 180/89 H 96 O2 Del Method 06/12/24 18:36 Room Air 06/12/24 18:36 Room Air 06/12/24 17:26 Room Air Code Status & VTE Plan Code Status Full code. I personally discussed with patient today. PG Care Time/CCT Total # of Minutes Spent Total Time Spent with Patient: Total time spent is greater than 50% in coordination of care (as documented) at patient's floor/unit and/or counseling patient: Coding Level of Care Code 58551 INT INP/OBS CARE 3/75MIN Diagnoses Positive blood cultures R78.81
--- NOTE | 2024-06-12 19:04 | Emergency Department Note ---
History of Present Illness General Chief Complaint: Abnormal Labs/Diagnostic Testing Stated Complaint: ABN BLOODWORK, CALLED AND TOLD TO COME BACK Time Seen by Provider: 06/12/24 17:28 History of Present Illness Provider Complaint: + abnormal lab Returns today for: + called because of abnormal lab/test Description of abnormal result: Positive blood culture Associated symptoms: no fever, no chills, no chest pain, no shortness of breath, no rash, no malaise, no nausea or no abdominal pain Home Medications Medication Instructions Recorded Confirmed Type cholecalciferol (vitamin D3) 50 50 mcg PO QAM 08/19/20 06/12/24 History mcg (2,000 unit) tablet (Vitamin D3) omega 6-sqz-asm-fish oil 1,000 mg 1 cap PO QAM 01/02/22 06/12/24 History (120 mg-180 mg) capsule (Fish Oil) guaifenesin 600 mg tablet, 1,200 mg PO UD PRN Cough 01/25/22 06/12/24 History extended release 12 hr (Mucinex) ibuprofen 200 mg tablet 600 mg PO UD PRN Pain 01/25/22 06/12/24 History nebulizers #1 ea 03/16/23 06/10/24 Rx potassium chloride 20 mEq 20 meq PO DAILY 3 weeks #21 tabs 03/16/23 06/12/24 Rx tablet,extended release(part/cryst) albuterol sulfate 90 mcg/actuation See Rx Instructions .Route 11/02/23 06/12/24 Rx aerosol inhaler .COMPLEX #8.5 ea atorvastatin 20 mg tablet 20 mg PO QPM #90 tabs 11/02/23 06/12/24 Rx Symbicort 160 mcg-4.5 2 puff inhalation BID #10.2 grams 12/19/23 06/12/24 Rx mcg/actuation HFA aerosol inhaler (budesonide-formoterol) ipratropium 0.5 mg-albuterol 3 mg 3 ml NEB Q4H PRN Shortness Of 12/19/23 06/12/24 Rx (2.5 mg base)/3 mL nebulization Breath Or Wheezing #180 mL soln montelukast 10 mg tablet 10 mg PO QPM #90 tabs 12/19/23 06/12/24 Rx (Singulair) tiotropium bromide 2.5 2 puff inhalation QAM #4 grams 12/19/23 06/12/24 Rx mcg/actuation mist for inhalation (Spiriva Respimat) furosemide 20 mg tablet 20 mg PO QAM #90 tabs 03/10/24 06/12/24 Rx benralizumab 30 mg/mL subcutaneous 30 mg subcut .COMPLEX #1 mL 03/28/24 06/12/24 Rx auto-injector (Fasenra Pen) diltiazem HCl 180 mg 180 mg PO QAM #90 caps 04/01/24 06/12/24 Rx capsule,extended release 24 hr metoprolol succinate 50 mg 50 mg PO QAM #90 tabs 04/01/24 06/12/24 Rx tablet,extended release 24 hr pantoprazole 40 mg tablet,delayed 40 mg PO QAM #90 tabs 04/01/24 06/12/24 Rx release fluticasone propionate 50 1 spray intranasal QAM #16 grams 04/03/24 06/12/24 Rx mcg/actuation nasal spray,suspension (Allergy Relief (fluticasone)) levocetirizine 5 mg tablet 5 mg PO DAILY #90 tabs 05/07/24 06/12/24 Rx cefdinir 300 mg capsule 300 mg PO BID 5 days #10 caps 06/09/24 06/12/24 Rx Allergies Allergy/AdvReac Type Severity Reaction Status Date / Time lisinopril AdvReac Unknown Cough Verified 06/09/24 00:44 Past Med/Surg History Problem List (Updated 06/12/24 @ 19:04 by Berto Main MD) Bacteremia (Acute) Positive blood cultures Chills (without fever) UTI (urinary tract infection) (Acute) COPD exacerbation (Acute) Rigors (Acute) Rhinovirus Influenza A Mixed conductive and sensorineural hearing loss of left ear with restricted hearing of right ear Sensorineural hearing loss (SNHL) of right ear with restricted hearing of left ear Thyroid nodule Dyslipidemia Atypical chest pain Conductive hearing loss of both ears Hypoxia (Acute) HTN (hypertension) Asthma LAD (lymphadenopathy), mediastinal Hypersomnia Multiple pulmonary nodules Goiter Vitamin D deficiency GERD (gastroesophageal reflux disease) Tinnitus of both ears Mixed hearing loss MARY (obstructive sleep apnea) Symptomatic PVCs Paroxysmal atrial tachycardia History of COVID-19 (11/25/20) Moderate persistent asthmatic bronchitis with exacerbation (Acute) Medical History Exacerbation of asthma Wheezing Positive colorectal cancer screening using Cologuard test COVID-19 COVID-19 Palpitations History of recent hospitalization SOB (shortness of breath) on exertion Leg swelling Acid reflux Eosinophil count raised LBBB (left bundle branch block) Benign follicular tumor of thyroid gland Chronic cough Persistent asthma Left thyroid nodule Cholelithiasis Cardiomegaly HTN (hypertension) Surgical History S/P appendectomy Family History Father Cancer Mother Hypertension Other No family history of adverse response to anesthesia No family history of bleeding disorder Denies family history of Ovarian cancer Prostate cancer Myocardial infarction Breast cancer Lung cancer Colorectal cancer Social History Smoking Status: Never smoker Second Hand Exposure: No; Do You Dip or Chew Tobacco: No; Hx Alcohol Use: No Hx Substance Use: No Preferred Language: Romanian Communication Ability: Effective Visual Impairment: Limited Hearing Ability: Normal Flour Blender Required: No Beliefs That Will Affect Care: None marital status: / marital status details: passed 2016 Current Living Situation: Family Current Living Situation Comment: Live with both sons at home in [place] current occupational status: unemployed current occupation: homemaker How many Children do You have: 6 Feels Safe at Home: Yes Childhood Exposure to Second-Hand Smoke: No Diet: regular Diet Comment: regular caffeine: Yes (1 cup) during the past year weight has: remained stable Dental Care, Regularly: No Physical Activity Frequency: 3-4 Times per Week Physical Activity Frequency Comment: walking Seatbelt Use: always Sunscreen Use: No Assistive Devices: None Physical Exam 2 Vital Signs: Vital Signs - 24 hr 06/12/24 17:26 06/12/24 18:36 06/12/24 18:36 Temperature 36.7 C Temperature Source Skin Pulse Rate 80 74 Pulse Rate [Apical ] 77 Respiratory Rate 18 19 18 Respiratory Depth Normal Blood Pressure 180/89 H Blood Pressure [Le ft Arm] 153/86 H Blood Pressure Ranjana n 119 Blood Pressure Ranjana n [Left Arm] 108 Blood Pressure Pos ition [Left Arm] Semi-fowlers Pulse Oximetry 96 96 96 Oxygen Delivery Me thod Room Air Room Air Room Air Sepsis Recent Feve r Within 48 Hours No Sepsis New/Unexpla ined Change in Men demarco Status No Sepsis Action Take n by Nursing No Action Required 06/12/24 18:36 Temperature Temperature Source Pulse Rate 72 Pulse Rate [Apical ] Respiratory Rate Respiratory Depth Blood Pressure Blood Pressure [Le ft Arm] Blood Pressure Ranjana n Blood Pressure Ranjana n [Left Arm] Blood Pressure Pos ition [Left Arm] Pulse Oximetry Oxygen Delivery Me thod Sepsis Recent Feve r Within 48 Hours Sepsis New/Unexpla ined Change in Men demarco Status Sepsis Action Take n by Nursing Physical Exam: Physical Exam GENERAL: oriented to person, place, and time. appears well-developed and well- nourished. HENT: Exam performed. - Head: Normocephalic and atraumatic. EYES: Conjunctivae and EOM are normal. Right eye exhibits no discharge. Left eye exhibits no discharge. No scleral icterus. NECK: Normal range of motion. Neck supple. No JVD present. CV: Normal rate, regular rhythm, normal heart sounds and intact distal pulses. There is no peripheral edema. Palpable radial pulses bue. PULM/CHEST: Effort normal and breath sounds normal. No respiratory distress. No stridor. no wheezes. no rales. ABD: The abdomen is soft. There is no tenderness. NEURO: Motor and sensation grossly intact. SKIN: Skin is warm and dry. He is not diaphoretic. PSYCH: normal mood and affect. Behavior is normal. Judgment and thought content normal. Course Course 172: The patient was evaluated in room B10. A complete history and physical exam was performed Administered Medications Discontinued Medications Cefepime HCl (Maxipime 2000mg) 2,000 mg in 20 mls @ 5 mls/min IV NOW STA; Protocol Stop: 06/12/24 17:32 Last Admin: 06/12/24 18:40 Dose: 5 mls/min Documented By: GARRETT Medical Decision Making Medical Records Attestation: I reviewed the patient's medical records. External medical records reviewed. Patient was seen in the emergency department June 08, 2024. She was evaluated for admission and discharged with prescription cefdinir. Patient's urine culture came back positive for E. coli. Blood cultures came back positive for gram-negative as well as gram-positive bacilli Laboratory Data Attestation: I reviewed the patient's lab results. 06/12/24 17:33 06/12/24 17:33 Lab Results 06/12/24 06/12/24 Range/Units 17:33 17:39 WBC 6.86 (4.8-10.8) K/ul RBC 4.23 (4.20-5.40) M/uL Hgb 12.0 (12.0-16.0) g/dl Hct 36.5 L (37.0-47.0) % MCV 86.3 (80.0-100.0) fL MCH 28.4 (25.0-34.0) pg MCHC 32.9 (32.0-36.0) g/dL RDW Std Deviation 46.2 (36.4-46.3) fL RDW Coeff of Niesha 14.6 H (11.5-14.5) % Plt Count 242 (130-400) K/uL MPV 10.6 (9.4-12.4) fL Immature Gran % (Auto) 0.4 % Neut % (Auto) 62.9 % Lymph % (Auto) 27.4 % [place] % (Auto) 9.3 % Eos % (Auto) 0.0 % Baso % (Auto) 0.0 % Neut # (Auto) 4.31 (1.40-6.50) K/uL Lymph # (Auto) 1.88 (1.20-3.40) K/uL [place] # (Auto) 0.64 H (0.11-0.59) K/uL Eos # (Auto) 0.00 (0.00-0.50) K/uL Baso # (Auto) 0.00 (0.00-0.20) K/uL Immature Gran # (Auto) 0.03 (0.01-0.20) K/uL PT 10.6 (9.0-12.0) Seconds INR 1.0 (0.9-1.1) APTT 24 (21-31) Seconds PTT Ratio 0.9 Sodium 144 (136-145) mmol/L Potassium 3.7 (3.5-5.1) mmol/L Chloride 108 H (98-107) mmol/L Carbon Dioxide 29 (21-32) mmol/L Anion Gap 7 (3-11) BUN 18 (6-23) mg/dl Creatinine 0.93 (0.6-1.2) mg/dl Est Cr Clr Drug Dosing 77.4 ml/min eGFR 69.49 BUN/Creatinine Ratio 19.4 (10-20) Glucose 89 (70-99(Fasting)) mg/dl Lactate 1.1 (0.4-2.0) mmol/L Calcium 9.3 (8.6-10.3) mg/dl Magnesium 1.9 (1.7-2.4) mg/dl Total Bilirubin 0.4 (0.2-1.0) mg/dl Direct Bilirubin 0.0 (0-0.2) mg/dl AST 16 (13-39) U/L ALT 20 (7-52) U/L Alkaline Phosphatase 80 (34-104) U/L Troponin I High Sens 6.9 (0-14) pg/ml Total Protein 6.8 (6.0-8.3) gm/dl Albumin 4.1 (3.4-5.0) gm/dl ECG Data Attestation: I personally reviewed and interpreted this ECG as follows: Rate (beats per minute): 79 Rhythm: normal sinus Findings: + LBBB and + PVC; no ST depression, no ST elevation or no prolonged QT Comparison ECG Date: from (June 08, 2024) Change: no significant change MDM Narrative Cardiac monitoring: An order was placed for continuous cardiac monitoring. The monitor shows a rate of 80 with sinus rhythm interpreted by me [facility] and they recommend cefepime for the patient's bacteremia. Impression & Plan Bacteremia Discharge Plan Visit Data Chief Complaint: Abnormal Labs/Diagnostic Testing Stated Complaint: ABN BLOODWORK, CALLED AND TOLD TO COME BACK ED Provider: Berto Main Discharge Problem: Bacteremia Patient Disposition: Admitted As Inpatient Forms Stand Alone Forms: [facility] Prescriptions Prescriptions: No Action potassium chloride 20 mEq tablet,ER particles/crystals 20 meq PO DAILY 21 Days Qty: 21 0RF (DME) nebulizers Misc See Rx Instructions .Route Qty: 1 0RF Rx Instructions: replacement nebulizer / old neb broken beyond repair atorvastatin 20 mg tablet 20 mg PO QPM Qty: 90 2RF albuterol sulfate 90 mcg/actuation HFA aerosol inhaler See Rx Instructions .ROUTE .COMPLEX Qty: 8.5 11RF Dose Instruction: INHALE 2 PUFFS BY MOUTH EVERY 6 HOURS NEEDED FOR SHORTNESS OF BREATH OR WHEEZING Rx Instructions: INHALE 2 PUFFS BY MOUTH EVERY 6 HOURS NEEDED FOR SHORTNESS OF BREATH OR WHEEZING furosemide 20 mg tablet 20 mg PO QAM Qty: 90 1RF Fasenra Pen 30 mg/mL auto-injector 30 mg subcut .COMPLEX Qty: 1 6RF Rx Instructions: Inject 30 mg subcutaneously every 8 weeks APPROVED for home administration Good 03/27/24-03/27/25 metoprolol succinate 50 mg tablet extended release 24 hr 50 mg PO QAM Qty: 90 1RF pantoprazole 40 mg tablet,delayed release (DR/EC) 40 mg PO QAM Qty: 90 1RF diltiazem HCl 180 mg capsule,extended release 24hr 180 mg PO QAM Qty: 90 3RF fluticasone propionate [Allergy Relief (fluticasone)] 50 mcg/actuation spray,suspension 1 spray INTNAS QAM Qty: 16 4RF Rx Instructions: Administer into each nostril once daily levocetirizine 5 mg tablet 5 mg PO DAILY Qty: 90 3RF omega 9-ser-ojh-fish oil [Fish Oil] 1,000 mg (120 mg-180 mg) capsule 1 cap PO QAM ipratropium-albuterol 0.5 mg-3 mg(2.5 mg base)/3 mL solution for nebulization 3 ml NEB Q4H PRN (Reason: Shortness Of Breath Or Wheezing) Qty: 180 5RF budesonide-formoterol [Symbicort] 160-4.5 mcg/actuation HFA aerosol inhaler 2 puff inhalation BID Qty: 10.2 12RF Rx Instructions: Symbicort brand necessary for insurance Spiriva Respimat 2.5 mcg/actuation mist 2 puff inhalation QAM Qty: 4 12RF montelukast [Singulair] 10 mg tablet 10 mg PO QPM Qty: 90 4RF cholecalciferol (vitamin D3) [Vitamin D3] 50 mcg (2,000 unit) Tablet 50 mcg PO QAM ibuprofen 200 mg Tablet 600 mg PO UD PRN (Reason: Pain) guaifenesin [Mucinex] 600 mg tablet extended release 12hr 1,200 mg PO UD PRN (Reason: Cough) cefdinir 300 mg capsule 300 mg PO BID 5 Days Qty: 10 0RF Referrals Referrals: Fariha Guaman DO [Primary Care Provider] -
--- NOTE | 2024-06-12 21:39 | XRay Report ---
SINGLE VIEW CHEST CLINICAL HISTORY: Sepsis. FINDINGS: An AP, portable, upright chest radiograph is compared to study dated 06/08/2024. Correlation is made with chest CT dated 09/26/2021. The examination is degraded by portable technique and apical lordotic positioning. The heart is enlarged. The pulmonary vasculature is noncongested. The lungs and pleural spaces are clear. No pneumothorax is seen. The skeletal structures are osteopenic. The bony thorax is grossly intact. IMPRESSION: Cardiomegaly with no active disease in the chest. ACT 112: Negative or not required by law. Electronically signed by: Carlos Mina M.D. 06/12/2024 9:37 PM
[2024-06-12] MEDS ORDERED: ALBUTEROL HFA 8 GM INHALER INH PRN (22:34)
[2024-06-12] MEDS ORDERED: ALBUT/IPRATROP 3MG/0.5MG NEB 3 ML VIAL NEB PRN (22:34)
[2024-06-12] MEDS ORDERED: guaiFENesin 600 MG TABCR PO PRN (22:34)
[2024-06-13] MEDS: CEFEPIME 2000MG 2,000 MG/20 ML SYR IV SCH (01:12)
[2024-06-13] MEDS: ATORVASTATIN 20 MG TAB PO SCH (01:12)
[2024-06-13] MEDS: MONTELUKAST SODIUM 10 MG TABLET PO SCH (01:13)
[2024-06-13 05:23] LABS: Appearance Urine Clear (Clear); Bilirubin Urine Negative (Negative); Blood Urine Negative (Negative); Color Urine Yellow; Glucose Urine UA Negative (Negative); Ketones Urine Trace (Negative); Leukocyte Esterase Urine Negative (Negative); Nitrite Urine Negative (Negative); Protein Urine Negative (Negative); Specific Gravity Urine 1.025 (1.000-1.030); Urobilinogen Urine Negative (Negative)
[2024-06-13 07:29] LABS: Basophils # (auto) 0.01 K/uL (0.00-0.20); Basophils % (auto) 0.2 %; Hematocrit (blood only) 32.5 % (37.0-47.0); Hemoglobin 10.4 g/dl (12.0-16.0); Immature Granulocytes # (auto) 0.04 K/uL (0.01-0.20); Immature Granulocytes % (auto) 0.7 %; Lymphocytes # (auto) 2.05 K/uL (1.20-3.40); Lymphocytes % (auto) 37.8 %; Mean Corpuscular Hemoglobin 27.9 pg (25.0-34.0); Mean Corpuscular Volume 87.1 fL (80.0-100.0); Mean Platelet Volume 10.8 fL (9.4-12.4); Monocytes # (auto) 0.56 K/uL (0.11-0.59); Monocytes % (auto) 10.3 %; Neutrophils # (auto) 2.76 K/uL (1.40-6.50); Platelet Count 208 K/uL (130-400); RDW Coefficient of Variation 14.8 % (11.5-14.5); RDW Standard Deviation 47.4 fL (36.4-46.3); Red Blood Count 3.73 M/uL (4.20-5.40); White Blood Count 5.42 K/ul (4.8-10.8)
[2024-06-13 07:41] LABS: Albumin Globulin Ratio 1.5 (0.9-2); Albumin Level 3.5 gm/dl (3.4-5.0); BUN Creatinine Ratio 18.2 (10-20); Bilirubin,Total 0.5 mg/dl (0.2-1.0); Calcium 8.5 mg/dl (8.6-10.3); Creatinine Clr Calc Pharmacy 93.2 ml/min; Globulin 2.3 gm/dl (2.5-4.0); Potassium 3.8 mmol/L (3.5-5.1); Total Protein 5.8 gm/dl (6.0-8.3)
[2024-06-13] MEDS: FLUTICASONE PROPIONATE NA SPR 16 GM BTL SCH (08:29)
[2024-06-13] MEDS: UMECLIDINIUM BROMIDE 62.5MCG/BLISTER 7 PUFFS/INHALER INH SCH (08:30)
[2024-06-13] MEDS: FLUTICASONE/VILANTEROL 200/25MCG 14 PUFFS/INHALER INH SCH (08:30)
[2024-06-13] MEDS: dilTIAZem HCL 180 MG CAPCR PO SCH (08:31)
[2024-06-13] MEDS: CHOLECALCIFEROL 25 MCG (1000 UNITS) TAB PO SCH (08:32)
[2024-06-13] MEDS: CETIRIZINE HCL 10 MG TABLET PO SCH (08:32)
[2024-06-13] MEDS: PANTOprazole 40 MG TAB PO SCH (08:32)
[2024-06-13] MEDS: FUROSEMIDE 20 MG TAB PO SCH (08:33)
[2024-06-13] MEDS: METOPROLOL SUCC 50MG EXT REL TAB PO SCH (08:33)
[2024-06-13] MEDS: POTASSIUM CHLORIDE CRTAB 20 MEQ TABCR PO SCH (08:41)
--- NOTE | 2024-06-13 08:54 | Hospitalist Progress Note ---
Date of Service June 13, 2024 Assessment & Plan (1) Positive blood cultures: Plan: Question contamination versus true positivity - Blood cultures taken from ED 06/08 due to UTI - preliminary resulted 06/12 as gram + and gram - bacilli; patient returned for admission - Urine culture showed E coli resistant to Ampicillin - on Omnicef since 06/08 -> continue IV cefepime during hospital stay - asymptomatic, afebrile, hemodynamically stable, no leukocytosis - repeat cultures pending - If repeat blood cultures are positive, echocardiogram should be considered. (2) UTI (urinary tract infection): Plan: Urinary tract infection with E. coli. resistant to Ampicillin diagnosed 06/08 in ED - UA 06/08 positive for Nitrites, 4+ bacteria seen; repeat 06/13 WNL - CT abd pelvis showed no fistula, non obstructing right nephrolithiasis, bilateral renal cysts, cholelithiasis without cholecystis, and hepatic steatosis - Continue IV cefepime at the recommendation of clinical pharmacist - see blood culture workup above (3) Asthma: Plan: History of asthma and MARY follows with Pulmonology out pt - non-hypoxic - Continue albuterol, Spiriva and Symbicort (4) HTN (hypertension): Plan: Stable with cardiomegaly - Echo noted 11/22/21- left ventricular systolic function is normal, grade 1 diastolic dysfunction, borderline left atrial enlargement, no significant change from 03/2021 - Continue taking Diltiazem, Metoprolol, Lasix, and Potassium - K+ WNL (5) Hypogammaglobulinemia: Plan: History of Hypogammaglobulinemia / Eosinophil count elevated - Follows with [facility] Allergy - Taking Fasenra every 8 weeks - CBC WNL, continue to monitor (6) Symptomatic PVCs: Plan: History of symptomatic PACs, PVCs and PAT - Continue taking Metoprolol and Diltiazem - monitored on telemetry and stable Plan Chronic stable diagnoses: MARY - continue CPAP GERD - continue pantoprazole HLD - continue statin Patience thyroiditis - follows with ENT, stable VTE ppx: Diet: heart healthy Code status: Full Dispo: Transfer off tele Admission and Anticipated Discharge Date Admission Date: June 12, 2024 Supervising Physician Co-Signing Physician Notes PA Supervision Note: I personally saw and examined the patient. I verified all last points and agree with ADRIENNE Yo with the following exceptions and/or additions: S-patient feels well. Denies fevers or chills, no abdominal pains. Is eating and drinking, moving her bowels, no complaints O- Vitals reviewed Gen: AAOx3, morbidly obese, NAD HEENT: Anicteric sclerae CV: RRR no mgr nl S1S2 Pulm: CTAB no wcr Abd: +BS soft NT ND no masses or hernias, obese Ext: No edema Skin: No rashes, warm/dry Neuro: Full strength throughout CBC, BMP, urine culture, blood cultures reviewed A/T-[id number]-aggc-old female here with UTI and bacteremia. Clinically improved since starting antibiotics as an outpatient but now readmitted for positive blood cultures The gram-negative bacilli could be the E. coli from the urine. CT abdomen/pelvis ordered which does not show any evidence of pyelonephritis or obstructive uropathy. She does have intrarenal kidney stones which are not causing a problem. With cholelithiasis but no evidence of cholecystitis No evidence of diverticulitis. Continue to follow blood cultures from 06/08 for final ID, and follow blood cultures from admission 06/12 to make sure sterile Continue cefepime and narrow antibiotics as able to Stable for downgrade off of telemetry Subjective Patient seen at bedside and doing well, no acute events overnight. She denies dysuria, fever, chills. She has has bilateral diffuse back pain when she is walking for the past few days. It is relieved with rest. Review of Systems Review of Systems: See HPI Physical Exam Physical Exam: The patient is awake, alert and oriented 3, well developed and well nourished, normocephalic and atraumatic, in no acute distress. Non-toxic appearing. HEENT- EOMI, mucous membranes moist. Hearing grossly intact. Heart-normal S1 and S2. No murmurs, rubs or gallops. Lungs-clear bilaterally, no respiratory distress, no accessory muscle use. Abdomen-normal bowel sounds and soft. No ascites noted. Non-tender. No CVA tenderness. Extremities- no clubbing, cyanosis, or edema. Rheumatologic-normal range of motion. Psychiatric-normal affect. Results & Data Results & Data Vital Signs (Past 12 Hours) Vital Signs Temp Pulse Pulse Resp BP Pulse Ox O2 Del Method 06/13/24 08:34 36.9 C 78 20 138/90 96 Room Air 06/13/24 06:00 60 16 134/90 98 Room Air 06/13/24 01:00 65 20 132/87 94 Room Air 06/13/24 00:30 69 17 132/87 95 Room Air 06/12/24 22:50 Room Air 06/12/24 22:48 69 17 110/68 95 Room Air 06/12/24 22:06 64 06/12/24 21:59 71 17 131/78 95 Room Air Laboratory Results reviewed CBC, BMP, UA PG Care Time/CCT Total # of Minutes Spent Total Time Spent with Patient: Total time spent is greater than 50% in coordination of care (as documented) at patient's floor/unit and/or counseling patient: Coding Level of Care Code None Diagnoses Positive blood cultures R78.81 UTI (urinary tract infection) N30.00 Hematuria presence: without hematuria Urinary tract infection type: acute cystitis Asthma J45.909 HTN (hypertension) I10 Hypogammaglobulinemia D80.1 Symptomatic PVCs I49.3 (2) UTI (urinary tract infection) Hematuria presence: without hematuria Urinary tract infection type: acute cystitis Qualified Code(s): N30.00 - Acute cystitis without hematuria
[2024-06-13] MEDS: OPTIRAY 320 100ml IV ONE (10:51)
--- NOTE | 2024-06-13 11:46 | CT Scan Report ---
CT abdomen pelvis wo/w con HISTORY: 64 years-old Female recurrent UTI, + cologuard acute urinary tract infection COMPARISON: None TECHNIQUE: CT abdomen and pelvis with and without IV contrast. A dose lowering technique was used con sistent with the principals bing DUNN. FINDINGS: Mild right basilar atelectasis versus scarring. No free air. The spleen measures 13.7 cm. 3 mm calcif ication of the pancreatic neck. Unremarkable adrenal glands. Cholelithiasis without CT evidence of ac mirtha cholecystitis. Hepatic sedatives. No hepatic mass or evidence of cirrhosis. Patency of the hepati c and portal veins. Mild nonspecific bilateral perinephric stranding. 3 mm nonobstructing calculus in the superior pole w ith punctate calculus in the inferior pole. No ureteral calculi or hydronephrosis. There are a few cy sts noted bilaterally measuring up to 1.6 cm inferior pole and 1.4 cm in the superior pole. No enhanc ing renal mass lesions. No bowel obstruction or bowel wall thickening. Moderate colonic fecal retention. The appendix is not clearly seen. No secondary signs of acute appendicitis. No acute fracture. IMPRESSION: 1. Nonobstructing right nephrolithiasis. No ureteral calculi or hydronephrosis. 2. Bilateral renal cysts. 3. No enhancing renal mass lesions identified. 4. Cholelithiasis. 5. Hepatic steatosis. ACT 112: Negative or not required by law. The above report was generated using voice recognition software. It may contain grammatical, syntax o r spelling errors. Electronically signed by: Cali Alanis M.D. 06/13/2024 11:44 AM
--- NOTE | 2024-06-13 14:22 | Electrocardiogram Report ---
Test Reason : Blood Pressure : */* mmHG Vent. Rate : 79 BPM Atrial Rate : 79 BPM P-R Int : 164 ms QRS Dur : 142 ms QT Int : 398 ms P-R-T Axes : 48 -26 100 degrees QTcB Int : 456 ms Sinus rhythm with occasional Premature ventricular complexes Left bundle branch block Abnormal ECG When compared with ECG of 08-Jun-2024 22:11, Premature ventricular complexes are now Present Confirmed by Trevor Pat ([id number]) on 06/13/2024 2:22:05 PM Referred By: Marin Robin Confirmed By: Trevor Pat
--- NOTE | 2024-06-13 20:11 | Billing Data ---
Date of Service June 13, 2024 Coding Level of Care Code 01506 SUB INP/OBS CARE MIN
[2024-06-14 07:11] LABS: Hematocrit (blood only) 34.2 % (37.0-47.0); Hemoglobin 11.3 g/dl (12.0-16.0); Mean Corpuscular Hemoglobin 28.6 pg (25.0-34.0); Mean Corpuscular Volume 86.6 fL (80.0-100.0); Mean Platelet Volume 10.3 fL (9.4-12.4); Platelet Count 219 K/uL (130-400); RDW Coefficient of Variation 14.5 % (11.5-14.5); RDW Standard Deviation 45.3 fL (36.4-46.3); Red Blood Count 3.95 M/uL (4.20-5.40); White Blood Count 6.38 K/ul (4.8-10.8)
[2024-06-14 07:43] LABS: Calcium 8.8 mg/dl (8.6-10.3); Creatinine Clr Calc Pharmacy 85.4 ml/min; Potassium 3.9 mmol/L (3.5-5.1)
--- NOTE | 2024-06-14 10:29 | Hospitalist Progress Note ---
Date of Service June 14, 2024 Assessment & Plan (1) Positive blood cultures: Plan: Question contamination versus true positivity as 2nd blood culture from 06/08 showed no growth - Blood cultures taken from ED 06/08 due to UTI - preliminary anaerobic resulted 06/12 as gram + and gram - bacilli; patient returned for admission - Urine culture showed E coli resistant to Ampicillin - on Omnicef since 06/08 -> continue IV cefepime during hospital stay - asymptomatic, afebrile, hemodynamically stable, no leukocytosis - no need to continue daily CBC at this time as has been WNL and patient asymptomatic - repeat cultures showing no growth after 24 hours; final result pending - awaiting final result of 06/08 blood culture (2) UTI (urinary tract infection): Plan: Urinary tract infection with E. coli. resistant to Ampicillin diagnosed 06/08 in ED - UA 06/08 positive for Nitrites, 4+ bacteria seen; repeat 06/13 WNL - CT abd pelvis showed non obstructing right nephrolithiasis, bilateral renal cysts, cholelithiasis without cholecystis, and hepatic steatosis - concern for fistula given positive Cologuard history and declined colonosco py; no fistula seen - Continue IV cefepime at the recommendation of clinical pharmacist - see blood culture workup above - continue with daily Cr to assess kidney function with ongoing infection (3) Asthma: Plan: History of asthma and MARY follows with Pulmonology out pt - non-hypoxic - Continue albuterol, Spiriva and Symbicort (4) HTN (hypertension): Plan: Stable with cardiomegaly - Echo noted 11/22/21- left ventricular systolic function is normal, grade 1 diastolic dysfunction, borderline left atrial enlargement, no significant change from 03/2021 - Continue taking Diltiazem, Metoprolol, Lasix, and Potassium - K+ WNL (5) Hypogammaglobulinemia: Plan: History of Hypogammaglobulinemia / Eosinophil count elevated - Follows with [facility] Allergy - Taking Fasenra every 8 weeks - CBC WNL (6) Symptomatic PVCs: Plan: History of symptomatic PACs, PVCs and PAT - Continue taking Metoprolol and Diltiazem - monitored on telemetry and stable; transferred off telemetry 06/13 Plan Chronic stable diagnoses: MARY - continue CPAP GERD - continue pantoprazole HLD - continue statin Patience thyroiditis - follows with ENT, stable VTE ppx: SCDs Diet: heart healthy Code status: Full Dispo: Med surg; awaiting final blood culture results Admission and Anticipated Discharge Date Admission Date: June 12, 2024 Supervising Physician Co-Signing Physician Notes Patient seen and examined, chart reviewed, case discussed with Marisol Yo PA-C and I agree with the assessment and plan as above except as otherwise noted Labs and images reviewed Seen at bedside, no fevers chills or sweats. She reports she feels well and at her normal baseline health. No questions or concerns. Agree w/ above Subjective Patient seen at bedside and doing well, no acute events overnight. She denies dysuria, fever, chills. Review of Systems Review of Systems: See HPI Physical Exam Physical Exam: The patient is awake, alert and oriented 3, well developed and well nourished, normocephalic and atraumatic, in no acute distress. Non-toxic appearing. HEENT- EOMI, mucous membranes moist. Hearing grossly intact. Heart-normal S1 and S2. No murmurs, rubs or gallops. Lungs-clear bilaterally, no respiratory distress, no accessory muscle use. Abdomen-normal bowel sounds and soft. No ascites noted. Non-tender. Extremities- no clubbing, cyanosis, or edema. Rheumatologic-normal range of motion. Psychiatric-normal affect. Results & Data Results & Data Vital Signs (Past 12 Hours) Vital Signs Temp Pulse Pulse Resp BP Pulse Ox O2 Del Method 06/14/24 08:30 Room Air 06/14/24 07:36 36.3 C L 62 18 119/73 94 Room Air 06/13/24 22:43 66 15 95 06/13/24 22:30 36.3 C L 74 18 144/86 H 97 Room Air Laboratory Results Reviewed CBC and BMP PG Care Time/CCT Total # of Minutes Spent Total Time Spent with Patient: Total time spent is greater than 50% in coordination of care (as documented) at patient's floor/unit and/or counseling patient: Coding Level of Care Code None Diagnoses Positive blood cultures R78.81 UTI (urinary tract infection) N30.00 Hematuria presence: without hematuria Urinary tract infection type: acute cystitis Asthma J45.909 HTN (hypertension) I10 Hypogammaglobulinemia D80.1 Symptomatic PVCs I49.3 (2) UTI (urinary tract infection) Hematuria presence: without hematuria Urinary tract infection type: acute cystitis Qualified Code(s): N30.00 - Acute cystitis without hematuria
--- NOTE | 2024-06-14 18:20 | Billing Data ---
Date of Service June 14, 2024 Coding Level of Care Code 96646 SUB INP/OBS CARE
[2024-06-15 06:13] LABS: Creatinine Clr Calc Pharmacy 88.6 ml/min
--- NOTE | 2024-06-15 11:00 | Hospitalist Progress Note ---
Date of Service June 15, 2024 Assessment & Plan (1) Positive blood cultures: Plan: Question contamination versus true positivity as 2nd blood culture from 06/08 showed no growth - Blood cultures taken from ED 06/08 due to UTI - preliminary anaerobic resulted 06/12 as gram + and gram - bacilli; patient returned for admission - Urine culture showed E coli resistant to Ampicillin - on Omnicef since 06/08 -> continue IV cefepime during hospital stay - asymptomatic, afebrile, hemodynamically stable, no leukocytosis - no need to continue daily CBC at this time as has been WNL and patient asymptomatic - repeat cultures showing no growth after 24 hours; final result pending - awaiting final result of 06/08 blood culture - spoke with Micro lab 06/15, stated that the culture seems to be a 'slow grower', they are working hard to separate the two organisms, could not give timeline for expected results (2) UTI (urinary tract infection): Plan: Urinary tract infection with E. coli. resistant to Ampicillin diagnosed 06/08 in ED - UA 06/08 positive for Nitrites, 4+ bacteria seen; repeat 06/13 WNL - CT abd pelvis showed non obstructing right nephrolithiasis, bilateral renal cysts, cholelithiasis without cholecystis, and hepatic steatosis - concern for fistula given positive Cologuard history and declined colonoscopy; no fistula seen - Continue IV cefepime at the recommendation of clinical pharmacist - see blood culture workup above - kidney function stable (3) Asthma: Plan: History of asthma and MARY follows with Pulmonology out pt - non-hypoxic - Continue albuterol, Spiriva and Symbicort (4) HTN (hypertension): Plan: Stable with cardiomegaly - Echo noted 11/22/21- left ventricular systolic function is normal, grade 1 diastolic dysfunction, borderline left atrial enlargement, no significant change from 03/2021 - Continue taking Diltiazem, Metoprolol, Lasix, and Potassium - K+ WNL (5) Hypogammaglobulinemia: Plan: History of Hypogammaglobulinemia / Eosinophil count elevated - Follows with [facility] Allergy - Taking Fasenra every 8 weeks - recent CBC WNL (6) Symptomatic PVCs: Plan: History of symptomatic PACs, PVCs and PAT - Continue taking Metoprolol and Diltiazem - monitored on telemetry and stable; transferred off telemetry 06/13 Plan Chronic stable diagnoses: MARY - continue CPAP GERD - continue pantoprazole HLD - continue statin Patience thyroiditis - follows with ENT, stable VTE ppx: SCDs Diet: heart healthy Code status: Full Dispo: Med surg; awaiting final blood culture results Admission and Anticipated Discharge Date Admission Date: June 12, 2024 Subjective Patient seen at bedside and doing well, no acute events overnight. She denies dysuria, fever, chills. Review of Systems Review of Systems: See HPI Physical Exam Physical Exam: The patient is awake, alert and oriented 3, well developed and well nourished, normocephalic and atraumatic, in no acute distress. Non-toxic appearing. HEENT- EOMI, mucous membranes moist. Hearing grossly intact. Heart-normal S1 and S2. No murmurs, rubs or gallops. Lungs-clear bilaterally, no respiratory distress, no accessory muscle use. Abdomen-normal bowel sounds and soft. No ascites noted. Non-tender. Extremities- no clubbing, cyanosis, or edema. Rheumatologic-normal range of motion. Psychiatric-normal affect. Results & Data Results & Data Vital Signs (Past 12 Hours) Vital Signs Temp Pulse Resp BP Pulse Ox O2 Del Method 06/15/24 07:57 36.4 C L 71 18 130/84 95 Room Air 06/15/24 07:20 Room Air Laboratory Results Reviewed Cr and GFR PG Care Time/CCT Total # of Minutes Spent Total Time Spent with Patient: Total time spent is greater than 50% in coordination of care (as documented) at patient's floor/unit and/or counseling patient: Coding Level of Care Code None Diagnoses Positive blood cultures R78.81 UTI (urinary tract infection) N30.00 Hematuria presence: without hematuria Urinary tract infection type: acute cystitis Asthma J45.909 HTN (hypertension) I10 Hypogammaglobulinemia D80.1 Symptomatic PVCs I49.3 (2) UTI (urinary tract infection) Hematuria presence: without hematuria Urinary tract infection type: acute cystitis Qualified Code(s): N30.00 - Acute cystitis without hematuria
--- NOTE | 2024-06-16 13:58 | Hospitalist Progress Note ---
Date of Service June 16, 2024 Assessment & Plan (1) Positive blood cultures: Plan: Question contamination versus true positivity as 2nd blood culture from 06/08 showed no growth - Blood cultures taken from ED 06/08 due to UTI - preliminary anaerobic resulted 06/12 as gram + and gram - bacilli; patient returned for admission - Urine culture showed E coli resistant to Ampicillin - on Omnicef since 06/08 -> continue IV cefepime during hospital stay - asymptomatic, afebrile, hemodynamically stable, no leukocytosis - no need to continue daily CBC at this time as has been WNL and patient asymptomatic - repeat cultures showing no growth after 24 hours; final result pending - awaiting final result of 06/08 blood culture - spoke with Micro lab 06/15, stated that the culture seems to be a 'slow grower', they are working hard to separate the two organisms, could not give timeline for expected results (2) UTI (urinary tract infection): Plan: Urinary tract infection with E. coli. resistant to Ampicillin diagnosed 06/08 in ED - UA 06/08 positive for Nitrites, 4+ bacteria seen; repeat 06/13 WNL - CT abd pelvis showed non obstructing right nephrolithiasis, bilateral renal cysts, cholelithiasis without cholecystis, and hepatic steatosis - concern for fistula given positive Cologuard history and declined colonoscopy; no fistula seen - Continue IV cefepime at the recommendation of clinical pharmacist - see blood culture workup above - kidney function stable (3) Asthma: Plan: History of asthma and MARY follows with Pulmonology out pt - non-hypoxic - Continue albuterol, Spiriva and Symbicort (4) HTN (hypertension): Plan: Stable with cardiomegaly - Echo noted 11/22/21- left ventricular systolic function is normal, grade 1 diastolic dysfunction, borderline left atrial enlargement, no significant change from 03/2021 - Continue taking Diltiazem, Metoprolol, Lasix, and Potassium - K+ WNL (5) Hypogammaglobulinemia: Plan: History of Hypogammaglobulinemia / Eosinophil count elevated - Follows with [facility] Allergy - Taking Fasenra every 8 weeks - recent CBC WNL (6) Symptomatic PVCs: Plan: History of symptomatic PACs, PVCs and PAT - Continue taking Metoprolol and Diltiazem - monitored on telemetry and stable; transferred off telemetry 06/13 Plan Chronic stable diagnoses: MARY - continue CPAP GERD - continue pantoprazole HLD - continue statin Patience thyroiditis - follows with ENT, stable VTE ppx: SCDs Code status: Full Dispo: awaiting final blood culture results Admission and Anticipated Discharge Date Admission Date: June 12, 2024 Supervising Physician Co-Signing Physician Notes Attending Attestation - Chart reviewed, care plan d/w ADRIENNE Guadarrama. I agree w/ the last components of her documentation. Santosh Ricks MD Subjective Patient seen and evaluated at bedside. She reports feeling well, notes that she is at her baseline health. She denies any fever or chills, dysuria, increased urinary frequency or urgency, suprapubic pain. Denies chest pain, shortness of breath, abdominal pain, headache. We discussed that we are continuing to wait for the final blood culture results that were drawn on 06/08. No additional questions or concerns at this time. Physical Exam Physical Exam: General: No acute distress, nondiaphoretic, well-developed, well-nourished. Skin: The skin was without rashes, erythema, edema, or bruising. Cardiac: Regular rate and rhythm without murmurs gallops or rubs. Pulm: Clear to auscultation bilaterally without wheezes, rales or rhonchi. No respiratory distress. 97% on room air. Abdominal: Soft, nontender, nondistended. Bowel sounds present. No suprapubic pain/discomfort to palpation. Neuro: A&O x3. No focal neurological deficits. Results & Data Results & Data Vital Signs (Past 12 Hours) Vital Signs Temp Pulse Pulse Resp BP Pulse Ox O2 Del Method 06/16/24 07:50 97.5 F L 63 16 130/75 97 Room Air 06/16/24 07:34 Room Air 06/16/24 03:57 71 16 94 Laboratory Results Reviewed blood cultures PG Care Time/CCT Total # of Minutes Spent Total Time Spent with Patient: Total time spent is greater than 50% in coordination of care (as documented) at patient's floor/unit and/or counseling patient: Coding Level of Care Code 03208 SUB INP/OBS CARE 2/35MIN Diagnoses Positive blood cultures R78.81 UTI (urinary tract infection) N30.00 Hematuria presence: without hematuria Urinary tract infection type: acute cystitis Asthma J45.909 HTN (hypertension) I10 Hypogammaglobulinemia D80.1 Symptomatic PVCs I49.3 (2) UTI (urinary tract infection) Hematuria presence: without hematuria Urinary tract infection type: acute cystitis Qualified Code(s): N30.00 - Acute cystitis without hematuria
[2024-06-16 22:07] VITALS: TEMP 97.5
[2024-06-17 07:19] VITALS: BP 112/67; PULSE 68; RESP 16; O2SAT 93
--- NOTE | 2024-06-17 12:11 | Hospitalist Progress Note ---
Date of Service June 17, 2024 Assessment & Plan (1) Positive blood cultures: Plan: Question contamination versus true positivity as 2nd blood culture from 06/08 showed no growth - Blood cultures taken from ED 06/08 due to UTI - preliminary anaerobic resulted 06/12 as gram + and gram - bacilli; patient returned for admission - Urine culture showed E coli resistant to Ampicillin - on Omnicef since 06/08 -> continue IV cefepime during hospital stay - asymptomatic, afebrile, hemodynamically stable, no leukocytosis - no need to continue daily CBC at this time as has been WNL and patient asymptomatic - repeat cultures showing no growth after 48 hours; final result pending - awaiting final result of 06/08 blood culture - spoke with Micro lab 06/15, stated that the culture seems to be a 'slow grower', they are working hard to separate the two organisms, could not give timeline for expected results - Discussed with [facility] again 06/17, who stated possible anaerobe they are trying to get to grow -- hopeful for final results 06/18 (2) UTI (urinary tract infection): Plan: Urinary tract infection with E. coli. resistant to Ampicillin diagnosed 06/08 in ED - UA 06/08 positive for Nitrites, 4+ bacteria seen; repeat 06/13 WNL - CT abd pelvis showed non obstructing right nephrolithiasis, bilateral renal cysts, cholelithiasis without cholecystis, and hepatic steatosis - concern for fistula given positive Cologuard history and declined colonoscopy; no fistula seen - Continue IV cefepime at the recommendation of clinical pharmacist - see blood culture workup above - kidney function stable (3) Asthma: Plan: History of asthma and MARY follows with Pulmonology out pt - non-hypoxic - Continue albuterol, Spiriva and Symbicort (4) HTN (hypertension): Plan: Stable with cardiomegaly - Echo noted 11/22/21- left ventricular systolic function is normal, grade 1 diastolic dysfunction, borderline left atrial enlargement, no significant change from 03/2021 - Continue taking Diltiazem, Metoprolol, Lasix, and Potassium - K+ WNL (5) Hypogammaglobulinemia: Plan: History of Hypogammaglobulinemia / Eosinophil count elevated - Follows with [facility] Allergy - Taking Fasenra every 8 weeks - recent CBC WNL (6) Symptomatic PVCs: Plan: History of symptomatic PACs, PVCs and PAT - Continue taking Metoprolol and Diltiazem - monitored on telemetry and stable; transferred off telemetry 06/13 Plan Chronic stable diagnoses: MARY - continue CPAP GERD - continue pantoprazole HLD - continue statin Patience thyroiditis - follows with ENT, stable VTE ppx: SCDs Code status: Full Dispo: awaiting final blood culture results Admission and Anticipated Discharge Date Admission Date: June 12, 2024 Subjective Patient seen and evaluated at bedside. She continues to report that she is at her baseline health and offers no acute complaints or concerns. We are continuing to wait for the final blood culture results from 06/08. Inform patient that I spoke with micro lab this morning, and unfortunately we are still waiting on those final results. Hopeful for discharge home tomorrow, 06/18. Physical Exam Physical Exam: General: No acute distress, nondiaphoretic, well-developed, well-nourished. Skin: The skin was without rashes, erythema, edema, or bruising. Cardiac: Regular rate and rhythm without murmurs gallops or rubs. Pulm: Clear to auscultation bilaterally without wheezes, rales or rhonchi. No respiratory distress. 96% on room air. Abdominal: Soft, nontender, nondistended. Bowel sounds present. No suprapubic pain/discomfort to palpation. Neuro: A&O x3. No focal neurological deficits. Results & Data Results & Data Vital Signs (Past 12 Hours) Vital Signs Temp Pulse Resp BP Pulse Ox O2 Del Method 06/17/24 07:18 97.5 F L 68 16 112/67 93 Room Air PG Care Time/CCT Total # of Minutes Spent Total Time Spent with Patient: Total time spent is greater than 50% in coordination of care (as documented) at patient's floor/unit and/or counseling patient: Coding Diagnoses Positive blood cultures R78.81 UTI (urinary tract infection) N30.00 Hematuria presence: without hematuria Urinary tract infection type: acute cystitis Asthma J45.909 HTN (hypertension) I10 Hypogammaglobulinemia D80.1 Symptomatic PVCs I49.3 (2) UTI (urinary tract infection) Hematuria presence: without hematuria Urinary tract infection type: acute cystitis Qualified Code(s): N30.00 - Acute cystitis without hematuria
--- NOTE | 2024-06-17 16:33 | Discharge Summary ---
<Statement entered by Isi Pascal MD - 06/17/24 17:19> I have reviewed vital signs, chart notes, labs and imaging As well as microbiology results. I have also discussed the management of the patient with the PARAS and I agree with the exam findings documented in the history and physical examination and the documented assessment and plan unless otherwise stated below. original admission for an episode of chills but no evidence of sepsis based on lack of fever leukocytosis tachycardia etc. Was treated for possible UTI however UA was only minimally abnormal and she did not have any symptoms of a urinary tract infection based on the H&P. Blood cultures were drawn at that time for unclear reason. Called back in because anaerobic bottle had growth of unidentified organisms. Cultures have finally resulted and she had 3 organisms and only the anaerobic bottle consisting of 2 distinct Prevotella species and a Joyce species which is also a mouth organism. Another set of cultures drawn half hour later were completely negative and repeat cultures on 06/12 are preliminarily negative and close to finalization. She continues to be completely asymptomatic. The overall picture is highly suggestive of a contaminated blood culture, further antibiotics are not necessary she is safe to discharge home and we will follow-up the remaining cultures to finalization. Discharge Summary Date of Service June 17, 2024 Principal Dx & Hospital Course #1 = Principal Diagnosis (1) Positive blood cultures: Question contamination versus true positivity as 2nd blood culture from 06/08 showed no growth - Blood cultures taken from ED 06/08 due to UTI - preliminary anaerobic resulted 06/12 as gram + and gram - bacilli; patient returned for admission - Urine culture showed E coli resistant to Ampicillin - on Omnicef since 06/08 -> IV cefepime during hospital stay - asymptomatic, afebrile, hemodynamically stable, no leukocytosis - repeat cultures showing no growth after 48 hours - second blood culture from 06/08 was negative - Final result of 06/08 blood culture revealed Gemella morbillorum, Prevotella species, Prevotella oralis group > Contaminated culture - no further antibiotics needed (2) UTI (urinary tract infection): Urinary tract infection with E. coli. resistant to Ampicillin diagnosed 06/08 in ED - UA / positive for Nitrites, 4+ bacteria seen; repeat 06/13 WNL - CT abd pelvis showed non obstructing right nephrolithiasis, bilateral renal cysts, cholelithiasis without cholecystis, and hepatic steatosis - concern for fistula given positive Cologuard history and declined colonoscopy; no fistula seen - see blood culture workup above - kidney function stable (3) Asthma: History of asthma and MARY follows with Pulmonology out pt - non-hypoxic - Continue albuterol, Spiriva and Symbicort (4) HTN (hypertension): Stable with cardiomegaly - Echo noted 11/22/21- left ventricular systolic function is normal, grade 1 diastolic dysfunction, borderline left atrial enlargement, no significant change from 03/2021 - Continue taking Diltiazem, Metoprolol, Lasix, and Potassium - K+ WNL (5) Hypogammaglobulinemia: History of Hypogammaglobulinemia / Eosinophil count elevated - Follows with [facility] Allergy - Taking Fasenra every 8 weeks - recent CBC WNL (6) Symptomatic PVCs: History of symptomatic PACs, PVCs and PAT - Continue taking Metoprolol and Diltiazem - monitored on telemetry and stable; transferred off telemetry 06/13 Plan Chronic stable diagnoses: MARY - continue CPAP GERD - continue pantoprazole HLD - continue statin Patience thyroiditis - follows with ENT, stable VTE ppx: SCDs Code status: Full Notes For Next Care Provider Patient return to the hospital per ED's request given positive blood culture from 06/08. Finalized blood culture from 06/08 revealed Gemella morbillorum, Prevotella species, Prevotella oralis group -- contaminated culture. No further antibiotics needed. Admission HPI Per Admitting Provider This is a 64-year-old female who was in the ER a few nights ago with chills and rigors but no fever. She was diagnosed with a UTI. She was given IV cefepime and sent home on Omnicef twice daily. She been taking her medications as prescribed. During that ER visit blood cultures were obtained and turned positive today for both gram-negative and gram-positive bacilli. She was contacted by the emergency department return to the ER for admission and repeat blood cultures. The patient returns her vital signs are stable. Blood cultures x 2 have been obtained. Consultation was obtained by the ER doctor to the ER pharmacist who is recommending IV cefepime. Subjective the patient states he feels much improved since has been on her antibiotics he said no further symptoms and is actually feeling better. Discharge Exam General: No acute distress, nondiaphoretic, well-developed, well-nourished. Skin: The skin was without rashes, erythema, edema, or bruising. Cardiac: Regular rate and rhythm without murmurs gallops or rubs. Pulm: Clear to auscultation bilaterally without wheezes, rales or rhonchi. No respiratory distress. 96% on room air. Abdominal: Soft, nontender, nondistended. Bowel sounds present. No suprapubic pain/discomfort to palpation. Neuro: A&O x3. No focal neurological deficits. Discharge Plan Discharge Items Patient Disposition: Home - Self-Care Reason For Visit: + Discharge Diagnosis: Positive blood culture due to contaminant Activity: Resume your previous activity Non-emergency contact: Primary Care Provider Call non-emergency contact if: you have any medication questions Follow-up/Referrals: Fariha Guaman DO [Primary Care Provider] - 06/24/24 8:20 am (Maged Saez) Diet: Heart Healthy Addtl Attending Provider Instructions: Jennifer, You were admitted to the hospital due to positive blood cultures from 06/08. These took awhile to finalize, but they have finished resulting now. The positive culture was likely due to a contaminant and NOT a true active infection in your bloodstream. Your repeat blood cultures have been negative. No need for further antibiotics. There have been no changes to your home medications. Please follow-up with your PCP as needed. It was a pleasure taking care of you while you were in the hospital, Isi Guadarrama PA-C Pending Studies at Discharge: No Stand-Alone Forms: My [facility], Smoking Cessation Medications and DC Order Prescriptions: Continued potassium chloride 20 mEq tablet,ER particles/crystals 20 meq PO DAILY 21 Days Qty: 21 0RF (DME) nebulizers Misc See Rx Instructions .Route Qty: 1 0RF Rx Instructions: replacement nebulizer / old neb broken beyond repair atorvastatin 20 mg tablet 20 mg PO QPM Qty: 90 2RF albuterol sulfate 90 mcg/actuation HFA aerosol inhaler See Rx Instructions .ROUTE .COMPLEX Qty: 8.5 11RF Dose Instruction: INHALE 2 PUFFS BY MOUTH EVERY 6 HOURS NEEDED FOR SHORTNESS OF BREATH OR WHEEZING Rx Instructions: INHALE 2 PUFFS BY MOUTH EVERY 6 HOURS NEEDED FOR SHORTNESS OF BREATH OR WHEEZING furosemide 20 mg tablet 20 mg PO QAM Qty: 90 1RF Fasenra Pen 30 mg/mL auto-injector 30 mg subcut .COMPLEX Qty: 1 6RF Rx Instructions: Inject 30 mg subcutaneously every 8 weeks APPROVED for home administration Good 03/27/24-03/27/25 metoprolol succinate 50 mg tablet extended release 24 hr 50 mg PO QAM Qty: 90 1RF pantoprazole 40 mg tablet,delayed release (DR/EC) 40 mg PO QAM Qty: 90 1RF diltiazem HCl 180 mg capsule,extended release 24hr 180 mg PO QAM Qty: 90 3RF fluticasone propionate [Allergy Relief (fluticasone)] 50 mcg/actuation spray,suspension 1 spray INTNAS QAM Qty: 16 4RF Rx Instructions: Administer into each nostril once daily levocetirizine 5 mg tablet 5 mg PO DAILY Qty: 90 3RF omega 9-ieh-wac-fish oil [Fish Oil] 1,000 mg (120 mg-180 mg) capsule 1 cap PO QAM ipratropium-albuterol 0.5 mg-3 mg(2.5 mg base)/3 mL solution for nebulization 3 ml NEB Q4H PRN (Reason: Shortness Of Breath Or Wheezing) Qty: 180 5RF budesonide-formoterol [Symbicort] 160-4.5 mcg/actuation HFA aerosol inhaler 2 puff inhalation BID Qty: 10.2 12RF Rx Instructions: Symbicort brand necessary for insurance Spiriva Respimat 2.5 mcg/actuation mist 2 puff inhalation QAM Qty: 4 12RF montelukast [Singulair] 10 mg tablet 10 mg PO QPM Qty: 90 4RF cholecalciferol (vitamin D3) [Vitamin D3] 50 mcg (2,000 unit) Tablet 50 mcg PO QAM ibuprofen 200 mg Tablet 600 mg PO UD PRN (Reason: Pain) guaifenesin [Mucinex] 600 mg tablet extended release 12hr 1,200 mg PO UD PRN (Reason: Cough) Discontinued cefdinir 300 mg capsule 300 mg PO BID 5 Days Qty: 10 0RF Discharge Orders: Discharge Order (Routine); Ordered 06/17/24 Ordered By: Isi Smith/Other Patient Handouts: UTIs Admission Data Admit Date/Time: 06/12/24 18:55 Attending Provider: Isi Pascal Admit Provider: Marin Robin Primary Care Provider: Fariha Guaman Other Providers: Marin Robin Other Interventions: Discharge Summary Assessment (RN) Last Done: 06/17/24 15:09 Hospital Stay Data Consultations 06/12/24 17:31 ED Decision to Admit Stat Diagnostic Imagining Performed 06/13/24 10:20 CT Abd and Pelvis [CT abdomen pelvis wo/w con] Routine Pending Results Patient Have Any Pending Studies at Discharge: No Discharge Instructions Given to Patient (Per Discharging Provider) Александр Rodriguez were admitted to the hospital due to positive blood cultures from 06/08. These took awhile to finalize, but they have finished resulting now. The positive culture was likely due to a contaminant and NOT a true active infection in your bloodstream. Your repeat blood cultures have been negative. No need for further antibiotics. There have been no changes to your home medications. Please follow-up with your PCP as needed. It was a pleasure taking care of you while you were in the hospital, Isi Guadarrama PA-C Total Time Total Time Spent Total Time Spent (In Minutes): Greater than 30 minutes spent completing this discharge process including direct patient care, medication reconciliation, documentation, review of labs and images, and coordination of care. Coding Level of Care Code 21237 INP/OBS DISCH >30 MIN Diagnoses Positive blood cultures R78.81 UTI (urinary tract infection) N30.00 Hematuria presence: without hematuria Urinary tract infection type: acute cystitis Asthma J45.909 HTN (hypertension) I10 Hypogammaglobulinemia D80.1 Symptomatic PVCs I49.3
== END 2024-06-17 15:57 | disposition home or self-care (01) | DRG 690 ==
LOC: ED 17:19 → SUATTDRO 18:55 → EDINP 18:55 → 2S 06-13 11:40 → 3W 06-13 22:24